=== PATIENT | female | born 1965 | race Caucasian/White ===

== ENCOUNTER → 2020-07-12 09:54 | Outpatient (BNV) | payer OTHER, SELFPAY | PROVIDERS: PCP Internal Medicine; Visit Provider Internal Medicine Medical Oncology | DX: Z85.71 Personal history of Hodgkin lymphoma (principal); R06.02 Shortness of breath; Z77.22 Contact with and (suspected) exposure to environmental tobacco smoke (acute) (chronic) | CPT/HCPCS: 99212; 99213 ==

== ENCOUNTER → 2020-07-29 12:56 | Outpatient (BNVA) | payer OTHER, MEDICARE, SELFPAY | PROVIDERS: PCP Internal Medicine; Referring Provider Internal Medicine; Visit Provider Nurse Practitioner | DX: Z76.89 Persons encountering health services in other specified circumstances (principal) | CPT/HCPCS: Q3014 ==

== ENCOUNTER → 2020-09-09 13:24 | Outpatient (BNVA) | payer OTHER, MEDICARE, SELFPAY | PROVIDERS: PCP Internal Medicine; Visit Provider Nurse Practitioner | CPT/HCPCS: Q3014 ==

== ENCOUNTER → 2020-11-12 10:08 | Outpatient (BNVA) | payer OTHER, SELFPAY | PROVIDERS: PCP Internal Medicine; Visit Provider Nurse Practitioner Family | DX: M77.8 Other enthesopathies, not elsewhere classified (principal); M47.816 Spondylosis without myelopathy or radiculopathy, lumbar region; M25.561 Pain in right knee; M25.562 Pain in left knee | CPT/HCPCS: 99202 ==

== ENCOUNTER 2020-11-19 08:57 | Outpatient (REF) | payer OTHER, SELFPAY ==
--- NOTE | ~2020-11-19 | XR_ITS ---
EXAMINATION: XR LUMBOSACRAL SPINE CLINICAL INFORMATION: M47.816 - Spondylosis without myelopathy or radiculopathy COMPARISON: Radiographs lumbar spine 08/17/2017 TECHNIQUE: Three views of the lumbosacral spine. FINDINGS: There is normal lumbar segmentation with 5 nonrib-bearing lumbar vertebrae of normal height and normal lumbar lordosis. Again, there is dextrocurvature lumbar spine. There is no vertebral compression, spondylolisthesis, disc narrowing, destructive process. The SI joints and visualized sacrum are unremarkable. XR/XR lumbar spine 2-3V IMPRESSION: 1. Dextrocurvature lumbar spine similar to prior study 2018. 2. No visible compression, disc narrowing, or spondylolisthesis.
== END 2020-11-19 08:58 | disposition home or self-care (01) ==
LOC: HO.XRAY 08:57
PROVIDERS: PCP Internal Medicine; Visit Provider Nurse Practitioner Family
DX: M47.816 Spondylosis without myelopathy or radiculopathy, lumbar region (principal)
CPT/HCPCS: 72100

== ENCOUNTER → 2020-12-10 13:53 | Outpatient (BNVA) | payer OTHER, SELFPAY | PROVIDERS: PCP Internal Medicine; Visit Provider Nurse Practitioner Family | DX: M77.8 Other enthesopathies, not elsewhere classified (principal); M47.816 Spondylosis without myelopathy or radiculopathy, lumbar region; M25.561 Pain in right knee; M25.562 Pain in left knee; G89.29 Other chronic pain | CPT/HCPCS: Q3014 ==

== ENCOUNTER 2021-01-16 07:50 | Outpatient (REF) | payer OTHER, SELFPAY ==
--- NOTE | ~2021-01-16 | XR_ITS ---
EXAMINATION: XR KNEE STANDING, BILATERAL XR KNEE, RIGHT XR KNEE, LEFT CLINICAL INFORMATION: Pain. COMPARISON: Right and left knee radiographs dated 08/17/2017 TECHNIQUE: AP standing as well as lateral and sunrise views of the right and left knee. FINDINGS: RIGHT KNEE: No significant joint space narrowing. Tiny patellofemoral marginal osteophytes and mild subchondral cystic change is similar when compared to the prior examination. No fracture or dislocation. No significant joint effusion. No abnormal soft tissue calcification. LEFT KNEE: Mild medial compartment joint space narrowing. Small medial and patellofemoral compartment marginal osteophytes. No osseous erosion. No fracture or dislocation. No significant joint effusion. No abnormal soft tissue calcification. XR/XR knee RT 2V IMPRESSION: RIGHT KNEE: Mild patellofemoral compartment ostearthritis, unchanged. LEFT KNEE: Mild medial and patellofemoral compartment osteoarthritis, unchanged.
--- NOTE | ~2021-01-16 | XR_ITS ---
EXAMINATION: XR KNEE STANDING, BILATERAL XR KNEE, RIGHT XR KNEE, LEFT CLINICAL INFORMATION: Pain. COMPARISON: Right and left knee radiographs dated 08/17/2017 TECHNIQUE: AP standing as well as lateral and sunrise views of the right and left knee. FINDINGS: RIGHT KNEE: No significant joint space narrowing. Tiny patellofemoral marginal osteophytes and mild subchondral cystic change is similar when compared to the prior examination. No fracture or dislocation. No significant joint effusion. No abnormal soft tissue calcification. LEFT KNEE: Mild medial compartment joint space narrowing. Small medial and patellofemoral compartment marginal osteophytes. No osseous erosion. No fracture or dislocation. No significant joint effusion. No abnormal soft tissue calcification. XR/XR knee LT 2V IMPRESSION: RIGHT KNEE: Mild patellofemoral compartment ostearthritis, unchanged. LEFT KNEE: Mild medial and patellofemoral compartment osteoarthritis, unchanged.
--- NOTE | ~2021-01-16 | XR_ITS ---
EXAMINATION: XR KNEE STANDING, BILATERAL XR KNEE, RIGHT XR KNEE, LEFT CLINICAL INFORMATION: Pain. COMPARISON: Right and left knee radiographs dated 08/17/2017 TECHNIQUE: AP standing as well as lateral and sunrise views of the right and left knee. FINDINGS: RIGHT KNEE: No significant joint space narrowing. Tiny patellofemoral marginal osteophytes and mild subchondral cystic change is similar when compared to the prior examination. No fracture or dislocation. No significant joint effusion. No abnormal soft tissue calcification. LEFT KNEE: Mild medial compartment joint space narrowing. Small medial and patellofemoral compartment marginal osteophytes. No osseous erosion. No fracture or dislocation. No significant joint effusion. No abnormal soft tissue calcification. XR/XR knee standing BI IMPRESSION: RIGHT KNEE: Mild patellofemoral compartment ostearthritis, unchanged. LEFT KNEE: Mild medial and patellofemoral compartment osteoarthritis, unchanged.
== END 2021-01-16 07:51 | disposition home or self-care (01) ==
LOC: HO.HOSX 07:50
PROVIDERS: Visit Provider Orthopaedic Surgery
DX: M17.0 Bilateral primary osteoarthritis of knee (principal)
CPT/HCPCS: 20610; 73560; 73565; 99202; J1100

== ENCOUNTER → 2021-10-13 12:57 | Outpatient (BNVA) | payer OTHER, SELFPAY | PROVIDERS: PCP Internal Medicine; Visit Provider Orthopaedic Surgery | DX: M17.0 Bilateral primary osteoarthritis of knee (principal) | CPT/HCPCS: 20610; 99212; J1100 ==

== ENCOUNTER 2021-10-28 01:16 | Emergency (ER) | payer OTHER, SELFPAY ==
--- NOTE | ~2021-10-28 | CT_ITS ---
EXAMINATION: CT ABDOMEN AND PELVIS WITHOUT CONTRAST CLINICAL INFORMATION: Left flank pain with nausea and vomiting. COMPARISON: CT abdomen pelvis 10/24/2017. TECHNIQUE: Multidetector volumetric imaging was performed from the superior aspect of the liver through the pubic symphysis. Sagittal and coronal reformatted images were obtained on the technologist's workstation. This CT examination was performed using dose optimization techniques as appropriate, variously including the following: *Automated exposure control *Adjustment of mA and/or kV according to patient size (this includes techniques or standardized protocols for targeted exams where dose is matched to indication/reason for exam; i.e. extremities or head) *Use of iterative reconstruction technique DLP: 625 mGy-cm FINDINGS: LUNG BASES: The visualized lung bases are unremarkable. LIVER, GALLBLADDER, AND BILIARY TREE: The liver is normal in size, shape, and attenuation. No focal hepatic lesion or biliary ductal dilatation is present. Cholecystectomy clips are noted. Several orphan clips are noted along the inferior margin of the liver similar to findings present for 20 08/24/2017. PANCREAS: Unremarkable. SPLEEN: Unremarkable. ADRENAL GLANDS: Unremarkable. KIDNEYS AND URETERS: A 2.5 mm calculus is present one CM proximal to the left ureterovesicular junction. Moderate left ureterectasis is noted along with mild left hydronephrosis. A single 2 mm calculus is present superiorly within the left renal pelvis. No gross perinephric inflammatory changes are visualized. A 7 mm rounded low density (1 Hounsfield unit) benign-appearing simple cyst is present in the interpolar segment of the left kidney and requires no additional imaging follow-up. This finding is unchanged in size compared with 10/24/2017. No perinephric fluid collections noted. BLADDER: Physiologically decompressed. GASTROINTESTINAL TRACT: No intestinal dilatation or mural thickening. Normal appearance of the appendix. No free peritoneal fluid or gas collections. Normal sigmoid and small bowel mesentery is. Normal appearance of the stomach. ABDOMINAL WALL: No significant hernia is appreciated. LYMPH NODES: Normal. VASCULAR: Mild scattered calcific atherosclerosis. PELVIC VISCERA: Uterus is absent. No suspicious adnexal lesions noted. A single pelvic phlebolith within the right hemipelvis is again noted. OSSEOUS STRUCTURES: No suspicious skeletal lesions noted. CT/CT abdomen pelvis wo con IMPRESSION: *Single obstructing 2.5 mm calculus 1 cm proximal to the left ureterovesicular junction. Moderate left ureterectasis and mild left hydronephrosis. An additional nonobstructing 2 mm calculus is present within the superior left renal pelvis. No additional urolithiasis bilaterally. No perinephric fluid collections.
[2021-10-28 01:35] VITALS: BP 167/82; PULSE 75; RESP 20; TEMP 37.1; O2SAT 99; BMI 31.2
[2021-10-28 01:56] LABS: MANUAL DIFF FLAG NO
[2021-10-28 01:57] LABS: Basophils Percent Auto 0.2 % (0-2); Eosinophils Absolute Auto 0.1 X10*3/uL (0.0-0.4); Eosinophils Percent Auto 0.6 % (0-4); Hematocrit 41.6 % (37.0-47.0); Hemoglobin 13.4 g/dl (12.0-16.0); Imm Gran Abs Auto 0.07 X10*3/uL (0.00-0.03); Imm Gran Pct Auto 0.5 % (0.0-0.4); Lymphocytes Percent Auto 29.9 % (20-40); Mean Corpuscular HGB Conc 32.2 g/dl (31.0-35.0); Mean Corpuscular Volume 86.8 fL (80.0-98.0); Monocytes Absolute Auto 0.8 X10*3/uL (0.1-1.2); Monocytes Percent Auto 6.3 % (2-11); Neutrophils Absolute Auto 8.4 x10*3/uL (2.0-8.3); Neutrophils Percent Auto 62.5 % (45-73); Platelet Count 236 X10*3/uL (160-400); Red Blood Count 4.79 X10*6/uL (4.20-5.50); White Blood Count 13.4 X10*3/uL (4.8-10.8)
--- NOTE | 2021-10-28 02:18 | ED_ITS ---
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 Patient with hematuria and abdominal pain and back pain. Patient with a stone one year ago. Patient with left flank pain going to the suprapubic area, the pain started today. She denies fever, she is having nausea and vomiting. MD elicited complaint: dysuria and difficulty urinating Onset (ago): hour(s) Location of symptoms: low back and flank Severity: moderate Quality of pain: sharp Consistency: constant Urinary symptoms: Dysuria and Hematuria Associated symptoms: nausea and vomiting Related Data Previous Rx's Medication Instructions Recorded Brace,wrist (Wrist Brace - one) #1 ea 10/28/20 Knee brace #1 ea 03/20/21 cane #1 ea 03/20/21 omeprazole 40 mg capsule,delayed 40 mg PO QAM #30 cap 03/20/21 release trazodone 50 mg tablet 50 mg PO BEDTIME PRN 90 Days #90 09/10/21 tab naproxen 500 mg tablet (Naprosyn) 500 mg PO BID #20 tab 10/28/21 ondansetron 4 mg disintegrating 4 mg PO Q8H 4 Days #12 tab 10/28/21 tablet tamsulosin 0.4 mg capsule (Flomax) 0.4 mg PO DAILY #30 cap 10/28/21 Allergies Allergy/AdvReac Type Severity Reaction Status Date / Time metronidazole [Flagyl] Allergy Intermediate hives Verified 09/23/21 10:31 Review of Systems Constitutional: Constitutional: Reports no additional constitutional complaints Eyes: Eyes: Reports no additional eye complaints ENT: Denies dizziness Cardiovascular: Cardiovascular: Reports no additional cardiovascular complaints Respiratory: Respiratory: Reports as per HPI Gastrointestinal: Gastrointestinal: Reports no additional gastrointestinal complaints Genitourinary: Genitourinary: Reports no additional female genitourinary complaints Musculoskeletal: Musculoskeletal: Reports no additional musculoskeletal complaints Integumentary/Breasts: Skin/Breast: Denies rash Neurologic: Reports system reviewed and no additional complaints, except as documented, Denies dizziness and Denies Sensory deficit (Neuro) Psychiatric: Psychiatric: Denies anxiety PMF Past Medical History Medical History Ear discomfort Headache Hodgkin lymphoma Lumbar pain Obese Primary insomnia Rash and nonspecific skin eruption Screen for STD (sexually transmitted disease) Tubular adenoma of colon Surgical History History of colonoscopy History of esophagogastroduodenoscopy Hx of cataract extraction Family History Family History (Reviewed 10/28/21 @ 02: by Phu Haider MD) Mother Diabetes High blood pressure Father Pacemaker Maternal Aunt Stomach cancer Maternal Aunt Liver cancer Social History Social History Housing: Apartment Alcohol intake: current Alcohol intake frequency: holidays/special occasions only Alcohol type: wine Patient Tobacco Use Status: Never used Tobacco e-Cigarette/Vaping Use: Never Used Second Hand Smoke Exposure: No Advance Directives: No Patient : No service: No Current occupational status: unemployed and disabled Physical Exam Vital Signs: Vital Signs: Last Vital Signs Temp 98.7 F 10/28/21 06:12 Pulse 97 10/28/21 06:12 Resp 19 10/28/21 06:12 BP 115/76 10/28/21 06:12 Pulse Ox 97 10/28/21 06:12 BMI result Body Mass Index 31.2 Const: Other: nausea vomiting with pain, diaphoretic Nutritional Appearance: obese Orientation/consciousness: oriented to person and patient oriented x3 Limitations: no limitations HEENT: Head: Yes normal to inspection Ears: external ears normal General nose exam: Normal external nose present Mouth: Normal oral and palatal mucosa present and oropharynx normal Throat: Yes posterior oropharynx normal Eyes: General: appearance normal, both eyes and all related structures Neck: Other: supple Neck: Yes normal visual inspection Chest: Chest palpation & inspection: normal inspection of the chest Resp: Auscultation: clear to auscultation bilaterally Cardio: Jugular venous distension: no JVD Rate: regular rate Rhythm: regular rhythm Heart sounds: S1 normal heart sound present and S2 normal heart sound present GI: Inspection: Yes normal to inspection Palpation (GI): Soft to palpation, nontender and No hepatosplenomegaly present Auscultation: normal bowel sounds Back/Spine/Pelvis: Other: left CVAT Skin: General skin exam: no rashes or lesions noted Neuro: General: oriented to person and patient oriented x3 Cranial nerves: Yes CN's II-XII intact bilaterally Motor exam (neuro): 5/5 motor strength present throughout Sensory Exam: No Sensory deficit (Neuro) Extrem: General: Yes normal to inspection Psych: Appearance: grossly normal Course Reevaluation(s) Reevaluation #1: patient with kidney stone at the J will dc home Time: 06:53 MDM - Female Genitourinary Lab Data Result diagrams: 10/28/21 01:52 10/28/21 01:52 Labs: Lab Results 10/28/21 10/28/21 10/28/21 Range/Units 01:52 01:52 04:34 WBC 13.4 H (4.8-10.8) X10*3/uL RBC 4.79 (4.20-5.50) X10*6/uL Hgb 13.4 (12.0-16.0) g/dl Hct 41.6 (37.0-47.0) % MCV 86.8 (80.0-98.0) fL MCH 28.0 (27.0-33.0) pg MCHC 32.2 (31.0-35.0) g/dl RDW 14.0 (11.0-16.0) % Plt Count 236 (160-400) X10*3/uL MPV 10.0 (9.4-12.3) fL Immature Gran % (Auto) 0.5 H (0.0-0.4) % Neut % (Auto) 62.5 (45-73) % Lymph % (Auto) 29.9 (20-40) % [place] % (Auto) 6.3 (2-11) % Eos % (Auto) 0.6 (0-4) % Baso % (Auto) 0.2 (0-2) % Lymph # (Auto) 4.0 (1.2-4.9) X10*3/uL [place] # (Auto) 0.8 (0.1-1.2) X10*3/uL Eos # (Auto) 0.1 (0.0-0.4) X10*3/uL Baso # (Auto) 0.0 (0.0-0.2) X10*3/uL Abs Immat Gran (auto) 0.07 H (0.00-0.03) X10*3/uL Absolute Neuts (auto) 8.4 H (2.0-8.3) x10*3/uL Absolute Nucleated RBC 0.000 (0.0-0.012) X10*3/uL Nucleated RBC % (auto) 0.0 (0.0-0.2) /100WBC Sodium 137 (135-145) mmol/L Potassium 3.8 (3.3-5.1) mmol/L Chloride 103 (96-108) mmol/L Carbon Dioxide 24 (22-29) mmol/L Anion Gap 14 (12-20) BUN 17 H (9-16) mg/dL Creatinine 0.90 (0.5-1.4) mg/dL Estim Creat Clear Calc 61.3 Estimated GFR > 60 Random Glucose 123 H (60-115) mg/dL Calcium 9.8 (8.4-10.2) mg/dL Urine Color YELLOW Urine Appearance CLEAR Urine pH 6.0 (5.0-8.0) Ur Specific [place] >= 1.030 H (1.005-1.025) Urine Protein NEG (NEG-TRACE) MG/DL Urine Glucose (UA) NEG (NEG) MG/DL Urine Ketones NEG (NEG) MG/DL Urine Blood 3+ H (NEG) Urine Nitrite NEG (NEG) Ur Leukocyte Esterase NEG (NEG) Urine RBC 15-29 H (0) /HPF Urine WBC 1-4 (0-4) /HPF Ur Squamous Epith Cells 1+ /LPF Urine Bacteria 2+ /LPF Urine Test (NEGATIVE) 10/28/21 Range/Units 04:34 WBC (4.8-10.8) X10*3/uL RBC (4.20-5.50) X10*6/uL Hgb (12.0-16.0) g/dl Hct (37.0-47.0) % MCV (80.0-98.0) fL MCH (27.0-33.0) pg MCHC (31.0-35.0) g/dl RDW (11.0-16.0) % Plt Count (160-400) X10*3/uL MPV (9.4-12.3) fL Immature Gran % (Auto) (0.0-0.4) % Neut % (Auto) (45-73) % Lymph % (Auto) (20-40) % [place] % (Auto) (2-11) % Eos % (Auto) (0-4) % Baso % (Auto) (0-2) % Lymph # (Auto) (1.2-4.9) X10*3/uL [place] # (Auto) (0.1-1.2) X10*3/uL Eos # (Auto) (0.0-0.4) X10*3/uL Baso # (Auto) (0.0-0.2) X10*3/uL Abs Immat Gran (auto) (0.00-0.03) X10*3/uL Absolute Neuts (auto) (2.0-8.3) x10*3/uL Absolute Nucleated RBC (0.0-0.012) X10*3/uL Nucleated RBC % (auto) (0.0-0.2) /100WBC Sodium (135-145) mmol/L Potassium (3.3-5.1) mmol/L Chloride (96-108) mmol/L Carbon Dioxide (22-29) mmol/L Anion Gap (12-20) BUN (9-16) mg/dL Creatinine (0.5-1.4) mg/dL Estim Creat Clear Calc Estimated GFR Random Glucose (60-115) mg/dL Calcium (8.4-10.2) mg/dL Urine Color Urine Appearance Urine pH (5.0-8.0) Ur Specific [place] (1.005-1.025) Urine Protein (NEG-TRACE) MG/DL Urine Glucose (UA) (NEG) MG/DL Urine Ketones (NEG) MG/DL Urine Blood (NEG) Urine Nitrite (NEG) Ur Leukocyte Esterase (NEG) Urine RBC (0) /HPF Urine WBC (0-4) /HPF Ur Squamous Epith Cells /LPF Urine Bacteria /LPF Urine Test NEGATIVE (NEGATIVE) Imaging Data CT scan - abdomen: Radiologist's impression: IMPRESSION: *Single obstructing 2.5 mm calculus 1 cm proximal to the left ureterovesicular junction. Moderate left ureterectasis and mild left hydronephrosis. An additional nonobstructing 2 mm calculus is present within the superior left renal pelvis. No additional urolithiasis bilaterally. No perinephric fluid collections. ? Discharge Plan Discharge Clinical Impression: Renal colic on left side Patient Disposition: Home, Self-Care Instructions: Renal Colic (ED) Additional Instructions: strain all urine for stone Prescriptions: New ondansetron 4 mg tablet,disintegrating 4 mg PO Q8H 4 Days Qty: 12 0RF naproxen [Naprosyn] 500 mg tablet 500 mg PO BID Qty: 20 0RF tamsulosin [Flomax] 0.4 mg capsule 0.4 mg PO DAILY Qty: 30 0RF No Action (DME) Wrist Brace - one Misc See Rx Instructions .ROUTE .MEDSUPPLY Qty: 1 0RF Rx Instructions: As directed- LEFT WRIST STABILIZER trazodone 50 mg tablet 50 mg PO BEDTIME PRN (Reason: sleep) 90 Days Qty: 90 1RF (DME) Knee brace Misc See Rx Instructions .Route Qty: 1 0RF Rx Instructions: As directed omeprazole 40 mg capsule,delayed release(DR/EC) 40 mg PO QAM Qty: 30 6RF (DME) cane Device See Rx Instructions .Route Qty: 1 0RF Rx Instructions: As directed Referrals: Oliver Ken MD [Physician] - 1 week
[2021-10-28 02:19] LABS: Anion Gap 14 (12-20); Blood Urea Nitrogen 17 mg/dL (9-16); Calcium 9.8 mg/dL (8.4-10.2); Carbon Dioxide 24 mmol/L (22-29); Chloride 103 mmol/L (96-108); Creatinine Clr Calc Pharmacy 61.3; Estimated Glomerular Filt Rate > 60; Glucose Random 123 mg/dL (60-115); Potassium 3.8 mmol/L (3.3-5.1); Sodium 137 mmol/L (135-145)
[2021-10-28] MEDS: ondansetron HCL 4 MG/2 ML VIAL IVPUSH (02:39)
[2021-10-28] MEDS: Ketorolac Tromethamine 30 MG/ML VIAL IVPUSH (02:39)
[2021-10-28] MEDS: 0.9 % Sodium Chloride 1,000 ML 999 ML IVCONT ×2 (02:40→05:00)
[2021-10-28 03:52] VITALS: BP 123/51; PULSE 73; RESP 16; TEMP 36.9; O2SAT 97
[2021-10-28] MEDS: Tamsulosin HCL 0.4 MG CAPSULE PO (03:59)
[2021-10-28 04:40] LABS: Appearance Urine CLEAR; Color Urine YELLOW; Glucose Urine UA NEG (NEG); Leukocyte Esterase Urine NEG (NEG); Nitrite Urine NEG (NEG); Specific Gravity - Urine >= 1.030 (1.005-1.025); UACC Culture Trigger NO; Urine Blood 3+ (NEG); Urine Ketones NEG (NEG); Urine Protein NEG (NEG-TRACE)
[2021-10-28 04:44] LABS: UPreg QC Valid YES; Urine Pregnancy NEGATIVE (NEGATIVE)
[2021-10-28 04:49] LABS: Bacteria Urine 2+ /LPF; Squamous Epithelial Cell Urine 1+ /LPF
[2021-10-28] MEDS: Morphine Sulfate 4 MG/ML CARTRIDGE IVPUSH (05:06)
[2021-10-28 06:12] VITALS: BP 115/76; PULSE 97; RESP 19; TEMP 37.1; O2SAT 97
== END 2021-10-28 07:00 | disposition home or self-care (01) ==
PROVIDERS: Emergency Provider Emergency Medicine; PCP Internal Medicine
DX: N13.2 Hydronephrosis with renal and ureteral calculous obstruction (principal); Z87.442 Personal history of urinary calculi
CPT/HCPCS: 36415; 74176; 80048; 81001; 81025; 85025; 96361; 96374; 96375; 99283; 99284; J1885; J2270; J2405

== ENCOUNTER 2021-10-30 12:03 | Inpatient (IN) | payer OTHER, SELFPAY ==
--- NOTE | ~2021-10-30 | US_ITS ---
EXAMINATION: US RETROPERITONEAL LIMITED (RENAL ONLY) CLINICAL INFORMATION: Kidney stones. Urinary tract infection.. COMPARISON: CT abdomen pelvis 10/28/2021. TECHNIQUE: Grayscale and color Doppler renal ultrasonography. FINDINGS: The right kidney measures 11.3 cm x 5.1 cm x 6.2 cm is normal in appearance without evidence of hydronephrosis or renal calculi. The left kidney measures 11.5 cm x 5.4 cm x 5.4 cm is without evidence of hydronephrosis or calculi. A single 6 mm x 8 mm x 9 mm rounded anechoic focus is present in the interpolar segment left kidney having the appearance of a simple cyst requiring no additional imaging follow-up. US/US renal BI IMPRESSION: *No hydronephrosis. Normal appearance of the left and right kidneys. The single 2 mm calculus noted within the superior left renal pelvis on the comparison CT of 10/28/2021 is not identified on the current examination and may be too small to be visualized by the current sonographic exam.
--- NOTE | ~2021-10-30 | XR_ITS ---
EXAMINATION: XR CHEST CLINICAL INFORMATION: Dyspnea. COMPARISON: Chest radiograph dated 03/26/2010. CT scan of the abdomen and pelvis dated 10/28/2021 TECHNIQUE: 2 views of the chest were obtained. FINDINGS: Subtle linear markings are seen in the right mid and lower lung syed. Possible very small pleural effusion. The heart and mediastinal structures are unremarkable. XR/XR chest 2V IMPRESSION: Subtle linear markings in the right lung and possible very small pleural effusion are nonspecific. No significant abnormality was seen on limited images from the recent abdominal CT scan. This was not seen on the remote 2009 study. A developing mild infectious/inflammatory process cannot be excluded. If the patient's symptoms persist or worsen, short-term repeat radiographic follow-up is recommended as clinically indicated to assess for more acute change.
[2021-10-30 12:15] VITALS: BP 143/89; PULSE 140; RESP 20; TEMP 38.8; O2SAT 95; BMI 29.2
[2021-10-30 15:31] LABS: MANUAL DIFF FLAG NO
[2021-10-30 15:33] LABS: Basophils Percent Auto 0.2 % (0-2); Eosinophils Percent Auto 0.1 % (0-4); Hematocrit 40.7 % (37.0-47.0); Hemoglobin 12.9 g/dl (12.0-16.0); Imm Gran Abs Auto 0.09 X10*3/uL (0.00-0.03); Imm Gran Pct Auto 0.7 % (0.0-0.4); Lymphocytes Absolute Auto 1.1 X10*3/uL (1.2-4.9); Lymphocytes Percent Auto 8.7 % (20-40); Mean Corpuscular HGB Conc 31.7 g/dl (31.0-35.0); Mean Corpuscular Hemoglobin 27.6 pg (27.0-33.0); Mean Corpuscular Volume 87.2 fL (80.0-98.0); Mean Platelet Volume 10.2 fL (9.4-12.3); Monocytes Absolute Auto 0.6 X10*3/uL (0.1-1.2); Monocytes Percent Auto 4.8 % (2-11); Neutrophils Absolute Auto 10.9 x10*3/uL (2.0-8.3); Neutrophils Percent Auto 85.5 % (45-73); Platelet Count 140 X10*3/uL (160-400); Red Blood Count 4.67 X10*6/uL (4.20-5.50); Red Cell Distribution Width 14.7 % (11.0-16.0); White Blood Count 12.8 X10*3/uL (4.8-10.8)
[2021-10-30 15:58] LABS: Alanine Aminotransferase 55 U/L (0-31); Albumin Level 3.2 g/dL (3.5-5.0); Alkaline Phosphatase 137 U/L (39-117); Anion Gap 11 (12-20); Aspartate Amino Transferase 36 U/L (5-31); Bilirubin Total 0.8 mg/dL (0.0-1.0); Blood Urea Nitrogen 13 mg/dL (9-16); Calcium 9.3 mg/dL (8.4-10.2); Carbon Dioxide 25 mmol/L (22-29); Chloride 107 mmol/L (96-108); Creatinine Clr Calc Pharmacy 56.2; Estimated Glomerular Filt Rate 55; Glucose Random 88 mg/dL (60-115); Potassium 3.7 mmol/L (3.3-5.1); Sodium 139 mmol/L (135-145); Total Protein 6.2 g/dL (6.5-8.0)
[2021-10-30 20:52] VITALS: BP 132/64; PULSE 121; RESP 16; TEMP 37.9; O2SAT 95
--- NOTE | 2021-10-30 21:00 | ED.GENADULT ---
HPI - General Adult General Chief complaint: Nausea/Vomiting/Diarrhea Stated complaint: vomiting abd pain Time Seen by Provider: 10/30/21 12:19 Source: patient Mode of arrival: ambulatory Limitations: no limitations History of Present Illness HPI narrative: Patient comes to the emergency room complaining of left-sided flank pain, nausea and vomiting. Patient was evaluated 2 days ago for the same issue. Patient was diagnosed with ureter [facility]. Patient states that starting today, she has been unable to hold any of her pain or nausea medications due to vomiting. Patient denies fever chills, no dysuria, no hematuria. Related Data Previous Rx's Medication Instructions Recorded Brace,wrist (Wrist Brace - one) #1 ea 10/28/20 Knee brace #1 ea 03/20/21 cane #1 ea 03/20/21 omeprazole 40 mg capsule,delayed 40 mg PO QAM #30 cap 03/20/21 release trazodone 50 mg tablet 50 mg PO BEDTIME PRN 90 Days #90 09/10/21 tab naproxen 500 mg tablet (Naprosyn) 500 mg PO BID #20 tab 10/28/21 ondansetron 4 mg disintegrating 4 mg PO Q8H 4 Days #12 tab 10/28/21 tablet tamsulosin 0.4 mg capsule (Flomax) 0.4 mg PO DAILY #30 cap 10/28/21 prednisone 20 mg tablet 20 mg PO DAILY 5 Days #5 tab 10/29/21 Allergies Allergy/AdvReac Type Severity Reaction Status Date / Time metronidazole [Flagyl] Allergy Intermediate hives Verified 09/23/21 10:31 Review of Systems Review of Systems: Constitutional : No Weight loss, No Fever, No Chills, No Night Sweats, No Fatigue, No Malaise ENT/Mouth : No Hearing loss, No Ear Pain, No Nasal Congestion, No Sinus Pain, No Hoarseness, No sore throat, No Rhinorrhea, No Swallowing Difficulty Eyes: No Eye Pain, No Swelling, No Redness, No Foreign Body, No Discharge, No Vision Changes Cardiovascular : No Chest Pain, No SOB, No Dyspnea on Exertion, No Orthopnea, No Edema, No Palpitations Respiratory : No Cough, No Sputum, No Wheezing, No Smoke Exposure, No Dyspnea Gastrointestinal : Planning of nausea vomiting, No Diarrhea, No Constipation, No abdominal Pain, No Hematochezia, No Melena Genitourinary : no irregular bleeding, No Dysuria, No Urinary Frequency, No Hematuria, No Urinary Incontinence, No Urgency, lining of sharp left-sided Flank Pain, No Urinary Flow Changes, No Hesitancy Musculoskeletal : No joint pain, No Myalgias, No Joint Swelling Skin : No Skin Lesions, No rash Neuro : No Weakness, No Numbness, No Paresthesias, No Loss of Consciousness, No Dizziness, No Headache Psych : No Anxiety/Panic, No Depression, No SI/HI/AH/VH, No Social Issues, Heme/Lymph: No Bruising, No Bleeding,No Lymphadenopathy Endocrine : No Polyuria, No Polydipsia, No Temperature Intolerance [facility] Past Medical History Medical History Ear discomfort Headache Hodgkin lymphoma Lumbar pain Obese Primary insomnia Rash and nonspecific skin eruption Screen for STD (sexually transmitted disease) Tubular adenoma of colon Surgical History History of colonoscopy History of esophagogastroduodenoscopy Hx of cataract extraction Family History Family History Mother Diabetes High blood pressure Father Pacemaker Maternal Aunt Stomach cancer Maternal Aunt Liver cancer Social History Social History Housing: Apartment Alcohol intake: current Alcohol intake frequency: holidays/special occasions only Alcohol type: wine Patient Tobacco Use Status: Never used Tobacco e-Cigarette/Vaping Use: Never Used Second Hand Smoke Exposure: No Advance Directives: No Advance Directives Information Provided: Yes Patient : No service: No Current occupational status: unemployed and disabled Physical Exam ED Vital Signs: Vital Signs - 24 hr 10/30/21 12:15 10/30/21 20:52 10/30/21 23:00 Temperature 102 F H 100.3 F Pulse Rate 140 H 121 H 116 H Respiratory Rate 20 16 17 Blood Pressure 143/89 H 132/64 117/54 L Pulse Oximetry 95 95 95 10/30/21 23:02 Temperature 99.7 F Pulse Rate Respiratory Rate Blood Pressure Pulse Oximetry BMI result Body Mass Index 29.2 Const Other: Appearance: Alert. Oriented X3. No acute distress. Eyes: Pupils equal, round and reactive to light. ENT: Pharynx normal. Neck: Normal inspection. Neck supple. No lymph nodes noted. No crepitus CVS: Normal heart rate and rhythm. Pulses normal. Normal S1 and S2 Respiratory: No respiratory distress. Breath sounds normal. No Wheezing. No rales Abdomen: Soft and nontender. No rigidity. No distention. Skin: Skin warm and dry. Normal skin color. Normal skin turgor. Extremities: No lower extremity edema. No Lacerations. No Rash Neuro: Oriented X 3. No motor deficit. No sensory deficit. Moving all extremities. No slurred speech. CN 2 through 12 grossly intact Psych: calm, cooperative, normal affect Course Course Course Narrative: Patient's CT scan from 2 days ago shows an obstructing 2.5 mm calculus approximately 1 cm from the left ureteral vesicular junction. Patient is receiving IV pain medication and fluids. Urinalysis pending. On arrival today, patient had a fever of 102, patient has a blood cell counts in the urine, continues having pain. White blood cell count 12.8. I discussed the patient with Dr. Ken, will admit the patient for possible stent in the morning. Patient received IV fluids, ketorolac, levofloxacin and Compazine I discussed the patient with Dr. Hendricks, patient being admitted Medical Decision Making Lab Data Result diagrams: 10/30/21 15:26 10/30/21 15:26 Labs: Lab Results 10/30/21 10/30/21 10/30/21 Range/Units 15:26 15:26 21:22 WBC 12.8 H (4.8-10.8) X10*3/uL RBC 4.67 (4.20-5.50) X10*6/uL Hgb 12.9 (12.0-16.0) g/dl Hct 40.7 (37.0-47.0) % MCV 87.2 (80.0-98.0) fL MCH 27.6 (27.0-33.0) pg MCHC 31.7 (31.0-35.0) g/dl RDW 14.7 (11.0-16.0) % Plt Count 140 L D (160-400) X10*3/uL MPV 10.2 (9.4-12.3) fL Immature Gran % (Auto) 0.7 H (0.0-0.4) % Neut % (Auto) 85.5 H (45-73) % Lymph % (Auto) 8.7 L (20-40) % [place] % (Auto) 4.8 (2-11) % Eos % (Auto) 0.1 (0-4) % Baso % (Auto) 0.2 (0-2) % Lymph # (Auto) 1.1 L (1.2-4.9) X10*3/uL [place] # (Auto) 0.6 (0.1-1.2) X10*3/uL Eos # (Auto) 0.0 (0.0-0.4) X10*3/uL Baso # (Auto) 0.0 (0.0-0.2) X10*3/uL Abs Immat Gran (auto) 0.09 H (0.00-0.03) X10*3/uL Absolute Neuts (auto) 10.9 H (2.0-8.3) x10*3/uL Absolute Nucleated RBC 0.000 (0.0-0.012) X10*3/uL Nucleated RBC % (auto) 0.0 (0.0-0.2) /100WBC Sodium 139 (135-145) mmol/L Potassium 3.7 (3.3-5.1) mmol/L Chloride 107 (96-108) mmol/L Carbon Dioxide 25 (22-29) mmol/L Anion Gap 11 L (12-20) BUN 13 (9-16) mg/dL Creatinine 1.03 (0.5-1.4) mg/dL Estim Creat Clear Calc 56.2 Estimated GFR 55 Random Glucose 88 (60-115) mg/dL Lactic Acid (0.5-2.0) mmol/L Calcium 9.3 (8.4-10.2) mg/dL Total Bilirubin 0.8 (0.0-1.0) mg/dL AST 36 H D (5-31) U/L ALT 55 H (0-31) U/L Alkaline Phosphatase 137 H D (39-117) U/L Total Protein 6.2 L (6.5-8.0) g/dL Albumin 3.2 L D (3.5-5.0) g/dL Urine Color YELLOW Urine Appearance CLEAR Urine pH 6.5 (5.0-8.0) Ur Specific [place] 1.025 (1.005-1.025) Urine Protein 3+ H (NEG-TRACE) MG/DL Urine Glucose (UA) NEG (NEG) MG/DL Urine Ketones >=80 (NEG) MG/DL Urine Blood 3+ H (NEG) Urine Nitrite NEG (NEG) Ur Leukocyte Esterase NEG (NEG) Urine RBC 15-29 H (0) /HPF Urine WBC 10-14 H (0-4) /HPF Urine WBC Clumps NOTED Ur Squamous Epith Cells 2+ /LPF Ur Renal Epithelial Cell TRACE /LPF Amorphous Sediment 1+ /LPF Urine Bacteria 3+ /LPF Hyaline Casts 1-4 /LPF Granular Casts 5-9 /LPF Urine Mucus 3+ /LPF 10/30/21 Range/Units 22:08 WBC (4.8-10.8) X10*3/uL RBC (4.20-5.50) X10*6/uL Hgb (12.0-16.0) g/dl Hct (37.0-47.0) % MCV (80.0-98.0) fL MCH (27.0-33.0) pg MCHC (31.0-35.0) g/dl RDW (11.0-16.0) % Plt Count (160-400) X10*3/uL MPV (9.4-12.3) fL Immature Gran % (Auto) (0.0-0.4) % Neut % (Auto) (45-73) % Lymph % (Auto) (20-40) % [place] % (Auto) (2-11) % Eos % (Auto) (0-4) % Baso % (Auto) (0-2) % Lymph # (Auto) (1.2-4.9) X10*3/uL [place] # (Auto) (0.1-1.2) X10*3/uL Eos # (Auto) (0.0-0.4) X10*3/uL Baso # (Auto) (0.0-0.2) X10*3/uL Abs Immat Gran (auto) (0.00-0.03) X10*3/uL Absolute Neuts (auto) (2.0-8.3) x10*3/uL Absolute Nucleated RBC (0.0-0.012) X10*3/uL Nucleated RBC % (auto) (0.0-0.2) /100WBC Sodium (135-145) mmol/L Potassium (3.3-5.1) mmol/L Chloride (96-108) mmol/L Carbon Dioxide (22-29) mmol/L Anion Gap (12-20) BUN (9-16) mg/dL Creatinine (0.5-1.4) mg/dL Estim Creat Clear Calc Estimated GFR Random Glucose (60-115) mg/dL Lactic Acid 0.9 (0.5-2.0) mmol/L Calcium (8.4-10.2) mg/dL Total Bilirubin (0.0-1.0) mg/dL AST (5-31) U/L ALT (0-31) U/L Alkaline Phosphatase (39-117) U/L Total Protein (6.5-8.0) g/dL Albumin (3.5-5.0) g/dL Urine Color Urine Appearance Urine pH (5.0-8.0) Ur Specific [place] (1.005-1.025) Urine Protein (NEG-TRACE) MG/DL Urine Glucose (UA) (NEG) MG/DL Urine Ketones (NEG) MG/DL Urine Blood (NEG) Urine Nitrite (NEG) Ur Leukocyte Esterase (NEG) Urine RBC (0) /HPF Urine WBC (0-4) /HPF Urine WBC Clumps Ur Squamous Epith Cells /LPF Ur Renal Epithelial Cell /LPF Amorphous Sediment /LPF Urine Bacteria /LPF Hyaline Casts /LPF Granular Casts /LPF Urine Mucus /LPF Discharge Plan Discharge Clinical Impression: Ureterolithiasis, UTI (urinary tract infection) Patient Disposition: Admitted As Inpatient Prescriptions: No Action (DME) Wrist Brace - one Misc See Rx Instructions .ROUTE .MEDSUPPLY Qty: 1 0RF Rx Instructions: As directed- LEFT WRIST STABILIZER trazodone 50 mg tablet 50 mg PO BEDTIME PRN (Reason: sleep) 90 Days Qty: 90 1RF prednisone 20 mg tablet 20 mg PO DAILY 5 Days Qty: 5 0RF ondansetron 4 mg tablet,disintegrating 4 mg PO Q8H 4 Days Qty: 12 0RF naproxen [Naprosyn] 500 mg tablet 500 mg PO BID Qty: 20 0RF tamsulosin [Flomax] 0.4 mg capsule 0.4 mg PO DAILY Qty: 30 0RF (DME) Knee brace Misc See Rx Instructions .Route Qty: 1 0RF Rx Instructions: As directed omeprazole 40 mg capsule,delayed release(DR/EC) 40 mg PO QAM Qty: 30 6RF (DME) cane Device See Rx Instructions .Route Qty: 1 0RF Rx Instructions: As directed
[2021-10-30 21:27] LABS: Appearance Urine CLEAR; Color Urine YELLOW; Glucose Urine UA NEG (NEG); Leukocyte Esterase Urine NEG (NEG); Nitrite Urine NEG (NEG); PH 6.5 (5.0-8.0); Specific Gravity - Urine 1.025 (1.005-1.025); UACC Culture Trigger NO; Urine Blood 3+ (NEG); Urine Ketones >=80 MG/DL (NEG); Urine Protein 3+ MG/DL (NEG-TRACE)
[2021-10-30 21:43] LABS: UACC CULT YES
[2021-10-30 21:44] LABS: Bacteria Urine 3+ /LPF; Mucus Urine 3+ /LPF; Renal Epithelial Cells Urine TRACE /LPF; Squamous Epithelial Cell Urine 2+ /LPF
[2021-10-30 21:45] LABS: Amorphous Sediment Urine 1+ /LPF; WBC Clumps Urine NOTED
[2021-10-30] MEDS: 0.9 % Sodium Chloride 1,000 ML 999 ML IVCONT (22:12)
[2021-10-30] MEDS: Ketorolac Tromethamine 30 MG/ML VIAL IVPUSH (22:12)
[2021-10-30] MEDS: Prochlorperazine Edisylate 10 MG/2 ML VIAL IVPUSH (22:12)
[2021-10-30 22:33] LABS: Lactic Acid 0.9 mmol/L (0.5-2.0)
[2021-10-30 23:00] VITALS: BP 117/54; PULSE 116; RESP 17; O2SAT 95
[2021-10-30 23:02] VITALS: TEMP 37.6
[2021-10-31] VITALS (8 sets, daily range): BP systolic 94–153; BP diastolic 46–74; PULSE 100–132; RESP 15–20; TEMP 36.4–38.5; O2SAT 95–99
--- NOTE | 2021-10-31 00:16 | PM.IMHP ---
History of Present Illness Date of Service: 10/31/21 Chief Complaint: Left flank pain 56-year-old female with a past medical history of Hodgkin lymphoma, chronic back pain, tubular adenoma of the colon, history of renal calculus, GERD presented to the hospital today with a chief complaint of left flank pain. Patient initially presented about 2 days ago to the ER with left flank pain/back pain; also complained of hematuria-noted to have 2.5 mm left UVJ calculus; patient was discharged on prednisone, Flomax; Today presents back to the hospital with worsening left flank pain, frequency urgency dysuria. Reports she had fever. Denies any blood in the urine. Denies any nausea vomiting or diarrhea. Denies any chest pain or palpitations. Review of all other systems is negative except mentioned above ER course: Per ER team patient noted to have left flank tenderness; urinalysis abnormal position of the UTI. Given antibiotics. Admitted to the hospital for further management. [facility] Medical History Ear discomfort Headache Hodgkin lymphoma Lumbar pain Obese Primary insomnia Rash and nonspecific skin eruption Screen for STD (sexually transmitted disease) Tubular adenoma of colon Family History Mother Diabetes High blood pressure Father Pacemaker Maternal Aunt Stomach cancer Maternal Aunt Liver cancer Surgical History History of colonoscopy History of esophagogastroduodenoscopy Hx of cataract extraction Social History Housing: Apartment Alcohol intake: current Alcohol intake frequency: holidays/special occasions only Alcohol type: wine Patient Tobacco Use Status: Never used Tobacco e-Cigarette/Vaping Use: Never Used Second Hand Smoke Exposure: No Advance Directives: No Advance Directives Information Provided: Yes Patient : No service: No Current occupational status: unemployed and disabled Meds Allergies Allergy/AdvReac Type Severity Reaction Status Date / Time metronidazole [Flagyl] Allergy Intermediate hives Verified 09/23/21 10:31 Active Medications: Current Medications Enoxaparin Sodium (Enoxaparin Sodium 40 Mg/0.4 Ml Syringe) 40 mg SUBCUT Q24H AJ Levofloxacin (Levaquin) 500 mg in 100 mls @ 100 mls/hr IV ONCE ONE Stop: 10/31/21 01:04 Sodium Chloride (0.9 % Sodium Chloride Flush 3 Ml Syringe) 3 ml IVFLUSH QSHIFT [facility] Physical Exam Vital Signs and Narrative: Vital Signs: Last Vital Signs Temp 99.7 F 10/30/21 23:02 Pulse 116 H 10/30/21 23:00 Resp 17 10/30/21 23:00 BP 117/54 L 10/30/21 23:00 Pulse Ox 95 10/30/21 23:00 BMI result Body Mass Index 29.2 Gen: Appears be in no acute distress HEENT: NCAT, Moist mucosa. Pulmonary: Vesicular breath sounds, fair air entry CVS: Normal S1-S2 Abdomen: BS+, Soft, Nontender; tender in the left flank; left CVA tenderness positive Extremities: Warm well perfused Neuro: Alert and awake. Results Labs CBC and Chem 7: 10/30/21 15:26 10/30/21 15:26 Labs: Laboratory Results - last 24 hr 10/30/21 10/30/21 10/30/21 15:26 15:26 21:22 MCV 87.2 MCH 27.6 MCHC 31.7 RDW 14.7 Plt Count 140 L D MPV 10.2 Immature Gran % (Auto) 0.7 H Neut % (Auto) 85.5 H Lymph % (Auto) 8.7 L [place] % (Auto) 4.8 Eos % (Auto) 0.1 Baso % (Auto) 0.2 Lymph # (Auto) 1.1 L [place] # (Auto) 0.6 Eos # (Auto) 0.0 Baso # (Auto) 0.0 Abs Immat Gran (auto) 0.09 H Absolute Neuts (auto) 10.9 H Absolute Nucleated RBC 0.000 Nucleated RBC % (auto) 0.0 Anion Gap 11 L Estim Creat Clear Calc 56.2 Estimated GFR 55 Random Glucose 88 Lactic Acid Calcium 9.3 Total Bilirubin 0.8 AST 36 H D ALT 55 H Alkaline Phosphatase 137 H D Total Protein 6.2 L Albumin 3.2 L D Urine Color YELLOW Urine Appearance CLEAR Urine pH 6.5 Ur Specific [place] 1.025 Urine Protein 3+ H Urine Glucose (UA) NEG Urine Ketones >=80 Urine Blood 3+ H Urine Nitrite NEG Ur Leukocyte Esterase NEG Urine RBC 15-29 H Urine WBC 10-14 H Urine WBC Clumps NOTED Ur Squamous Epith Cells 2+ Ur Renal Epithelial Cell TRACE Amorphous Sediment 1+ Urine Bacteria 3+ Hyaline Casts 1-4 Granular Casts 5-9 Urine Mucus 3+ 10/30/21 22:08 MCV MCH MCHC RDW Plt Count MPV Immature Gran % (Auto) Neut % (Auto) Lymph % (Auto) [place] % (Auto) Eos % (Auto) Baso % (Auto) Lymph # (Auto) [place] # (Auto) Eos # (Auto) Baso # (Auto) Abs Immat Gran (auto) Absolute Neuts (auto) Absolute Nucleated RBC Nucleated RBC % (auto) Anion Gap Estim Creat Clear Calc Estimated GFR Random Glucose Lactic Acid 0.9 Calcium Total Bilirubin AST ALT Alkaline Phosphatase Total Protein Albumin Urine Color Urine Appearance Urine pH Ur Specific [place] Urine Protein Urine Glucose (UA) Urine Ketones Urine Blood Urine Nitrite Ur Leukocyte Esterase Urine RBC Urine WBC Urine WBC Clumps Ur Squamous Epith Cells Ur Renal Epithelial Cell Amorphous Sediment Urine Bacteria Hyaline Casts Granular Casts Urine Mucus Assessment and Plan (1) UTI (urinary tract infection): Status: Acute (2) Ureterolithiasis: Status: Acute Plan 56-year-old female with a past medical history of Hodgkin lymphoma, chronic back pain, tubular adenoma of the colon, history of renal calculus, GERD presented to the hospital today with a chief complaint of left flank pain. Noted to have following conditions Left UVJ calculus colon measuring 2.[address] scan on 10/28/2021 showed mild hydronephrosis. Repeat ultrasound. Urology consult. Microscopic hematuria-likely in setting of renal calculus UTI/pyelonephritis: Continue ceftriaxone. Follow up cultures. DVT prophylaxis: Subcu heparin Code status: Full code Quality Stroke Does the patient have a stroke diagnosis?: No VTE Prior VTE?: No VTE Risk Level:: Medical - moderate - high VTE Device Contraindication: Treatment Not Indicated VTE Drug Contraindication: N/A - Med Ordered
[2021-10-31] MEDS: cefTRIAXone sodium 1 GM in 0.9 % Sodium Chloride 50 ML IV ×2 (00:55→14:26)
[2021-10-31] MEDS: levoFLOXacin/D5W 500 MG/100 ML PIGGYBACK 100 MG IV (00:55)
[2021-10-31 06:29] LABS: MANUAL DIFF FLAG NO
[2021-10-31 06:35] LABS: Basophils Percent Auto 0.3 % (0-2); Eosinophils Percent Auto 0.2 % (0-4); Hematocrit 35.6 % (37.0-47.0); Hemoglobin 11.4 g/dl (12.0-16.0); Imm Gran Abs Auto 0.06 X10*3/uL (0.00-0.03); Imm Gran Pct Auto 0.5 % (0.0-0.4); Lymphocytes Absolute Auto 0.9 X10*3/uL (1.2-4.9); Lymphocytes Percent Auto 7.8 % (20-40); Mean Corpuscular Volume 87.5 fL (80.0-98.0); Mean Platelet Volume 10.9 fL (9.4-12.3); Monocytes Absolute Auto 1.1 X10*3/uL (0.1-1.2); Neutrophils Absolute Auto 9.8 x10*3/uL (2.0-8.3); Neutrophils Percent Auto 82.2 % (45-73); Platelet Count 148 X10*3/uL (160-400); Red Blood Count 4.07 X10*6/uL (4.20-5.50); Red Cell Distribution Width 14.9 % (11.0-16.0)
[2021-10-31 07:00] LABS: Anion Gap 11 (12-20); Blood Urea Nitrogen 13 mg/dL (9-16); Carbon Dioxide 20 mmol/L (22-29); Chloride 110 mmol/L (96-108); Creatinine Clr Calc Pharmacy 71.4; Estimated Glomerular Filt Rate > 60; Glucose Random 76 mg/dL (60-115); Potassium 3.6 mmol/L (3.3-5.1); Sodium 137 mmol/L (135-145)
[2021-10-31 07:26] LABS: Calcium 8.7 mg/dL (8.4-10.2)
[2021-10-31 08:14] LABS: C Reactive Protein 23.83 mg/dL (< or = 0.50)
--- NOTE | 2021-10-31 08:58 | PHA.MEDREC ---
Pharmacy Consult ? Medication Reconciliation Pharmacy has completed the medication reconciliation. No remarkable issues, but will not that pt stated she has a twin sister with same name/ and it seems as though the claim history has been blended. Pt got frustrated when asking about specific medications and kept stating that's my sister, not me. Suzie Duran, ValeD
[2021-10-31] MEDS: HYDROmorphone HCl 1 MG/ML SYRINGE 0.5 MG IVPUSH ×2 (09:06→22:37)
[2021-10-31] MEDS: Tamsulosin HCL 0.4 MG CAPSULE PO (09:07)
[2021-10-31] MEDS: Acetaminophen 325 MG TABLET 650 MG PO ×2 (09:07→16:45)
[2021-10-31] MEDS: Enoxaparin Sodium 40 MG/0.4 ML SYRINGE SUBCUT (09:07)
[2021-10-31 09:30] LABS: COVID-19 Test Negative (Negative); IDNOW Serial# 16C4AD1C
--- NOTE | 2021-10-31 11:51 | PC.NURSE ---
RN assumed care at 11am. Pt alert and oriented x4, calm and cooperative. Pt denies pain, denies nausea. IV intact flushes without difficulties. Vitals stable, afebrile at this time. Pt educated on care plan and being admitted, pt agrees to plan.
--- NOTE | 2021-10-31 13:11 | P.CNUR_ITS ---
History of Present Illness Consult details Consult date: 10/31/21 Narrative: stone passed outpatient review Review of Systems 2 Constitutional: Constitutional: Reports as per HPI and Reports no additional constitutional complaints Cardiovascular: Cardiovascular: Reports as per HPI and Reports no additional cardiovascular complaints Respiratory: Respiratory: Reports as per HPI and Reports no additional respiratory complaints Gastrointestinal: Gastrointestinal: Reports as per HPI and Reports no additional gastrointestinal complaints Genitourinary: Genitourinary: Reports as per HPI Musculoskeletal: Musculoskeletal: Reports no additional musculoskeletal complaints and Reports as per HPI Neurologic: Reports system reviewed and no additional complaints, except as documented and Reports as per HPI [facility] Past Medical History Medical History (Updated 06/21/23 @ 10:27 by Jessica Patel MD) Restrictive lung disease Somnolence, daytime Snoring Dyspnea on exertion KASIE (obstructive sleep apnea) Hematuria Bacteremia Headache Primary insomnia Screen for STD (sexually transmitted disease) Ear discomfort Lumbar pain Obese Rash and nonspecific skin eruption Tubular adenoma of colon Hodgkin lymphoma Family History Family History Mother Diabetes High blood pressure Father Pacemaker Diabetes CAD (coronary artery disease) CKD (chronic kidney disease) Maternal Aunt Stomach cancer Maternal Aunt Liver cancer Surgical History Surgical History H/O: hysterectomy History of esophagogastroduodenoscopy History of colonoscopy Hx of cataract extraction Social History Social History Household Members: None Housing: Apartment Are you a primary healthcare architect to a significant other at home: No Do you presently have visiting nurse 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) Alcohol intake: never Patient Tobacco Use Status: Never used Tobacco e-Cigarette/Vaping Use: Never Used Second Hand Smoke Exposure: No service: No Current occupational status: unemployed and disabled Cognitive needs: Yes Hearing needs: No Vision needs: Yes Meds Allergies Allergy/AdvReac Type Severity Reaction Status Date / Time metronidazole [Flagyl] Allergy Intermediate hives Verified 06/21/23 10:20 Active Medications: Current Medications Acetaminophen (Acetaminophen 325 Mg Tablet) 650 mg PO Q6H PRN PRN Reason: Pain, Mild (Pain Scale 1-3) Last Admin: 10/31/21 09:07 Dose: 650 mg Documented by: Enoxaparin Sodium (Enoxaparin Sodium 40 Mg/0.4 Ml Syringe) 40 mg SUBCUT Q24H [facility] Last Admin: 10/31/21 09:07 Dose: 40 mg Documented by: Hydromorphone HCl (Hydromorphone Hcl 1 Mg/Ml Syringe) 0.5 mg IVPUSH Q4H PRN; Protocol PRN Reason: Pain, Severe (Pain Scale 7-10) Last Admin: 10/31/21 09:06 Dose: 0.5 mg Documented by: Ceftriaxone Sodium 1 gm/ (Sodium Chloride) 50 mls @ 100 mls/hr IV BEDTIME [facility] Last Infusion: 10/31/21 01:25 Dose: Infused Documented by: Omeprazole (Omeprazole 40 Mg Capsule.Dr) 40 mg PO DAILY [facility] Sodium Chloride (0.9 % Sodium Chloride Flush 3 Ml Syringe) 3 ml IVFLUSH QSHIFT [facility] Last Admin: 10/31/21 08:07 Dose: Not Given Documented by: Tamsulosin HCl (Tamsulosin Hcl 0.4 Mg Capsule) 0.4 mg PO DAILY [facility] Last Admin: 10/31/21 09:07 Dose: 0.4 mg Documented by: Trazodone HCl (Trazodone Hcl 50 Mg Tablet) 50 mg PO BEDTIME PRN PRN Reason: sleep Physical Exam 2 Vital Signs: Vital Signs: Last Vital Signs Temp 98.6 F 10/31/21 11:22 Pulse 100 10/31/21 11:22 Resp 18 10/31/21 11:22 BP 94/54 L 10/31/21 11:22 Pulse Ox 96 10/31/21 11:22 BMI result Body Mass Index 29.2 Const: General: cooperative, healthy appearing, comfortable and no acute distress Orientation/consciousness: patient oriented x3 HEENT: Face and sinus: Yes normal facial exam Mouth: moist mucous membranes Neck: Neck: Yes normal visual inspection, Yes full ROM and Yes trachea midline Chest: Chest palpation & inspection: normal inspection of the chest Resp: Effort & Inspection: normal respiratory effort, able to speak in complete sentences and no respiratory distress GI: Inspection: Yes normal to inspection Back/Spine/Pelvis: Cervical Spine: normal cervical lordosis Thoracic/Lumbar Spine: thoracic and lumbar spine normal to inspection Skin: General skin exam: no rashes or lesions noted Neuro: General: patient oriented x3, tone normal and moves all extremities Extrem: General: Yes normal to inspection and Yes capillary refill normal Results Labs 11/05/21 05:51 11/02/21 05:51 Labs: Abnormal lab results 10/30/21 10/30/21 10/30/21 Range/Units 15:26 15:26 21:22 WBC 12.8 H (4.8-10.8) X10*3/uL RBC (4.20-5.50) X10*6/uL Hgb (12.0-16.0) g/dl Hct (37.0-47.0) % Plt Count 140 L D (160-400) X10*3/uL Immature Gran % (Auto) 0.7 H (0.0-0.4) % Neut % (Auto) 85.5 H (45-73) % Lymph % (Auto) 8.7 L (20-40) % Lymph # (Auto) 1.1 L (1.2-4.9) X10*3/uL Abs Immat Gran (auto) 0.09 H (0.00-0.03) X10*3/uL Absolute Neuts (auto) 10.9 H (2.0-8.3) x10*3/uL Chloride (96-108) mmol/L Carbon Dioxide (22-29) mmol/L Anion Gap 11 L (12-20) AST 36 H D (5-31) U/L ALT 55 H (0-31) U/L Alkaline Phosphatase 137 H D (39-117) U/L C-Reactive Protein (< or = 0.50) mg/dL Total Protein 6.2 L (6.5-8.0) g/dL Albumin 3.2 L D (3.5-5.0) g/dL Urine Protein 3+ H (NEG-TRACE) MG/DL Urine Blood 3+ H (NEG) Urine RBC 15-29 H (0) /HPF Urine WBC 10-14 H (0-4) /HPF 10/31/21 10/31/21 Range/Units 05:52 05:52 WBC 12.0 H (4.8-10.8) X10*3/uL RBC 4.07 L (4.20-5.50) X10*6/uL Hgb 11.4 L (12.0-16.0) g/dl Hct 35.6 L (37.0-47.0) % Plt Count 148 L (160-400) X10*3/uL Immature Gran % (Auto) 0.5 H (0.0-0.4) % Neut % (Auto) 82.2 H (45-73) % Lymph % (Auto) 7.8 L (20-40) % Lymph # (Auto) 0.9 L (1.2-4.9) X10*3/uL Abs Immat Gran (auto) 0.06 H (0.00-0.03) X10*3/uL Absolute Neuts (auto) 9.8 H (2.0-8.3) x10*3/uL Chloride 110 H (96-108) mmol/L Carbon Dioxide 20 L (22-29) mmol/L Anion Gap 11 L (12-20) AST (5-31) U/L ALT (0-31) U/L Alkaline Phosphatase (39-117) U/L C-Reactive Protein 23.83 H (< or = 0.50) mg/dL Total Protein (6.5-8.0) g/dL Albumin (3.5-5.0) g/dL Urine Protein (NEG-TRACE) MG/DL Urine Blood (NEG) Urine RBC (0) /HPF Urine WBC (0-4) /HPF Short CBC 10/30/21 10/31/21 Range/Units 15:26 05:52 WBC 12.8 H 12.0 H (4.8-10.8) X10*3/uL Hgb 12.9 11.4 L (12.0-16.0) g/dl Hct 40.7 35.6 L (37.0-47.0) % Plt Count 140 L D 148 L (160-400) X10*3/uL BMP 10/30/21 10/31/21 15:26 05:52 Sodium 139 137 Potassium 3.7 3.6 Chloride 107 110 H Carbon Dioxide 25 20 L BUN 13 13 Creatinine 1.03 0.81 Calcium 9.3 8.7 D Liver Function 10/30/21 Range/Units 15:26 Total Bilirubin 0.8 (0.0-1.0) mg/dL AST 36 H D (5-31) U/L ALT 55 H (0-31) U/L Alkaline Phosphatase 137 H D (39-117) U/L Albumin 3.2 L D (3.5-5.0) g/dL Urine 10/30/21 Range/Units 21:22 Urine Color YELLOW Urine Appearance CLEAR Urine pH 6.5 (5.0-8.0) Ur Specific [place] 1.025 (1.005-1.025) Urine Protein 3+ H (NEG-TRACE) MG/DL Urine Glucose (UA) NEG (NEG) MG/DL All other labs normal. Assessment and Plan (1) Ureterolithiasis: Status: Resolved Plan Stone passed Outpatient f/u 3 weeks Procedures Date of Service Date of Service: 10/31/21
--- NOTE | 2021-10-31 13:24 | PM.EVENT ---
Event Note Date of Service: 10/31/21 Event Note: day hospitalist update S: This history was taken in Upper Sorbian from the patient. Febrile to 101.3 this am Ongoing L flank pain O: Temp Pulse Resp BP Pulse Ox 98.6 F 100 18 94/54 L 96 10/31/21 11:22 10/31/21 11:22 10/31/21 11:22 10/31/21 11:22 10/31/21 11:22 Gen: in no acute distress HEENT: sclera anicteric, moist mucus membranes Neck: supple Lungs: clear to auscultation bilaterally Heart: tachycardic + regular no murmurs Abd: soft, non-tender, non-distended : L CVA tenderness Ext: no edema Skin: warm/well-perfused Neuro: alert and oriented x3, no focal findings Psych: appropriate affect Micro: 1 of 2 BCx growing GNRs Labs: WBC 12, 82% PMNs, SCr 0.81, CRP 23.83 A/P: 56yo F with hx Hodgkin lymphoma in remission, chronic back pain, GERD admitted for urosepsis associated with nephrolithiasis, found to be bacteremic.? # sepsis # pyelonephritis # GNR bacteremia - increase ceftriaxone to 2g IV daily, follow # nephrolithiasis - tamsulosin, Urology consult, NPO # VTE ppx - LMWH
[2021-10-31] MEDS: 0.9 % Sodium Chloride 1,000 ML 100 ML IVCONT (14:26)
[2021-10-31] MEDS: 0.9 % Sodium Chloride Flush 3 ML SYRINGE IVFLUSH (16:47)
[2021-10-31] MEDS: ondansetron HCL 4 MG/2 ML VIAL IVPUSH (22:55)
[2021-11-01] VITALS (8 sets, daily range): BP systolic 122–147; BP diastolic 59–78; PULSE 70–124; RESP 16–18; TEMP 36–38.8; O2SAT 93–96
[2021-11-01] MEDS: 0.9 % Sodium Chloride 1,000 ML 100 ML IVCONT (00:30)
[2021-11-01] MEDS: Acetaminophen 325 MG TABLET 650 MG PO ×2 (04:49→22:25)
[2021-11-01] MEDS: cefTRIAXone sodium 2 GM in 0.9 % Sodium Chloride 50 ML IV (04:49)
[2021-11-01 06:06] LABS: Hematocrit 33.3 % (37.0-47.0); Hemoglobin 10.7 g/dl (12.0-16.0); Mean Corpuscular HGB Conc 32.1 g/dl (31.0-35.0); Mean Corpuscular Hemoglobin 27.5 pg (27.0-33.0); Mean Corpuscular Volume 85.6 fL (80.0-98.0); Mean Platelet Volume 10.6 fL (9.4-12.3); Platelet Count 195 X10*3/uL (160-400); Red Blood Count 3.89 X10*6/uL (4.20-5.50); White Blood Count 13.2 X10*3/uL (4.8-10.8)
[2021-11-01 06:24] LABS: Alanine Aminotransferase 29 U/L (0-31); Albumin Level 2.6 g/dL (3.5-5.0); Alkaline Phosphatase 158 U/L (39-117); Anion Gap 13 (12-20); Aspartate Amino Transferase 20 U/L (5-31); Bilirubin Total 1.5 mg/dL (0.0-1.0); Blood Urea Nitrogen 12 mg/dL (9-16); Calcium 8.5 mg/dL (8.4-10.2); Carbon Dioxide 19 mmol/L (22-29); Chloride 111 mmol/L (96-108); Creatinine Clr Calc Pharmacy 68.9; Estimated Glomerular Filt Rate > 60; Glucose Random 89 mg/dL (60-115); Potassium 3.5 mmol/L (3.3-5.1); Sodium 139 mmol/L (135-145); Total Protein 5.2 g/dL (6.5-8.0)
[2021-11-01] MEDS: Enoxaparin Sodium 40 MG/0.4 ML SYRINGE SUBCUT (07:20)
[2021-11-01] MEDS: Tamsulosin HCL 0.4 MG CAPSULE PO (08:39)
[2021-11-01] MEDS: Omeprazole 40 MG CAPSULE.DR PO (08:39)
--- NOTE | 2021-11-01 10:11 | HO.PM.IMPN ---
Subjective Subjective Date of Service: 11/01/21 Interval History: This history was taken in Bulgarian from the patient. Fever resolved. Flank pain improved. No N/V Review of Systems Review of Systems: Yes all other systems are reviewed and are negative Physical Exam Vital Signs: Vital Signs: Last Vital Signs Temp 96.8 F 11/01/21 07:16 Pulse 100 11/01/21 07:16 Resp 17 11/01/21 07:16 BP 140/78 H 11/01/21 07:16 Pulse Ox 94 11/01/21 07:16 BMI result Body Mass Index 29.2 Gen: in no acute distress HEENT: sclera anicteric, moist mucus membranes Neck: supple Lungs: clear to auscultation bilaterally Heart: tachycardic + regular no murmurs Abd: soft, non-tender, non-distended : minimal L CVA tenderness Ext: no edema Skin: warm/well-perfused Neuro: alert and oriented x3, no focal findings Psych: appropriate affect Objective Data Active Medications Acetaminophen (Acetaminophen 325 Mg Tablet) 650 mg PO Q6H PRN PRN Reason: Pain, Mild (Pain Scale 1-3) Last Admin: 11/01/21 04:49 Dose: 650 mg Documented by: KAPIL Enoxaparin Sodium (Enoxaparin Sodium 40 Mg/0.4 Ml Syringe) 40 mg SUBCUT Q24H [facility] Last Admin: 11/01/21 07:20 Dose: 40 mg Documented by: SPENCER Hydromorphone HCl (Hydromorphone Hcl 1 Mg/Ml Syringe) 0.5 mg IVPUSH Q4H PRN; Protocol PRN Reason: Pain, Severe (Pain Scale 7-10) Last Admin: 10/31/21 22:37 Dose: 0.5 mg Documented by: KAPIL Ceftriaxone Sodium 2 gm/ (Sodium Chloride) 50 mls @ 100 mls/hr IV Q24H [facility] Last Infusion: 11/01/21 05:38 Dose: 0 mls/hr Documented by: KAPIL Omeprazole (Omeprazole 40 Mg Capsule.Dr) 40 mg PO DAILY [facility] Last Admin: 11/01/21 08:39 Dose: 40 mg Documented by: SPENCER Sodium Chloride (0.9 % Sodium Chloride Flush 3 Ml Syringe) 3 ml IVFLUSH QSHIFT [facility] Last Admin: 11/01/21 07:25 Dose: Not Given Documented by: SPENCER Non-Admin Reason: IV Running Tamsulosin HCl (Tamsulosin Hcl 0.4 Mg Capsule) 0.4 mg PO DAILY [facility] Last Admin: 11/01/21 08:39 Dose: 0.4 mg Documented by: SPENCER Trazodone HCl (Trazodone Hcl 50 Mg Tablet) 50 mg PO BEDTIME PRN PRN Reason: sleep Labs CBC & Chem 7: 11/01/21 05:22 11/01/21 05:22 Labs: Laboratory Results - last 24 hr 11/01/21 11/01/21 05:22 05:22 MCV 85.6 MCH 27.5 MCHC 32.1 RDW 15.0 Plt Count 195 D MPV 10.6 Absolute Nucleated RBC 0.000 Nucleated RBC % (auto) 0.0 Anion Gap 13 Estim Creat Clear Calc 68.9 Estimated GFR > 60 Random Glucose 89 Calcium 8.5 Total Bilirubin 1.5 H AST 20 D ALT 29 Alkaline Phosphatase 158 H Total Protein 5.2 L Albumin 2.6 L Microbiology Microbiology Results: Microbiology 10/30/21 21:22 Urine Culture - Final Urine clean catch - Urine rajan top Proteus mirabilis 10/30/21 22:08 Blood Culture - Preliminary Blood - Venous Gram negative smita 10/30/21 22:08 Blood Culture - Preliminary Blood - Venous Gram negative smita Assessment and Plan (1) Bacteremia: Status: Acute [facility] hospital d#2 56yo F with hx Hodgkin lymphoma in remission, chronic back pain, GERD admitted for urosepsis associated with nephrolithiasis, found to be bacteremic.? # sepsis # pyelonephritis # GNR bacteremia - IV ceftriaxone d#2, follow BCx/UCx speci/suscept # nephrolithiasis - appears to have passed stone; hydronephrosis resolved; advance diet - outpt Uro f/u # VTE ppx - LMWH Quality Stroke Does the patient have a stroke diagnosis?: No VTE Prior VTE?: No VTE Risk Level:: Medical - moderate - high VTE Device Contraindication: Treatment Not Indicated VTE Drug Contraindication: N/A - Med Ordered
--- NOTE | 2021-11-01 10:49 | MHC.CM.PN ---
WITH ASSIST OF [employer] OPERATOR SERVICES PATIENT USES A CANE OCCASIONALLY SHE HAS 7.5 HOURS OF DICER OPERATOR SERVICES PER WEEK (T + FR) DICER OPERATOR (MICH FULLER [phone]) WILL PROVIDE TRANSPORT HOME AT TIME OF DISCHARGE. NO HCP ON FILE IF NONE IS FOUND, CASE MANAGEMENT CAN ASSIST WITH COMPLETION. PATIENT HAS NO VNA SERVICES SHE HAS BEEN COVID VACCINATED X 3. PATIENT BELIEVES THAT SHE WILL BE HERE UNTIL Wednesday11/03/21. IMM 11/01 IN CHART
[2021-11-01] MEDS: 0.9 % Sodium Chloride Flush 3 ML SYRINGE IVFLUSH ×2 (15:17→20:21)
[2021-11-01] MEDS: HYDROmorphone HCl 1 MG/ML SYRINGE 0.5 MG IVPUSH ×2 (16:15→22:17)
--- NOTE | 2021-11-01 22:30 | PC.NURSE ---
Temp-101.8 medicated with 2 tylenol and ice packs applies to neck and arm pits.c/0 7/10 left flank pain medicated with dilaudid 0.5mg iv at 2215
[2021-11-02] VITALS (8 sets, daily range): BP systolic 122–167; BP diastolic 63–81; PULSE 74–119; RESP 16–18; TEMP 36.1–37.7; O2SAT 95–98
--- NOTE | 2021-11-02 04:29 | PC.NURSE ---
0000 temperature down to 98.4
[2021-11-02] MEDS: HYDROmorphone HCl 1 MG/ML SYRINGE 0.5 MG IVPUSH ×2 (04:48→16:36)
[2021-11-02] MEDS: cefTRIAXone sodium 2 GM in 0.9 % Sodium Chloride 50 ML IV (04:48)
[2021-11-02 06:15] LABS: Hemoglobin 10.9 g/dl (12.0-16.0); Mean Corpuscular HGB Conc 32.1 g/dl (31.0-35.0); Mean Corpuscular Hemoglobin 27.4 pg (27.0-33.0); Mean Corpuscular Volume 85.4 fL (80.0-98.0); Platelet Count 221 X10*3/uL (160-400); Red Blood Count 3.98 X10*6/uL (4.20-5.50); Red Cell Distribution Width 15.1 % (11.0-16.0); White Blood Count 13.6 X10*3/uL (4.8-10.8)
[2021-11-02 06:47] LABS: Anion Gap 12 (12-20); Blood Urea Nitrogen 10 mg/dL (9-16); C Reactive Protein 15.93 mg/dL (< or = 0.50); Calcium 8.9 mg/dL (8.4-10.2); Carbon Dioxide 23 mmol/L (22-29); Chloride 108 mmol/L (96-108); Creatinine Clr Calc Pharmacy 70.6; Estimated Glomerular Filt Rate > 60; Glucose Random 92 mg/dL (60-115); Potassium 3.4 mmol/L (3.3-5.1); Sodium 140 mmol/L (135-145)
[2021-11-02] MEDS: Acetaminophen 325 MG TABLET 650 MG PO (08:26)
[2021-11-02] MEDS: Tamsulosin HCL 0.4 MG CAPSULE PO (08:26)
[2021-11-02] MEDS: Omeprazole 40 MG CAPSULE.DR PO (08:26)
[2021-11-02] MEDS: 0.9 % Sodium Chloride Flush 3 ML SYRINGE IVFLUSH ×2 (08:27→16:36)
[2021-11-02] MEDS: Enoxaparin Sodium 40 MG/0.4 ML SYRINGE SUBCUT (08:27)
--- NOTE | 2021-11-02 10:22 | HO.PM.IMPN ---
Subjective Subjective Date of Service: 11/02/21 Interval History: febrile to 101.8 overnight flank pain improved no N/V This history was taken in Sami from the patient. Review of Systems Review of Systems: Yes all other systems are reviewed and are negative Physical Exam Vital Signs: Vital Signs: Last Vital Signs Temp 99.8 F 11/02/21 07:34 Pulse 96 11/02/21 07:34 Resp 17 11/02/21 07:34 BP 129/74 11/02/21 07:34 Pulse Ox 96 11/02/21 07:34 BMI result Body Mass Index 29.2 Gen: in no acute distress HEENT: sclera anicteric, moist mucus membranes Neck: supple Lungs: clear to auscultation bilaterally Heart: tachycardic + regular no murmurs Abd: soft, non-tender, non-distended : minimal L CVA tenderness Ext: no edema Skin: warm/well-perfused Neuro: alert and oriented x3, no focal findings Psych: appropriate affect Objective Data Active Medications Acetaminophen (Acetaminophen 325 Mg Tablet) 650 mg PO Q6H PRN PRN Reason: Pain, Mild (Pain Scale 1-3) Last Admin: 11/02/21 08:26 Dose: 650 mg Documented by: ОЛЕГ Enoxaparin Sodium (Enoxaparin Sodium 40 Mg/0.4 Ml Syringe) 40 mg SUBCUT Q24H [facility] Last Admin: 11/02/21 08:27 Dose: 40 mg Documented by: ОЛЕГ Hydromorphone HCl (Hydromorphone Hcl 1 Mg/Ml Syringe) 0.5 mg IVPUSH Q4H PRN; Protocol PRN Reason: Pain, Severe (Pain Scale 7-10) Last Admin: 11/02/21 04:48 Dose: 0.5 mg Documented by: KAPIL Ceftriaxone Sodium 2 gm/ (Sodium Chloride) 50 mls @ 100 mls/hr IV Q24H [facility] Last Infusion: 11/02/21 05:28 Dose: 0 mls/hr Documented by: KAPIL Omeprazole (Omeprazole 40 Mg Capsule.Dr) 40 mg PO DAILY [facility] Last Admin: 11/02/21 08:26 Dose: 40 mg Documented by: ОЛЕГ Sodium Chloride (0.9 % Sodium Chloride Flush 3 Ml Syringe) 3 ml IVFLUSH QSHIFT [facility] Last Admin: 11/02/21 08:27 Dose: 3 ml Documented by: ОЛЕГ Tamsulosin HCl (Tamsulosin Hcl 0.4 Mg Capsule) 0.4 mg PO DAILY [facility] Last Admin: 11/02/21 08:26 Dose: 0.4 mg Documented by: ОЛЕГ Trazodone HCl (Trazodone Hcl 50 Mg Tablet) 50 mg PO BEDTIME PRN PRN Reason: sleep Labs CBC & Chem 7: 11/02/21 05:51 11/02/21 05:51 Labs: Laboratory Results - last 24 hr 11/02/21 11/02/21 05:51 05:51 MCV 85.4 MCH 27.4 MCHC 32.1 RDW 15.1 Plt Count 221 MPV 10.0 Absolute Nucleated RBC 0.000 Nucleated RBC % (auto) 0.0 Anion Gap 12 Estim Creat Clear Calc 70.6 Estimated GFR > 60 Random Glucose 92 Calcium 8.9 C-Reactive Protein 15.93 H Microbiology Microbiology Results: Microbiology 10/30/21 22:08 Blood Culture - Final Blood - Venous Proteus mirabilis 10/30/21 22:08 Blood Culture - Final Blood - Venous Proteus mirabilis 10/30/21 21:22 Urine Culture - Final Urine clean catch - Urine rajan top Proteus mirabilis Assessment and Plan (1) Bacteremia: Status: Acute [facility] hospital d#3 56yo F with hx Hodgkin lymphoma in remission, chronic back pain, GERD admitted for urosepsis associated with nephrolithiasis, found to be bacteremic.? # sepsis # pyelonephritis # Proteus mirabilis bacteremia - IV ceftriaxone d#3 # nephrolithiasis - appears to have passed stone; hydronephrosis resolved - outpt Uro f/u # VTE ppx - LMWH In my clinical judgment, the patient requires continued hospitalization for the following reasons: fever, IV ABX + analgesia Quality Stroke Does the patient have a stroke diagnosis?: No VTE Prior VTE?: No VTE Risk Level:: Medical - moderate - high VTE Device Contraindication: Treatment Not Indicated VTE Drug Contraindication: N/A - Med Ordered
[2021-11-03] MEDS: 0.9 % Sodium Chloride Flush 3 ML SYRINGE IVFLUSH ×4 (00:50→23:56)
[2021-11-03] MEDS: HYDROmorphone HCl 1 MG/ML SYRINGE 0.5 MG IVPUSH (03:09)
[2021-11-03 03:19] VITALS: BP 122/65; PULSE 104; RESP 14; TEMP 37.7; O2SAT 93
[2021-11-03] MEDS: cefTRIAXone sodium 2 GM in 0.9 % Sodium Chloride 50 ML IV (05:52)
[2021-11-03 06:08] LABS: Hemoglobin 11.1 g/dl (12.0-16.0); Mean Corpuscular HGB Conc 32.6 g/dl (31.0-35.0); Mean Corpuscular Hemoglobin 27.8 pg (27.0-33.0); Mean Corpuscular Volume 85.2 fL (80.0-98.0); Mean Platelet Volume 9.7 fL (9.4-12.3); Platelet Count 289 X10*3/uL (160-400); Red Blood Count 3.99 X10*6/uL (4.20-5.50); Red Cell Distribution Width 15.2 % (11.0-16.0)
[2021-11-03 06:53] VITALS: BP 129/69; PULSE 95; RESP 18; TEMP 36.1; O2SAT 95
[2021-11-03 10:05] VITALS: BP 129/69; PULSE 95; O2SAT 95
--- NOTE | 2021-11-03 10:18 | HO.PM.IMPN ---
Subjective Subjective Date of Service: 11/03/21 Interval History: This history was taken in Yoruba from the patient. Still feels weak with chills Cough with deep inspiration Flank pain improving No N/V. Review of Systems Review of Systems: Yes all other systems are reviewed and are negative Physical Exam Vital Signs: Vital Signs: Last Vital Signs Temp 97 F 11/03/21 06:53 Pulse 95 11/03/21 10:05 Resp 18 11/03/21 06:53 BP 129/69 11/03/21 10:05 Pulse Ox 95 11/03/21 10:05 BMI result Body Mass Index 29.2 Gen: in no acute distress HEENT: sclera anicteric, moist mucus membranes Neck: supple Lungs: clear to auscultation bilaterally Heart: tachycardic + regular no murmurs Abd: soft, non-tender, non-distended : minimal L CVA tenderness Ext: no edema Skin: warm/well-perfused Neuro: alert and oriented x3, no focal findings Psych: appropriate affect Objective Data Active Medications Acetaminophen (Acetaminophen 325 Mg Tablet) 650 mg PO Q6H PRN PRN Reason: Pain, Mild (Pain Scale 1-3) Last Admin: 11/02/21 08:26 Dose: 650 mg Documented by: ОЛЕГ Enoxaparin Sodium (Enoxaparin Sodium 40 Mg/0.4 Ml Syringe) 40 mg SUBCUT Q24H [facility] Last Admin: 11/02/21 08:27 Dose: 40 mg Documented by: ОЛЕГ Hydromorphone HCl (Hydromorphone Hcl 1 Mg/Ml Syringe) 0.5 mg IVPUSH Q4H PRN; Protocol PRN Reason: Pain, Severe (Pain Scale 7-10) Last Admin: 11/03/21 03:09 Dose: 0.5 mg Documented by: TU Ceftriaxone Sodium 2 gm/ (Sodium Chloride) 50 mls @ 100 mls/hr IV Q24H [facility] Last Admin: 11/03/21 08:01 Dose: Not Given Documented by: THEE Non-Admin Reason: given at 6 am Omeprazole (Omeprazole 40 Mg Capsule.) 40 mg PO DAILY [facility] Last Admin: 11/02/21 08:26 Dose: 40 mg Documented by: ОЛЕГ Sodium Chloride (0.9 % Sodium Chloride Flush 3 Ml Syringe) 3 ml IVFLUSH QSHIFT [facility] Last Admin: 11/03/21 00:50 Dose: 3 ml Documented by: TU Tamsulosin HCl (Tamsulosin Hcl 0.4 Mg Capsule) 0.4 mg PO DAILY [facility] Last Admin: 11/02/21 08:26 Dose: 0.4 mg Documented by: ОЛЕГ Trazodone HCl (Trazodone Hcl 50 Mg Tablet) 50 mg PO BEDTIME PRN PRN Reason: sleep Labs CBC & Chem 7: 11/03/21 05:43 11/02/21 05:51 Labs: Laboratory Results - last 24 hr 11/03/21 05:43 MCV 85.2 MCH 27.8 MCHC 32.6 RDW 15.2 Plt Count 289 D MPV 9.7 Absolute Nucleated RBC 0.000 Nucleated RBC % (auto) 0.0 Impressions Chest X-Ray 11/02/21 12:06 IMPRESSION: Subtle linear markings in the right lung and possible very small pleural effusion are nonspecific. No significant abnormality was seen on limited images from the recent abdominal CT scan. This was not seen on the remote 2010 study. A developing mild infectious/inflammatory process cannot be excluded. If the patient's symptoms persist or worsen, short-term repeat radiographic follow-up is recommended as clinically indicated to assess for more acute change. Microbiology Microbiology Results: Microbiology 11/02/21 05:52 Blood Culture - Preliminary Blood - Venous No growth after 24 hours. 11/02/21 05:51 Blood Culture - Preliminary Blood - Venous No growth after 24 hours. 10/30/21 22:08 Blood Culture - Final Blood - Venous Proteus mirabilis 10/30/21 22:08 Blood Culture - Final Blood - Venous Proteus mirabilis Assessment and Plan (1) Bacteremia: Status: Acute [facility] hospital d#4 56yo F with hx Hodgkin lymphoma in remission, chronic back pain, GERD admitted for urosepsis associated with nephrolithiasis, found to be bacteremic.? # sepsis # pyelonephritis # Proteus mirabilis bacteremia - IV ceftriaxone d#4 # nephrolithiasis - appears to have passed stone; hydronephrosis resolved - outpt Uro f/u # cough - resp virus panel, PCT - IS, dextromethorphan # VTE ppx - LMWH # dispo - anticipate home with VNA in next 1-2d In my clinical judgment, the patient requires continued hospitalization for the following reasons: fever, IV ABX + analgesia Quality Stroke Does the patient have a stroke diagnosis?: No VTE Prior VTE?: No VTE Risk Level:: Medical - moderate - high VTE Device Contraindication: Treatment Not Indicated VTE Drug Contraindication: N/A - Med Ordered
[2021-11-03 11:02] VITALS: BP 142/75; PULSE 104; RESP 19; TEMP 36; O2SAT 96
[2021-11-03] MEDS: Omeprazole 40 MG CAPSULE.DR PO (11:13)
[2021-11-03] MEDS: Enoxaparin Sodium 40 MG/0.4 ML SYRINGE SUBCUT (11:13)
[2021-11-03] MEDS: Tamsulosin HCL 0.4 MG CAPSULE PO (11:13)
[2021-11-03] MEDS: guaiFENesin DM 100/10/5 ML 5 ML SYRUP PO (11:24)
[2021-11-03] MEDS: Doxycycline Hyclate 100 MG in 0.9 % Sodium Chloride 250 ML 166.67 MG IV ×2 (12:42→23:56)
[2021-11-03 14:50] LABS: Adenovirus PCR Not Detected (Not Detect.); Bordetella parapertussis PCR Not Detected (Not Detect.); Bordetella pertussis PCR Not Detected (Not Detect.); Chlamydia pneumoniae PCR Not Detected (Not Detect.); Coronavirus 229E PCR Not Detected (Not Detect.); Coronavirus HKU1 PCR Not Detected (Not Detect.); Coronavirus NL63 PCR Not Detected (Not Detect.); Coronavirus OC43 PCR Not Detected (Not Detect.); Human metapneumovirus PCR Not Detected (Not Detect.); Influenza A PCR Not Detected (Not Detect.); Influenza B PCR Not Detected (Not Detect.); Mycoplasma pneumoniae PCR Not Detected (Not Detect.); Parainfluenza 1 PCR Not Detected (Not Detect.); Parainfluenza 2 PCR Not Detected (Not Detect.); Parainfluenza 3 PCR Not Detected (Not Detect.); Parainfluenza 4 PCR Not Detected (Not Detect.); RSV PCR Not Detected (Not Detect.); Rhino/Enterovirus PCR Not Detected (Not Detect.); SARS-CoV-2 PCR Not Detected (Not Detect.)
[2021-11-03 15:40] VITALS: BP 162/82; PULSE 104; RESP 16; TEMP 37.2; O2SAT 98
[2021-11-03 19:44] VITALS: BP 129/75; PULSE 103; RESP 20; TEMP 37.2; O2SAT 94
[2021-11-03] MEDS: Acetaminophen 325 MG TABLET 650 MG PO (20:17)
[2021-11-04] VITALS (7 sets, daily range): BP systolic 123–164; BP diastolic 59–69; PULSE 88–107; RESP 14–20; TEMP 36–37.5; O2SAT 94–98
[2021-11-04 06:05] LABS: Hematocrit 31.5 % (37.0-47.0); Hemoglobin 10.4 g/dl (12.0-16.0); Mean Corpuscular Volume 84.7 fL (80.0-98.0); Mean Platelet Volume 9.4 fL (9.4-12.3); Platelet Count 335 X10*3/uL (160-400); Red Blood Count 3.72 X10*6/uL (4.20-5.50); White Blood Count 13.3 X10*3/uL (4.8-10.8)
[2021-11-04 06:18] LABS: C Reactive Protein 9.27 mg/dL (< or = 0.50)
[2021-11-04] MEDS: Acetaminophen 325 MG TABLET 650 MG PO ×2 (06:31→17:20)
[2021-11-04] MEDS: Enoxaparin Sodium 40 MG/0.4 ML SYRINGE SUBCUT (07:56)
[2021-11-04] MEDS: cefTRIAXone sodium 2 GM in 0.9 % Sodium Chloride 50 ML IV (07:56)
[2021-11-04] MEDS: Omeprazole 40 MG CAPSULE.DR PO (07:56)
[2021-11-04] MEDS: Tamsulosin HCL 0.4 MG CAPSULE PO (07:56)
[2021-11-04] MEDS: 0.9 % Sodium Chloride Flush 3 ML SYRINGE IVFLUSH ×3 (08:02→21:21)
--- NOTE | 2021-11-04 10:11 | MHC.CM.PN ---
Addendum entered by Su Hanson 11/04/21 14:51: [facility] UNABLE TO OFFER COMFORT PLUS [facility] OFFERING AND FOLLOWING Original Note: REFERRAL TO [facility] FOR RN SKILLS AND HOME P.T. PER PROGRESS NOTE RECOMMENDATIONS. CASE MANAGEMENT FOLLOWING
[2021-11-04] MEDS: Doxycycline Hyclate 100 MG in 0.9 % Sodium Chloride 250 ML 166.67 MG IV (12:30)
--- NOTE | 2021-11-04 13:42 | HO.PM.IMPN ---
Subjective Subjective Date of Service: 11/04/21 Interval History: Being followed for Proteus bacteremia, denies urinary symptoms, no fevers, no chills complaining of constipation with no bowel movement in last 5 days, noted to have a procalcitonin level of 2.20, denies nausea, no vomiting, no other acute issues overnight. Review of Systems Review of Systems: Yes all other systems are reviewed and are negative Physical Exam Vital Signs: Vital Signs: Last Vital Signs Temp 97 F 11/04/21 07:12 Pulse 101 H 11/04/21 09:49 Resp 18 11/04/21 07:12 BP 123/59 L 11/04/21 09:49 Pulse Ox 96 11/04/21 09:49 BMI result Body Mass Index 29.2 Const: Other: Gen: Awake alert, no acute distress HEENT: sclera anic teric, moist mucus membranes Neck: s upple Lungs: clear to auscultation b ilaterally Heart: Regular rate rhyt hm no murmur regur g or gallop Abd: s oft, non-tender, n on-distended, manjinder l sounds audible G U: no CVA tenderne ss Ext: no edema S kin: warm/well-per fused Neuro: alert and oriented x3, no focal findings Psych: appropriate affect Objective Data Active Medications Acetaminophen (Acetaminophen 325 Mg Tablet) 650 mg PO Q6H PRN PRN Reason: Pain, Mild (Pain Scale 1-3) Last Admin: 11/04/21 06:31 Dose: 650 mg Documented by: TU Enoxaparin Sodium (Enoxaparin Sodium 40 Mg/0.4 Ml Syringe) 40 mg SUBCUT Q24H [facility] Last Admin: 11/04/21 07:56 Dose: 40 mg Documented by: TOREY Guaifenesin/Dextromethorphan (Guaifenesin Dm 100/10/5 Ml 5 Ml Syrup) 5 ml PO Q4H PRN PRN Reason: cough Last Admin: 11/03/21 11:24 Dose: 5 ml Documented by: THEE Ceftriaxone Sodium 2 gm/ (Sodium Chloride) 50 mls @ 100 mls/hr IV Q24H [facility] Last Infusion: 11/04/21 08:50 Dose: 0 mls/hr Documented by: TOREY Doxycycline Hyclate 100 mg/ (Sodium Chloride) 250 mls @ 166.67 mls/hr IV Q12H [facility] Last Admin: 11/04/21 12:30 Dose: 166.67 mls/hr Documented by: TOREY Omeprazole (Omeprazole 40 Mg Capsule.Dr) 40 mg PO DAILY [facility] Last Admin: 11/04/21 07:56 Dose: 40 mg Documented by: TOREY Sodium Chloride (0.9 % Sodium Chloride Flush 3 Ml Syringe) 3 ml IVFLUSH QSHIFT [facility] Last Admin: 11/04/21 08:02 Dose: 3 ml Documented by: TOREY Tamsulosin HCl (Tamsulosin Hcl 0.4 Mg Capsule) 0.4 mg PO DAILY [facility] Last Admin: 11/04/21 07:56 Dose: 0.4 mg Documented by: TOREY Trazodone HCl (Trazodone Hcl 50 Mg Tablet) 50 mg PO BEDTIME PRN PRN Reason: sleep Labs CBC & Chem 7: 11/04/21 05:43 11/02/21 05:51 Labs: Laboratory Results - last 24 hr 11/03/21 11/04/21 11/04/21 12:55 05:43 05:43 MCV 84.7 MCH 28.0 MCHC 33.0 RDW 15.0 Plt Count 335 MPV 9.4 Absolute Nucleated RBC 0.000 Nucleated RBC % (auto) 0.0 C-Reactive Protein 9.27 H Respiratory Panel Bryant SEE NOTE Adenovirus (Rapid PCR) Not Detected B.pert (TEM-PCR) Not Detected B.parapertussis DNA PCR Not Detected C. pneumoniae DNA (PCR) Not Detected Coronavirus OC43 (PCR) Not Detected Coronavirus HKU1 (PCR) Not Detected Coronavirus 229E (PCR) Not Detected Coronavirus NL63 (PCR) Not Detected Human Metapneumovir PCR Not Detected Influenza A (RT-PCR) Not Detected Influenza B (RT-PCR) Not Detected M. pneumoniae (PCR) Not Detected Parainfluenza 1 (PCR) Not Detected Parainfluenza 2 (PCR) Not Detected Parainfluenza 3 (PCR) Not Detected Parainfluenza 4 (PCR) Not Detected RSV (PCR) Not Detected Entero/Rhino (PCR) Not Detected SARS-CoV-2 RNA (RT-PCR) Not Detected Microbiology Microbiology Results: Microbiology 11/02/21 05:52 Blood Culture - Preliminary Blood - Venous No growth after 48 hours. 11/02/21 05:51 Blood Culture - Preliminary Blood - Venous No growth after 48 hours. 10/30/21 22:08 Blood Culture - Final Blood - Venous Proteus mirabilis 10/30/21 22:08 Blood Culture - Final Blood - Venous Proteus mirabilis Assessment and Plan (1) Bacteremia: Status: Acute Plan hospital d#4 56yo F with hx Hodgkin lymphoma in remission, chronic back pain, GERD admitted for urosepsis associated with nephrolithiasis, found to be bacteremic.? # sepsis due to pyelonephritis and Proteus mirabilis bacteremia - denies urinary symptoms, repeat blood cultures x2 negative IV ceftriaxone d#5 # evolving PNA - PCT 2.2, persistent leukocytosis, CRP 9.27 trending down from 24, evolving infiltrate right lung base on CXR, on doxycycline day 2 and ceftriaxone day 5 - respiratory virus panel negative, oxygenation stable, repeat blood cultures negative await ID input, continue cough medication and encourage incentive spirometery # nephrolithiasis - appears to have passed stone; hydronephrosis resolved - outpt Uro f/u in 3 weeks as per URO recommendation # constipation no bowel movement in last 5 days, will add stool softness likely due to IV Dilaudid, will DC narcotics # VTE ppx - LMWH # dispo - anticipate home with VNA in next 1-2d In my clinical judgment, the patient requires continued hospitalization for the following reasons Proteus bacteremia with evolving pneumonia on ABX + elevated procalcitonin Quality Stroke Does the patient have a stroke diagnosis?: No VTE Prior VTE?: No VTE Risk Level:: Medical - moderate - high VTE Device Contraindication: Treatment Not Indicated VTE Drug Contraindication: N/A - Med Ordered
[2021-11-04] MEDS: Milk of Magnesia 30 ML ORAL.SUSP 15 ML PO (14:40)
[2021-11-04] MEDS: Docusate Sodium 100 MG CAPSULE 200 MG PO (14:41)
--- NOTE | 2021-11-04 14:51 | W.PM.IDCN ---
History of Present Illness Data of Consult Service Date: 11/04/21 Requesting physician: Morgan Parker Primary Care Provider: Yen Prater MD HPI Reason for consult: bacteremia She presents with weakness and chills and left flank pain for three days. She initially came to ER 10/30 and found to have 2.5 cm left UPJ stone. She went home and came back with worsening flank pain 01/11 and found proteus mirabilis urine and blood. She has weakness She has h/o lymphoma She is day 5 Ceftriaxone and day 2 Doxycycline. She has hazy infiltrate base. [facility] Past Medical History Medical History Bacteremia Ear discomfort Headache Hodgkin lymphoma Lumbar pain Obese Primary insomnia Rash and nonspecific skin eruption Screen for STD (sexually transmitted disease) Tubular adenoma of colon Family History Family History Mother Diabetes High blood pressure Father Pacemaker Maternal Aunt Stomach cancer Maternal Aunt Liver cancer Family history: reviewed and not pertinent Surgical History Surgical History History of colonoscopy History of esophagogastroduodenoscopy Hx of cataract extraction Social History Social History Household Members: Family Housing: Apartment Do you presently have visiting nurse or other home services: No Alcohol intake: never Patient Tobacco Use Status: Never used Tobacco e-Cigarette/Vaping Use: Never Used Second Hand Smoke Exposure: No service: No Current occupational status: unemployed and disabled Meds Allergies Allergy/AdvReac Type Severity Reaction Status Date / Time metronidazole [Flagyl] Allergy Intermediate hives Verified 09/23/21 10:31 Active Medications: Current Medications Acetaminophen (Acetaminophen 325 Mg Tablet) 650 mg PO Q6H PRN PRN Reason: Pain, Mild (Pain Scale 1-3) Last Admin: 11/04/21 06:31 Dose: 650 mg Documented by: Docusate Sodium (Docusate Sodium 100 Mg Capsule) 200 mg PO DAILY AJ Last Admin: 11/04/21 14:41 Dose: 200 mg Documented by: Enoxaparin Sodium (Enoxaparin Sodium 40 Mg/0.4 Ml Syringe) 40 mg SUBCUT Q24H [facility] Last Admin: 11/04/21 07:56 Dose: 40 mg Documented by: Guaifenesin/Dextromethorphan (Guaifenesin Dm 100/10/5 Ml 5 Ml Syrup) 5 ml PO Q4H PRN PRN Reason: cough Last Admin: 11/03/21 11:24 Dose: 5 ml Documented by: Ceftriaxone Sodium 2 gm/ (Sodium Chloride) 50 mls @ 100 mls/hr IV Q24H [facility] Last Infusion: 11/04/21 08:50 Dose: Infused Documented by: Doxycycline Hyclate 100 mg/ (Sodium Chloride) 250 mls @ 166.67 mls/hr IV Q12H [facility] Last Infusion: 11/04/21 14:39 Dose: Infused Documented by: Omeprazole (Omeprazole 40 Mg Capsule.) 40 mg PO DAILY [facility] Last Admin: 11/04/21 07:56 Dose: 40 mg Documented by: Sodium Chloride (0.9 % Sodium Chloride Flush 3 Ml Syringe) 3 ml IVFLUSH QSHIFT [facility] Last Admin: 11/04/21 14:43 Dose: 3 ml Documented by: Tamsulosin HCl (Tamsulosin Hcl 0.4 Mg Capsule) 0.4 mg PO DAILY [facility] Last Admin: 11/04/21 07:56 Dose: 0.4 mg Documented by: Trazodone HCl (Trazodone Hcl 50 Mg Tablet) 50 mg PO BEDTIME PRN PRN Reason: sleep Home Medications Medication Instructions Recorded Confirmed Last Taken Type omeprazole 40 mg capsule,delayed 40 mg PO DAILY 10/31/21 10/31/21 Unknown History release Physical Exam Vital Signs: Vital Signs: Last Vital Signs Temp 97 F 11/04/21 07:12 Pulse 101 H 11/04/21 09:49 Resp 18 11/04/21 07:12 BP 123/59 L 11/04/21 09:49 Pulse Ox 96 11/04/21 09:49 BMI result Body Mass Index 29.2 Const: General: cooperative HEENT: Head: Yes normal to inspection Mouth: Normal oral and palatal mucosa present Resp: Effort & Inspection: normal respiratory effort Cardio: Rate: regular rate Rhythm: regular rhythm GI: Other: soft,Left flank discomfort Results Labs CBC & Chem 7: 11/04/21 05:43 11/02/21 05:51 Labs: Short CBC 11/04/21 Range/Units 05:43 WBC 13.3 H (4.8-10.8) X10*3/uL Hgb 10.4 L (12.0-16.0) g/dl Hct 31.5 L (37.0-47.0) % Plt Count 335 (160-400) X10*3/uL Microbiology Microbiology Results: Microbiology 11/02/21 05:52 Blood - Venous Blood Culture - Preliminary No growth after 48 hours. 11/02/21 05:51 Blood - Venous Blood Culture - Preliminary No growth after 48 hours. 10/30/21 22:08 Blood - Venous Blood Culture - Final Proteus mirabilis 10/30/21 22:08 Blood - Venous Blood Culture - Final Proteus mirabilis 10/30/21 21:22 Urine clean catch - Urine rajan top Urine Culture - Final Proteus mirabilis Assessment and Plan (1) Bacteremia: Status: Acute Proteus mirabilis commonly associated with stones. Also lung areas look like atelectasis commonly found with pleuritic chest discomfort found in abdomina infection and she doesnt have oxygen requirement also or sputum production so doubt secondary bacterial or atypical pneumonia (2) Ureterolithiasis: Status: Acute Plan Stop Doxycycline Continue Ceftriaxone until nausea better and then po Ceftin for 14 d total.
[2021-11-04] MEDS: traZODone HCL 50 MG TABLET PO (21:56)
[2021-11-05 03:36] VITALS: BP 133/65; PULSE 91; RESP 20; TEMP 37.7; O2SAT 95
[2021-11-05] MEDS: Acetaminophen 325 MG TABLET 650 MG PO (03:41)
[2021-11-05 06:40] LABS: Hematocrit 32.7 % (37.0-47.0); Hemoglobin 10.7 g/dl (12.0-16.0); Mean Corpuscular HGB Conc 32.7 g/dl (31.0-35.0); Mean Corpuscular Hemoglobin 28.2 pg (27.0-33.0); Mean Corpuscular Volume 86.1 fL (80.0-98.0); Mean Platelet Volume 9.5 fL (9.4-12.3); Platelet Count 399 X10*3/uL (160-400); Red Cell Distribution Width 15.3 % (11.0-16.0); White Blood Count 13.6 X10*3/uL (4.8-10.8)
[2021-11-05 07:45] VITALS: BP 125/58; PULSE 88; RESP 18; TEMP 36.7; O2SAT 93
[2021-11-05] MEDS: cefTRIAXone sodium 2 GM in 0.9 % Sodium Chloride 50 ML IV (07:53)
[2021-11-05] MEDS: Docusate Sodium 100 MG CAPSULE 200 MG PO (07:53)
[2021-11-05] MEDS: Enoxaparin Sodium 40 MG/0.4 ML SYRINGE SUBCUT (07:53)
[2021-11-05] MEDS: Omeprazole 40 MG CAPSULE.DR PO (07:54)
[2021-11-05] MEDS: Tamsulosin HCL 0.4 MG CAPSULE PO (07:54)
[2021-11-05] MEDS: 0.9 % Sodium Chloride Flush 3 ML SYRINGE IVFLUSH (07:55)
[2021-11-05 11:54] VITALS: BP 144/65; PULSE 93; RESP 17; TEMP 36.2; O2SAT 97
--- NOTE | 2021-11-05 12:17 | PM.DS ---
DS: Providers Provider Date of Service: 11/05/21 Date of admission: 10/31/21 00:12 Primary care physician: Yen Prater MD Consults: 10/31/21 00:11 Consult to Urology Routine Consulting Provider: Oliver Ken Reason for consultation: renal stone; uti 11/03/21 11:55 Consult to Infectious Diseases Routine Consulting Provider: Jennifer Martin Reason for consultation: Proteus bacteremia + PNA 11/04/21 10:34 Consult to Infectious Diseases Routine Consulting Provider: Jennifer Martin Reason for consultation: proteus bacteremia elevted PCT Has provider been notified: No DS: Diagnosis Discharge Diagnosis (1) Bacteremia: Status: Acute (2) Ureterolithiasis: Status: Acute DS: Summary Hospital Course Hospital Course: history of presenting illness: Chief Complaint: Left flank pain 56-year-old female with a past medical history of Hodgkin lymphoma, chronic back pain, tubular adenoma of the colon, history of renal calculus, GERD presented to the hospital today with a chief complaint of left flank pain.? Patient initially presented about 2 days ago to the ER with left flank pain/back pain; also complained of hematuria-noted to have 2.5 mm left UVJ calculus; patient was discharged on prednisone, Flomax; Today presents back to the hospital with worsening left flank pain, frequency urgency dysuria.? Reports she had fever.? Denies any blood in the urine.? Denies any nausea vomiting or diarrhea.? Denies? any chest pain or palpitations. Review of all other systems is negative except mentioned above ER course: Per ER team patient noted to have left flank tenderness; urinalysis abnormal position of the UTI.? Given antibiotics.? Admitted to the hospital for further management. hospital course 56yo F with hx Hodgkin lymphoma in remission, chronic back pain, GERD, admitted for sepsis due to pyelonephritis associated with nephrolithiasis, found to have Proteus mirabilis bacteremia patient treated with IV ceftriaxone repeat blood cultures x2 came back negative, chest x-ray showed evolving pneumonia however patient was asymptomatic with no shortness of breath, no cough, patient noted to have elevated procalcitonin level of 2.2 and leukocytosis likely due to recent use of steroids, CRP stranding down, and since patient is clinically doing better she is being discharged home on by mouth Ceftin for a total 10 day course of antibiotics as per ID recommendation. In regard to Nephrolithiasis, it seems she passed this stone since hydronephrosis resolved repeat imaging study patient seen by Urology and Dr. Ken recommend 3 weeks follow-up, patient started on Flomax 0.4 mg daily renal function remains stable. Time Spent with Patient Time attestation: Total time spent providing and/or coordinating discharge services: Discharge coordination time: Greater than 30 minutes Quality: Safe Use of Opioids Does Pt have an Active Cancer Diagnosis on the Problem List?: No Quality: Stroke Does the patient have a stroke diagnosis?: No Physical Exam Vital Signs: Vital Signs: Last Vital Signs Temp 97.2 F 11/05/21 11:54 Pulse 93 11/05/21 11:54 Resp 17 11/05/21 11:54 BP 144/65 H 11/05/21 11:54 Pulse Ox 97 11/05/21 11:54 BMI result Body Mass Index 29.2 Const: Other: Gen: Awake alert x3 ,no acute distress HEENT: sclera anicteric, moist mucus membranes Neck: supple Lungs: clear to auscultation bilaterally Heart: regular rate rhythm, no murmur Abd: soft, non-tender, non-distended Ext: no edema Skin: warm/well-perfused Neuro: alert and oriented x3, no focal findings Psych: appropriate affect DS: Data Data Completed and Pending Labs on day of discharge: Laboratory Results - last 24 hr 11/05/21 05:51 WBC 13.6 H RBC 3.80 L Hgb 10.7 L Hct 32.7 L MCV 86.1 MCH 28.2 MCHC 32.7 RDW 15.3 Plt Count 399 MPV 9.5 Absolute Nucleated RBC 0.000 Nucleated RBC % (auto) 0.0 Preliminary micro results at discharge 11/02/21 05:52 Blood Culture - Preliminary Blood - Venous No growth after 48 hours. 11/02/21 05:51 Blood Culture - Preliminary Blood - Venous No growth after 48 hours. Discharge Plan Discharge Patient Disposition: Home Health Service Discharge Diagnosis: Proteus mirabilis bacteremia Sepsis due to pyelonephritis Nephrolithiasis Referrals: [facility] [Outside] - 1 Week Yen Kelley MD [Primary Care Provider] - 1 Week Discharge Medications: New tamsulosin 0.4 mg Capsule 0.4 mg PO DAILY Qty: 30 0RF cefuroxime axetil 500 mg tablet 500 mg PO Q12H Qty: 18 0RF Continued (DME) Wrist Brace - one Misc See Rx Instructions .ROUTE .MEDSUPPLY Qty: 1 0RF Rx Instructions: As directed- LEFT WRIST STABILIZER trazodone 50 mg tablet 50 mg PO BEDTIME PRN (Reason: sleep) 90 Days Qty: 90 1RF omeprazole 40 mg capsule,delayed release(DR/EC) 40 mg PO DAILY 0RF (DME) Knee brace Misc See Rx Instructions .Route Qty: 1 0RF Rx Instructions: As directed (DME) cane Device See Rx Instructions .Route Qty: 1 0RF Rx Instructions: As directed Discharge Orders: Discharge Order (Routine); Ordered 11/05/21 Ordered By: Morgan Parker Diet: advance to usual diet Activity on Discharge: As tolerated Stand Alone Forms: Patient Portal Discharge page Care Plan Goals: urinary tract infection improving take by mouth Ceftin for 9 more days, take Flomax as directed Health Concerns: continue all home medications as before Plan of Treatment: follow-up with urologist Dr. Ken in 3 weeks for renal stone, follow-up with primary care physician in 1-2 weeks Assessment: as per discharge summary
--- NOTE | 2021-11-05 12:19 | MHC.CM.PN ---
PATIENT IS RETURNING HOME TODAY WITH [facility] RN AWARE OF PLAN. FAMILY TO TRANSPORT. IMM 11/05 IN CHART
--- NOTE | 2021-11-05 13:51 | W.MHC.F2F ---
Service Date Service Date: 11/05/21 Encounter Date of encounter: 11/05/21 Reasons for Services Signs and symptoms assessed: sepsis due to pyelonephritis with Proteus mirabilis bacteremia, passed renal stone needs close follow-up with recurrent fevers Reason for intermediate: medication management and GI/ assessment Homebound: Leaving the home is medically contraindicated at this time without the asist of a device and/or another person due th the listed conditions above and below. Reason homebound: weakness related to hospital stay Certification: Based on the above findings, I certify that this patient is confined to the home and needs intermittent intermediate care, physical therapy and/or speech therapy, or continues to need occupational therapy. The patient is under my care, and I have initiated the establishment of the plan of care. The patient will be followed by a physician who will periodically review the plan of care.
== END 2021-11-05 13:59 | disposition home health service (06) | DRG 871 ==
LOC: HO.ED 10-31 00:08 → HO.EDOVER 10-31 00:22 → HO.S3 10-31 14:28
PROVIDERS: Family Medicine; Physician Assistant Medical; Admitting Provider Hospitalist; Emergency Provider Emergency Medicine; PCP Internal Medicine; Visit Provider Hospitalist
DX: A41.50 Gram-negative sepsis, unspecified (principal); J18.9 Pneumonia, unspecified organism; N13.6 Pyonephrosis; K59.00 Constipation, unspecified; K21.9 Gastro-esophageal reflux disease without esophagitis; B96.4 Proteus (mirabilis) (morganii) as the cause of diseases classified elsewhere; Z20.822 Contact with and (suspected) exposure to COVID-19; Z85.72 Personal history of non-Hodgkin lymphomas; Z86.010 Personal history of colon polyps; Z87.442 Personal history of urinary calculi; Z79.899 Other long term (current) drug therapy
CPT/HCPCS: 36415; 71046; 76775; 80048; 80053; 81001; 83605; 84145; 85025; 85027; 86140; 87040; 87077; 87086; 87088; 87186; 87205; 87633; 87635; 96361; 96365; 96375; 97116; 97162; 99285; J0696; J1170; J1650; J1885; J1956; J2405

== ENCOUNTER → 2021-10-31 00:12 | Outpatient (BNV) | payer OTHER, SELFPAY | PROVIDERS: Admitting Provider Hospitalist; Emergency Provider Emergency Medicine; PCP Internal Medicine; Visit Provider Urology | DX: N20.1 Calculus of ureter (principal) | CPT/HCPCS: 99499 ==

== ENCOUNTER 2021-11-12 09:31 | Outpatient (REF) | payer OTHER, SELFPAY ==
[2021-11-12 09:43] LABS: MANUAL DIFF FLAG NO
[2021-11-12 10:30] LABS: Basophils Absolute Auto 0.1 X10*3/uL (0.0-0.2); Basophils Percent Auto 0.5 % (0-2); Eosinophils Absolute Auto 0.1 X10*3/uL (0.0-0.4); Eosinophils Percent Auto 0.8 % (0-4); Hematocrit 39.2 % (37.0-47.0); Hemoglobin 12.4 g/dl (12.0-16.0); Imm Gran Pct Auto 0.8 % (0.0-0.4); Lymphocytes Absolute Auto 3.6 X10*3/uL (1.2-4.9); Lymphocytes Percent Auto 30.5 % (20-40); Mean Corpuscular HGB Conc 31.6 g/dl (31.0-35.0); Mean Corpuscular Hemoglobin 28.1 pg (27.0-33.0); Mean Corpuscular Volume 88.9 fL (80.0-98.0); Mean Platelet Volume 9.2 fL (9.4-12.3); Monocytes Absolute Auto 0.7 X10*3/uL (0.1-1.2); Monocytes Percent Auto 5.9 % (2-11); Neutrophils Absolute Auto 7.3 x10*3/uL (2.0-8.3); Neutrophils Percent Auto 61.5 % (45-73); Platelet Count 665 X10*3/uL (160-400); Red Blood Count 4.41 X10*6/uL (4.20-5.50); Red Cell Distribution Width 14.9 % (11.0-16.0); White Blood Count 11.8 X10*3/uL (4.8-10.8)
[2021-11-12 11:10] LABS: Appearance Urine CLEAR; Color Urine YELLOW; Glucose Urine UA NEG (NEG); Leukocyte Esterase Urine NEG (NEG); Nitrite Urine NEG (NEG); Urine Blood NEG (NEG); Urine Ketones NEG (NEG); Urine Protein NEG (NEG-TRACE)
[2021-11-12 11:13] LABS: Alanine Aminotransferase 24 U/L (0-31); Albumin Level 3.5 g/dL (3.5-5.0); Alkaline Phosphatase 124 U/L (39-117); Anion Gap 15 (12-20); Aspartate Amino Transferase 16 U/L (5-31); Bilirubin Total 0.2 mg/dL (0.0-1.0); Blood Urea Nitrogen 14 mg/dL (9-16); Calcium 10.1 mg/dL (8.4-10.2); Carbon Dioxide 23 mmol/L (22-29); Chloride 104 mmol/L (96-108); Estimated Glomerular Filt Rate > 60; Glucose Random 83 mg/dL (60-115); Sodium 138 mmol/L (135-145); Total Protein 7.3 g/dL (6.5-8.0)
[2021-11-12 11:17] LABS: Syphilis Screen Nonreactive (Nonreactive)
[2021-11-12 11:18] LABS: HIV AB/AG Nonreactive (Nonreactive); HIV Num 1 0.06 S/CO (0.00-0.99)
[2021-11-12 11:19] LABS: Vitamin D 25-OH Total 24.2 ng/mL (>30)
[2021-11-12 11:33] LABS: Thyroid Stimulating Hormone 0.74 uIU/mL (0.32-4.0)
[2021-11-13 05:31] LABS: CT PCR NOT DETECTED (Not Detect.); NG PCR NOT DETECTED (Not Detect.)
== END 2021-11-12 09:32 | disposition home or self-care (01) ==
LOC: HO.LAB 09:31
PROVIDERS: PCP Internal Medicine; Visit Provider Nurse Practitioner Family
DX: R78.81 Bacteremia (principal); N20.1 Calculus of ureter; N39.0 Urinary tract infection, site not specified; I10 Essential (primary) hypertension; E55.9 Vitamin D deficiency, unspecified; M25.561 Pain in right knee; M25.562 Pain in left knee; G89.29 Other chronic pain; E66.09 Other obesity due to excess calories; R30.0 Dysuria; Z68.31 Body mass index [BMI] 31.0-31.9, adult; Z11.3 Encounter for screening for infections with a predominantly sexual mode of transmission
CPT/HCPCS: 36415; 80053; 81003; 82306; 84443; 85025; 86780; 87389; 87491; 87591

== ENCOUNTER → 2021-11-24 10:36 | Outpatient (BNVA) | payer OTHER, SELFPAY | PROVIDERS: PCP Internal Medicine | DX: R31.9 Hematuria, unspecified (principal) | CPT/HCPCS: 99202 ==

== ENCOUNTER 2022-03-16 08:42 | Outpatient (REF) | payer OTHER, SELFPAY ==
[2022-03-16 09:04] LABS: MANUAL DIFF FLAG NO
[2022-03-16 09:36] LABS: Basophils Percent Auto 0.6 % (0-2); Eosinophils Absolute Auto 0.1 X10*3/uL (0.0-0.4); Eosinophils Percent Auto 1.5 % (0-4); Hematocrit 46.2 % (37.0-47.0); Hemoglobin 14.7 g/dl (12.0-16.0); Imm Gran Abs Auto 0.05 X10*3/uL (0.00-0.03); Imm Gran Pct Auto 0.7 % (0.0-0.4); Lymphocytes Absolute Auto 2.7 X10*3/uL (1.2-4.9); Mean Corpuscular HGB Conc 31.8 g/dl (31.0-35.0); Mean Corpuscular Hemoglobin 27.8 pg (27.0-33.0); Mean Corpuscular Volume 87.5 fL (80.0-98.0); Monocytes Absolute Auto 0.6 X10*3/uL (0.1-1.2); Monocytes Percent Auto 8.4 % (2-11); Neutrophils Absolute Auto 3.3 x10*3/uL (2.0-8.3); Neutrophils Percent Auto 48.8 % (45-73); Platelet Count 252 X10*3/uL (160-400); Red Blood Count 5.28 X10*6/uL (4.20-5.50); Red Cell Distribution Width 13.3 % (11.0-16.0); White Blood Count 6.7 X10*3/uL (4.8-10.8)
[2022-03-16 09:57] LABS: Alanine Aminotransferase 27 U/L (0-31); Albumin Level 4.4 g/dL (3.5-5.0); Alkaline Phosphatase 108 U/L (39-117); Anion Gap 15 (12-20); Aspartate Amino Transferase 21 U/L (5-31); Bilirubin Total 0.4 mg/dL (0.0-1.0); Blood Urea Nitrogen 13 mg/dL (9-16); Carbon Dioxide 27 mmol/L (22-29); Chloride 104 mmol/L (96-108); Estimated Glomerular Filt Rate > 60; Glucose Fasting 92 mg/dL (60-99); Potassium 4.2 mmol/L (3.3-5.1); Sodium 142 mmol/L (135-145); Total Protein 7.9 g/dL (6.5-8.0)
== END 2022-03-16 08:43 | disposition home or self-care (01) ==
LOC: HO.LAB 08:42
PROVIDERS: PCP Internal Medicine; Visit Provider Internal Medicine
DX: M47.816 Spondylosis without myelopathy or radiculopathy, lumbar region (principal)
CPT/HCPCS: 36415; 80053; 85025

== ENCOUNTER → 2022-03-26 09:56 | Outpatient (BNVA) | payer OTHER, SELFPAY | PROVIDERS: PCP Internal Medicine; Visit Provider Orthopaedic Surgery | DX: M17.0 Bilateral primary osteoarthritis of knee (principal) | CPT/HCPCS: 20610; 99212; J1100 ==

== ENCOUNTER 2022-04-21 11:56 | Outpatient (REF) | payer OTHER, SELFPAY ==
--- NOTE | ~2022-04-21 | MM_ITS ---
EXAMINATION: MM SCREENING DIGITAL BREAST TOMOSYNTHESIS, BILATERAL CLINICAL INFORMATION: Screening. Asymptomatic. The lifetime risk of breast cancer based on the Tyrer-Cuzick Model is 8%. COMPARISON: Mammography: 02/24/2019, 02/01/2018, 01/06/2017 TECHNIQUE: Digital breast tomosynthesis is performed in both the craniocaudal and mediolateral oblique views along with computer-aided detection (CAD). Synthesized 2D images are generated from the tomosynthesis. FINDINGS: There are scattered areas of fibroglandular density (ACR BI-RADS breast composition Category b). There are no significant masses, abnormal calcifications, or other abnormalities. There are scattered bilateral punctate round calcifications, many are dermal. No developing density or architectural abnormality. No significant changes. MM/MM tomosynthesis screening BI IMPRESSION: No mammographic evidence of malignancy. ASSESSMENT: BI-RADS 2: Benign RECOMMENDATION: Routine annual mammography screening. This patient's information was entered into a reminder system with a target due date for their next mammogram.
== END 2022-04-21 11:57 | disposition home or self-care (01) ==
LOC: HO.MAMMO 11:56
PROVIDERS: PCP Internal Medicine; Visit Provider Internal Medicine
DX: Z12.31 Encounter for screening mammogram for malignant neoplasm of breast (principal)
CPT/HCPCS: 77063; 77067

== ENCOUNTER → 2022-05-08 11:41 | Outpatient (BNVA) | payer OTHER, SELFPAY | PROVIDERS: PCP Internal Medicine; Visit Provider Orthopaedic Surgery | DX: M17.0 Bilateral primary osteoarthritis of knee (principal) | CPT/HCPCS: 99212 ==

== ENCOUNTER 2022-06-15 14:14 | Outpatient (REF) | payer OTHER, SELFPAY ==
[2022-06-16 14:31] LABS: BV Int Neg Control Negative (Negative); BV Int Pos Control Positive (Positive)
== END 2022-06-15 14:15 | disposition home or self-care (01) ==
LOC: HO.LNP 14:14
PROVIDERS: Visit Provider Emergency Medicine
DX: R30.0 Dysuria (principal)
CPT/HCPCS: 87086; 87480; 87510; 87660

== ENCOUNTER 2022-07-29 08:55 | Outpatient (REF) | payer OTHER, SELFPAY ==
[2022-07-29 11:22] LABS: Syphilis Screen Nonreactive (Nonreactive)
[2022-07-29 11:26] LABS: HBsAGNum1 0.33 S/CO (0.00-0.99); HIV AB/AG Nonreactive (Nonreactive); HIV Num 1 0.06 S/CO (0.00-0.99); Hepatitis B Surface Antigen Negative (Negative); ~HepC Num1 0.09 S/CO (0.00-0.79); ~Hepatitis C Antibody Nonreactive (Nonreactive)
[2022-07-29 13:38] LABS: CT PCR NOT DETECTED (Not Detect.); NG PCR NOT DETECTED (Not Detect.)
[2022-07-30 09:00] LABS: BV Int Neg Control Negative (Negative); BV Int Pos Control Positive (Positive)
== END 2022-07-29 08:56 | disposition home or self-care (01) ==
LOC: HO.LNP 08:55
PROVIDERS: PCP Internal Medicine; Visit Provider Advanced Practice Midwife
DX: Z01.419 Encounter for gynecological examination (general) (routine) without abnormal findings (principal); Z11.4 Encounter for screening for human immunodeficiency virus [HIV]; Z11.3 Encounter for screening for infections with a predominantly sexual mode of transmission; N89.8 Other specified noninflammatory disorders of vagina
CPT/HCPCS: 0353U; 86780; 86803; 87340; 87389; 87480; 87510; 87660

== ENCOUNTER 2023-03-11 10:00 | Outpatient (AMB) | payer OTHER, SELFPAY ==
--- NOTE | 2023-03-11 10:25 | A.OFFVIS_ITS ---
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: Yes Postbed Stitcher: Postbed Stitcher offered & declined Accompanied by: Self / Same As Patient Allergies metronidazole [Flagyl] Allergy (Intermediate, Verified 03/11/23 10:55) hives Medication List - Last Reconciled 03/11/23 by Jessica Patel MD Brace,wrist (Wrist Brace - one) As directed- LEFT WRIST STABILIZER cane As directed Knee brace As directed miconazole nitrate 2% (Miconazole-7) 1 appful vaginal BEDTIME 7 days omeprazole 40 mg PO DAILY 90 days Shower Chair As directed trazodone 50 mg PO BEDTIME PRN 90 days walker with seat and wheels, Ht: 5', Wt: 165 lbs Do you need a note to return to daycare/school/sports/work: No HPI Shortness of breath HPI Details This 58 years old Setswana-speaking very pleasant lady, is being seen for the 1st time. For pulmonary evaluation Her chief complaint is shortness of breath and frequent awakening at nighttime. This has been going on for. A few years or more During the daytime when she is up and around she has only minimal shortness of breath on exertion, She has only minimal amount of cough, .denies any wheezing She snores a lot at night, to the point that her has left her. She wakes up frequently with gasping like feeling, which she has been thinking as asthma attacks. She does remain somewhat tired and sleepy during the daytime. ESS= 10 Past medical history includes Hodgkin lymphoma diagnosed quite a few years ago and it is in remission, She has had nephrolithiasis, back pain, symptoms of the GERD, fibromyalgia. Some abnormalities in the chest x-ray last year. Patient denies smoking, but with she lives lot of residence in that building smoke cigarettes and part , and she is affected by the smell. [facility] Medical History (Updated 03/11/23 @ 11:13 by Jessica Patel MD) Somnolence, daytime Snoring Dyspnea on exertion KASIE (obstructive sleep apnea) Hematuria Bacteremia Headache Primary insomnia Screen for STD (sexually transmitted disease) Ear discomfort Lumbar pain Obese Rash and nonspecific skin eruption Tubular adenoma of colon Hodgkin lymphoma Surgical History H/O: hysterectomy History of esophagogastroduodenoscopy History of colonoscopy Hx of cataract extraction Family History Mother Diabetes High blood pressure Father Pacemaker Diabetes CAD (coronary artery disease) CKD (chronic kidney disease) Maternal Aunt Stomach cancer Maternal Aunt Liver cancer Social History Household Members: None Housing: Apartment Are you a primary healthcare specialist to a significant other at home: No Do you presently have visiting nurse or 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) Alcohol intake: never Patient Tobacco Use Status: Never used Tobacco e-Cigarette/Vaping Use: Never Used Second Hand Smoke Exposure: No service: No Current occupational status: unemployed and disabled Cognitive needs: Yes Hearing needs: No Vision needs: Yes Female Reproductive History Menstrual Age of Menarche: 12 Review of Systems Const All systems reviewed & are unremarkable except as noted in HPI and below Eyes Reports no additional complaints ENT Reports no additional complaints Card Denies chest pain, Denies irregular heart rhythm and Denies leg edema Resp Reports as per HPI GI Reports no additional complaints Reports no additional complaints Musc Reports back pain and Reports myalgias Skin/Breast Reports system reviewed and no additional complaints, except as documented Neuro Reports no additional complaints Psych Reports no additional complaints Endo Reports no additional complaints [place]/Lymph Details: History of Hodgkin lymphoma in the past, treated and has been in remission Aller/Immun Reports no additional complaints Physical Exam Vital Signs: Last Vital Signs Pulse 84 03/11/23 10:26 BP 126/84 03/11/23 10:26 Pulse Ox 96 03/11/23 10:26 Oxygen Delivery Method Room Air 03/11/23 10:26 BMI result Body Mass Index 33.4 She does have a round face with obese neck. 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) Throat: Yes posterior oropharynx normal Eyes General: appearance normal, both eyes and all related structures Neck Neck: Yes normal visual inspection, Yes no lymphadenopathy, Yes trachea midline, Yes no JVD and Yes other (Neck size 15 in) Thyroid: Thyroid normal Chest Chest palpation & inspection: normal inspection of the chest, normal palpation of entire chest wall and no tenderness Resp Effort & Inspection: normal respiratory effort Auscultation: clear to auscultation bilaterally, no crackles, no rales and no wheezes Cardio Palpation: normal PMI Rate: regular rate Rhythm: regular rhythm Heart sounds: no gallops and no murmurs Peripheral pulses: Peripheral pulses 2+ throughout GI Palpation (GI): Soft to palpation, nontender, No hepatosplenomegaly present and no masses Auscultation: normal bowel sounds Back/Spine/Pelvis Thoracic/Lumbar Spine: thoracic and lumbar spine normal to inspection Skin General skin exam: no rashes or lesions noted Neuro General: patient oriented x3 and no focal motor deficits Cranial nerves: Yes CN's II-XII intact bilaterally Extrem General: Yes normal to inspection, Yes no clubbing, cyanosis or edema and Yes no calf tenderness Psych Appearance: grossly normal and well kempt Speech and movement: Normal speech and movement present Assessment & Plan Assessment & Plan (1) KASIE (obstructive sleep apnea): Comment: Patient has typical symptoms of obstructive sleep apnea, including loud snoring, frequent awakenings at night and daytime somnolence. Most likely related to moderate obesity and retroganthia of the lower jaw . PLAN : Explained to the patient she understands thoroughly. Needs to lose. Weight, 5-10 lb Needs to sleep in lateral position and not on her back. Sleep study to be done to determine the severity of KASIE, and then plan for the treatment. Code(s): G47.33 - Obstructive sleep apnea (adult) (pediatric) (2) Dyspnea on exertion: Comment: She thought her symptoms of the waking up with shortness of breath, And mild dyspnea on exertion during the daytime is secondary to asthma are some lung disease. I think her symptoms. are mainly because of obstructive sleep apnea But will do a complete pulmonary function test to rule out any chronic impairment of the lungs. Also ordered a chest x-ray to rule out any Parenchymal disease of the lungs. Code(s): R06.09 - Other forms of dyspnea Orders: Orders PFT pulmonary function test Today G47.33 - Obstructive sleep apnea (adult) (pediatric), R06.09 - Other forms of dyspnea XR chest 2V Today G47.33 - Obstructive sleep apnea (adult) (pediatric), R06.09 - Other forms of dyspnea RT home sleep study Today G47.33 - Obstructive sleep apnea (adult) (pediatric), R06.83 - Snoring, R40.0 - Somnolence Coding Level of Care Code New Pt Level 4 (23658) Diagnoses KASIE (obstructive sleep apnea) G47.33 Dyspnea on exertion R06.09
[2023-03-11 10:26] VITALS: BP 126/84; PULSE 84; O2SAT 96; BMI 33.4
== END 2023-03-11 10:54 | disposition home or self-care (01) ==
PROVIDERS: PCP Internal Medicine; Visit Provider Internal Medicine
DX: G47.33 Obstructive sleep apnea (adult) (pediatric) (principal); R06.09 Other forms of dyspnea
CPT/HCPCS: 99204

== ENCOUNTER 2023-03-11 10:00 | Outpatient (REF) | payer OTHER, SELFPAY ==
--- NOTE | ~2023-03-11 | XR_ITS ---
EXAMINATION: XR CHEST CLINICAL INFORMATION: Dyspnea. COMPARISON: 11/02/2021. TECHNIQUE: 2 views of the chest were obtained. FINDINGS: The cardiomediastinal silhouette is normal. There is no focal lung consolidation or pleural effusion. The bony structures and soft tissues are unremarkable. XR/XR chest 2V IMPRESSION: No active cardiopulmonary disease.
== END 2023-03-11 10:01 | disposition home or self-care (01) ==
LOC: HO.XRAY 10:00
PROVIDERS: PCP Internal Medicine; Visit Provider Internal Medicine
DX: R06.09 Other forms of dyspnea (principal); G47.33 Obstructive sleep apnea (adult) (pediatric)
CPT/HCPCS: 71046; 99202

== ENCOUNTER 2023-03-30 10:01 | Outpatient (AMB) | payer OTHER, SELFPAY ==
[2023-03-30 10:10] VITALS: BP 146/84; BMI 34.0
--- NOTE | 2023-03-30 10:10 | MHC.PC.OV ---
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 Supervisor Required: No Accompanied by: Self / Same As Patient Allergies metronidazole [Flagyl] Allergy (Intermediate, Verified 03/30/23 10:30) hives Medication List - Last Reconciled 03/30/23 by Yen Prater MD Brace,wrist (Wrist Brace - one) As directed- LEFT WRIST STABILIZER cane As directed Knee brace As directed miconazole nitrate 2% (Miconazole-7) 1 appful vaginal BEDTIME 7 days omeprazole 40 mg PO DAILY 90 days Shower Chair As directed trazodone 50 mg PO BEDTIME PRN 90 days walker with seat and wheels, Ht: 5', Wt: 165 lbs Tobacco use date assessed: 03/30/23 Dental Screening Dental Screen Date: 03/30/23 Did you have a dental visit in the last 12 months?: Yes Did you have a dental problem in the last 6 months where you did not have access to dental care?: No Was dental information given to patient?: Patient has dentist HPI HPI Comments History of Present Illness Details This is a 58-year-old female that comes for her physical exam. Mammogram scheduled for April 2023. No need for Pap smear due to hysterectomy. Last colonoscopy was 2019 and was normal. Has a skin tag in umbilicus that bothers her. [facility] Medical History (Updated 03/30/23 @ 10:45 by Yen Prater MD) Somnolence, daytime Snoring Dyspnea on exertion KASIE (obstructive sleep apnea) Hematuria Bacteremia Headache Primary insomnia Screen for STD (sexually transmitted disease) Ear discomfort Lumbar pain Obese Rash and nonspecific skin eruption Tubular adenoma of colon Hodgkin lymphoma Surgical History H/O: hysterectomy History of esophagogastroduodenoscopy History of colonoscopy Hx of cataract extraction Family History Mother Diabetes High blood pressure Father Pacemaker Diabetes CAD (coronary artery disease) CKD (chronic kidney disease) Maternal Aunt Stomach cancer Maternal Aunt Liver cancer Social History Household Members: None Housing: Apartment Are you a primary post acute care nurse to a significant other at home: No Do you presently have visiting nurse or other home services: 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 Antonio Ochoa, Angelica Mccormack, Aman Medrano and colleagues, with an educational dev from [employer]. Review of Systems Const All systems reviewed & are unremarkable except as noted in HPI and below Eyes Reports no additional complaints, Denies change in vision and Denies other visual disturbances Card Denies chest pain at rest, Denies chest pain with activity, Denies edema, Denies irregular heart rhythm, Denies claudication, Denies dyspnea, Denies dyspnea on exertion, Denies orthopnea, Denies paroxysmal nocturnal dyspnea and Denies slow heart rate Resp Denies cough, Denies dyspnea and Denies dyspnea on exertion GI Denies abdominal pain, Denies change in bowel habits, Denies excessive flatus, Denies nausea and Denies vomiting Denies urinary incontinence, Denies urinary hesitancy and Denies urinary urgency Musc Denies abnormal gait, Denies atrophy, Denies deformity and Denies limited range of motion Skin/Breast Denies bleeding lesions, Denies changing lesions and Denies rash Neuro Denies abnormal gait and Denies lack of coordination Physical exam (Primary Care) Vital Signs: Last Vital Signs BP 146/84 H 03/30/23 10:10 BMI result Body Mass Index 34.0 Tobacco/Smoking Status: Tobacco use Status Tobacco use date assessed 03/30/23 03/30/23 10:14 Patient Tobacco Use Status Never used Tobacco 03/30/23 10:14 e-Cigarette/Vaping Use Never Used 03/30/23 10:14 Thrive Assessment: Date of Thrive Assessment Date Thrive assessed 03/24/22 03/30/23 10:14 Const Orientation/consciousness: patient oriented x3 HENMT Head: Yes normal to inspection, Yes normocephalic and Yes atraumatic Ears: external ears normal Eyes General: appearance normal, both eyes and all related structures Eyelids: Yes eyelids normal Conjunctivae: conjunctivae normal Neck Neck: Yes normal visual inspection and Yes supple Resp Effort & Inspection: normal respiratory effort Auscultation: clear to auscultation bilaterally Cardio Jugular venous distension: no JVD Rate: regular rate Rhythm: regular rhythm Heart sounds: S1 normal heart sound present and S2 normal heart sound present GI Inspection: Yes normal to inspection Palpation (GI): Soft to palpation and nontender Auscultation: normal bowel sounds Skin Other: skin tag in umbilicus General skin exam: no rashes or lesions noted Neuro General: patient oriented x3 and no focal motor deficits Extrem General: Yes full ROM Psych Appearance: grossly normal Assessment and Plan Assessment & Plan (1) Physical exam: Code(s): Z00.00 - Encounter for general adult medical examination without abnormal findings Plan: Repeat in a year Orders: Orders Lipid Panel Today E78.5 - Hyperlipidemia, unspecified Transglutaminase IgA Today K52.9 - Noninfective gastroenteritis and colitis, unspecified Comprehensive [place]. Panel Fast Today Z00.00 - Encounter for general adult medical examination without abnormal findings Transglutaminase Ab IgG Today K52.9 - Noninfective gastroenteritis and colitis, unspecified Gliadin Ab Panel Today K52.9 - Noninfective gastroenteritis and colitis, unspecified Referrals General Surgery Referral L91.8 - Other hypertrophic disorders of the skin Medications: New pantoprazole 40 mg PO DAILY 90 days 90 tabs 0RF Discontinued omeprazole Discontinued Reason: Patient Completed Course 40 mg PO DAILY 90 days 90 caps 1RF K21.9 - Gastro-esophageal reflux disease without esophagitis Coding Level of Care Code Est Pt Prev Care 40-64y(81995) Diagnoses Physical exam Z00.00 Time Spent (min) 31
[2023-03-30 12:09] VITALS: BP 138/85
== END 2023-03-30 10:41 | disposition home or self-care (01) ==
PROVIDERS: Visit Provider Internal Medicine
DX: Z00.00 Encounter for general adult medical examination without abnormal findings (principal)
CPT/HCPCS: 99396

== ENCOUNTER 2023-03-31 09:56 | Outpatient (AMB) | payer OTHER, SELFPAY ==
[2023-03-31 10:08] VITALS: BP 169/98; PULSE 95; BMI 33.6
--- NOTE | 2023-03-31 10:08 | A.OFFVIS_ITS ---
Intake Vital Signs 03/31/23 10:08 Height 5 ft Weight 172 lb BMI 33.6 BP 169/98 H Blood Pressure Location Rt brachial Position Sitting Pulse 95 Intake Visit Reasons: Enlarging lesion next to umbilicus Intake Note: Patient referred for growth inside umbilicus. Has been enlarging over years. C/o bad smell when tries to clean with q-tip. 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 She has had this several years time. It is increasing in size, becoming more symptomatic. She was to have removed. She has no such lesions elsewhere. Chart was reviewed patient evaluated [facility] Medical History Somnolence, daytime Snoring Dyspnea on exertion KASIE (obstructive sleep apnea) Hematuria Bacteremia Headache Primary insomnia Screen for STD (sexually transmitted disease) Ear discomfort Lumbar pain Obese Rash and nonspecific skin eruption Tubular adenoma of colon Hodgkin lymphoma Surgical History H/O: hysterectomy History of esophagogastroduodenoscopy History of colonoscopy Hx of cataract extraction Family History Mother Diabetes High blood pressure Father Pacemaker Diabetes CAD (coronary artery disease) CKD (chronic kidney disease) Maternal Aunt Stomach cancer Maternal Aunt Liver cancer Social History Household Members: None Housing: Apartment Are you a primary physician locums urgent care to a significant other at home: No Do you presently have visiting 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 Proxy 2 x 1 cm exophytic skin lesion in the umbilicus on the right side. Risks, benefits, alternatives of excision of this process reviewed the patient and included but not limited to bleeding, infection, recurrence, numbness, pain, scarring she wished to proceed. All questions were answered. Office Procedures Excision Details: After appropriate positioning, patient underwent 1% lidocaine and Betadine prep and uneventful of approximately 2 x 1 cm umbilical skin lesion. Specimen sent to pathology. Wound base cauterized with silver nitrate followed by bacitracin sterile dressing. Patient tolerated procedure well. [id number]-[id number]/arms/legs 1.1-2cm Procedure code (CPT) selection complete Office Meds lidocaine 1 %-epinephrine 1:100,000 injection solution Performing Provider: Glenroy Malone MD Performing Location: [facility] [place] [facility] Surgeons Administered by: Glenroy Malone MD on 03/31/23 10:38 Dose Route Admin Location Dispensed Lot Number Expiration Date [facility] Curtain Fitter 10 mL Infiltration 10 mL Assessment & Plan Assessment & Plan (1) Skin lesion: Code(s): L98.9 - Disorder of the skin and subcutaneous tissue, unspecified Plan: Patient has been given local instructions, and will follow-up p.r.n.. Should be issues with the pathology report, patient will be contacted Orders: Orders AMB Excision Today L98.9 - Disorder of the skin and subcutaneous tissue, unspecified Coding Level of Care Code New Pt Level 4 (13232) Diagnoses Skin lesion L98.9 CPT Codes Trunk/Arms/Legs - CPT: 34874-vhofw/arms/legs 1.1-2cm ([id number])
== END 2023-03-31 10:23 | disposition home or self-care (01) ==
PROVIDERS: PCP Internal Medicine; Referring Provider Internal Medicine; Visit Provider Surgery
DX: L98.9 Disorder of the skin and subcutaneous tissue, unspecified (principal)
CPT/HCPCS: 11401; 99204

== ENCOUNTER 2023-03-31 09:56 | Outpatient (REF) | payer OTHER, SELFPAY | END 2023-03-31 09:57 | disposition home or self-care (01) | LOC: HO.LNP 09:56 | PROVIDERS: PCP Internal Medicine; Referring Provider Internal Medicine; Visit Provider Surgery | DX: D17.1 Benign lipomatous neoplasm of skin and subcutaneous tissue of trunk (principal) | CPT/HCPCS: 11401; 88304; 88305 ==

== ENCOUNTER 2023-04-09 10:57 | Outpatient (REF) | payer OTHER, SELFPAY | END 2023-04-09 10:58 | disposition home or self-care (01) | LOC: HO.RESP 10:57 | PROVIDERS: PCP Internal Medicine; Visit Provider Internal Medicine | DX: R06.09 Other forms of dyspnea (principal); G47.33 Obstructive sleep apnea (adult) (pediatric) | CPT/HCPCS: 94010; 94727; 94729 ==

== ENCOUNTER → 2023-04-09 11:58 | Outpatient (BNV) | payer OTHER, SELFPAY | PROVIDERS: PCP Internal Medicine; Visit Provider Hospitalist | DX: G47.33 Obstructive sleep apnea (adult) (pediatric) (principal) | CPT/HCPCS: 94060; 94727; 94729 ==

== ENCOUNTER → 2023-04-26 09:52 | Outpatient (REF) | payer OTHER, SELFPAY | LOC: HO.SL 09:52 | PROVIDERS: PCP Internal Medicine; Visit Provider Internal Medicine | DX: G47.33 Obstructive sleep apnea (adult) (pediatric) (principal); R06.83 Snoring; R40.0 Somnolence | CPT/HCPCS: 95806 ==

== ENCOUNTER → 2023-04-26 10:16 | Outpatient (BNV) | payer OTHER, SELFPAY | PROVIDERS: PCP Internal Medicine; Visit Provider Internal Medicine | DX: G47.33 Obstructive sleep apnea (adult) (pediatric) (principal) | CPT/HCPCS: 95806 ==

== ENCOUNTER 2023-04-27 11:24 | Outpatient (REF) | payer OTHER, SELFPAY | END 2023-04-27 11:25 | disposition home or self-care (01) | LOC: HO.MAMMO 11:24 | PROVIDERS: PCP Internal Medicine; Visit Provider Internal Medicine | DX: Z12.31 Encounter for screening mammogram for malignant neoplasm of breast (principal) | CPT/HCPCS: 77063; 77067 ==

== ENCOUNTER → 2023-04-27 12:00 | Outpatient (BNV) | payer OTHER, SELFPAY | PROVIDERS: PCP Internal Medicine; Visit Provider Radiology Diagnostic Radiology | DX: Z12.31 Encounter for screening mammogram for malignant neoplasm of breast (principal) | CPT/HCPCS: 77063; 77067 ==

== ENCOUNTER 2023-06-21 09:47 | Outpatient (AMB) | payer OTHER, SELFPAY ==
--- NOTE | 2023-06-21 10:03 | A.OFFVIS_ITS ---
Intake Vital Signs 06/21/23 10:05 Height 5 ft Weight 171 lb BMI 33.4 BP 132/80 Blood Pressure Location Lt brachial Position Sitting Pulse 106 H Pulse Source Pulse Oximeter Pulse Oximetry (%) 96 Oxygen Delivery Method Room Air Intake Visit Reasons: Shortness of breath Intake Note: pt is here for follow up of sleep study, she states she is feeling the same, some wheezing, some short of breath also, all symtoms are the same. She feels the cold affects her breathing Director Of Outreach Required: Yes Director Of Outreach Name: Sobeida Allergies metronidazole [Flagyl] Allergy (Intermediate, Verified 06/21/23 10:20) hives Medication List - Last Reconciled 06/21/23 by Jessica Patel MD [bed rail As directed] Brace,wrist (Wrist Brace - one) As directed- LEFT WRIST STABILIZER cane As directed [handheld shower As directed] Knee brace As directed miconazole nitrate 2% (Miconazole-7) 1 appful vaginal BEDTIME 7 days pantoprazole 40 mg PO DAILY 90 days Shower Chair As directed trazodone 50 mg PO BEDTIME PRN 90 days walker with seat and wheels, Ht: 5', Wt: 165 lbs Do you need a note to return to daycare/school/sports/work: No HPI Shortness of breath HPI Details 58 years old female, very pleasant, Span suzan-speaking, comes for follow- up after her sleep study, PFT and chest x-ray. She denies any cough or wheezing but does get short of breath if she walks up hill or climbs stairs. Sleeps fairly good except for waking up a few times, . Denies any daytime sleepiness. . She remains only moderately obese REPLACED BY [facility] Medical History (Updated 06/21/23 @ 10:27 by Jessica Patel MD) Restrictive lung disease Somnolence, daytime Snoring Dyspnea on exertion KASIE (obstructive sleep apnea) Hematuria Bacteremia Headache Primary insomnia Screen for STD (sexually transmitted disease) Ear discomfort Lumbar pain Obese Rash and nonspecific skin eruption Tubular adenoma of colon Hodgkin lymphoma Surgical History H/O: hysterectomy History of esophagogastroduodenoscopy History of colonoscopy Hx of cataract extraction Family History Mother Diabetes High blood pressure Father Pacemaker Diabetes CAD (coronary artery disease) CKD (chronic kidney disease) Maternal Aunt Stomach cancer Maternal Aunt Liver cancer Social History Household Members: None Housing: Apartment Are you a primary personal care aide to a significant other at home: No Do you presently have visiting nurse 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) Alcohol intake: never Patient Tobacco Use Status: Never used Tobacco e-Cigarette/Vaping Use: Never Used Second Hand Smoke Exposure: No service: No Current occupational status: unemployed and disabled Cognitive needs: Yes Hearing needs: No Vision needs: Yes Female Reproductive History Menstrual Age of Menarche: 12 Review of Systems Const All systems reviewed & are unremarkable except as noted in HPI and below Eyes Reports no additional complaints ENT Reports no additional complaints Card Denies chest pain, Denies irregular heart rhythm and Denies leg edema Resp Reports as per HPI GI Reports no additional complaints Reports no additional complaints Musc Reports back pain and Reports myalgias Skin/Breast Reports system reviewed and no additional complaints, except as documented Neuro Reports no additional complaints Psych Reports no additional complaints Endo Reports no additional complaints Gilmer/Lymph Details: History of Hodgkin lymphoma in the past, treated and has been in remission Aller/Immun Reports no additional complaints Physical Exam Vital Signs: Last Vital Signs Pulse 106 H 06/21/23 10:05 BP 132/80 06/21/23 10:05 Pulse Ox 96 06/21/23 10:05 Oxygen Delivery Method Room Air 06/21/23 10:05 BMI result Body Mass Index 33.4 She does have a round face with obese neck. 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) Throat: Yes posterior oropharynx normal Eyes General: appearance normal, both eyes and all related structures Neck Neck: Yes normal visual inspection, Yes no lymphadenopathy, Yes trachea midline, Yes no JVD and Yes other (Neck size 15 in) Thyroid: Thyroid normal Chest Chest palpation & inspection: normal inspection of the chest, normal palpation of entire chest wall and no tenderness Resp Effort & Inspection: normal respiratory effort Auscultation: clear to auscultation bilaterally, no crackles, no rales and no wheezes Cardio Palpation: normal PMI Rate: regular rate Rhythm: regular rhythm Heart sounds: no gallops and no murmurs Peripheral pulses: Peripheral pulses 2+ throughout GI Palpation (GI): Soft to palpation, nontender, No hepatosplenomegaly present and no masses Auscultation: normal bowel sounds Back/Spine/Pelvis Thoracic/Lumbar Spine: thoracic and lumbar spine normal to inspection Skin General skin exam: no rashes or lesions noted Neuro General: patient oriented x3 and no focal motor deficits Cranial nerves: Yes CN's II-XII intact bilaterally Extrem General: Yes normal to inspection, Yes no clubbing, cyanosis or edema and Yes no calf tenderness Psych Appearance: grossly normal and well kempt Speech and movement: Normal speech and movement present Results Reviewed Results Reviewed: CHEST X-RAY WAS NORMAL. PULMONARY FUNCTION TEST MODERATE DEGREE OF RESTRICTIVE PULMONARY DISORDER, NO OBSTRUCTIVE AIRWAY DISORDER, AND NO RESPONSE TO BRONCHODILATORS CHALLENGE. HOME-BASED SLEEP STUDY TOTAL SLEEP TIME AHI 6.6, MOST OF THE SLEEP IN SUPINE POSITION SNORING FOR 10.7% OF SLEEP TIME Assessment & Plan Assessment & Plan (1) Restrictive lung disease: Comment: PULMONARY FUNCTION TEST SHOWS MODERATELY SEVERE RESTRICTIVE DISORDER. THIS IS MOST LIKELY RELATED TO HER MODERATE OBESITY Code(s): J98.4 - Other disorders of lung Plan: EXPLAINED TO HER THE RESULTS OF PFT. DOES NOT NEED ANY. BRONCHODILATOR THERAPY ADVISED TO DO DEEP. BREATHING EXERCISES 3 TIMES A DAY ADVISED TO LOSE WEIGHT AT LEAST BY 10 LB. (2) Dyspnea on exertion: Comment: MILD DYSPNEA ON EXERTION IS SECONDARY TO RESTRICTIVE LUNG DISORDER. Code(s): R06.09 - Other forms of dyspnea Plan: UNDER RESTRICTIVE LUNG DISORDER (3) KASIE (obstructive sleep apnea): Comment: HOME-BASED SLEEP STUDY SHOWS MILD OBSTRUCTIVE SLEEP APNEA, WITH TOTAL SLEEP TIME AHI 6.6, MOST OF THE SLEEP IN SUPINE POSITION. SNORING FOR 10.7% OF THE SLEEP TIME NOT SIGNIFICANT. Code(s): G47.33 - Obstructive sleep apnea (adult) (pediatric) Plan: EXPLAINED TO THE PATIENT AND, REASSURED THAT SHE DOES NOT HAVE A EASE SIGNIFICANT DEGREE OF SLEEP APNEA. SHE SHOULD TRY CONSERVATIVE MEASURES, ESPECIALLY WEIGHT REDUCTION. SHE IS INSTRUCTED TO LOSE ABOUT 10-12 LB OF WEIGHT. ALWAYS TRY TO SLEEP IN LATERAL POSITION. WILL RECHECK IN 4 MONTHS AND IF SHE REMAINS SYMPTOMATIC THEN WE MAY GO AHEAD AND ORDER IS CPAP DEVICE. Coding Level of Care Code Est Pt Level 3 (97306) Diagnoses Restrictive lung disease J98.4 Dyspnea on exertion R06.09 KASIE (obstructive sleep apnea) G47.33
[2023-06-21 10:05] VITALS: BP 132/80; PULSE 106; O2SAT 96; BMI 33.4
== END 2023-06-21 10:20 | disposition home or self-care (01) ==
PROVIDERS: PCP Internal Medicine; Visit Provider Internal Medicine
DX: J98.4 Other disorders of lung (principal); R06.09 Other forms of dyspnea; G47.33 Obstructive sleep apnea (adult) (pediatric)
CPT/HCPCS: 99213

== ENCOUNTER → 2023-06-21 09:47 | Outpatient (BNVA) | payer OTHER, SELFPAY | PROVIDERS: PCP Internal Medicine; Visit Provider Internal Medicine | DX: J98.4 Other disorders of lung (principal); R06.09 Other forms of dyspnea; G47.33 Obstructive sleep apnea (adult) (pediatric) | CPT/HCPCS: 99212 ==

== ENCOUNTER 2023-09-21 10:36 | Outpatient (REF) | payer OTHER, SELFPAY ==
[2023-09-21 13:34] LABS: Alanine Aminotransferase 26 U/L (0-31); Albumin Level 4.2 g/dL (3.5-5.0); Alkaline Phosphatase 129 U/L (39-117); Anion Gap 14 (12-20); Aspartate Amino Transferase 20 U/L (5-31); Bilirubin Total 0.4 mg/dL (0.0-1.0); Blood Urea Nitrogen 10 mg/dL (9-16); Calcium 9.7 mg/dL (8.4-10.2); Carbon Dioxide 24 mmol/L (22-29); Chloride 108 mmol/L (96-108); Cholesterol 211 mg/dL (<200); Estimated Glomerular Filt Rate > 60; Glucose Fasting 84 mg/dL (60-99); HDL Cholesterol 64 mg/dL (>40); LDL Cholesterol Calculated 119 mg/dL (<100); Sodium 142 mmol/L (135-145); Total Protein 7.8 g/dL (6.5-8.0); Triglycerides 141 mg/dL (<150)
[2023-09-24 12:25] LABS: Gliadin Deamidated IgA Ab 10.6 U/mL; Transglutaminase Ab IgG <1.0 U/mL; Transglutaminase IgA <1.0 U/mL
== END 2023-09-21 10:37 | disposition home or self-care (01) ==
LOC: HO.LAB 10:36
PROVIDERS: PCP Internal Medicine; Visit Provider Internal Medicine
DX: Z00.00 Encounter for general adult medical examination without abnormal findings (principal); K52.9 Noninfective gastroenteritis and colitis, unspecified; E78.5 Hyperlipidemia, unspecified
CPT/HCPCS: 36415; 80053; 80061; 86258; 86364

== ENCOUNTER 2023-09-27 09:57 | Outpatient (AMB) | payer OTHER, SELFPAY ==
--- NOTE | 2023-09-27 10:09 | A.OFFPC_ITS ---
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 Required: No Accompanied by: Self / Same As Patient Allergies metronidazole [Flagyl] Allergy (Intermediate, Verified 09/27/23 10:29) hives Medication List - Last Reconciled 09/27/23 by Yen Prater MD [bed rail As directed] Brace,wrist (Wrist Brace - one) As directed- LEFT WRIST STABILIZER cane As directed [handheld shower As directed] Knee brace As directed miconazole nitrate 2% (Miconazole-7) 1 appful vaginal BEDTIME 7 days pantoprazole 40 mg PO DAILY 90 days Shower Chair As directed trazodone 50 mg PO BEDTIME PRN 90 days walker with seat and wheels, Ht: 5', Wt: 165 lbs Tobacco use date assessed: 09/27/23 Dental Screening Dental Screen Date: 09/27/23 Did you have a dental visit in the last 12 months?: Yes Did you have a dental problem in the last 6 months where you did not have access to dental care?: No Was dental information given to patient?: Patient has dentist HPI HPI Comments History of Present Illness Details This is a 58-year-old female with chronic GERD, history of Hodgkin lymphoma and primary insomnia that comes today for preop evaluation for extraction of some teeth with general anesthesia. She denies any chest pain or shortness of breath. Hodgkin's lymphoma is follow by Hematology-Oncology and is in remission. Insomnia well controlled with trazodone. GERD stable with PPIs. Patient has 5-7 Mets of ADLs. She is low risk patient for low risk surgery. Cholesterol elevated but does not require any statin. EKG still pending. [facility] Medical History Restrictive lung disease Somnolence, daytime Snoring Dyspnea on exertion KASIE (obstructive sleep apnea) Hematuria Bacteremia Headache Primary insomnia Screen for STD (sexually transmitted disease) Ear discomfort Lumbar pain Obese Rash and nonspecific skin eruption Tubular adenoma of colon Hodgkin lymphoma Surgical History H/O: hysterectomy History of esophagogastroduodenoscopy History of colonoscopy Hx of cataract extraction Family History Mother Diabetes High blood pressure Father Pacemaker Diabetes CAD (coronary artery disease) CKD (chronic kidney disease) Maternal Aunt Stomach cancer Maternal Aunt Liver cancer Social History Household Members: None Housing: Apartment Are you a primary progressive care unit registered nurse to a significant other at home: No Do you presently have visiting nurse or 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 1. Little interest or pleasure in doing things: not at all 2. Feeling down, depressed, or hopeless: not at all 3. Trouble falling or staying asleep, or sleeping too much: not at all 4. Feeling tired or having little energy: not at all 5. Poor appetite or overeating: not at all 6. Feeling bad about yourself - or that you are a failure or have let yourself or your family down: not at all 7. Trouble concentrating on things, such as reading the newspaper or watching television: not at all 8. Moving or speaking so slowly that other people could have noticed. Or the opposite - being so fidgety or restless that you have been moving around a lot more than usual: not at all 9. Thoughts that you would be better off or of hurting yourself in some way: not at all Total score: 0 Depression Screening Interpretation: Negative Depression Screening Done: Yes 77584 - PHQ-9 Billing: Yes Source: Developed by Drs. Antonio Ochoa, Angelica Mccormack, Aman Medrano and colleagues, with an educational dev from [employer]. Thrive Questionnaire Date Thrive assessed: 09/27/23 I am a: Patient What is your living situation today?: I have a steady place to live Within the past 12 months, did the food you bought not last and you didn't have the money to get more?: Never true Within the past 12 months, did you worry whether your food would run out before you got money to buy more?: Never true Do you have trouble paying for medicines?: No Do you have trouble getting transportation to medical appointments?: No Do you have trouble paying your heating and electricity bill?: No Do you have trouble taking care of your child, family member or friend?: No Do you have trouble with day-to-day activities such as bathing, preparing meals, shopping, managing finances, etc.?: No Are you currently unemployed and looking for a job?: No Are you interested in more education?: No Please select the resources that you would like help with: None Currently or been in a relationship where the following occur: no concerns reported THRIVE Score: 0 AUDIT C Alcohol Use Questionnaire (AUDIT-C) 1. How often do you have a drink containing alcohol?: Never Total Score: 0 ARACELI-7 AMB Questionnaire ARACELI-7 Date ARACELI - 7 assessed: 09/27/23 Feeling nervous, anxious, or on edge: 1 = Several days Not being able to stop or control worryin = Not at all Worrying too much about different things: 1 = Several days Trouble relaxin = Not at all Being so restless that it is hard to sit still: 0 = Not at all Becoming easily annoyed or irritable: 0 = Not at all Feeling afraid as if something awful might happen: 0 = Not at all Total ARACELI-7 score (0-4 normal; 5-9 mild; 10-14 moderate; 15-21 severe): 2 Source: Developed by Drs. Antonio Ochoa, Angelica Mccormack, Aman Medrano and colleagues, with an educational dev from [employer]. ARACELI-7 Assessment Billing ARACELI-7 Assessment Tool: ARACELI-7 Assessment 97061 Review of Systems Const All systems reviewed & are unremarkable except as noted in HPI and below Eyes Reports no additional complaints, Denies change in vision and Denies other visual disturbances Card Denies chest pain at rest, Denies chest pain with activity, Denies edema, Denies irregular heart rhythm, Denies claudication, Denies dyspnea, Denies dyspnea on exertion, Denies orthopnea, Denies paroxysmal nocturnal dyspnea and Denies slow heart rate Resp Denies cough, Denies dyspnea and Denies dyspnea on exertion GI Denies abdominal pain, Denies change in bowel habits, Denies excessive flatus, Denies nausea and Denies vomiting Denies urinary incontinence, Denies urinary hesitancy and Denies urinary urgency Musc Denies abnormal gait, Denies atrophy, Denies deformity and Denies limited range of motion Skin/Breast Denies bleeding lesions, Denies changing lesions and Denies rash Neuro Denies abnormal gait and Denies lack of coordination Physical exam (Primary Care) Vital Signs: Last Vital Signs BP 160/90 H 09/27/23 10:55 BMI result Body Mass Index 33.0 Tobacco/Smoking Status: Tobacco use Status Tobacco use date assessed 09/27/23 09/27/23 10:15 Patient Tobacco Use Status Never used Tobacco 09/27/23 10:15 e-Cigarette/Vaping Use Never Used 09/27/23 10:15 PHQ-9: PHQ-9 Score PHQ-9: Total score 0 09/27/23 10:59 Depression Screening Interpretation: Negative Thrive Assessment: Date of Thrive Assessment Date Thrive assessed 09/27/23 09/27/23 10:15 Currently or been in a relationship where the following occur: no concerns reported Eyes General: appearance normal, both eyes and all related structures Eyelids: Yes eyelids normal Conjunctivae: conjunctivae normal Neck Neck: Yes normal visual inspection and Yes supple Resp Effort & Inspection: normal respiratory effort Auscultation: clear to auscultation bilaterally Cardio Jugular venous distension: no JVD Rate: regular rate Rhythm: regular rhythm Heart sounds: S1 normal heart sound present and S2 normal heart sound present Extrem General: Yes full ROM Assessment and Plan Assessment & Plan (1) Pre-op evaluation: Code(s): Z01.818 - Encounter for other preprocedural examination Plan: EKG pending for medical clearance. (2) Chronic GERD: Code(s): K21.9 - Gastro-esophageal reflux disease without esophagitis Plan: Continue PPIs. (3) Primary insomnia: Code(s): F51.01 - Primary insomnia Plan: Continue trazodone. (4) Hodgkin lymphoma: Comment: 2010 Code(s): C81.90 - Hodgkin lymphoma, unspecified, unspecified site Plan: In remission. Follow-up with Hematology-Oncology. Orders: Orders 2 Complete Blood Count Auto Diff Today C81.90 - Hodgkin lymphoma, unspecified, unspecified site, D64.9 - Anemia, unspecified ECG 12 lead EKG Today Z01.818 - Encounter for other preprocedural examination Medications: Refilled pantoprazole 40 mg PO DAILY 90 tabs 0RF 90 days Coding Level of Care Code Est Pt Level 4 (98080) Diagnoses Pre-op evaluation Z01.818 Chronic GERD K21.9 Primary insomnia F51.01 Hodgkin lymphoma C81.90 Additional Codes ARACELI-7 Assessment Billing - ARACELI-7 Assessment Tool: ARACELI-7 Assessment 02063 ([id number]) Time Spent (min) 23
[2023-09-27 10:10] VITALS: BP 160/92; BMI 33.0
[2023-09-27 10:55] VITALS: BP 160/90
== END 2023-09-27 10:39 | disposition home or self-care (01) ==
PROVIDERS: PCP Internal Medicine; Visit Provider Internal Medicine
DX: K21.9 Gastro-esophageal reflux disease without esophagitis (principal); F51.01 Primary insomnia; C81.90 Hodgkin lymphoma, unspecified, unspecified site; Z01.818 Encounter for other preprocedural examination
CPT/HCPCS: 99214

== ENCOUNTER 2023-10-20 09:56 | Outpatient (AMB) | payer OTHER, SELFPAY ==
[2023-10-20 10:27] VITALS: BP 130/78; PULSE 85; O2SAT 96; BMI 33.1
--- NOTE | 2023-10-20 10:27 | MHC.OFFVIS ---
Intake Vital Signs 10/20/23 10:27 Height 5 ft Weight 169 lb 12.095 oz BMI 33.1 BP 130/78 Blood Pressure Location Lt brachial Position Sitting Pulse 85 Pulse Source Pulse Oximeter Pulse Oximetry (%) 96 Oxygen Delivery Method Room Air Intake Visit Reasons: Shortness of breath Intake Note: pt is here for follow up and states allergies, burning in eyes and runny nose at night, no short of breath Drum Sander Required: Yes Drum Sander Name: [id number] Allergies metronidazole [Flagyl] Allergy (Intermediate, Verified 10/20/23 10:57) hives Medication List - Last Reconciled 10/20/23 by Jessica Patel MD [bed rail As directed] Brace,wrist (Wrist Brace - one) As directed- LEFT WRIST STABILIZER cane As directed [handheld shower As directed] Knee brace As directed miconazole nitrate 2% (Miconazole-7) 1 appful vaginal BEDTIME PRN pantoprazole 40 mg PO DAILY 90 days Shower Chair As directed trazodone 50 mg PO BEDTIME PRN 90 days walker with seat and wheels, Ht: 5', Wt: 165 lbs Do you need a note to return to daycare/school/sports/work: No HPI Shortness of breath HPI Details VERY PLEASANT, GUATEMALAN-SPEAKING FEMALE BUT DOES SPEAK LIBERIAN ENOUGH TO UNDERSTAND. .COMES FOR FOLLOW-UP TODAY SHE IS TRYING TO SLEEP IN LATERAL POSITION AND SLEEPS OKAY. DENIES DAYTIME SLEEPINESS BREATHING IS FAIRLY STABLE EXCEPT FOR OCCASIONAL BOUTS OF COUGH. COMPLAINS OF BURNING IN THE NOSE AND BURNING OF EYES ESPECIALLY AT NIGHTTIME, SINCE THE START OF SPRING. COUGH IS MINIMAL AND NO WHEEZING. [facility] Medical History Allergic rhinitis Restrictive lung disease Somnolence, daytime Snoring Dyspnea on exertion KASIE (obstructive sleep apnea) Hematuria Bacteremia Headache Primary insomnia Screen for STD (sexually transmitted disease) Ear discomfort Lumbar pain Obese Rash and nonspecific skin eruption Tubular adenoma of colon Hodgkin lymphoma Surgical History H/O: hysterectomy History of esophagogastroduodenoscopy History of colonoscopy Hx of cataract extraction Family History Mother Diabetes High blood pressure Father Pacemaker Diabetes CAD (coronary artery disease) CKD (chronic kidney disease) Maternal Aunt Stomach cancer Maternal Aunt Liver cancer Social History Household Members: None Housing: Apartment Are you a primary career orientation teacher to a significant other at home: No Do you presently have 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) Alcohol intake: never Patient Tobacco Use Status: Never used Tobacco e-Cigarette/Vaping Use: Never Used Second Hand Smoke Exposure: No service: No Current occupational status: unemployed and disabled Cognitive needs: Yes Hearing needs: No Vision needs: Yes Female Reproductive History Menstrual Age of Menarche: 12 Review of Systems Const All systems reviewed & are unremarkable except as noted in HPI and below Eyes Reports no additional complaints ENT Reports no additional complaints Card Denies chest pain, Denies irregular heart rhythm and Denies leg edema Resp Reports as per HPI GI Reports no additional complaints Reports no additional complaints Musc Reports back pain and Reports myalgias Skin/Breast Reports system reviewed and no additional complaints, except as documented Neuro Reports no additional complaints Psych Reports no additional complaints Endo Reports no additional complaints Gilmer/Lymph Details: History of Hodgkin lymphoma in the past, treated and has been in remission Aller/Immun Reports no additional complaints Physical Exam Vital Signs: Last Vital Signs Pulse 85 10/20/23 10:27 BP 130/78 10/20/23 10:27 Pulse Ox 96 10/20/23 10:27 Oxygen Delivery Method Room Air 10/20/23 10:27 BMI result Body Mass Index 33.1 She does have a round face with obese neck. 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) Throat: Yes posterior oropharynx normal Eyes General: appearance normal, both eyes and all related structures Neck Neck: Yes normal visual inspection, Yes no lymphadenopathy, Yes trachea midline, Yes no JVD and Yes other (Neck size 15 in) Thyroid: Thyroid normal Chest Chest palpation & inspection: normal inspection of the chest, normal palpation of entire chest wall and no tenderness Resp Effort & Inspection: normal respiratory effort Auscultation: clear to auscultation bilaterally, no crackles, no rales and no wheezes Cardio Palpation: normal PMI Rate: regular rate Rhythm: regular rhythm Heart sounds: no gallops and no murmurs Peripheral pulses: Peripheral pulses 2+ throughout GI Palpation (GI): Soft to palpation, nontender, No hepatosplenomegaly present and no masses Auscultation: normal bowel sounds Back/Spine/Pelvis Thoracic/Lumbar Spine: thoracic and lumbar spine normal to inspection Skin General skin exam: no rashes or lesions noted Neuro General: patient oriented x3 and no focal motor deficits Cranial nerves: Yes CN's II-XII intact bilaterally Extrem General: Yes normal to inspection, Yes no clubbing, cyanosis or edema and Yes no calf tenderness Psych Appearance: grossly normal and well kempt Speech and movement: Normal speech and movement present Assessment & Plan Assessment & Plan (1) Allergic rhinitis: Comment: SEASONAL ALLERGIC RHINITIS. CURRENTLY HER SYMPTOMS ARE MORE DUE TO THIS. Code(s): J30.9 - Allergic rhinitis, unspecified Plan: ADVISED TO USE FLONASE NASAL SPRAY 2 SPRAY EACH NOSTRIL AT NIGHTTIME, AND MAY USE LORATADINE 10 MG ONCE A DAY P.R.N.. (2) Dyspnea on exertion: Comment: MILD DYSPNEA ON EXERTION IS SECONDARY TO RESTRICTIVE LUNG DISORDER, WHICH IS MILD. Code(s): R06.09 - Other forms of dyspnea Plan: ADVISED TO DO DEEP BREATHING EXERCISES 2 TO 3 TIMES A DAY (3) KASIE (obstructive sleep apnea): Comment: MILD, POSITIONAL,, BEING TREATED WITH CONSERVATIVE MEASURES, AND SHE IS DOING OKAY. Code(s): G47.33 - Obstructive sleep apnea (adult) (pediatric) Plan: CONTINUE TO SLEEP IN LATERAL POSITION. TRY TO LOSE WEIGHT. Medications: Changed From miconazole nitrate 2% (Miconazole-7) 1 appful vaginal BEDTIME 45 grams 2RF 7 days To miconazole nitrate 2% (Miconazole-7) 1 appful vaginal BEDTIME PRN Coding Level of Care Code Est Pt Level 3 (21539) Diagnoses Allergic rhinitis J30.9 Dyspnea on exertion R06.09 KASIE (obstructive sleep apnea) G47.33
== END 2023-10-20 10:56 | disposition home or self-care (01) ==
PROVIDERS: PCP Internal Medicine; Visit Provider Internal Medicine
DX: J30.9 Allergic rhinitis, unspecified (principal); R06.09 Other forms of dyspnea; G47.33 Obstructive sleep apnea (adult) (pediatric)
CPT/HCPCS: 99213

== ENCOUNTER → 2023-10-20 09:56 | Outpatient (BNVA) | payer OTHER, SELFPAY | PROVIDERS: PCP Internal Medicine; Visit Provider Internal Medicine | DX: J30.9 Allergic rhinitis, unspecified (principal); G47.33 Obstructive sleep apnea (adult) (pediatric); R06.09 Other forms of dyspnea | CPT/HCPCS: 99212 ==

== ENCOUNTER → 2024-01-13 08:56 | Outpatient (REF) | payer OTHER, SELFPAY ==
--- NOTE | 2024-01-13 09:01 | ECG_ITS ---
Test Reason : pre op Blood Pressure : / mmHG Vent. Rate : 085 BPM Atrial Rate : 085 BPM P-R Int : 156 ms QRS Dur : 086 ms QT Int : 354 ms P-R-T Axes : 032 -11 026 degrees QTc Int : 421 ms Normal sinus rhythm Moderate voltage criteria for LVH, may be normal variant ( R in aVL , [place] product ) Lateral narrow Q waves-could be due HCM Borderline ECG When compared with ECG of 09-JAN-2019 05:03, No significant change was found Referred By: Yen Prater Electronically Signed By:Guerrero Gerard
[2024-01-13 09:15] LABS: MANUAL DIFF FLAG NO
[2024-01-13 10:22] LABS: Basophils Percent Auto 0.3 % (0-2); Eosinophils Absolute Auto 0.1 X10*3/uL (0.0-0.4); Eosinophils Percent Auto 1.1 % (0-4); Hematocrit 46.3 % (37.0-47.0); Hemoglobin 14.6 g/dl (12.0-16.0); Imm Gran Abs Auto 0.02 X10*3/uL (0.00-0.03); Imm Gran Pct Auto 0.3 % (0.0-0.4); Lymphocytes Absolute Auto 2.5 X10*3/uL (1.2-4.9); Lymphocytes Percent Auto 39.8 % (20-40); Mean Corpuscular HGB Conc 31.5 g/dl (31.0-35.0); Mean Corpuscular Hemoglobin 27.4 pg (27.0-33.0); Mean Corpuscular Volume 86.9 fL (80.0-98.0); Mean Platelet Volume 10.1 fL (9.4-12.3); Monocytes Absolute Auto 0.5 X10*3/uL (0.1-1.2); Monocytes Percent Auto 7.6 % (2-11); Neutrophils Absolute Auto 3.2 x10*3/uL (2.0-8.3); Neutrophils Percent Auto 50.9 % (45-73); Platelet Count 242 X10*3/uL (160-400); Red Blood Count 5.33 X10*6/uL (4.20-5.50); Red Cell Distribution Width 14.6 % (11.0-16.0); White Blood Count 6.4 X10*3/uL (4.8-10.8)
[2024-01-13 10:30] LABS: Alanine Aminotransferase 20 U/L (0-31); Albumin Level 4.1 g/dL (3.5-5.0); Alkaline Phosphatase 107 U/L (39-117); Anion Gap 11 (12-20); Aspartate Amino Transferase 15 U/L (5-31); Bilirubin Total 0.4 mg/dL (0.0-1.0); Blood Urea Nitrogen 9 mg/dL (9-16); Calcium 10.1 mg/dL (8.4-10.2); Carbon Dioxide 27 mmol/L (22-29); Chloride 107 mmol/L (96-108); Estimated Glomerular Filt Rate > 60; Glucose Fasting 88 mg/dL (60-99); Potassium 4.1 mmol/L (3.3-5.1); Sodium 141 mmol/L (135-145); Total Protein 7.5 g/dL (6.5-8.0)
== END ==
LOC: HO.CARD 08:56
PROVIDERS: PCP Internal Medicine; Visit Provider Internal Medicine
DX: Z01.818 Encounter for other preprocedural examination (principal); J30.9 Allergic rhinitis, unspecified
CPT/HCPCS: 36415; 80053; 85025; 93005

== ENCOUNTER → 2024-01-13 09:01 | Outpatient (BNV) | payer OTHER, SELFPAY | PROVIDERS: PCP Internal Medicine; Visit Provider Internal Medicine Cardiovascular Disease | DX: R94.31 Abnormal electrocardiogram [ECG] [EKG] (principal) | CPT/HCPCS: 93010 ==

== ENCOUNTER 2024-01-14 11:07 | Outpatient (AMB) | payer OTHER, SELFPAY ==
--- NOTE | 2024-01-14 11:10 | MHC.OFFVIS ---
Vital Signs 01/14/24 11:11 Height 5 ft Weight 169 lb BMI 33.0 Intake Visit Reasons: O/V B/L knee O.A pain Intake Note: Randa is a 57 year old female who presents today for a follow up of her bilateral knee pain. She last received injection in the left knee on 03/26/22. This injection was not helpful and she is looking to discuss gel injections. It appears that this was discussed at her last appointment but authorization was not obtained. Allergies metronidazole [Flagyl] Allergy (Intermediate, Verified 01/18/24 12:43) hives HPI HPI O/V B/L knee O.A pain: Details: Randa is a 57 year old female who presents today for a follow up of her bilateral knee pain. She last received injection in the left knee on 03/26/22. This injection was not helpful and she is looking to discuss gel injections. It appears that this was discussed at her last appointment but authorization was not obtained. [facility] Medical History Allergic rhinitis Restrictive lung disease Somnolence, daytime Snoring Dyspnea on exertion KASIE (obstructive sleep apnea) Hematuria Bacteremia Headache Primary insomnia Screen for STD (sexually transmitted disease) Ear discomfort Lumbar pain Obese Rash and nonspecific skin eruption Tubular adenoma of colon Hodgkin lymphoma Surgical History H/O: hysterectomy History of esophagogastroduodenoscopy History of colonoscopy Hx of cataract extraction Family History Mother Diabetes High blood pressure Father Pacemaker Diabetes CAD (coronary artery disease) CKD (chronic kidney disease) Maternal Aunt Stomach cancer Maternal Aunt Liver cancer Social History Household Members: None Housing: Apartment Are you a primary daycare director to a significant other at home: No Do you presently have visiting nurse 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) Alcohol intake: never Patient Tobacco Use Status: Never used Tobacco e-Cigarette/Vaping Use: Never Used Second Hand Smoke Exposure: No service: No Current occupational status: unemployed and disabled Cognitive needs: Yes Hearing needs: No Vision needs: Yes Female Reproductive History Menstrual Age of Menarche: 12 Physical Exam Vital Signs: BMI result Body Mass Index 33.0 Const General: no acute distress and alert Orientation/consciousness: patient oriented x3 Neuro General: patient oriented x3 Extrem Other: Left Knee: TTP medial & lateral joint line No effusion Full ROM - Linda's Results Reviewed Results Reviewed: I personally reviewed relevant radiographs. RIGHT KNEE: Mild patellofemoral compartment ostearthritis, unchanged. ? LEFT KNEE: Mild medial and patellofemoral compartment osteoarthritis, unchanged.? Assessment & Plan Assessment & Plan (1) Arthritis of both knees: Code(s): M17.0 - Bilateral primary osteoarthritis of knee Category: Medical Plan: (2) Osteoarthritis of knees, bilateral: Code(s): M17.0 - Bilateral primary osteoarthritis of knee Category: Medical Qualifiers: Osteoarthritis type: primary Qualified Code(s): M17.0 - Bilateral primary osteoarthritis of knee Plan: This is a 58 year old woman with bilateral knee OA. Her OA is radiographically mild, mostly PF, and has benefitted from injections, although her last injection was not helpful. I discussed alternative treatment options. Due to her symptoms and lack of response to her previous injection I recommend viscosupplementation, and she continue activity as tolerated. We will contact her insurance provider and she will follow up for an injection when approved. I also recommend PT for general conditioning and lower extremity strengthening. Orders: Orders PT Evaluation and Treatment Today M17.0 - Bilateral primary osteoarthritis of knee Coding Level of Care Code Est Pt Level 4 (54071) Diagnoses Arthritis of both knees M17.0 Primary osteoarthritis of both knees M17.0 Osteoarthritis type: primary
[2024-01-14 11:11] VITALS: BMI 33.0
== END 2024-01-14 12:01 | disposition home or self-care (01) ==
PROVIDERS: PCP Internal Medicine; Visit Provider Orthopaedic Surgery
DX: M17.0 Bilateral primary osteoarthritis of knee (principal)
CPT/HCPCS: 99214

== ENCOUNTER → 2024-01-14 11:07 | Outpatient (BNVA) | payer OTHER, SELFPAY | PROVIDERS: PCP Internal Medicine; Visit Provider Orthopaedic Surgery | DX: M17.0 Bilateral primary osteoarthritis of knee (principal) | CPT/HCPCS: 99212 ==

== ENCOUNTER 2024-01-18 12:16 | Outpatient (AMB) | payer OTHER, SELFPAY ==
--- NOTE | 2024-01-18 12:35 | A.OFFPC_ITS ---
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 Accompanied by: Self / Same As Patient Allergies metronidazole [Flagyl] Allergy (Intermediate, Verified 01/18/24 12:43) hives Medication List - Last Reconciled 01/18/24 by Yen Prater MD [bed rail As directed] Brace,wrist (Wrist Brace - one) As directed- LEFT WRIST STABILIZER cane As directed fluticasone propionate 50 mcg/actuation (Flonase Allergy Relief) 2 sprays intranasal DAILY 30 days [handheld shower As directed] Knee brace As directed loratadine (Allergy Relief (loratadine)) 10 mg PO DAILY PRN 30 days miconazole nitrate 2% (Miconazole-7) 1 appful vaginal BEDTIME PRN pantoprazole 40 mg PO DAILY 90 days Shower Chair As directed trazodone 50 mg PO BEDTIME PRN 90 days walker with seat and wheels, Ht: 5', Wt: 165 lbs Tobacco use date assessed: 09/27/23 Dental Screening Dental Screen Date: 09/27/23 HPI HPI Comments History of Present Illness Details This is a 58-year-old female with hypertension, chronic GERD, bilateral knee osteoarthritis and history of Hodgkin's lymphoma in remission that comes today for preop evaluation for bilateral mandibular exostoses which is a low risk dental surgery. Blood pressure elevated and I will start her on losartan and she will be recheck in 3 weeks by nurse navigator. GERD stable with PPIs. Has knee osteoarthritis and complains of left knee pain and has been follow by ortho for this matter. Has try Tylenol and NSAIDs with no significant relieved. I will start her on tramadol for at least a week. She is aware is a controlled substance and can cause addiction and sedation. By RCRI she is Class I with 0.4% risk of cardiac complications. Has 5-7 Mets of ADLs. Patient is medically clear for dental surgery. [facility] Medical History (Updated 01/18/24 @ 13:04 by Yen Prater MD) Allergic rhinitis Restrictive lung disease Somnolence, daytime Snoring Dyspnea on exertion KASIE (obstructive sleep apnea) Hematuria Bacteremia Headache Primary insomnia Screen for STD (sexually transmitted disease) Ear discomfort Lumbar pain Obese Rash and nonspecific skin eruption Tubular adenoma of colon Hodgkin lymphoma Surgical History H/O: hysterectomy History of esophagogastroduodenoscopy History of colonoscopy Hx of cataract extraction Family History Mother Diabetes High blood pressure Father Pacemaker Diabetes CAD (coronary artery disease) CKD (chronic kidney disease) Maternal Aunt Stomach cancer Maternal Aunt Liver cancer Social History Household Members: None Housing: Apartment Are you a primary acute care nurse practitioner to a significant other at home: No Do you presently have visiting 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 Antonio Ochoa, Angelica Mccormack, Aman Medrano and colleagues, with an educational dev from [employer]. Review of Systems Const All systems reviewed & are unremarkable except as noted in HPI and below Card Denies chest pain at rest, Denies chest pain with activity, Denies edema, Denies irregular heart rhythm, Denies claudication, Denies dyspnea, Denies dyspnea on exertion, Denies orthopnea, Denies paroxysmal nocturnal dyspnea and Denies slow heart rate Resp Denies cough, Denies dyspnea and Denies dyspnea on exertion GI Denies abdominal pain, Denies change in bowel habits, Denies excessive flatus, Denies nausea and Denies vomiting Musc Reports arthralgias Physical exam (Primary Care) Vital Signs: Last Vital Signs BP 156/90 H 01/18/24 12:36 BMI result Body Mass Index 32.2 Tobacco/Smoking Status: Tobacco use Status Tobacco use date assessed 09/27/23 01/18/24 12:40 Patient Tobacco Use Status Never used Tobacco 01/18/24 12:40 e-Cigarette/Vaping Use Never Used 01/18/24 12:40 Thrive Assessment: Date of Thrive Assessment Date Thrive assessed 09/27/23 01/18/24 12:40 Resp Effort & Inspection: normal respiratory effort Auscultation: clear to auscultation bilaterally Cardio Jugular venous distension: no JVD Rate: regular rate Rhythm: regular rhythm Heart sounds: S1 normal heart sound present and S2 normal heart sound present Extrem General: Yes full ROM Assessment and Plan Assessment & Plan (1) Pre-op evaluation: Code(s): Z01.818 - Encounter for other preprocedural examination Plan: EKG and labs were reviewed. No medical contraindication. Patient is medically clear. (2) Essential hypertension: Code(s): I10 - Essential (primary) hypertension Plan: Start losartan. Blood pressure goal is equal or less than 130/80. Recheck blood pressure with nurse navigator in 3 weeks. (3) Chronic GERD: Code(s): K21.9 - Gastro-esophageal reflux disease without esophagitis Plan: Continue PPIs. (4) Osteoarthritis of knees, bilateral: Code(s): M17.0 - Bilateral primary osteoarthritis of knee Qualifiers: Osteoarthritis type: primary Qualified Code(s): M17.0 - Bilateral primary osteoarthritis of knee Plan: Start tramadol prn. (5) Hodgkin lymphoma: Comment: 2010 Code(s): C81.90 - Hodgkin lymphoma, unspecified, unspecified site Qualifiers: Hodgkin lymphoma type: unspecified type Lymphoma site: unspecified re gion Qualified Code(s): C81.90 - Hodgkin lymphoma, unspecified, unspecified site Plan: In remission. Medications: New losartan 25 mg PO DAILY 90 days 90 tabs 1RF I10 - Essential (primary) hypertension tramadol 50 mg PO BID 7 days PRN 14 tabs 0RF pain Coding Level of Care Code Est Pt Level 4 (11198) Complex EM visit Add On G2211 Diagnoses Pre-op evaluation Z01.818 Essential hypertension I10 Chronic GERD K21.9 Primary osteoarthritis of both knees M17.0 Osteoarthritis type: primary Hodgkin lymphoma, unspecified Hodgkin lymphoma type, unspecified body region C81.90 Hodgkin lymphoma type: unspecified type Lymphoma site: unspecified region Time Spent (min) 23
[2024-01-18 12:36] VITALS: BP 156/90; BMI 32.2
== END 2024-01-18 12:54 | disposition home or self-care (01) ==
PROVIDERS: PCP Internal Medicine; Visit Provider Internal Medicine
DX: Z01.818 Encounter for other preprocedural examination (principal); I10 Essential (primary) hypertension; K21.9 Gastro-esophageal reflux disease without esophagitis; M17.0 Bilateral primary osteoarthritis of knee; C81.90 Hodgkin lymphoma, unspecified, unspecified site
CPT/HCPCS: 99214; G2211

== ENCOUNTER 2024-02-04 10:04 | Outpatient (AMB) | payer OTHER, SELFPAY ==
[2024-02-04 10:42] VITALS: BMI 32.2
--- NOTE | 2024-02-04 10:42 | A.OFFVIS_ITS ---
Vital Signs 02/04/24 10:42 Height 5 ft Weight 165 lb BMI 32.2 Intake Visit Reasons: Inj-Left Knee Durolane injection Intake Note: Randa is a 59 year old female who presents today for a left knee durolane injection Allergies metronidazole [Flagyl] Allergy (Intermediate, Verified 01/18/24 12:43) hives COUNTS INCLUDE 234 BEDS AT THE [facility] Medical History Allergic rhinitis Restrictive lung disease Somnolence, daytime Snoring Dyspnea on exertion KASIE (obstructive sleep apnea) Hematuria Bacteremia Headache Primary insomnia Screen for STD (sexually transmitted disease) Ear discomfort Lumbar pain Obese Rash and nonspecific skin eruption Tubular adenoma of colon Hodgkin lymphoma Surgical History H/O: hysterectomy History of esophagogastroduodenoscopy History of colonoscopy Hx of cataract extraction Family History Mother Diabetes High blood pressure Father Pacemaker Diabetes CAD (coronary artery disease) CKD (chronic kidney disease) Maternal Aunt Stomach cancer Maternal Aunt Liver cancer Social History Household Members: None Housing: Apartment Are you a primary home care and home health aides teacher to a significant other at home: No Do you presently have 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 Site was prepped using aseptic technique. Patient tolerated the procedure well. Primary Site: left knee Approach Used: anterolateral Coding 37214 - Large joint Procedure code (CPT) selection complete Assessment & Plan Assessment & Plan (1) Osteoarthritis of knees, bilateral: Code(s): M17.0 - Bilateral primary osteoarthritis of knee Category: Medical Qualifiers: Osteoarthritis type: primary Qualified Code(s): M17.0 - Bilateral primary osteoarthritis of knee Plan: Left knee Durolane injected without complication. Coding Level of Care Code Est Pt Level 2 (53805) Diagnoses Primary osteoarthritis of both knees M17.0 Osteoarthritis type: primary CPT Codes Coding - 97979 Large joint: 60203 - Large joint ([id number])
== END 2024-02-04 11:14 | disposition home or self-care (01) ==
PROVIDERS: PCP Internal Medicine; Visit Provider Orthopaedic Surgery
DX: M17.0 Bilateral primary osteoarthritis of knee (principal)
CPT/HCPCS: 20610

== ENCOUNTER → 2024-02-04 10:04 | Outpatient (BNVA) | payer OTHER, SELFPAY | PROVIDERS: PCP Internal Medicine; Visit Provider Orthopaedic Surgery | DX: M17.0 Bilateral primary osteoarthritis of knee (principal) | CPT/HCPCS: 20610; J7318 ==

== ENCOUNTER 2024-02-29 09:55 | Outpatient (AMB) | payer OTHER, SELFPAY ==
[2024-02-29 10:00] VITALS: BP 148/69; PULSE 100; BMI 33.0
--- NOTE | 2024-02-29 10:00 | A.OFFVIS_ITS ---
Vital Signs 3 02/29/24 10:00 Height 5 ft Weight 168 lb 13.985 oz BMI 33.0 BP 148/69 H Blood Pressure Location Lt brachial Position Sitting Pulse 100 Intake Visit Reasons: Gastroenteritis Intake Note: Randa presents to in office visit today for gastroenteritis and colitis. CC: She c/o acid reflux, burning pain from stomach, and nausea. She reports occasional diarrhea in the mornings. Denies other GI symptoms or concerns today. 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 she says she is doing very well. I ask if the medication changes, increasing the omeprazole and restarting the carafate helped. She again complains that she wants a tablet form of omeprazole 40mg. Since this is not programmed into my computer, I will try getting the pharmacy to dispense #2, 20mg tablets. She is agreeable to this. She takes 1 carafate a day, and at time it upsets her stomach, but it goes away quickly. She is agreeable to a 6 mos follow up. (2) S/P cholecystectomy: ?Comment: Patient cannot remember exactly when but says it is been quite a long time since she had a removed ?Code(s): Z90.49 - Acquired absence of other specified parts of digestive tract ?Category:?Surgical (3) Intestinal malabsorption: ?Code(s): K90.9 - Intestinal malabsorption, unspecified ?Category:?Medical (4) Tubular adenoma of colon: ?Comment: Neg scope 2019, but has PHX of TA so repeat in 5 years. ?Code(s): D12.6 - Benign neoplasm of colon, unspecified ?Category:?Medical Laboratory Tests 09/21/23 01/14/24 10:58 09:03 WBC 7.6 Hgb 14.7 Hct 45.9 Plt Count 240 Estimated GFR > 60 Calcium 10.3 H Total Bilirubin 0.3 AST 18 ALT 21 Alkaline Phosphatase 112 Tiss Transglutamin IgG <1.0 Tiss Transglutamin IgA <1.0 TODAY'S VISIT [place] #LStephanie Live This patient has been lost to follow-up since 07/2020 apparently is here today for screening colonoscopy. However her last colonoscopy was in 2019 and was completely normal although she had a tubular adenoma removed on a prior colonoscopy with this history she would not be due for colonoscopy until 2024. She denies being referred for a scope and says she has a twin sister with whom she may be confused. She is having burning in the epigastric area and alot of diarrhea. At night it goes up into the chest and moore. She has tried many medications for GERD w/o success including prilosec, TUMS, pantoprazole and carafate. she can't remember if the carafate helped. She has a lot of gas. She is s/o heike and has never been on cholestyramine - so we will try this.She had a colonoscopy in 2019 and is due for repeat in 2024, had 2015 EGD with a great deal of bile in the stomach so this may all be post heike syndrome and gastritis/gerd. She only eats chicken and no fats, everything is steamed and she can not tolerated beef. Start cholestyramine and titrate. [facility] Medical History Intestinal malabsorption Rash and nonspecific skin eruption Lumbar pain Tendonitis of wrist, left Bilateral knee pain Dextroscoliosis Arthritis of both knees Ear discomfort Screen for STD (sexually transmitted disease) Elevated platelet count Women's annual routine gynecological examination Vaginal irritation Snoring Somnolence, daytime Acquired skin tag UTI (urinary tract infection) Physical exam Allergic rhinitis Restrictive lung disease Dyspnea on exertion KASIE (obstructive sleep apnea) Hematuria Bacteremia Headache Primary insomnia Obese Tubular adenoma of colon Hodgkin lymphoma Surgical History S/P cholecystectomy Skin lesion H/O: hysterectomy History of esophagogastroduodenoscopy History of colonoscopy Hx of cataract extraction Family History Mother Diabetes High blood pressure Father Pacemaker Diabetes CAD (coronary artery disease) CKD (chronic kidney disease) Maternal Aunt Stomach cancer Maternal Aunt Liver cancer Social History Household Members: None Housing: Apartment Are you a primary rn coronary care unit to a significant other at home: No Do you presently have 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) Alcohol intake: never Patient Tobacco Use Status: Never used Tobacco e-Cigarette/Vaping Use: Never Used Second Hand Smoke Exposure: No service: No Current occupational status: unemployed and disabled Cognitive needs: Yes Hearing needs: No Vision needs: Yes Female Reproductive History Menstrual Age of Menarche: 12 Review of Systems ENT Reports Normal hearing present Neuro Reports Normal hearing present and Denies Abnormal speech present Physical Exam Vital Signs: Last Vital Signs Pulse 100 02/29/24 10:00 BP 148/69 H 02/29/24 10:00 BMI result Body Mass Index 33.0 Const General: cooperative, no acute distress, well developed and well groomed Nutritional Appearance: well nourished and obese Orientation/consciousness: oriented to person, oriented to place and oriented to time Limitations: language barrier HEENT Head: Yes normocephalic and Yes atraumatic Eyes General: appearance normal, both eyes and all related structures Pupils: Equal, round and reactive pupils present Neck Neck: Yes normal visual inspection and Yes no lymphadenopathy Thyroid: Thyroid normal Resp Effort & Inspection: normal respiratory effort and able to speak in complete sentences Auscultation: clear to auscultation bilaterally Cardio Rate: regular rate Rhythm: regular rhythm Heart sounds: Normal, physiologic split S2 sound present Peripheral pulses: radial pulses present and posterior tibial pulses present GI Inspection: No distended, Yes Abdominal panniculus present, Yes obesity, Yes scar and Yes striae Palpation (GI): Soft to palpation, nontender, no guarding, not rigid and No hepatosplenomegaly present Percussion: Yes normal to percussion Auscultation: normal bowel sounds Rectal Exam - Female: deferred Abdomen image: 2 1. surgical scars 2. Skin General skin exam: no rashes or lesions noted, turgor normal, skin not dry, no jaundice, No spider nevi and no striae Rashes: no rashes Nails: normal Neuro General: oriented to person, oriented to place and oriented to time Cranial nerves: Yes Equal, round and reactive pupils present and Yes Normal hearing present Speech: No Abnormal speech present Extrem General: Yes normal to inspection, No clubbing, No cyanosis and No edema Psych Thought process: Normal thought process present and not confabulating Thought content: Normal thought content present Insight: Good insight present (Psych) Judgement: Good judgement present (Psych) Assessment & Plan Assessment & Plan (1) GERD (gastroesophageal reflux disease): Code(s): K21.9 - Gastro-esophageal reflux disease without esophagitis Category: Medical Qualifiers: Esophagitis presence: esophagitis presence not specified Qualified Code(s): K21.9 - Gastro-esophageal reflux disease without esophagitis (2) Gastroenteritis: Code(s): K52.9 - Noninfective gastroenteritis and colitis, unspecified (3) Tubular adenoma of colon: Comment: Neg scope 2019, but has PHX of TA so repeat in 5 years. 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 However her last colonoscopy was in 2019 and was completely normal although she had a tubular adenoma removed on a prior colonoscopy with this history she would not be due for colonoscopy until 2024. She denies being referred for a scope and says she has a twin sister with whom she may be confused. She is having burning in the epigastric area and alot of diarrhea. At night it goes up into the chest and moore. She has tried many medications for GERD w/o success including prilosec, TUMS, pantoprazole and carafate. she can't remember if the carafate helped. She has a lot of gas. She is s/o heike and has never been on cholestyramine - so we will try this.She had a colonoscopy in 2019 and is due for repeat in 2024, had 2015 EGD with a great deal of bile in the stomach so this may all be post heike syndrome and gastritis/gerd. She only eats chicken and no fats, everything is steamed and she can not tolerated beef. The patient has restrictive lung disease and denies any cardiac problems. There are no prior problems with anesthesia or sedation. There are no infectious disease problems. Start cholestyramine and titrate. Return office visit in 4 weeks Orders: Orders 2 EGD/[place] Combo - GI Use Only 02/29/24 D12.6 - Benign neoplasm of colon, unspecified, K91.5 - Postcholecystectomy syndrome C Reactive Protein 02/29/24 K52.9 - Noninfective gastroenteritis and colitis, unspecified Calprotectin, Fecal 03/02/24 K52.9 - Noninfective gastroenteritis and colitis, unspecified Rast Allergen 02/29/24 K52.9 - Noninfective gastroenteritis and colitis, unspecified Medications: New 2 sod sulf-pot chloride-mag sulf 1.479-0.188- 0.225 gram (Sutab) PO PER PKG DIR for colonoscopy prep 24 tabs 0RF cholestyramine (with sugar) 4 gram administer w/meal; avoid other meds within 1hr before or 4-6hr after dose 4 grams PO BID 60 ea 6RF K91.5 - Postcholecystectomy syndrome On Hold 2 sod sulf-pot chloride-mag sulf 1.479-0.188- 0.225 gram (Sutab) Hold Comment: insurance denied PO PER PKG DIR for colonoscopy prep 24 tabs 0RF Coding Level of Care Code Est Pt Level 4 (87281) Diagnoses Gastroesophageal reflux disease, unspecified whether esophagitis present K21.9 Esophagitis presence: esophagitis presence not specified Gastroenteritis K52.9 Tubular adenoma of colon D12.6 Post-cholecystectomy syndrome K91.5 Chronic diarrhea K52.9 Pre-op evaluation Z01.818
== END 2024-02-29 10:49 | disposition home or self-care (01) ==
PROVIDERS: PCP Internal Medicine; Visit Provider Nurse Practitioner
DX: K21.9 Gastro-esophageal reflux disease without esophagitis (principal); K52.9 Noninfective gastroenteritis and colitis, unspecified; D12.6 Benign neoplasm of colon, unspecified; K91.5 Postcholecystectomy syndrome; Z01.818 Encounter for other preprocedural examination
CPT/HCPCS: 99214

== ENCOUNTER 2024-02-29 09:55 | Outpatient (REF) | payer OTHER, SELFPAY | END 2024-02-29 09:56 | disposition home or self-care (01) | LOC: HO.LAB 09:55 | PROVIDERS: PCP Internal Medicine; Visit Provider Nurse Practitioner | DX: K52.9 Noninfective gastroenteritis and colitis, unspecified (principal); K21.9 Gastro-esophageal reflux disease without esophagitis; K91.5 Postcholecystectomy syndrome; Z86.010 Personal history of colon polyps; R19.7 Diarrhea, unspecified; R19.5 Other fecal abnormalities | CPT/HCPCS: 36415; 86003; 86140; 99212 ==

== ENCOUNTER 2024-03-02 10:18 | Outpatient (REF) | payer OTHER, SELFPAY ==
[2024-03-09 22:59] LABS: Calprotectin, Fecal 558 mcg/g
== END 2024-03-02 10:19 | disposition home or self-care (01) ==
LOC: HO.LNP 10:18
PROVIDERS: Visit Provider Nurse Practitioner
DX: K52.9 Noninfective gastroenteritis and colitis, unspecified (principal)
CPT/HCPCS: 83993

== ENCOUNTER 2024-03-30 09:59 | Outpatient (AMB) | payer OTHER, SELFPAY ==
[2024-03-30 10:15] VITALS: PULSE 82; O2SAT 96; BMI 32.9
--- NOTE | 2024-03-30 10:15 | A.OFFVIS_ITS ---
Vital Signs 03/30/24 10:15 Height 5 ft Weight 168 lb 6.931 oz BMI 32.9 Blood Pressure Location Rt brachial Position Sitting Pulse 82 Pulse Source Pulse Oximeter Pulse Oximetry (%) 96 Oxygen Delivery Method Room Air Comment Unable to get BP due to technical difficulties with auto BP. Intake Visit Reasons: 4 week follow up Intake Note: Randa presents in office today for a scheduled 4 week FUV. CC; Pt reports that they have been doing well since their last visit. Pt denies any concerns or sx at this time. Pt is still taking all rx'd medications as intended and does not require any refills at this time. Metal Numerical Control Programmer Required: Yes Metal Numerical Control Programmer Services: Metal Numerical Control Programmer Present Metal Numerical Control Programmer Name: [id number] Sai Information Interpreted: non-clinical & clinical Allergies metronidazole [Flagyl] Allergy (Intermediate, Verified 03/30/24 10:15) hives HPI HPI 4 week follow up: Details: Assessment & Plan (1) GERD (gastroesophageal reflux disease): Code(s): K21.9 - Gastro-esophageal reflux disease without esophagitis Category: Medical Qualifiers: Esophagitis presence: esophagitis presence not specified Qualified Code(s): K21.9 - Gastro-esophageal reflux disease without esophagitis (2) Gastroenteritis: Code(s): K52.9 - Noninfective gastroenteritis and colitis, unspecified (3) Tubular adenoma of colon: Comment: Neg scope 2019, but has PHX of TA so repeat in 5 years. Code(s): D12.6 - Benign neoplasm of colon, unspecified Category: Medical (4) Post-cholecystectomy syndrome: Code(s): K91.5 - Postcholecystectomy syndrome Category: Medical (5) Chronic diarrhea: Code(s): K52.9 - Noninfective gastroenteritis and colitis, unspecified Category: Medical (6) Pre-op evaluation: Code(s): Z01.818 - Encounter for other preprocedural examination Category: Medical Plan [place]ian #LStephanie Live This patient has been lost to follow-up since 07/2020 apparently is here today for screening colonoscopy. However her last colonoscopy was in 2019 and was completely normal although she had a tubular adenoma removed on a prior colonoscopy with this history she would not be due for colonoscopy until 2024. She denies being referred for a scope and says she has a twin sister with whom she may be confused. She is having burning in the epigastric area and alot of diarrhea. At night it goes up into the chest and moore. She has tried many medications for GERD w/o success including prilosec, TUMS, pantoprazole and carafate. she can't remember if the carafate helped. She has a lot of gas. She is s/o heike and has never been on cholestyramine - so we will try this.She had a colonoscopy in 2019 and is due for repeat in 2024, had 2015 EGD with a great deal of bile in the stomach so this may all be post heike syndrome and gastritis/gerd. She only eats chicken and no fats, everything is steamed and she can not tolerated beef. The patient has restrictive lung disease and denies any cardiac problems. There are no prior problems with anesthesia or sedation. There are no infectious disease problems. Start cholestyramine and titrate. Return office visit in 4 weeks Orders: Orders EGD/[place] Combo - GI Use Only 02/29/24 D12.6 - Benign neoplasm of colon, unspecified, K91.5 - Postcholecystectomy syndrome C Reactive Protein 02/29/24 K52.9 - Noninfective gastroenteritis and colitis, unspecified Calprotectin, Fecal 03/02/24 K52.9 - Noninfective gastroenteritis and colitis, unspecified Rast Allergen 02/29/24 K52.9 - Noninfective gastroenteritis and colitis, unspecified Medications: New sod sulf-pot chloride-mag sulf 1.479-0.188- 0.225 gram (Sutab) PO PER PKG DIR for colonoscopy prep 24 tabs 0RF cholestyramine (with sugar) 4 gram administer w/meal; avoid other meds within 1hr before or 4-6hr after dose 4 grams PO BID 60 ea 6RF K91.5 - Postcholecystectomy syndrome On Hold sod sulf-pot chloride-mag sulf 1.479-0.188- 0.225 gram (Sutab) Hold Comment: insurance denied PO PER PKG DIR for colonoscopy prep 24 tabs 0RF LABS: Laboratory Tests 03/02/24 05:30 Stool Calprotectin 558 H RAST panel shows she is allergic to, fish, salmon, tuna. CRP WAS NOT OBTAINED. EGD/COLONOSCOPY 09/01/2024 BIOPSY TODAY'S VISIT [place]ian #Davis Busch This patient has been lost to follow-up since 07/2020 apparently is here today for screening colonoscopy. However her last colonoscopy was in 2019 and was completely normal although she had a tubular adenoma removed on a prior colonoscopy with this history she would not be due for colonoscopy until 2024. 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 She started colace - and this is fine but she also can decrease the dose to qd and titrate. We also review the food allergies.All printed in Bahamian for her. Keep appt after procedures per pt request. [facility] Medical History Intestinal malabsorption Rash and nonspecific skin eruption Lumbar pain Tendonitis of wrist, left Bilateral knee pain Dextroscoliosis Arthritis of both knees Ear discomfort Screen for STD (sexually transmitted disease) Elevated platelet count Women's annual routine gynecological examination Vaginal irritation Snoring Somnolence, daytime Acquired skin tag UTI (urinary tract infection) Physical exam Allergic rhinitis Restrictive lung disease Dyspnea on exertion KASIE (obstructive sleep apnea) Hematuria Bacteremia Headache Primary insomnia Obese Tubular adenoma of colon Hodgkin lymphoma Surgical History S/P cholecystectomy Skin lesion H/O: hysterectomy History of esophagogastroduodenoscopy History of colonoscopy Hx of cataract extraction Family History Mother Diabetes High blood pressure Father Pacemaker Diabetes CAD (coronary artery disease) CKD (chronic kidney disease) Maternal Aunt Stomach cancer Maternal Aunt Liver cancer Social History Household Members: None Housing: Apartment Are you a primary health care facility administrator to a significant other at home: No Do you presently have visiting nurse 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) Alcohol intake: never Patient Tobacco Use Status: Never used Tobacco e-Cigarette/Vaping Use: Never Used Second Hand Smoke Exposure: No service: No Current occupational status: unemployed and disabled Cognitive needs: Yes Hearing needs: No Vision needs: Yes Female Reproductive History Menstrual Age of Menarche: 12 Review of Systems Const Denies fatigue, Denies fever(s), Denies night sweats, Denies poor appetite and Denies weight loss ENT Reports Normal hearing present, Denies dental pain, Denies dysphagia, Denies hearing loss, Denies mouth pain, Denies odynophagia, Denies throat swelling, Denies tongue swelling and Reports other (Dentition adequate) Card Reports no additional complaints Resp Reports no additional complaints GI Details: Denies abdominal pain, Denies melena, Denies bloating, Denies hematochezia, Reports constipation, Denies GI cramping, Denies dysphagia, Denies excessive flatus, Denies early satiety, Reports heartburn, Reports diarrhea, Denies nausea, Denies odynophagia, Denies vomiting and Denies hematemesis Skin/Breast Denies pruritus, Denies lesions, Denies rash and Denies jaundice Neuro Reports Normal hearing present and Denies Abnormal speech present Endo Denies fatigue Aller/Immun Denies throat swelling and Denies tongue swelling Physical Exam Vital Signs: Last Vital Signs Pulse 82 03/30/24 10:15 Pulse Ox 96 03/30/24 10:15 Oxygen Delivery Method Room Air 03/30/24 10:15 BMI result Body Mass Index 32.9 Const General: cooperative, no acute distress, well developed and well groomed Nutritional Appearance: well nourished and obese Orientation/consciousness: oriented to person, oriented to place and oriented to time Limitations: No language barrier HEENT Head: Yes normocephalic and Yes atraumatic Eyes General: appearance normal, both eyes and all related structures Pupils: Equal, round and reactive pupils present Neck Neck: Yes normal visual inspection and Yes no lymphadenopathy Thyroid: Thyroid normal Resp Effort & Inspection: normal respiratory effort and able to speak in complete sentences Auscultation: clear to auscultation bilaterally Cardio Rate: regular rate Rhythm: regular rhythm Heart sounds: Normal, physiologic split S2 sound present Peripheral pulses: radial pulses present and posterior tibial pulses present GI Inspection: No distended, No Abdominal panniculus present and Yes obesity Palpation (GI): Soft to palpation, nontender, no guarding, not rigid and No hepatosplenomegaly present Percussion: Yes normal to percussion Auscultation: normal bowel sounds Rectal Exam - Female: deferred Skin General skin exam: no rashes or lesions noted, turgor normal, skin not dry, no jaundice, No spider nevi and no striae Rashes: no rashes Nails: normal Neuro General: oriented to person, oriented to place and oriented to time Cranial nerves: Yes Equal, round and reactive pupils present and Yes Normal hearing present Speech: No Abnormal speech present Extrem General: Yes normal to inspection, No clubbing, No cyanosis and No edema Psych Appearance: grossly normal and well kempt Mental Status: mental status grossly normal Speech and movement: Normal speech and movement present Affect: normal affect Attitude: cooperative Thought process: Normal thought process present and not confabulating Thought content: Normal thought content present Insight: Fair insight present (Psych) Judgement: Fair judgement present (Psych) Assessment & Plan Assessment & Plan (1) Multiple food allergies: Comment: Wheat, fish, shrimp, salmon tuna Code(s): Z91.018 - Allergy to other foods Category: Medical (2) Post-cholecystectomy syndrome: Code(s): K91.5 - Postcholecystectomy syndrome Category: Medical (3) Chronic GERD: Code(s): K21.9 - Gastro-esophageal reflux disease without esophagitis Category: Medical Plan [place]ian #Tachira LIve This patient has been lost to follow-up since 07/2020 apparently is here today for screening colonoscopy. However her last colonoscopy was in 2019 and was completely normal although she had a tubular adenoma removed on a prior c olonoscopy with this history she would not be due for colonoscopy until 2024. 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 She started colace - and this is fine but she also can decrease the dose to qd and titrate. We also review the food allergies.All printed in Bahamian for her. Keep appt after procedures per pt request. Patient Instructions: Randa Fulton?n salm?n at?n Coding Level of Care Code Est Pt Level 4 (03540) Diagnoses Multiple food allergies Z91.018 Post-cholecystectomy syndrome K91.5 Chronic GERD K21.9 Time Spent (min) 34
== END 2024-03-30 11:01 | disposition home or self-care (01) ==
PROVIDERS: PCP Internal Medicine; Visit Provider Nurse Practitioner
DX: Z91.018 Allergy to other foods (principal); K91.5 Postcholecystectomy syndrome; K21.9 Gastro-esophageal reflux disease without esophagitis
CPT/HCPCS: 99214

== ENCOUNTER → 2024-03-30 09:59 | Outpatient (BNVA) | payer OTHER, SELFPAY | PROVIDERS: PCP Internal Medicine; Visit Provider Nurse Practitioner | DX: K52.9 Noninfective gastroenteritis and colitis, unspecified (principal); K91.5 Postcholecystectomy syndrome; D12.6 Benign neoplasm of colon, unspecified; Z91.018 Allergy to other foods | CPT/HCPCS: 99212 ==

== ENCOUNTER 2024-04-03 12:15 | Outpatient (AMB) | payer OTHER, SELFPAY ==
--- NOTE | 2024-04-03 12:28 | MHC.OFFVIS ---
Vital Signs 04/03/24 12:29 Height 5 ft Weight 168 lb 6 oz BMI 32.9 Intake Visit Reasons: OV- LT knee pain still occurring Intake Note: Randa is a 59 year old female who presents today for a follow up of her left knee OA. Patient reports the left knee Durolane injection done 02/04/24 did not help. She continues to wear a knee brace for support and using a pillow to support the knee at night. Patient states the pain is worse when she tries to bend her knee, when she puts weight on it, or when she tries to climb. No other previous right knee treatment. Allergies metronidazole [Flagyl] Allergy (Intermediate, Verified 04/03/24 12:36) hives HPI HPI OV- LT knee pain still occurring: Details: Randa is a 59 year old female who presents today for a follow up of her left knee OA. Patient reports the left knee Durolane injection done 02/04/24 did not help. She continues to wear a knee brace for support and using a pillow to support the knee at night. Patient states the pain is worse when she tries to bend her knee, when she puts weight on it, or when she tries to climb. She has had injections and therapy and uses NSAIDs and feels that nothing has helped. She is very frustrated that she can not do basic daily activities without pain. [facility], [facility] Medical History Intestinal malabsorption Rash and nonspecific skin eruption Lumbar pain Tendonitis of wrist, left Bilateral knee pain Dextroscoliosis Arthritis of both knees Ear discomfort Screen for STD (sexually transmitted disease) Elevated platelet count Women's annual routine gynecological examination Vaginal irritation Snoring Somnolence, daytime Acquired skin tag UTI (urinary tract infection) Physical exam Allergic rhinitis Restrictive lung disease Dyspnea on exertion KASIE (obstructive sleep apnea) Hematuria Bacteremia Headache Primary insomnia Obese Tubular adenoma of colon Hodgkin lymphoma Surgical History S/P cholecystectomy Skin lesion H/O: hysterectomy History of esophagogastroduodenoscopy History of colonoscopy Hx of cataract extraction Family History Mother Diabetes High blood pressure Father Pacemaker Diabetes CAD (coronary artery disease) CKD (chronic kidney disease) Maternal Aunt Stomach cancer Maternal Aunt Liver cancer Social History Household Members: None Housing: Apartment Are you a primary career specialist to a significant other at home: No Do you 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 There is 1+ varus instability and tenderness to palpation in the retro patellar region. She has a small effusion. She has 5-120 degrees motion. She walks with antalgia. Results Reviewed Results Reviewed: I personally reviewed relevant radiographs. Moderate left knee osteoarthritis affecting the medial and anterior compartment most prominently. Assessment & Plan Assessment & Plan (1) Osteoarthritis of left knee: Code(s): M17.12 - Unilateral primary osteoarthritis, left knee Category: Medical Plan: This is a 59-year-old woman with osteoarthritis of the left knee. I have been seeing her for over 3 years and we have tried everything but she continues to be unable to ambulate comfortably. She has pain at night. She describes not sleeping and is frustrated that she feels older than her stated age. I had a long discussion and I recommend left knee arthroplasty. I reviewed with her in detail the risks, benefits and alternatives including, but not limited to, infection, stiffness, fracture, need for further surgery, aseptic loosening as well as potential medical complications associated with surgery such as blood clots, pulmonary embolism, infections of lungs any urinary system. She would like to proceed forward. All her questions were asked. I introduced her to our nurse navigator and we will proceed forward accordingly. Coding Level of Care Code Est Pt Level 4 (24556) Diagnoses Osteoarthritis of left knee M17.12
[2024-04-03 12:29] VITALS: BMI 32.9
== END 2024-04-03 13:31 | disposition home or self-care (01) ==
PROVIDERS: PCP Internal Medicine; Visit Provider Orthopaedic Surgery
DX: M17.12 Unilateral primary osteoarthritis, left knee (principal)
CPT/HCPCS: 99214

== ENCOUNTER → 2024-04-03 12:15 | Outpatient (BNVA) | payer OTHER, SELFPAY | PROVIDERS: PCP Internal Medicine; Visit Provider Orthopaedic Surgery | DX: M17.12 Unilateral primary osteoarthritis, left knee (principal) | CPT/HCPCS: 99212 ==

== ENCOUNTER 2024-04-11 09:53 | Outpatient (AMB) | payer OTHER, SELFPAY ==
[2024-04-11 09:56] VITALS: BP 128/66; PULSE 99; O2SAT 98; BMI 33.4
--- NOTE | 2024-04-11 09:56 | MHC.OFFVIS ---
Vital Signs 04/11/24 09:56 Height 5 ft Weight 170 lb 13.732 oz BMI 33.4 BP 128/66 Blood Pressure Location Rt brachial Position Sitting Pulse 99 Pulse Source Pulse Oximeter Pulse Oximetry (%) 98 Oxygen Delivery Method Room Air Intake Visit Reasons: Shortness of breath, KASIE (obstructive sleep apnea) Transformer Coil Winder Required: Yes Transformer Coil Winder Language: Rehabilitation Consultant Services: Transformer Coil Winder Present Transformer Coil Winder Name: Sobeida Allergies metronidazole [Flagyl] Allergy (Intermediate, Verified 04/11/24 11:12) hives Medication List - Last Reconciled 04/11/24 by Jessica Ptael MD acetaminophen (Tylenol Extra Strength) 1,000 mg PO Q6H PRN [bed rail As directed] bisacodyl (Dulcolax (bisacodyl)) 10 mg (2 x 5 mg) PO BEDTIME 2 days Brace,wrist (Wrist Brace - one) As directed- LEFT WRIST STABILIZER cane As directed cholestyramine (with sugar) 4 gram 4 grams PO BID docusate sodium 100 mg PO BID fluticasone propionate 50 mcg/actuation (Flonase Allergy Relief) 2 sprays intranasal DAILY 30 days [handheld shower As directed] Knee brace As directed losartan 25 mg PO DAILY 90 days omeprazole magnesium (Prilosec OTC) 20 mg PO DAILY ondansetron 4 mg PO Q8H PRN peg 3350-electrolytes 236-22.74-6.74 -5.86 gram (Golytely) 240 mL PO Q10M 1 day sertraline 100 mg PO DAILY Shower Chair As directed sod sulf-pot chloride-mag sulf 1.479-0.188- 0.225 gram (Sutab) PO PER PKG DIR for colonoscopy prep walker with seat and wheels, Ht: 5', Wt: 165 lbs Do you need a note to return to daycare/school/sports/work: No HPI HPI Shortness of breath: Details: Randa his 59 years old female, with history of mild nasal congestion, No definite asthma or COPD. Has history of obstructive sleep apnea, She had home-based sleep study on 04/26/2023 . Which was positive for sleep apnea but only mild with total sleep time AHI 6.6 . She had opted to try conservative measures, including weight loss and also position therapy. She has been trying to sleep in the lateral position but has poor control at night. She is coming after 6 months for follow-up. Today she is complaining of frequent episodes of waking up at night with gasping like feeling, and then she is afraid to go back to sleep. She does have bouts of snoring also. She feels somewhat tired and sleepy during the daytime. She has history of anxiety and depression which is being treated with sertraline 100 mg daily. GERD symptoms are controlled with use of Prilosec. [facility] Medical History Intestinal malabsorption Rash and nonspecific skin eruption Lumbar pain Tendonitis of wrist, left Bilateral knee pain Dextroscoliosis Arthritis of both knees Ear discomfort Screen for STD (sexually transmitted disease) Elevated platelet count Women's annual routine gynecological examination Vaginal irritation Snoring Somnolence, daytime Acquired skin tag UTI (urinary tract infection) Physical exam Allergic rhinitis Restrictive lung disease Dyspnea on exertion KASIE (obstructive sleep apnea) Hematuria Bacteremia Headache Primary insomnia Obese Tubular adenoma of colon Hodgkin lymphoma Surgical History S/P cholecystectomy Skin lesion H/O: hysterectomy History of esophagogastroduodenoscopy History of colonoscopy Hx of cataract extraction Family History Mother Diabetes High blood pressure Father Pacemaker Diabetes CAD (coronary artery disease) CKD (chronic kidney disease) Maternal Aunt Stomach cancer Maternal Aunt Liver cancer Social History Household Members: None Housing: Apartment Are you a primary grounds caretaker to a significant other at home: No Do you presently have 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) Alcohol intake: never Patient Tobacco Use Status: Never used Tobacco e-Cigarette/Vaping Use: Never Used Second Hand Smoke Exposure: No service: No Current occupational status: unemployed and disabled Cognitive needs: Yes Hearing needs: No Vision needs: Yes Female Reproductive History Menstrual Age of Menarche: 12 Review of Systems Const All systems reviewed & are unremarkable except as noted in HPI and below Eyes Reports no additional complaints ENT Reports no additional complaints Card Denies chest pain, Denies irregular heart rhythm and Denies leg edema Resp Reports as per HPI GI Reports no additional complaints Reports no additional complaints Musc Reports back pain and Reports myalgias Skin/Breast Reports system reviewed and no additional complaints, except as documented Neuro Reports no additional complaints Psych Reports no additional complaints Endo Reports no additional complaints Gilmer/Lymph Details: History of Hodgkin lymphoma in the past, treated and has been in remission Aller/Immun Reports no additional complaints Physical Exam Vital Signs: Last Vital Signs Pulse 99 04/11/24 09:56 BP 128/66 04/11/24 09:56 Pulse Ox 98 04/11/24 09:56 Oxygen Delivery Method Room Air 04/11/24 09:56 BMI result Body Mass Index 33.4 She does have a round face with obese neck. 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) Throat: Yes posterior oropharynx normal Eyes General: appearance normal, both eyes and all related structures Neck Neck: Yes normal visual inspection, Yes no lymphadenopathy, Yes trachea midline, Yes no JVD and Yes other (Neck size 15 in) Thyroid: Thyroid normal Chest Chest palpation & inspection: normal inspection of the chest, normal palpation of entire chest wall and no tenderness Resp Effort & Inspection: normal respiratory effort Auscultation: clear to auscultation bilaterally, no crackles, no rales and no wheezes Cardio Palpation: normal PMI Rate: regular rate Rhythm: regular rhythm Heart sounds: no gallops and no murmurs Peripheral pulses: Peripheral pulses 2+ throughout GI Palpation (GI): Soft to palpation, nontender, No hepatosplenomegaly present and no masses Auscultation: normal bowel sounds Back/Spine/Pelvis Thoracic/Lumbar Spine: thoracic and lumbar spine normal to inspection Skin General skin exam: no rashes or lesions noted Neuro General: patient oriented x3 and no focal motor deficits Cranial nerves: Yes CN's II-XII intact bilaterally Extrem General: Yes normal to inspection, Yes no clubbing, cyanosis or edema and Yes no calf tenderness Psych Appearance: grossly normal and well kempt Speech and movement: Normal speech and movement present Assessment & Plan Assessment & Plan (1) KASIE (obstructive sleep apnea): Comment: DIAGNOSED TO HAVE OBSTRUCTIVE SLEEP APNEA ON HOME-BASED SLEEP STUDY DONE ON 04/26/2023 . PATIENT HAS TRIED CONSERVATIVE METHODS OF TREATMENT INCLUDING WEIGHT REDUCTION AND POSITION. THERAPY SHE HAS NOT BEEN ABLE, TO LOSE MUCH WEIGHT . ALSO HAS DIFFICULTY IN COMPLYING WITH STRICT POSITION THERAPY. SHE GOES TO SLEEP IN LATERAL POSITION BUT DURING THE NIGHT, SHE TURNS ON TO HER BACK . SHE REMAINS SYMPTOMATIC ESPECIALLY WITH FREQUENT BOUTS OF WAKING UP WITH GASPING LIKE FEELING. Code(s): G47.33 - Obstructive sleep apnea (adult) (pediatric) Category: Medical Plan: DUE TO FAILURE OF CONSERVATIVE MEASURE OF TREATMENT I THINK SHE SHOULD BE STARTED ON CPAP THERAPY. DISCUSSED WITH HER AND SHE IS AGREEABLE. CPAP THERAPY WITH AUTO PAP MODE IS ORDERED WITH PRESSURE SETTING 6-16 CM, USING NASAL OR FULLFACE MASK TOLERATED, SHE WILL BE FOLLOWED UP CLOSELY FOR HER COMPLIANCE AND BENEFITS. * IT SHOULD BE NOTED THAT DELAY IN STARTING THE CPAP THERAPY IS DUE TO PLANNED TRIAL WITH CONSERVATIVE MEASURES. SHE REMAINS SYMPTOMATIC AND THUS WE WILL PROCEED TO THE CPAP THERAPY. Coding Level of Care Code Est Pt Level 3 (78454) Diagnoses KASIE (obstructive sleep apnea) G47.33
== END 2024-04-11 10:36 | disposition home or self-care (01) ==
PROVIDERS: PCP Internal Medicine; Visit Provider Internal Medicine
DX: G47.33 Obstructive sleep apnea (adult) (pediatric) (principal)
CPT/HCPCS: 99213

== ENCOUNTER → 2024-04-11 09:53 | Outpatient (BNVA) | payer OTHER, SELFPAY | PROVIDERS: PCP Internal Medicine; Visit Provider Internal Medicine | DX: G47.33 Obstructive sleep apnea (adult) (pediatric) (principal) | CPT/HCPCS: 99212 ==

== ENCOUNTER 2024-04-18 08:57 | Outpatient (AMB) | payer OTHER, SELFPAY ==
[2024-04-18 08:57] VITALS: BP 156/82; PULSE 88; O2SAT 97; BMI 33.2
--- NOTE | 2024-04-18 08:57 | MHC.PC.OV ---
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 Accompanied by: Self / Same As Patient Allergies metronidazole [Flagyl] Allergy (Intermediate, Verified 04/18/24 09:14) hives Medication List - Last Reconciled 04/18/24 by Yen Prater MD acetaminophen (Tylenol Extra Strength) 1,000 mg PO Q6H PRN [bed rail As directed] bisacodyl (Dulcolax (bisacodyl)) 10 mg (2 x 5 mg) PO BEDTIME 2 days Brace,wrist (Wrist Brace - one) As directed- LEFT WRIST STABILIZER cane As directed cholestyramine (with sugar) 4 gram 4 grams PO BID docusate sodium 100 mg PO BID fluticasone propionate 50 mcg/actuation (Flonase Allergy Relief) 2 sprays intranasal DAILY 30 days [handheld shower As directed] Knee brace As directed losartan 25 mg PO DAILY 90 days omeprazole magnesium (Prilosec OTC) 20 mg PO DAILY ondansetron 4 mg PO Q8H PRN peg 3350-electrolytes 236-22.74-6.74 -5.86 gram (Golytely) 240 mL PO Q10M 1 day sertraline 100 mg PO DAILY Shower Chair As directed sod sulf-pot chloride-mag sulf 1.479-0.188- 0.225 gram (Sutab) PO PER PKG DIR for colonoscopy prep walker with seat and wheels, Ht: 5', Wt: 165 lbs Tobacco use date assessed: 04/18/24 Dental Screening Dental Screen Date: 04/18/24 Did you have a dental visit in the last 12 months?: Yes Did you have a dental problem in the last 6 months where you did not have access to dental care?: No Was dental information given to patient?: Patient has dentist HPI HPI Comments History of Present Illness Details This is a 59-year-old female that comes for her physical exam. Mammogram scheduled for this month. No need for Pap smear due to hysterectomy. Last colonoscopy done 2019 and next colonoscopy scheduled for 2024. No chest pain or shortness on breath. Complains of dysuria and urinalysis was ordered. History of Hodgkin lymphoma in remission and follow by Hematology-Oncology. [facility]LY [facility] Medical History (Updated 04/18/24 @ 10:35 by Yen Prater MD) Physical exam Intestinal malabsorption Rash and nonspecific skin eruption Lumbar pain Tendonitis of wrist, left Bilateral knee pain Dextroscoliosis Arthritis of both knees Ear discomfort Screen for STD (sexually transmitted disease) Elevated platelet count Women's annual routine gynecological examination Vaginal irritation Snoring Somnolence, daytime Acquired skin tag UTI (urinary tract infection) Allergic rhinitis Restrictive lung disease Dyspnea on exertion KASIE (obstructive sleep apnea) Hematuria Bacteremia Headache Primary insomnia Obese Tubular adenoma of colon Hodgkin lymphoma Surgical History S/P cholecystectomy Skin lesion H/O: hysterectomy History of esophagogastroduodenoscopy History of colonoscopy Hx of cataract extraction Family History Mother Diabetes High blood pressure Father Pacemaker Diabetes CAD (coronary artery disease) CKD (chronic kidney disease) Maternal Aunt Stomach cancer Maternal Aunt Liver cancer Social History Household Members: None Housing: Apartment Are you a primary caregiver services home to a significant other at home: No 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 1. Little interest or pleasure in doing things: not at all 2. Feeling down, depressed, or hopeless: not at all 3. Trouble falling or staying asleep, or sleeping too much: not at all 4. Feeling tired or having little energy: not at all 5. Poor appetite or overeating: not at all 6. Feeling bad about yourself - or that you are a failure or have let yourself or your family down: not at all 7. Trouble concentrating on things, such as reading the newspaper or watching television: not at all 8. Moving or speaking so slowly that other people could have noticed. Or the opposite - being so fidgety or restless that you have been moving around a lot more than usual: not at all 9. Thoughts that you would be better off or of hurting yourself in some way: not at all Total score: 0 Depression Screening Interpretation: Negative Depression Screening Done: Yes 70810 - PHQ-9 Billing: Yes Source: Developed by Drs. Antonio Ochoa, Angelica Mccormack, Aman Medrano and colleagues, with an educational dev from [employer]. Thrive Questionnaire Date Thrive assessed: 04/11/24 I am a: Patient What is your living situation today?: I have a steady place to live Within the past 12 months, did the food you bought not last and you didn't have the money to get more?: Never true Within the past 12 months, did you worry whether your food would run out before you got money to buy more?: Sometimes True Do you have trouble paying for medicines?: No Do you have trouble getting transportation to medical appointments?: No Do you have trouble paying your heating and electricity bill?: No Do you have trouble taking care of your child, family member or friend?: No Do you have trouble with day-to-day activities such as bathing, preparing meals, shopping, managing finances, etc.?: Yes Are you currently unemployed and looking for a job?: No Are you interested in more education?: No Currently or been in a relationship where the following occur: I choose not to answer THRIVE Score: 1 AUDIT C Alcohol Use Questionnaire (AUDIT-C) 1. How often do you have a drink containing alcohol?: Monthly or less 2. How many drinks containing alcohol do you have on a typical day when you are drinking?: 1 or 2 3. How often do you have six or more drinks on one occasion?: Never Total Score: 1 Score Reviewed/Action Taken: No ARACELI-7 AMB Questionnaire ARACELI-7 Date ARACELI - 7 assessed: 09/27/23 Feeling nervous, anxious, or on edge: 0 = Not at all Not being able to stop or control worryin = Nearly every day Worrying too much about different things: 1 = Several days Trouble relaxin = Nearly every day Being so restless that it is hard to sit still: 2 = More than half the days Becoming easily annoyed or irritable: 0 = Not at all Feeling afraid as if something awful might happen: 2 = More than half the days Total ARACELI-7 score (0-4 normal; 5-9 mild; 10-14 moderate; 15-21 severe): 11 Source: Developed by Drs. Antonio Ochoa, Angelica Mccormack, Aman Medrano and colleagues, with an educational dev from [employer]. ARACELI-7 Assessment Billing ARACELI-7 Assessment Tool: ARACELI-7 Assessment 71058 Review of Systems Const All systems reviewed & are unremarkable except as noted in HPI and below Card Denies chest pain at rest, Denies chest pain with activity, Denies edema, Denies irregular heart rhythm, Denies claudication, Denies dyspnea, Denies dyspnea on exertion, Denies orthopnea, Denies paroxysmal nocturnal dyspnea and Denies slow heart rate Resp Denies cough, Denies dyspnea and Denies dyspnea on exertion Reports urinary urgency Physical exam (Primary Care) Vital Signs: Last Vital Signs Pulse 88 04/18/24 08:57 BP 156/82 H 04/18/24 08:57 Pulse Ox 97 04/18/24 08:57 Oxygen Delivery Method Room Air 04/18/24 08:57 BMI result Body Mass Index 33.2 BMI Assessment/Plan discussion: High BMI High, discussed plan: lifestyle, weight reduction, dietary and physical activity Tobacco/Smoking Status: Tobacco use Status Tobacco use date assessed 04/18/24 04/18/24 09:06 Patient Tobacco Use Status Never used Tobacco 04/18/24 08:58 e-Cigarette/Vaping Use Never Used 04/18/24 08:58 PHQ-9: PHQ-9 Score PHQ-9: Total score 0 04/18/24 09:19 Depression Screening Interpretation: Negative Thrive Assessment: Date of Thrive Assessment Date Thrive assessed 04/11/24 04/18/24 08:58 Currently or been in a relationship where the following occur: I choose not to answer HENMT Head: Yes normal to inspection, Yes normocephalic and Yes atraumatic Ears: external ears normal Eyes General: appearance normal, both eyes and all related structures Eyelids: Yes eyelids normal Conjunctivae: conjunctivae normal Neck Neck: Yes normal visual inspection and Yes supple Resp Effort & Inspection: normal respiratory effort Auscultation: clear to auscultation bilaterally Cardio Jugular venous distension: no JVD Rate: regular rate Rhythm: regular rhythm Heart sounds: S1 normal heart sound present and S2 normal heart sound present GI Inspection: Yes normal to inspection Palpation (GI): Soft to palpation and nontender Auscultation: normal bowel sounds Skin General skin exam: no rashes or lesions noted Neuro General: no focal motor deficits Extrem General: Yes full ROM Psych Appearance: grossly normal Office Procedures Flu Questionnaire Does the patient have a severe egg allergy?: No Does the patient have severe life threatening allergies?: No Does the patient have a fever or illness today?: No Has the patient ever had Guillain-Timber Syndrome?: No Has the patient ever had any past reaction to a flu shot?: No Immunizations Fluarix Triv 6003-9318 (PF) 45 mcg (15 mcg x 3)/0.5 mL IM syringe Performing Provider: Yen Prater MD Per[facility] [place] [facility] Administered by: THALIA York on 04/18/24 09:10 Dose Route Admin Location Dispensed Lot Number Expiration Date [facility] 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 0.5 mL IM Left Deltoid 0.5 mL [id number] 01/02/24 [id number] [employer] VIS Given Date VIS Provided VIS Publication Date 04/18/24 Single Vaccine 21 Eligibility Eligibility Date Funding Source Not [facility] Eligible 04/18/24 Private Coding Level of Care Code Est Pt Level 3 (63400) Est Pt Prev Care 40-64y(94958) Diagnoses Physical exam Z00.00 Hodgkin lymphoma, unspecified Hodgkin lymphoma type, unspecified body region C81.90 Hodgkin lymphoma type: unspecified type Lymphoma site: unspecified region Dysuria R30.0 Additional Codes ARACELI-7 Assessment Billing - ARACELI-7 Assessment Tool: ARACELI-7 Assessment 95661 ([id number]) Time Spent (min) 33 Assessment & Plan Assessment & Plan (1) Physical exam: Code(s): Z00.00 - Encounter for general adult medical examination without abnormal findings Category: Medical Plan: Repeat in a year. (2) Hodgkin lymphoma: Comment: 2010 Code(s): C81.90 - Hodgkin lymphoma, unspecified, unspecified site Category: Medical Qualifiers: Hodgkin lymphoma type: unspecified type Lymphoma site: unspecified region Qualified Code(s): C81.90 - Hodgkin lymphoma, unspecified, unspecified site Plan: Follow-up with Hematology-Oncology. (3) Dysuria: Code(s): R30.0 - Dysuria Category: Medical Plan: Urinalysis ordered. Orders: Orders Vitamin D 25-OH Total Today E55.9 - Vitamin D deficiency, unspecified Celiac Disease Panel Today Z91.018 - Allergy to other foods Influenza [id number] Immunization Today Z23 - Encounter for immunization UA CC w/rflx Micro + Cult Today R30.0 - Dysuria Lipid Panel Today E78.5 - Hyperlipidemia, unspecified Comprehensive [place]. Panel Fast Today M17.12 - Unilateral primary osteoarthritis, left knee Medications: Changed From omeprazole magnesium (Prilosec OTC) 20 mg PO DAILY To omeprazole magnesium (Prilosec OTC) 20 mg PO DAILY 90 days 90 tabs 1RF Refilled losartan 25 mg PO DAILY 90 days 90 tabs 1RF I10 - Essential (primary) hypertension
== END 2024-04-18 09:28 | disposition home or self-care (01) ==
PROVIDERS: PCP Internal Medicine; Visit Provider Internal Medicine
DX: Z00.00 Encounter for general adult medical examination without abnormal findings (principal); C81.90 Hodgkin lymphoma, unspecified, unspecified site; R30.0 Dysuria

== ENCOUNTER 2024-04-18 08:57 | Outpatient (REF) | payer OTHER, SELFPAY ==
[2024-04-18 10:50] LABS: Appearance Urine Clear; Color Urine Yellow; Glucose Urine UA Negative (Negative); Leukocyte Esterase Urine Negative (Negative); Nitrite Urine Negative (Negative); Specific Gravity - Urine 1.015 (1.005-1.025); Urine Blood Negative (Negative); Urine Ketones Negative (Negative); Urine Protein Negative (Neg-Trace)
[2024-04-18 11:32] LABS: Alanine Aminotransferase 23 U/L (0-31); Albumin Level 4.2 g/dL (3.5-5.0); Alkaline Phosphatase 108 U/L (39-117); Anion Gap 12 (12-20); Aspartate Amino Transferase 20 U/L (5-31); Bilirubin Total 0.5 mg/dL (0.0-1.0); Blood Urea Nitrogen 12 mg/dL (9-16); Calcium 10.6 mg/dL (8.4-10.2); Carbon Dioxide 27 mmol/L (22-29); Chloride 104 mmol/L (96-108); Cholesterol 218 mg/dL (<200); Estimated Glomerular Filt Rate > 60; Glucose Fasting 92 mg/dL (60-99); HDL Cholesterol 68 mg/dL (>40); LDL Cholesterol Calculated 131 mg/dL (<100); Sodium 139 mmol/L (135-145); Total Protein 7.6 g/dL (6.5-8.0); Triglycerides 98 mg/dL (<150)
[2024-04-18 11:51] LABS: Vitamin D 25-OH Total 36.7 ng/mL (>30)
[2024-04-19 21:03] LABS: Immunoglobulin A 326 mg/dL (47-310); Transglutaminase IgA <1.0 U/mL
== END 2024-04-18 08:58 | disposition home or self-care (01) ==
LOC: HO.LAB 08:57
PROVIDERS: PCP Internal Medicine; Visit Provider Internal Medicine
DX: Z00.00 Encounter for general adult medical examination without abnormal findings (principal); Z23 Encounter for immunization; C81.90 Hodgkin lymphoma, unspecified, unspecified site; R30.0 Dysuria; Z91.018 Allergy to other foods; E55.9 Vitamin D deficiency, unspecified; E78.5 Hyperlipidemia, unspecified; M17.12 Unilateral primary osteoarthritis, left knee
CPT/HCPCS: 36415; 80053; 80061; 81003; 82306; 82784; 86364; 90471; 90656; 96127; 99396

== ENCOUNTER 2024-04-20 12:31 | Outpatient (AMB) | payer OTHER, SELFPAY ==
[2024-04-20 12:41] VITALS: BP 126/88; BMI 33.2
--- NOTE | 2024-04-20 12:41 | A.OFFVIS_ITS ---
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 She is doing well with concerns: Vaginal itching, she denies any pelvic pain, discharge, odors or urinary symptoms. Occasional urgency with urination, no dysuria or pelvic pain. Does not have any excessive caffeine, sugary or artificial sugar drinks or carbonated beverages. Attempting to eat a healthy diet, limited exercise due to knee pain which is requiring her to have a surgical procedure completed. Currently sexually active. Denies any vaginal dryness or irritation. Hysterectomy-benign condition. Last mammogram; 2022. Is scheduled this month. Colonoscopy is planned. Denies any family history of breast, ovarian or colon cancer. [facility] Medical History Physical exam Intestinal malabsorption Rash and nonspecific skin eruption Lumbar pain Tendonitis of wrist, left Bilateral knee pain Dextroscoliosis Arthritis of both knees Ear discomfort Screen for STD (sexually transmitted disease) Elevated platelet count Women's annual routine gynecological examination Vaginal irritation Snoring Somnolence, daytime Acquired skin tag UTI (urinary tract infection) Allergic rhinitis Restrictive lung disease Dyspnea on exertion KASIE (obstructive sleep apnea) Hematuria Bacteremia Headache Primary insomnia Obese Tubular adenoma of colon Hodgkin lymphoma Surgical History S/P cholecystectomy Skin lesion H/O: hysterectomy History of esophagogastroduodenoscopy History of colonoscopy Hx of cataract extraction Family History Mother Diabetes High blood pressure Father Pacemaker Diabetes CAD (coronary artery disease) CKD (chronic kidney disease) Maternal Aunt Stomach cancer Maternal Aunt Liver cancer Social History Household Members: None Housing: Apartment Are you a primary child care center administrator to a significant other at home: No Do you presently 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) Alcohol intake: never Patient Tobacco Use Status: Never used Tobacco e-Cigarette/Vaping Use: Never Used Second Hand Smoke Exposure: No service: No Current occupational status: unemployed and disabled Cognitive needs: Yes Hearing needs: No Vision needs: Yes Female Reproductive History Menstrual Age of Menarche: 12 Menopause type: surgical Total pregnancies: 3 Full term: 1 Number of Living Children: 1 Ab spontaneous: 2 Date of Mammogram: 04/27/23 (Birad 1) Review of Systems Const All systems reviewed & are unremarkable except as noted in HPI and below Reports as per HPI Eyes Reports no additional complaints ENT Reports no additional complaints Card Reports no additional complaints Resp Reports no additional complaints GI Reports as per HPI and Reports no additional complaints Reports as per HPI Musc Reports no additional complaints Skin/Breast Reports as per HPI Neuro Reports no additional complaints Psych Reports no additional complaints Endo Reports no additional complaints Gilmer/Lymph Reports no additional complaints Aller/Immun Reports no additional complaints Physical Exam Vital Signs: Last Vital Signs BP 126/88 04/20/24 12:41 BMI result Body Mass Index 33.2 Const General: cooperative, healthy appearing, no acute distress, well developed and alert Orientation/consciousness: patient oriented x3 HEENT Head: Yes normal to inspection Eyes General: appearance normal, both eyes and all related structures Neck Neck: Yes normal visual inspection Thyroid: Thyroid normal Chest Chest palpation & inspection: normal inspection of the chest and other (no puckering, dimpling, peau de orange, retraction, discharge, masses) Breast/axilla inspection: normal inspection of the breasts Breast/axilla palpation: normal palpation of the breasts Resp Effort & Inspection: normal respiratory effort GI Inspection: Yes normal to inspection Palpation (GI): Soft to palpation Rectal Exam - Female: deferred General: Yes bladder normal to palpation External Female Exam: normal external appearance and normal appearance of the urethra Speculum Exam - Vagina: normal appearance of the vagina, normal palpation, vagina atrophic and other (Oval patch of adherent white discharge outer 3rd, left wall vagina) Speculum Exam - Cervix: Cervix absent (Vaginal cuff no lesions or nodules) Bimanual exam- vagina & uterus: normal bimanual exam, normal palpation, bladder normal to palpation and uterus absent Bimanual Exam- Adnexa, other: no masses Skin General skin exam: no rashes or lesions noted Rashes: no rashes Neuro General: patient oriented x3 Cognition (Neuro): normal cognition Extrem General: Yes normal to inspection Psych Attitude: cooperative Thought process: Normal thought process present Results AMB Urinalysis, Automated UA Leukoctes 0 Louie/uL Last Edit by THALIA Henry on 04/20/24 13:24 UA Nitrite Negative Last Edit by Martha Levine Meño on 04/20/24 13:24 UA Urobilinogen 0 mg/dL Last Edit by Martha Levine [facility] on 04/20/24 13:2 4 UA Protein 0 mg/dL Last Edit by Martha Levine Meño on 04/20/24 13:24 UA pH 6.0 Last Edit by Martha Levine [facility] on 04/20/24 13:24 UA Blood 0 Bernardo/uL Last Edit by Martha Levine Meño on 04/20/24 13:24 UA Specific [place] 1.015 Last Edit by Martha Levine Meño on 04/20/24 13:24 UA Ketone Negative Last Edit by Martha Levine [facility] on 04/20/24 13:24 UA Bilirubin 0 mg/dL Last Edit by Martha Levine Meño on 04/20/24 13:24 UA Glucose 0 mg/dL Last Edit by Martha Levine [facility] on 04/20/24 13:24 Assessment & Plan Assessment & Plan (1) Encounter for well woman exam with routine gynecological exam: Code(s): Z01.419 - Encounter for gynecological examination (general) (routine) without abnormal findings Category: Medical (2) Vaginal itching: Code(s): N89.8 - Other specified noninflammatory disorders of vagina Plan Discussed: Current recommendations for pap smears per ASCCP guidelines. Breast awareness, periodic self breast exams and yearly mammogram. Maintain a healthy lifestyle, well balanced diet including Calcium 1,200 mg and Vitamin D 600 IU daily, and routine exercise when tolerated. Urine dip is negative. Rx for Terazol x7 days, return to the office in 2-3 weeks to recheck the outer 3rd left vaginal wall, if persistent patch we will consider skin biopsy. No intimacy until well healed. Patient verbalizes understanding and agrees to the plan of care. She was given opportunity to ask questions and all questions were answered to the best of my ability. 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 This note is constructed using voice recognition software. While every effort has been made to ensure accuracy, ems helicopter pilot errors may have been included. Orders: Orders Bacterial Vaginosis Panel Today N89.8 - Other specified noninflammatory disorders of vagina AMB Urinalysis Automated Today R35.0 - Frequency of micturition Medications: New terconazole 0.4% 1 appful vaginal BEDTIME 7 days 45 grams 0RF Coding Level of Care Code Est Pt Prev Care 40-64y(39941) Diagnoses Encounter for well woman exam with routine gynecological exam Z01.419 Vaginal itching N89.8
== END 2024-04-20 13:31 | disposition home or self-care (01) ==
PROVIDERS: PCP Internal Medicine; Visit Provider Advanced Practice Midwife
DX: Z01.419 Encounter for gynecological examination (general) (routine) without abnormal findings (principal); N89.8 Other specified noninflammatory disorders of vagina; R35.0 Frequency of micturition
CPT/HCPCS: 99396

== ENCOUNTER 2024-05-04 08:54 | Outpatient (REF) | payer OTHER, SELFPAY ==
--- NOTE | ~2024-05-04 | MM_ITS ---
EXAMINATION: MM SCREENING DIGITAL BREAST TOMOSYNTHESIS, BILATERAL CLINICAL INFORMATION: Screening. Asymptomatic. COMPARISON: Mammography: Comparison is made with available priors TECHNIQUE: Digital breast mammography with tomosynthesis is performed in both the craniocaudal and mediolateral oblique views along with computer-aided detection (CAD). FINDINGS: The breasts are heterogeneously dense, which may obscure small masses (ACR BI-RADS breast composition Category c). There are no significant masses, abnormal calcifications, or other abnormalities. MM/MM tomosynthesis screening BI IMPRESSION: No mammographic evidence of malignancy. ASSESSMENT: BI-RADS BI-RADS 1 - Negative RECOMMENDATION: Routine annual mammography screening. 1 year F/U This examination should not preclude the clinical evaluation of a suspicious palpable abnormality. This patient's information was entered into a reminder system with a target due date for their next mammogram. Electronically signed by: Zeina Mercedes DO 05/12/2024 10:16 AM LISA
== END 2024-05-04 08:55 | disposition home or self-care (01) ==
LOC: HO.MAMMO 08:54
PROVIDERS: PCP Internal Medicine; Visit Provider Internal Medicine
DX: Z12.31 Encounter for screening mammogram for malignant neoplasm of breast (principal)
CPT/HCPCS: 77063; 77067

== ENCOUNTER → 2024-05-04 09:30 | Outpatient (BNV) | payer OTHER, SELFPAY | PROVIDERS: PCP Internal Medicine; Visit Provider Internal Medicine | DX: Z12.31 Encounter for screening mammogram for malignant neoplasm of breast (principal) | CPT/HCPCS: 77063; 77067 ==

== ENCOUNTER 2024-06-05 09:54 | Outpatient (AMB) | payer OTHER, SELFPAY ==
--- NOTE | 2024-06-05 10:12 | MHC.OFFVIS ---
Vital Signs 06/05/24 10:13 Height 5 ft Weight 170 lb 13.732 oz BMI 33.4 BP 132/80 Blood Pressure Location Lt brachial Position Sitting Pulse 75 Pulse Source Pulse Oximeter Pulse Oximetry (%) 97 Oxygen Delivery Method Room Air Intake Visit Reasons: Shortness of breath Intake Note: pt is here for follow up for KASIE, pt did not receive cpap yet. some short of breath at times. Public Affairs Director Required: Yes Public Affairs Director Services: Public Affairs Director Present Public Affairs Director Name: [id number] Allergies metronidazole [Flagyl] Allergy (Intermediate, Verified 06/05/24 10:33) hives Medication List - Last Reconciled 06/05/24 by Jessica Patel MD acetaminophen (Tylenol Extra Strength) 1,000 mg PO Q6H PRN [bed rail As directed] bisacodyl (Dulcolax (bisacodyl)) 10 mg (2 x 5 mg) PO BEDTIME 2 days Brace,wrist (Wrist Brace - one) As directed- LEFT WRIST STABILIZER cane As directed cholestyramine (with sugar) 4 gram 4 grams PO BID clindamycin phosphate 1 supp vaginal BEDTIME 3 days docusate sodium 100 mg PO BID fluticasone propionate 50 mcg/actuation (Flonase Allergy Relief) 2 sprays intranasal DAILY 30 days [handheld shower As directed] Knee brace As directed losartan 25 mg PO DAILY 90 days omeprazole magnesium (Prilosec OTC) 20 mg PO DAILY 90 days peg 3350-electrolytes 236-22.74-6.74 -5.86 gram (Golytely) 240 mL PO Q10M 1 day Shower Chair As directed sod sulf-pot chloride-mag sulf 1.479-0.188- 0.225 gram (Sutab) PO PER PKG DIR for colonoscopy prep terconazole 0.4% 1 appful vaginal BEDTIME 7 days walker with seat and wheels, Ht: 5', Wt: 165 lbs Do you need a note to return to daycare/school/sports/work: No HPI HPI Shortness of breath: Details: THIS 59 YEARS OLD MACANESE-SPEAKING FEMALE IS MODERATELY OBESE. SHE IS A CONFIRMED CASE OF OBSTRUCTIVE SLEEP APNEA PREDOMINANTLY IN SUPINE POSITION., PER HOME-BASED SLEEP STUDY ON 04/26/23. THE AMOUNT OF SLEEP APNEA WAS MILD AND MOSTLY IN SUPINE POSITION. SO PATIENT OPTED TO TRY CONSERVATIVE MEASURES, INCLUDING WEIGHT REDUCTION AND SLEEPING IN LATERAL POSITION. SHE TRIED HER BEST BUT COULD NOT COMPLY WITH THE CONSERVATIVE MEASURES AND CONTINUE TO BE SYMPTOMATIC. ON HER LAST VISIT WE ORDERED THE CPAP FOR HER, HOWEVER DUE TO SOME COMMUNICATION PROBLEMS SHE HAS NOT OBTAINED THE CPAP DEVICE YET. SHE COMES IN TODAY AND HAS NOT LOST ANYMORE WEIGHT. SHE COMPLAINS OF SNORING AND ALSO FREQUENT AWAKENINGS DURING THE NIGHT. SHE IS. ANXIOUS TO GET THE CPAP [facility] Medical History Physical exam Intestinal malabsorption Rash and nonspecific skin eruption Lumbar pain Tendonitis of wrist, left Bilateral knee pain Dextroscoliosis Arthritis of both knees Ear discomfort Screen for STD (sexually transmitted disease) Elevated platelet count Women's annual routine gynecological examination Vaginal irritation Snoring Somnolence, daytime Acquired skin tag UTI (urinary tract infection) Allergic rhinitis Restrictive lung disease Dyspnea on exertion KASIE (obstructive sleep apnea) Hematuria Bacteremia Headache Primary insomnia Obese Tubular adenoma of colon Hodgkin lymphoma Surgical History S/P cholecystectomy Skin lesion H/O: hysterectomy History of esophagogastroduodenoscopy History of colonoscopy Hx of cataract extraction Family History Mother Diabetes High blood pressure Father Pacemaker Diabetes CAD (coronary artery disease) CKD (chronic kidney disease) Maternal Aunt Stomach cancer Maternal Aunt Liver cancer Social History Household Members: None Housing: Apartment Are you a primary child care director to a significant other at home: No Do you 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) Alcohol intake: never Patient Tobacco Use Status: Never used Tobacco e-Cigarette/Vaping Use: Never Used Second Hand Smoke Exposure: No service: No Current occupational status: unemployed and disabled Cognitive needs: Yes Hearing needs: No Vision needs: Yes Female Reproductive History Menstrual Age of Menarche: 12 Review of Systems Const All systems reviewed & are unremarkable except as noted in HPI and below Eyes Reports no additional complaints ENT Reports no additional complaints Card Denies chest pain, Denies irregular heart rhythm and Denies leg edema Resp Reports as per HPI GI Reports no additional complaints Reports no additional complaints Musc Reports back pain and Reports myalgias Skin/Breast Reports system reviewed and no additional complaints, except as documented Neuro Reports no additional complaints Psych Reports no additional complaints Endo Reports no additional complaints Gilmer/Lymph Details: History of Hodgkin lymphoma in the past, treated and has been in remission Aller/Immun Reports no additional complaints Physical Exam Vital Signs: Last Vital Signs Pulse 75 06/05/24 10:13 BP 132/80 06/05/24 10:13 Pulse Ox 97 06/05/24 10:13 Oxygen Delivery Method Room Air 06/05/24 10:13 BMI result Body Mass Index 33.4 She does have a round face with obese neck. 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) Throat: Yes posterior oropharynx normal Eyes General: appearance normal, both eyes and all related structures Neck Neck: Yes normal visual inspection, Yes no lymphadenopathy, Yes trachea midline, Yes no JVD and Yes other (Neck size 15 in) Thyroid: Thyroid normal Chest Chest palpation & inspection: normal inspection of the chest, normal palpation of entire chest wall and no tenderness Resp Effort & Inspection: normal respiratory effort Auscultation: clear to auscultation bilaterally, no crackles, no rales and no wheezes Cardio Palpation: normal PMI Rate: regular rate Rhythm: regular rhythm Heart sounds: no gallops and no murmurs Peripheral pulses: Peripheral pulses 2+ throughout GI Palpation (GI): Soft to palpation, nontender, No hepatosplenomegaly present and no masses Auscultation: normal bowel sounds Back/Spine/Pelvis Thoracic/Lumbar Spine: thoracic and lumbar spine normal to inspection Skin General skin exam: no rashes or lesions noted Neuro General: patient oriented x3 and no focal motor deficits Cranial nerves: Yes CN's II-XII intact bilaterally Extrem General: Yes normal to inspection, Yes no clubbing, cyanosis or edema and Yes no calf tenderness Psych Appearance: grossly normal and well kempt Speech and movement: Normal speech and movement present Assessment & Plan Assessment & Plan (1) KASIE (obstructive sleep apnea): Comment: DIAGNOSED TO HAVE OBSTRUCTIVE SLEEP APNEA ON HOME-BASED SLEEP STUDY DONE ON 04/26/2023 . PATIENT HAS TRIED CONSERVATIVE METHODS OF TREATMENT INCLUDING WEIGHT REDUCTION AND POSITION. THERAPY SHE HAS NOT BEEN ABLE, TO LOSE MUCH WEIGHT . ALSO HAS DIFFICULTY IN COMPLYING WITH STRICT POSITION THERAPY. SHE GOES TO SLEEP IN LATERAL POSITION BUT DURING THE NIGHT, SHE TURNS ON TO HER BACK . SHE REMAINS SYMPTOMATIC ESPECIALLY WITH FREQUENT BOUTS OF WAKING UP WITH GASPING LIKE FEELING. Code(s): G47.33 - Obstructive sleep apnea (adult) (pediatric) Category: Medical Plan: CPAP THERAPY WAS ALREADY ORDERED BUT DUE TO COMMUNICATION PROBLEMS SHE COULD NOT GET IT. WE ARE SENDING THE ORDER FOR CPAP DEVICE AGAIN, (2) Restrictive lung disease: Comment: PULMONARY FUNCTION TEST( 0N 04/09/23 ) SHOWEDMODERATELY SEVERE RESTRICTIVE DISORDER. THIS IS MOST LIKELY RELATED TO HER MODERATE OBESITY Code(s): J98.4 - Other disorders of lung Category: Medical Plan: AGAIN DISCUSSED WITH HER NEED TO LOSE WEIGHT, SHE IS TRYING TO COMPLY WITH DIET AND ALSO TRYING TO WALK ON A DAILY BASIS. (3) Allergic rhinitis: Comment: SEASONAL ALLERGIC RHINITIS. CURRENTLY HER SYMPTOMS ARE MINIMAL Code(s): J30.9 - Allergic rhinitis, unspecified Category: Medical Plan: MAY USE OTC ANTIHISTAMINICS SUCH LORATADINE 10 MG ONCE A DAY P.R.N. Coding Level of Care Code Est Pt Level 3 (98187) Diagnoses KASIE (obstructive sleep apnea) G47.33 Restrictive lung disease J98.4 Allergic rhinitis J30.9
[2024-06-05 10:13] VITALS: BP 132/80; PULSE 75; O2SAT 97; BMI 33.4
== END 2024-06-05 10:32 | disposition home or self-care (01) ==
PROVIDERS: PCP Internal Medicine; Visit Provider Internal Medicine
DX: G47.33 Obstructive sleep apnea (adult) (pediatric) (principal); J98.4 Other disorders of lung; J30.9 Allergic rhinitis, unspecified
CPT/HCPCS: 99213

== ENCOUNTER → 2024-06-05 09:54 | Outpatient (BNVA) | payer OTHER, SELFPAY | PROVIDERS: PCP Internal Medicine; Visit Provider Internal Medicine | DX: G47.33 Obstructive sleep apnea (adult) (pediatric) (principal); E66.9 Obesity, unspecified; J98.4 Other disorders of lung; J30.9 Allergic rhinitis, unspecified; Z68.33 Body mass index [BMI] 33.0-33.9, adult | CPT/HCPCS: 99212 ==

== ENCOUNTER 2024-07-13 08:19 | Outpatient (AMB) | payer OTHER, SELFPAY ==
--- NOTE | 2024-07-13 08:31 | A.OFFPC_ITS ---
Vital Signs 07/13/24 08:32 Height 5 ft Weight 169 lb BMI 33.0 BP 136/82 Blood Pressure Location Lt brachial Position Sitting Intake Visit Reasons: Candy LAGOS w/Dr. 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 Required: No Accompanied by: Self / Same As Patient Allergies metronidazole [Flagyl] Allergy (Intermediate, Verified 07/13/24 08:37) hives Medication List - Last Reconciled 07/13/24 by Yen Prater MD acetaminophen (Tylenol Extra Strength) 1,000 mg PO Q6H PRN [bed rail As directed] bisacodyl (Dulcolax (bisacodyl)) 10 mg (2 x 5 mg) PO BEDTIME 2 days Brace,wrist (Wrist Brace - one) As directed- LEFT WRIST STABILIZER cane As directed cholestyramine (with sugar) 4 gram 4 grams PO BID clindamycin phosphate 1 supp vaginal BEDTIME 3 days docusate sodium 100 mg PO BID fluticasone propionate 50 mcg/actuation (Flonase Allergy Relief) 2 sprays intranasal DAILY 30 days [handheld shower As directed] Knee brace As directed losartan 25 mg PO DAILY 90 days omeprazole magnesium (Prilosec OTC) 20 mg PO DAILY 90 days peg 3350-electrolytes 236-22.74-6.74 -5.86 gram (Golytely) 240 mL PO Q10M 1 day Shower Chair As directed sod sulf-pot chloride-mag sulf 1.479-0.188- 0.225 gram (Sutab) PO PER PKG DIR for colonoscopy prep terconazole 0.4% 1 appful vaginal BEDTIME 7 days walker with seat and wheels, Ht: 5', Wt: 165 lbs walker Folding Front wheeled walker duration 99 days Tobacco use date assessed: 07/13/24 Dental Screening Dental Screen Date: 07/13/24 Did you have a dental visit in the last 12 months?: Yes Did you have a dental problem in the last 6 months where you did not have access to dental care?: No Was dental information given to patient?: Patient has dentist HPI HPI Comments History of Present Illness Details The patient is a 59-year-old female presenting with the need for a preoperative evaluation for left knee replacement surgery scheduled for September 05. The primary diagnosis leading to surgery is left knee osteoarthritis, which has been progressively impacting her mobility and quality of life. Management to date has included pharmacological interventions and lifestyle modifications, as well as regular monitoring of her hypertension with losartan, which has been effective in controlling her blood pressure. The patient also has a history of allergic rhinitis, managed with fluticasone, a controlled case of essential hypertension treated with 25 mg losartan, past cholecystectomy, hysterectomy for benign reasons, and skin lesion removal. Cataract surgeries were previously performed, and her most recent colonoscopy was in 2019. Plans for another colonoscopy are scheduled for December due to a previously canceled appointment. The patient denies any history of smoking or alcohol use and is able to ascend stairs without chest pain or dyspnea. She also has constipation and GERD well controlled with medications. She also has a history of Hodgkin's lymphoma in 2010 that has been in remission and follow by Hematology-Oncology. Has 5-7 Mets of ADLs. EKG and labs are pending for medical clearance. Going to a medium risk surgery and she is a low risk patient. German-speaking patient that I did translate. [facility] Medical History (Updated 07/13/24 @ 10:21 by Yen Prater MD) Somnolence, daytime Physical exam Intestinal malabsorption Rash and nonspecific skin eruption Lumbar pain Tendonitis of wrist, left Bilateral knee pain Dextroscoliosis Arthritis of both knees Ear discomfort Screen for STD (sexually transmitted disease) Elevated platelet count Women's annual routine gynecological examination Vaginal irritation Snoring Acquired skin tag UTI (urinary tract infection) Allergic rhinitis Restrictive lung disease Dyspnea on exertion KASIE (obstructive sleep apnea) Hematuria Bacteremia Headache Primary insomnia Obese Tubular adenoma of colon Hodgkin lymphoma Surgical History S/P cholecystectomy Skin lesion H/O: hysterectomy History of esophagogastroduodenoscopy History of colonoscopy Hx of cataract extraction Family History Mother Diabetes High blood pressure Father Pacemaker Diabetes CAD (coronary artery disease) CKD (chronic kidney disease) Maternal Aunt Stomach cancer Maternal Aunt Liver cancer Social History Household Members: None Housing: Apartment Are you a primary acute care certified nursing assistant to a significant other at home: No 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 1. Little interest or pleasure in doing things: not at all 2. Feeling down, depressed, or hopeless: not at all 3. Trouble falling or staying asleep, or sleeping too much: not at all 4. Feeling tired or having little energy: not at all 5. Poor appetite or overeating: not at all 6. Feeling bad about yourself - or that you are a failure or have let yourself or your family down: not at all 7. Trouble concentrating on things, such as reading the newspaper or watching television: not at all 8. Moving or speaking so slowly that other people could have noticed. Or the opposite - being so fidgety or restless that you have been moving around a lot more than usual: not at all 9. Thoughts that you would be better off or of hurting yourself in some way: not at all Total score: 0 Depression Screening Interpretation: Negative Depression Screening Done: Yes [id number] - PHQ-9 Billing: Yes Source: Developed by Drs. Antonio Ochoa, Angelica Mccormack, Aman Medrano and colleagues, with an educational dev from [employer]. Thrive Questionnaire Date Thrive assessed: 07/13/24 I am a: Patient What is your living situation today?: I have a steady place to live Within the past 12 months, did the food you bought not last and you didn't have the money to get more?: Never true Within the past 12 months, did you worry whether your food would run out before you got money to buy more?: Sometimes True Do you have trouble paying for medicines?: No Do you have trouble getting transportation to medical appointments?: No Do you have trouble paying your heating and electricity bill?: No Do you have trouble taking care of your child, family member or friend?: No Do you have trouble with day-to-day activities such as bathing, preparing meals, shopping, managing finances, etc.?: Yes Are you currently unemployed and looking for a job?: No Are you interested in more education?: No Please select the resources that you would like help with: None Currently or been in a relationship where the following occur: I choose not to answer THRIVE Score: 1 AUDIT C Alcohol Use Questionnaire (AUDIT-C) 1. How often do you have a drink containing alcohol?: Never Total Score: 0 Score Reviewed/Action Taken: No ARACELI-7 AMB Questionnaire ARACELI-7 Date ARACELI - 7 assessed: 07/13/24 Feeling nervous, anxious, or on edge: 0 = Not at all Not being able to stop or control worryin = Not at all Worrying too much about different things: 0 = Not at all Trouble relaxin = Not at all Being so restless that it is hard to sit still: 0 = Not at all Becoming easily annoyed or irritable: 0 = Not at all Feeling afraid as if something awful might happen: 0 = Not at all Total ARACELI-7 score (0-4 normal; 5-9 mild; 10-14 moderate; 15-21 severe): 0 Source: Developed by Drs. Antonio Ochoa, Angelica Mccormack, Aman Medrano and colleagues, with an educational dev from [employer]. ARACELI-7 Assessment Billing ARACELI-7 Assessment Tool: ARACELI-7 Assessment 36954 Review of Systems Const Details: - General: Reports no issues with activities of daily living. - Cardiovascular: Denies chest pain, denies shortness of breath. - Respiratory: Denies smoking history. - Neurological: Denies any neurological symptoms affecting ADLs. Physical exam (Primary Care) Vital Signs: Last Vital Signs BP 136/82 07/13/24 08:32 BMI result Body Mass Index 33.0 BMI Assessment/Plan discussion: High BMI High, discussed plan: lifestyle, weight reduction, dietary and physical activity Tobacco/Smoking Status: Tobacco use Status Tobacco use date assessed 07/13/24 07/13/24 08:35 Patient Tobacco Use Status Never used Tobacco 07/13/24 08:35 e-Cigarette/Vaping Use Never Used 07/13/24 08:35 PHQ-9: PHQ-9 Score PHQ-9: Total score 0 07/13/24 08:44 Depression Screening Interpretation: Negative Thrive Assessment: Date of Thrive Assessment Date Thrive assessed 07/13/24 07/13/24 08:35 Currently or been in a relationship where the following occur: I choose not to answer Const Other: General: No confusion Respiratory: Normal respiratory effort, clear to auscultation bilaterally, no shortness of breath Cardiovascular: No jugular venous distension, regular rate, regular rhythm, S1 normal heart sound present and S2 normal heart sound present, no chest pain GI: Normal to inspection, Soft to palpation and nontender, normal bowel sounds Neurology: Patient oriented x3, no focal motor deficits and No confusion Extremities: Full ROM, able to climb stairs without difficulty Psychology: Grossly normal Coding Level of Care Code Est Pt Level 4 (15635) Complex EM visit Add On G2211 Diagnoses Pre-op evaluation Z01.818 Osteoarthritis of left knee M17.12 Essential hypertension I10 Allergic rhinitis J30.9 Gastroesophageal reflux disease, unspecified whether esophagitis present K21.9 Esophagitis presence: esophagitis presence not specified Chronic idiopathic constipation K59.04 Hodgkin lymphoma, unspecified Hodgkin lymphoma type, unspecified body region C81.90 Hodgkin lymphoma type: unspecified type Lymphoma site: unspecified region Additional Codes ARACELI-7 Assessment Billing - ARAECLI-7 Assessment Tool: ARACELI-7 Assessment 96749 ([id number]) PHQ-9 - 93397 - PHQ-9 Billing: Yes ([id number]) Time Spent (min) 24 Assessment & Plan Assessment & Plan (1) Pre-op evaluation: Code(s): Z01.818 - Encounter for other preprocedural examination Category: Medical (2) Osteoarthritis of left knee: Code(s): M17.12 - Unilateral primary osteoarthritis, left knee Category: Medical (3) Essential hypertension: Code(s): I10 - Essential (primary) hypertension Category: Medical (4) Allergic rhinitis: Comment: SEASONAL ALLERGIC RHINITIS. CURRENTLY HER SYMPTOMS ARE MINIMAL Code(s): J30.9 - Allergic rhinitis, unspecified Category: Medical (5) GERD (gastroesophageal reflux disease): Code(s): K21.9 - Gastro-esophageal reflux disease without esophagitis Category: Medical Qualifiers: Esophagitis presence: esophagitis presence not specified Qualified Code(s): K21.9 - Gastro-esophageal reflux disease without esophagitis (6) Chronic idiopathic constipation: Code(s): K59.04 - Chronic idiopathic constipation Category: Medical (7) Hodgkin lymphoma: Comment: 2010 Code(s): C81.90 - Hodgkin lymphoma, unspecified, unspecified site Category: Medical Qualifiers: Hodgkin lymphoma type: unspecified type Lymphoma site: unspecified region Qualified Code(s): C81.90 - Hodgkin lymphoma, unspecified, unspecified site Plan - Await results from electrocardiogram and fasting laboratory tests to complete preoperative assessment. - Continue current medications: Losartan for hypertension and fluticasone for allergic rhinitis. - Schedule completion of a home sleep study for evaluation of sleep apnea. -Continue meds for constipation and GERD. - Follor up with Hematology-Oncology for her history of Hodgkin lymphoma. Patient was informed and verbally consented to the use of an ambient scribe for clinic note documentation during this visit. During our conversation, I discussed the necessity of completing preoperative evaluations, including an electrocardiogram and fasting laboratory work. This is critical for ensuring the patient's safety in the upcoming knee replacement surgery. I advised her to maintain her current medication regimen, as her blood pressure is well-controlled with losartan. We agreed on the importance of the upcoming home sleep study for her known sleep apnea condition. I also advised the patient to cancel the planned August blood pressure appointment, given her stable hypertensive condition, and instead focus on necessary preoperative assessments. The patient agreed to return on Wednesday to complete the required tests in a fasting state. Orders: Orders Comprehensive Spencer. Panel Fast Today M17.12 - Unilateral primary osteoarthritis, left knee Complete Blood Count Auto Diff Today M17.12 - Unilateral primary osteoarthritis, left knee ECG 12 lead EKG Today Z01.818 - Encounter for other preprocedural examination Patient Instructions: - Maintain current medication regimen as prescribed. - Fast and return for laboratory tests and electrocardiogram on Wednesday. - Attend the home sleep study as scheduled. - Maintain a regular schedule for medications and monitor health symptoms closely. - Prepare for the knee surgery on September 05 as planned.
[2024-07-13 08:32] VITALS: BP 136/82; BMI 33.0
== END 2024-07-13 08:53 | disposition home or self-care (01) ==
PROVIDERS: PCP Internal Medicine; Visit Provider Internal Medicine
DX: M17.12 Unilateral primary osteoarthritis, left knee (principal); Z01.818 Encounter for other preprocedural examination; C81.90 Hodgkin lymphoma, unspecified, unspecified site; I10 Essential (primary) hypertension; J30.9 Allergic rhinitis, unspecified; K21.9 Gastro-esophageal reflux disease without esophagitis; K59.04 Chronic idiopathic constipation

== ENCOUNTER → 2024-07-13 08:19 | Outpatient (BNVA) | payer OTHER, SELFPAY | PROVIDERS: PCP Internal Medicine; Visit Provider Internal Medicine | DX: Z79.899 Other long term (current) drug therapy (principal); M17.12 Unilateral primary osteoarthritis, left knee; I10 Essential (primary) hypertension; J30.9 Allergic rhinitis, unspecified; K21.9 Gastro-esophageal reflux disease without esophagitis; K59.04 Chronic idiopathic constipation; C81.90 Hodgkin lymphoma, unspecified, unspecified site; Z01.818 Encounter for other preprocedural examination | CPT/HCPCS: 96127; 99212 ==

== ENCOUNTER → 2024-07-17 13:39 | Outpatient (REF) | payer OTHER, SELFPAY | LOC: HO.SL 13:39 | PROVIDERS: PCP Internal Medicine; Visit Provider Internal Medicine | DX: G47.30 Sleep apnea, unspecified (principal); J98.4 Other disorders of lung; R06.09 Other forms of dyspnea; R40.0 Somnolence; R06.83 Snoring | CPT/HCPCS: 95806 ==

== ENCOUNTER → 2024-07-17 13:59 | Outpatient (BNV) | payer OTHER, SELFPAY | PROVIDERS: PCP Internal Medicine; Visit Provider Internal Medicine | DX: R06.83 Snoring (principal) | CPT/HCPCS: 95806 ==

== ENCOUNTER → 2024-07-18 07:47 | Outpatient (REF) | payer OTHER, SELFPAY ==
--- NOTE | 2024-07-18 07:57 | ECG_ITS ---
Test Reason : Z01.818 Blood Pressure : */* mmHG Vent. Rate : 92 BPM Atrial Rate : 92 BPM P-R Int : 148 ms QRS Dur : 86 ms QT Int : 348 ms P-R-T Axes : 40 -13 18 degrees QTcB Int : 430 ms Normal sinus rhythm Moderate voltage criteria for LVH, may be normal variant ( R in aVL , [place] product ) Borderline ECG When compared with ECG of 13-Jan-2024 09:04, No significant change was found Referred By: Yen Prater Electronically Signed By: Guerrero Gerard
[2024-07-18 08:18] LABS: MANUAL DIFF FLAG NO
[2024-07-18 08:59] LABS: Basophils Percent Auto 0.5 % (0-2); Eosinophils Absolute Auto 0.1 X10*3/uL (0.0-0.4); Eosinophils Percent Auto 1.7 % (0-4); Hemoglobin 15.2 g/dl (12.0-16.0); Imm Gran Abs Auto 0.05 X10*3/uL (0.00-0.03); Imm Gran Pct Auto 0.6 % (0.0-0.4); Lymphocytes Absolute Auto 2.8 X10*3/uL (1.2-4.9); Lymphocytes Percent Auto 33.2 % (20-40); Mean Corpuscular HGB Conc 32.3 g/dl (31.0-35.0); Mean Corpuscular Hemoglobin 27.6 pg (27.0-33.0); Mean Corpuscular Volume 85.5 fL (80.0-98.0); Mean Platelet Volume 10.2 fL (9.4-12.3); Monocytes Absolute Auto 0.7 X10*3/uL (0.1-1.2); Monocytes Percent Auto 8.1 % (2-11); Neutrophils Absolute Auto 4.6 x10*3/uL (2.0-8.3); Neutrophils Percent Auto 55.9 % (45-73); Platelet Count 268 X10*3/uL (160-400); Red Cell Distribution Width 14.6 % (11.0-16.0); White Blood Count 8.3 X10*3/uL (4.8-10.8)
[2024-07-18 09:33] LABS: Alanine Aminotransferase 24 U/L (0-31); Albumin Level 4.2 g/dL (3.5-5.0); Alkaline Phosphatase 116 U/L (39-117); Anion Gap 10 (12-20); Aspartate Amino Transferase 19 U/L (5-31); Bilirubin Total 0.4 mg/dL (0.0-1.0); Blood Urea Nitrogen 12 mg/dL (9-16); Calcium 9.8 mg/dL (8.4-10.2); Carbon Dioxide 27 mmol/L (22-29); Chloride 109 mmol/L (96-108); Estimated Glomerular Filt Rate > 60; Glucose Fasting 93 mg/dL (60-99); Potassium 4.3 mmol/L (3.3-5.1); Sodium 142 mmol/L (135-145); Total Protein 7.7 g/dL (6.5-8.0)
== END ==
LOC: HO.CARD 07:47
PROVIDERS: PCP Internal Medicine; Visit Provider Internal Medicine
DX: Z01.818 Encounter for other preprocedural examination (principal); M17.12 Unilateral primary osteoarthritis, left knee
CPT/HCPCS: 36415; 80053; 85025; 93005

== ENCOUNTER → 2024-07-18 07:57 | Outpatient (BNV) | payer OTHER, SELFPAY | PROVIDERS: PCP Internal Medicine; Visit Provider Internal Medicine Cardiovascular Disease | DX: R94.31 Abnormal electrocardiogram [ECG] [EKG] (principal) | CPT/HCPCS: 93010 ==

== ENCOUNTER 2024-07-25 08:01 | Outpatient (REF) | payer OTHER, SELFPAY ==
--- NOTE | ~2024-07-25 | XR_ITS ---
CLINICAL HISTORY: M25.562 - Pain in left knee AP bilateral knees, 2 additional views left knee Comparison: None Findings: Moderate tricompartment osteoarthritis of the left knee. Mild articular surface irregularities of the medial patellar facet and imaged femoral condyles. Lateral cartilage calcification noted. Mild lateral translation of the left knee with borderline varus angulation. Small to moderate effusion present. No acute fracture or dislocation. Degenerative changes also include contralateral knee in the [id number]. No radiopaque foreign body. IMPRESSION: 1. Moderate osteoarthritis of the left knee. 2. Small to moderate effusion present. This document has been electronically signed by: Prashant Moore MD on 07/26/2024 01:56:16
== END 2024-07-25 08:02 | disposition home or self-care (01) ==
LOC: HO.XRAY 08:01
PROVIDERS: PCP Internal Medicine; Visit Provider Physician Assistant
DX: M25.562 Pain in left knee (principal)
CPT/HCPCS: 73562

== ENCOUNTER → 2024-07-25 08:07 | Outpatient (BNV) | payer OTHER, SELFPAY | PROVIDERS: PCP Internal Medicine; Visit Provider Radiology Neuroradiology | DX: M17.12 Unilateral primary osteoarthritis, left knee (principal); M25.462 Effusion, left knee | CPT/HCPCS: 73562 ==

== ENCOUNTER 2024-08-03 09:55 | Outpatient (AMB) | payer OTHER, SELFPAY ==
[2024-08-03 10:26] VITALS: BP 120/82; PULSE 86; O2SAT 96; BMI 33.1
--- NOTE | 2024-08-03 10:26 | A.OFFVIS_ITS ---
Vital Signs 08/03/24 10:26 Height 5 ft Weight 169 lb 12.095 oz BMI 33.1 BP 120/82 Blood Pressure Location Lt brachial Position Sitting Pulse 86 Pulse Source Pulse Oximeter Pulse Oximetry (%) 96 Oxygen Delivery Method Room Air Intake Visit Reasons: Shortness of breath Intake Note: pt is here for left knee replacement Dr Aguilar, September 05. she states she is feeling good today. please refill flonase. Controller Mechanic Required: Yes Controller Mechanic Services: Controller Mechanic Present Controller Mechanic Name: [id number] fang Allergies metronidazole [Flagyl] Allergy (Intermediate, Verified 08/03/24 10:48) hives Medication List - Last Reconciled 08/03/24 by Jessica Patel MD acetaminophen (Tylenol Extra Strength) 1,000 mg PO Q6H PRN [bed rail As directed] bisacodyl (Dulcolax (bisacodyl)) 10 mg (2 x 5 mg) PO BEDTIME 2 days Brace,wrist (Wrist Brace - one) As directed- LEFT WRIST STABILIZER cane As directed cholestyramine (with sugar) 4 gram 4 grams PO BID clindamycin phosphate 1 supp vaginal BEDTIME 3 days docusate sodium 100 mg PO BID fluticasone propionate 50 mcg/actuation (Flonase Allergy Relief) 2 sprays intranasal DAILY 30 days [handheld shower As directed] Knee brace As directed losartan 25 mg PO DAILY 90 days omeprazole magnesium (Prilosec OTC) 20 mg PO DAILY 90 days peg 3350-electrolytes 236-22.74-6.74 -5.86 gram (Golytely) 240 mL PO Q10M 1 day Shower Chair As directed sod sulf-pot chloride-mag sulf 1.479-0.188- 0.225 gram (Sutab) PO PER PKG DIR for colonoscopy prep terconazole 0.4% 1 appful vaginal BEDTIME 7 days walker with seat and wheels, Ht: 5', Wt: 165 lbs walker Folding Front wheeled walker duration 99 days Do you need a note to return to daycare/school/sports/work: No HPI HPI Shortness of breath: Details: 59 YEARS OLD FEMALE, ALBANIAN SPEAKING BUT SHE ALSO SPEAKS FAIRLY GOOD BENINESE. COMES FOR FOLLOW-UP AFTER HER RECENT SLEEP STUDY. SHE HAS HISTORY OF MILD INTERMITTENT NASAL CONGESTION WHICH IS NOW WELL CONTROLLED WITH THE USE OF FLONASE. SHE DENIES ANY WHEEZING ATTACKS BUT ONLY MILD INTERMITTENT COUGH ESPECIALLY AFTER ANY VIRUS ILLNESS. SHE HAS BEEN MODERATELY OVERWEIGHT WITH HISTORY OF SNORING, SHE WAS CHECKED FOR SLEEP APNEA AND HAD LOST HOME-BASED SLEEP STUDY ON 07/20/2024, WHICH ACTUALLY DID NOT SHOW ANY EVIDENCE OF SLEEP APNEA. SHE HAD HER PULMONARY FUNCTION TEST BACK IN 2022 , AND IT SHOULD JUST RESTRICTIVE COMPONENT BUT NO OBSTRUCTIVE AIRWAY DISORDER. [facility] Medical History Somnolence, daytime Physical exam Intestinal malabsorption Rash and nonspecific skin eruption Lumbar pain Tendonitis of wrist, left Bilateral knee pain Dextroscoliosis Arthritis of both knees Ear discomfort Screen for STD (sexually transmitted disease) Elevated platelet count Women's annual routine gynecological examination Vaginal irritation Snoring Acquired skin tag UTI (urinary tract infection) Allergic rhinitis Restrictive lung disease Dyspnea on exertion KASIE (obstructive sleep apnea) Hematuria Bacteremia Headache Primary insomnia Obese Tubular adenoma of colon Hodgkin lymphoma Surgical History S/P cholecystectomy Skin lesion H/O: hysterectomy History of esophagogastroduodenoscopy History of colonoscopy Hx of cataract extraction Family History Mother Diabetes High blood pressure Father Pacemaker Diabetes CAD (coronary artery disease) CKD (chronic kidney disease) Maternal Aunt Stomach cancer Maternal Aunt Liver cancer Social History Household Members: None Housing: Apartment Are you a primary adult care provider to a significant other at home: No Do you presently have visiting nurse or other home services: 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) Alcohol intake: never Patient Tobacco Use Status: Never used Tobacco e-Cigarette/Vaping Use: Never Used Second Hand Smoke Exposure: No service: No Current occupational status: unemployed and disabled Cognitive needs: Yes Hearing needs: No Vision needs: Yes Female Reproductive History Menstrual Age of Menarche: 12 Review of Systems Const All systems reviewed & are unremarkable except as noted in HPI and below Eyes Reports no additional complaints ENT Reports no additional complaints Card Denies chest pain, Denies irregular heart rhythm and Denies leg edema Resp Reports as per HPI GI Reports no additional complaints Reports no additional complaints Musc Reports back pain and Reports myalgias Skin/Breast Reports system reviewed and no additional complaints, except as documented Neuro Reports no additional complaints Psych Reports no additional complaints Endo Reports no additional complaints Gilmer/Lymph Details: History of Hodgkin lymphoma in the past, treated and has been in remission Aller/Immun Reports no additional complaints Physical Exam Vital Signs: Last Vital Signs Pulse 86 08/03/24 10:26 BP 120/82 08/03/24 10:26 Pulse Ox 96 08/03/24 10:26 Oxygen Delivery Method Room Air 08/03/24 10:26 BMI result Body Mass Index 33.1 She does have a round face with obese neck. 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) Throat: Yes posterior oropharynx normal Eyes General: appearance normal, both eyes and all related structures Neck Neck: Yes normal visual inspection, Yes no lymphadenopathy, Yes trachea midline, Yes no JVD and Yes other (Neck size 15 in) Thyroid: Thyroid normal Chest Chest palpation & inspection: normal inspection of the chest, normal palpation of entire chest wall and no tenderness Resp Effort & Inspection: normal respiratory effort Auscultation: clear to auscultation bilaterally, no crackles, no rales and no wheezes Cardio Palpation: normal PMI Rate: regular rate Rhythm: regular rhythm Heart sounds: no gallops and no murmurs Peripheral pulses: Peripheral pulses 2+ throughout GI Palpation (GI): Soft to palpation, nontender, No hepatosplenomegaly present and no masses Auscultation: normal bowel sounds Back/Spine/Pelvis Thoracic/Lumbar Spine: thoracic and lumbar spine normal to inspection and Thoracic/lumbar scoliosis (MILD DEXTROSCOLIOSIS) Skin General skin exam: no rashes or lesions noted Neuro General: patient oriented x3 and no focal motor deficits Cranial nerves: Yes CN's II-XII intact bilaterally Extrem General: Yes normal to inspection, Yes no clubbing, cyanosis or edema and Yes no calf tenderness Psych Appearance: grossly normal and well kempt Speech and movement: Normal speech and movement present Results Reviewed Results Reviewed: HOME-BASED SLEEP STUDY ON 07/20 2024 NEGATIVE FOR SLEEP APNEA, MODERATE AMOUNT OF SNORING AND NO NOCTURNAL HYPOXEMIA PULMONARY FUNCTION TEST ON 04/09/2023, C/W MILD MODERATE RESTRICTIVE LUNG DISEASE BUT NO OBSTRUCTIVE AIRWAY DISORDER. Assessment & Plan Assessment & Plan (1) Allergic rhinitis: Comment: SEASONAL ALLERGIC RHINITIS. CURRENTLY HER SYMPTOMS ARE MINIMAL AND WELL CONTROLLED WITH THE USE OF FLONASE, Code(s): J30.9 - Allergic rhinitis, unspecified Category: Medical Plan: CONTINUE TO USE FLONASE FOR ALLERGY SYMPTOMS CONTROLLED. PRESCRIPTION RENEWED (2) Restrictive lung disease: Comment: PULMONARY FUNCTION TEST( 0N 04/09/23 ) SHOWED MODERATELY SEVERE RESTRICTIVE DISORDER. THIS IS MOST LIKELY RELATED TO HER MODERATE OBESITY AND MILD DEXTROSCOLIOSIS SHE DOES NOT HAVE ANY OBSTRUCTIVE COMPONENT. Code(s): J98.4 - Other disorders of lung Category: Medical Plan: ADVISED TO KEEP WEIGHT UNDER CONTROLLED. ADVISED TO DO DEEP BREATHING EXERCISES 2 OR 3 TIMES A DAY. (3) Dyspnea on exertion: Comment: MILD DYSPNEA ON EXERTION IS SECONDARY TO RESTRICTIVE LUNG DISORDER, WHICH IS MILD. Code(s): R06.09 - Other forms of dyspnea Category: Medical Plan: EXPLAINED TO HER THAT SHE NEEDS TO LOSE A FEW LB OF WEIGHT. AND SHE SHOULD CONTINUE TO DO BREATHING EXERCISES (4) KASIE (obstructive sleep apnea): Comment: DIAGNOSED TO HAVE OBSTRUCTIVE SLEEP APNEA ON HOME-BASED SLEEP STUDY DONE ON 04/26/2023 . PATIENT TRIED CONSERVATIVE METHODS OF TREATMENT INCLUDING WEIGHT REDUCTION AND POSITION THERAPY SHE HAS NOT BEEN ABLE, TO LOSE MUCH WEIGHT ALSO HAS DIFFICULTY IN COMPLYING WITH STRICT POSITION THERAPY. HOWEVER THE REPEAT HOME-BASED SLEEP STUDY ON 07/20/2024, IS NEGATIVE FOR SLEEP APNEA . Code(s): G47.33 - Obstructive sleep apnea (adult) (pediatric) Category: Medical Plan: PATIENT EXPLAINED ABOUT THE RESULTS. DOES NOT NEED TO USE CPAP. SHE SHOULD CONTINUE TO TRY LOSING SOME WEIGHT. Plan PATIENT IS TO BE CLEARED FOR LEFT KNEE REPLACEMENT SURGERY. WILL GET A SPIROMETRY IN THE OFFICE AND IF THAT DOES NOT SHOW ANY SIGNIFICANT OBSTRUCTIVE AIRWAY DISORDER THEN SHE HAS NO CONTRAINDICATION. POSTOPERATIVELY SHE SHOULD CONTINUE TO DO DEEP BREATHING EXERCISES. Orders: Orders AMB Spirometry Testing Today J98.4 - Other disorders of lung, R06.09 - Other forms of dyspnea Medications: New fluticasone propionate 50 mcg/actuation administer into each nostril 2 sprays intranasal DAILY 30 days 16 grams 4RF ALLERGIC RHINITIS Coding Level of Care Code Est Pt Level 3 (93789) Diagnoses Allergic rhinitis J30.9 Restrictive lung disease J98.4 Dyspnea on exertion R06.09 KASIE (obstructive sleep apnea) G47.33
--- OUTSIDE RECORDS SUMMARY | 2024-08-03 12:59 | XMS_ITS | Clinical Summary ---
Author Organization [facility] Address [address] [place] [address] [address] [place] [address] Care Team Providers Care Dry Mop Maker Name Role Phone Unavailable Primary Care Provider Unavailabl e Immunizations Name Administration Dates Next Due Pfizer Covid-19 Vaccine 12+ Bivalent 07/13/2022 Social History Tobacco Use Types Packs/Day Years Used Date Smoking Tobacco: Never Assessed Comments Unknown Sex and Gender Information Value Date Recorded Sex Assigned at Female 05/04/2022 10:14 AM EDT Legal Sex Female 10:14 AM EDT Gender Identity Female 05/04/2022 10:14 AM EDT Sexual Orientation Straight 05/04/2022 10 :14 AM EDT Plan of Treatment Health Maintenance Due Date Last Done Comments CT Colonography 1964 Colonoscopy 1964 Colorectal Cancer Screening 1964 Depression Screening 1964 FIT DNA/Cologuard 1964 FIT 1964 FOBT 1964 HIV Screening 1964 Lipid Panel 1964 SDOH Screening 1964 Sigmoidoscopy 1964 Alcohol/Substance Use Screening 1976 Tobacco Screening 1976 Hepatitis C Screening 01/24/1982 Pap Smear 01/24/1985 Cervical Cancer Screening 01/24/1994 HPV/Cotest 01/24/1994 Mammogram 2004 Zoster Vaccines (2 of 2) 06/16/2022 04/21/2022 COVID-19 Vaccine ( season) 2024 07/13/2022, 12/25/2021, 11/11/2021, Additional history exists Influenza Vaccine (#1) 2024 , 03/26/2021, 03/23/2020, Additional history exists DTaP/Tdap/Td Vaccines (2 - Td or Tdap) 04/10/2026 04/10/2016, 11/25/2012, 01/10/2010, Additional history exists RSV Patients and Patients Aged 60 years or older (1 - 1-dose 75+ series) 01/24/2039 Hepatitis B Vaccines Completed 04/14/2011, 05/28/2008, 04/26/2000 Pneumococcal Vaccine: Pediatrics (0 to 5 Years) and At-Risk Patients (6 to 49) Years) Aged Out 06/01/2017, 10/02/2016 No longer eligibl e based on patient's age to complete this topic HIB Vaccines Aged Out No longer eligi ble based on patient's age to complete this topic HPV Vaccines Aged Out No longer eligi ble based on patient's age to complete this topic Hepatitis A Vaccines Aged Out No long er eligible based on patient's age to complete this topic IPV Vaccines Aged Out No longer eligi ble based on patient's age to complete this topic Meningococcal Vaccine Aged Out No rubin janusz eligible based on patient's age to complete this topic RSV under 20 months Aged Out No longe r eligible based on patient's age to complete this topic Rotavirus Vaccines Aged Out No longer eligible based on patient's age to complete this topic Insurance [facility]
--- OUTSIDE RECORDS SUMMARY | 2024-08-03 12:59 | XMS_ITS | Encounter Summary ---
Author Organization [facility] Address [address] [facility] [address] [address] [place] [address] Care Team Providers Care Biblical Studies Professor Name Role Phone Unavailable Primary Care Provider Unavailabl e Encounter Details Date Type Department Care Team (Latest Contact Info) Description 10/13/2021 Abstract [facility] CONVERSIONS Dental, Provider, DDS Social History Tobacco Use Types Packs/Day Years Used Date Smoking Tobacco: Never Assessed Comments Unknown Sex and Gender Information Value Date Recorded Sex Assigned at Female 05/04/2022 10:14 AM EDT Legal Sex Female 10:14 AM EDT Gender Identity Female 05/04/2022 10:14 AM EDT Sexual Orientation Straight 05/04/2022 10 :14 AM EDT documented as of this encounter Plan of Treatment Not on file documented as of this encounter Visit Diagnoses Not on filedocumented in this encounter
== END 2024-08-03 10:49 | disposition home or self-care (01) ==
PROVIDERS: PCP Internal Medicine; Visit Provider Internal Medicine
DX: J30.9 Allergic rhinitis, unspecified (principal); J98.4 Other disorders of lung; R06.09 Other forms of dyspnea; G47.33 Obstructive sleep apnea (adult) (pediatric)
CPT/HCPCS: 99213

== ENCOUNTER → 2024-08-03 09:55 | Outpatient (BNVA) | payer OTHER, SELFPAY | PROVIDERS: PCP Internal Medicine; Visit Provider Internal Medicine | DX: J30.9 Allergic rhinitis, unspecified (principal); J98.4 Other disorders of lung; R06.09 Other forms of dyspnea; G47.33 Obstructive sleep apnea (adult) (pediatric) | CPT/HCPCS: 99212 ==

== ENCOUNTER → 2024-08-08 08:04 | Outpatient (BNVA) | payer OTHER, SELFPAY | PROVIDERS: PCP Internal Medicine | DX: Z01.818 Encounter for other preprocedural examination (principal) ==

== ENCOUNTER 2024-08-14 09:54 | Outpatient (AMB) | payer OTHER, SELFPAY ==
--- OUTSIDE RECORDS SUMMARY | 2024-08-14 10:44 | XMS_ITS | Clinical Summary ---
Author Organization [facility] Address [address] [facility] [address] [address] [place] [address] Care Team Providers Care Lead Systems Architect Name Role Phone Unavailable Primary Care Provider [...] Cancer Screening 01/24/1994 HPV/Cotest 01/24/1994 Mammogram 2004 Pneumococcal Vaccine: 50+ Years (2 of 2 - PCV) 06/01/2018 06/01/2017, 10/02/2016 Zoster Vaccines (2 of 2) 06/16/2022 04/21/2022 [...] patient's age to complete this topic Insurance [facility]
--- OUTSIDE RECORDS SUMMARY | 2024-08-14 10:44 | XMS_ITS | Encounter Summary ---
Author Organization [facility] Address [address] [facility] [address] [place] [address] Care Team Providers Care Anvil Seating Press Operator Name Role Phone Unavailable Primary Care Provider [...]
--- NOTE | 2024-08-14 14:55 | AM.OFFVISNUR ---
Intake Visit Reasons: gaston Allergies adhesive tape Allergy (Intermediate, Verified 08/08/24 12:26) Redness of Skin metronidazole [Flagyl] Allergy (Intermediate, Verified 08/08/24 08:46) hives Office Procedures Spirometry Testing Spirometry Comments: patient gave her best effort throughout the test. 32802- Spirometry Coding CPT Codes Spirometry - CPT: 82888- Spirometry ([id number])
== END 2024-08-14 10:58 | disposition home or self-care (01) ==
PROVIDERS: PCP Internal Medicine; Visit Provider Internal Medicine
DX: G47.33 Obstructive sleep apnea (adult) (pediatric) (principal)
CPT/HCPCS: 94010

== ENCOUNTER → 2024-08-14 09:54 | Outpatient (BNVA) | payer OTHER, SELFPAY | PROVIDERS: PCP Internal Medicine; Visit Provider Internal Medicine | DX: J98.4 Other disorders of lung (principal); R06.09 Other forms of dyspnea | CPT/HCPCS: 94010 ==

== ENCOUNTER 2024-08-30 16:55 | Outpatient (REF) | payer OTHER, SELFPAY ==
--- OUTSIDE RECORDS SUMMARY | 2024-08-30 19:56 | XMS_ITS | Clinical Summary ---
Author Organization [facility] Address [address] [facility] [address] [place] [address] Care Team Providers Care Primary Mill Roller Name Role Phone Unavailable Primary Care Provider [...] patient's age to complete this topic Insurance [facility]
--- OUTSIDE RECORDS SUMMARY | 2024-08-30 19:56 | XMS_ITS | Encounter Summary ---
Author Organization [facility] Address [address] [facility] [address] [place] [address] Care Team Providers Care Staffing Operations Manager Name Role Phone Unavailable Primary Care Provider [...]
== END 2024-08-30 16:56 | disposition home or self-care (01) ==
LOC: HO.HOSX 16:55
PROVIDERS: Visit Provider Physician Assistant
DX: Z13.89 Encounter for screening for other disorder (principal)

== ENCOUNTER 2024-08-31 08:40 | Outpatient (AMB) | payer OTHER, SELFPAY ==
[2024-08-31 09:01] VITALS: BMI 33.0
--- NOTE | 2024-08-31 09:01 | A.OFFVIS_ITS ---
Vital Signs 08/31/24 09:01 Height 5 ft Weight 169 lb BMI 33.0 Intake Visit Reasons: Pre-Op: L TKA w/NE 09/05/24 Intake Note: Randa is a 59 year old female who presents today for a preoperative LT TKA, DOS 09/05/[address] Aguilar. Pain management agreement reviewed and signed. Containers Sales Representative Required: Yes Containers Sales Representative Services: Containers Sales Representative Present Containers Sales Representative Name: Bonita LOWEA, LM Allergies adhesive tape Allergy (Intermediate, Verified 08/31/24 09:04) Redness of Skin metronidazole [Flagyl] Allergy (Intermediate, Verified 08/31/24 09:04) hives Medication List - Last Reconciled 08/31/24 by Jazmine Hernandez PA-C acetaminophen (Tylenol Extra Strength) 1,000 mg PO Q6H PRN [bed rail As directed] Brace,wrist (Wrist Brace - one) As directed- LEFT WRIST STABILIZER cane As directed cholestyramine (with sugar) 4 gram 4 grams PO BID fluticasone propionate 50 mcg/actuation (Flonase Allergy Relief) 2 sprays intranasal DAILY 30 days [handheld shower As directed] Knee brace As directed losartan 25 mg PO DAILY 90 days omeprazole magnesium (Prilosec OTC) 20 mg PO DAILY 90 days Shower Chair As directed walker with seat and wheels, Ht: 5', Wt: 165 lbs walker Folding Front wheeled walker duration 99 days HPI Comments Details: Ms Fulton presents to the office today for preop visit. She is scheduled for left total knee arthroplasty with Dr. Aguilar. She continues to have ongoing pain and difficulty with ambulation in the left knee, which is affecting her quality of life; therefore, she has elected to move forward with surgery. [facility] Medical History (Updated 08/08/24 @ 12:37 by Mabel Alejandro RN) Hx of lymphoma Back pain Hx of renal calculi Seasonal allergies Allergic rhinitis Restrictive lung disease Acquired skin tag Somnolence, daytime Snoring Dyspnea on exertion KASIE (obstructive sleep apnea) Vaginal irritation Women's annual routine gynecological examination Physical exam Hematuria Elevated platelet count Bacteremia UTI (urinary tract infection) Headache Primary insomnia Screen for STD (sexually transmitted disease) Ear discomfort Arthritis of both knees Dextroscoliosis Bilateral knee pain Tendonitis of wrist, left Lumbar pain Obese Rash and nonspecific skin eruption Tubular adenoma of colon Intestinal malabsorption Hodgkin lymphoma Surgical History Skin lesion H/O: hysterectomy S/P cholecystectomy History of esophagogastroduodenoscopy History of colonoscopy Hx of cataract extraction Family History Mother Diabetes High blood pressure Father Pacemaker Diabetes CAD (coronary artery disease) CKD (chronic kidney disease) Maternal Aunt Stomach cancer Maternal Aunt Liver cancer Social History (Updated 08/08/24 @ 12:33 by Mabel Alejandro, ALINE) Household Members: None Housing: Apartment Are you a primary auto care center manager to a significant other at home: No Do you presently have visiting nurse or other home services: Yes (2 x week ALUMINUM POLISHER, 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) 75 years or older and lives alone: No Alcohol intake: never Patient Tobacco Use Status: Never used Tobacco e-Cigarette/Vaping Use: Never Used Second Hand Smoke Exposure: No service: No Current occupational status: unemployed and disabled Cognitive needs: Yes Hearing needs: No Vision needs: Yes Female Reproductive History Menstrual Age of Menarche: 12 Review of Systems Const All systems reviewed & are unremarkable except as noted in HPI and below Physical Exam Vital Signs: BMI result Body Mass Index 33.0 Const General: cooperative, healthy appearing, comfortable, no acute distress, well developed and alert Orientation/consciousness: patient oriented x3 HEENT Head: Yes normal to inspection, Yes normocephalic and Yes atraumatic Eyes General: appearance normal, both eyes and all related structures Neck Neck: Yes normal visual inspection and Yes no lymphadenopathy Resp Effort & Inspection: normal respiratory effort and able to speak in complete sentences Cardio Rate: regular rate Peripheral pulses: Peripheral pulses 2+ throughout GI Inspection: Yes normal to inspection Palpation (GI): Soft to palpation Skin General skin exam: no rashes or lesions noted Neuro General: patient oriented x3 Extrem Other: Left knee with tenderness to palpation over the medial joint line. No open wounds or lacerations. There is 1+ varus instability and tenderness to palpation in the retro patellar region. She has a small effusion. She has 5-120 degrees motion. She walks with antalgia. Psych Appearance: grossly normal Mental Status: mental status grossly normal Results Reviewed Results Reviewed: Xrays were obtained in the office today and personally reviewed by me of the left knee obtained for surgical planning Assessment & Plan Assessment & Plan (1) Osteoarthritis of left knee: Code(s): M17.12 - Unilateral primary osteoarthritis, left knee Category: Medical Plan: I discussed in detail the procedure and what to expect pre and post operatively. We discussed the risks, benefits and alternatives to the surgery as well as the rehabilitation course. The risks; which include, but are not limited to infection, bleeding, nerve injury, ongoing pain, swelling, and stiffness, perioperative risk of injury to bones and soft tissues, and blood clots. I?ve answered all questions and with their understanding they have consented to move forward with Left total knee arthroplasty with Dr. Aguilar Orders: Orders PT Evaluation and Treatment Today Z96.652 - Presence of left artificial knee joint XR knee LT 3V Today M25.562 - Pain in left knee XR knee RT 1V Today M25.561 - Pain in right knee Medications: New [Raised toilet seat] duration - 99 days 1 ea 0RF M17.12 - Unilateral primary osteoarthritis, left knee Coding Level of Care Code Est Pt Level 3 (76494) Complex EM visit Add On G2211 Diagnoses Osteoarthritis of left knee M17.12
--- OUTSIDE RECORDS SUMMARY | 2024-08-31 09:09 | XMS_ITS | Encounter Summary ---
Author Organization [facility] Address [address] [place] [address] Care Team Providers Care Plant Breeder Name Role Phone Unavailable Primary Care Provider [...]
--- OUTSIDE RECORDS SUMMARY | 2024-08-31 09:10 | XMS_ITS | Clinical Summary ---
Author Organization [facility] Address [address] [place] [address] Care Team Providers Care Plywood And Veneer Repairer Name Role Phone Unavailable Primary Care Provider [...]
== END 2024-08-31 11:02 | disposition home or self-care (01) ==
PROVIDERS: PCP Internal Medicine; Visit Provider Physician Assistant
DX: M17.12 Unilateral primary osteoarthritis, left knee (principal)
CPT/HCPCS: 99024

== ENCOUNTER → 2024-08-31 08:50 | Outpatient (BNV) | payer OTHER, SELFPAY | PROVIDERS: Visit Provider Radiology Diagnostic Radiology | DX: M25.562 Pain in left knee (principal) | CPT/HCPCS: 73560; 73565 ==

== ENCOUNTER 2024-08-31 11:00 | Outpatient (REF) | payer OTHER, SELFPAY ==
--- NOTE | ~2024-08-31 | XR_ITS ---
CLINICAL HISTORY: M25.562 - Pain in left knee standing AP view of both knees and 2 additional views of the left knee Comparison: CR - XR KNEE LT 3V - 07/25/24 08:14 EST Findings: Bones intact. No dislocations. No significant loss of joint space, osteophytes, or erosions. There are mild osteoarthritic changes. There is no significant joint effusion noted. No radiopaque foreign body. IMPRESSION: There are mild osteoarthritic changes. There is no significant joint effusion noted. This document has been electronically signed by: Vaibhav Duran MD on 08/31/2024 12:55:24
--- OUTSIDE RECORDS SUMMARY | 2024-09-01 12:45 | XMS_ITS | Encounter Summary ---
Author Organization [facility] Address [address] [place] [address] [address] [place] [address] Care Team Providers Care Irrigator Name Role Phone Unavailable Primary Care Provider Unavailabl e Reason for Visit * Reason Comments Dental Pain Upper left side Encounter Details Date Type Department Care Team (Late st Contact Info) Description 09/01/2024 11:30 AM EST Office Visit [facility] ADULT DENTAL [address] [place] [address] Kirby Rodriguez DDS [address] [place] [address] Social History Tobacco Use Types Packs/Day Years Used Date Smoking Tobacco: Never Smokeless Tobacco: Never Tobacco Cessation:Counseling Given: Not Answered Alcohol Use Standard Drinks/Week Comments Never 0 (1 standard drink = 0.6 oz pur e alcohol) Comments Unknown Sex and Gender Information Value Date Recorded Sex Assigned at Female 05/04/2022 10:14 AM EDT Legal Sex Female 10:14 AM EDT Gender Identity Female 05/04/2022 10:14 AM EDT Sexual Orientation Straight 05/04/2022 10 :14 AM EDT documented as of this encounter Plan of Treatment Upcoming Encounters Date Type Department Care Team (Late st Contact Info) Description 09/08/2024 8:00 AM EST Office Visit [facility] ADULT DENTAL [address] [place] [address] Adam Hilaria [address] [place] [address] 10/13/2024 9:00 AM EDT Office Visit [facility] ADULT DENTAL [address] [place] [address] Kirby Rodriguez DDS [address] [place] [address] Scheduled Orders Name Type Priority Associated Diagnoses Orde r Schedule 16 16 EXTRACTION, ERUPTED TOOTH OR EXPOSED ROOT (ELEVATION/FORCEPS REMOVAL) Dental Routine 1 Occurrences 09/01/2024 14 14 ENDODONTIC THERAPY, MOLAR TOOTH Dental Routine 1 Occurrences 09/01/2024 14 14 CROWN - PORCELAIN/CERAMIC Dental Routine 1 Occurrences starting 09/01/2024 14 14 PREFABRICATED POST AND CORE IN ADDITION TO CROWN Dental Routine 1 Occurrences 09/01/2024 PROPHYLAXIS - ADULT Dental Routine 1 Occ urrences starting 09/01/2024 documented as of this encounter Visit Diagnoses Not on filedocumented in this encounter
--- OUTSIDE RECORDS SUMMARY | 2024-09-01 12:45 | XMS_ITS | Encounter Summary ---
Author Organization [facility] Address [address] [place] [address] [address] [place] [address] Care Team Providers Care Production Control Specialist Name Role Phone Unavailable Primary Care Provider Unavailabl e Reason for Visit * Reason Onset Date Comments unable to post portal PAR 09/01/2024 Encounter Details Date Type Department Care Team (Late st Contact Info) Description 09/01/2024 Telephone [facility] ADULT DENTAL [address] [place] [address] Marcia Parker DDS [address] [place], [place] [id number] unable to post portal PAR Social History Tobacco Use Types Packs/Day Years Used Date Smoking Tobacco: Never Smokeless Tobacco: Never Alcohol Use Standard Drinks/Week Comments Never 0 (1 standard drink = 0.6 oz pur e alcohol) Comments Unknown Sex and Gender Information Value Date Recorded Sex Assigned at Female 05/04/2022 10:14 AM EDT Legal Sex Female 10:14 AM EDT Gender Identity Female 05/04/2022 10:14 AM EDT Sexual Orientation Straight 05/04/2022 10 :14 AM EDT documented as of this encounter Miscellaneous Notes * Telephone Encounter - Amanda Beard - 09/01/2024 8:32 AM EST Patient coming in for ER visit in dental for 11:30. Insurance active in MMIS. Unable to run or postinsurance through portal DR documented in this encounter Plan of Treatment Upcoming Encounters Date Type Department Care Team (Late st Contact Info) Description 09/08/2024 8:00 AM EST Office Visit [facility] ADULT DENTAL [address] [place] [address] Hilaria Medina [address] [place] [address] 10/13/2024 9:00 AM EDT Office Visit [facility] ADULT DENTAL [address] [place] [address] Kirby Rodriguez DDS [address] [place] [address] documented as of this encounter Visit Diagnoses Not on filedocumented in this encounter
--- OUTSIDE RECORDS SUMMARY | 2024-09-01 12:45 | XMS_ITS | Encounter Summary ---
Author Organization [facility] Address [address] [place] [id number] Care Team Providers Care Prototype Model Maker Name Role Phone Unavailable Primary Care Provider Unavailabl e Encounter Details Date Type Department Care Team (Latest Contact Info) Description 10/13/2021 Abstract [facility] CONVERSIONS Dental, Provider, DDS Social History Tobacco [...] 8:00 AM EST Office Visit [facility] ADULT DENTAL [address] [place] [address] Hilaria Medina [address] [place] [address] 10/13/2024 9:00 AM EDT Office Visit [facility] ADULT DENTAL [address] [place] [address] Kirby Rodriguez, DDS [address] [place] [address] documented as of this encounter Visit Diagnoses Not on filedocumented in this encounter
--- OUTSIDE RECORDS SUMMARY | 2024-09-01 12:45 | XMS_ITS | Clinical Summary ---
Author Organization [employer] Address [address] [place] [address] Care Team Providers Care Health Services Coordinator Name Role Phone Unavailable Primary Care Provider Unavailabl e Allergies No known active allergies Medications hydroCHLOROthia zide (HYDRODiuril) 25 MG tablet TOME 1 TABLETA POR V A ORAL TODOS LOS D 5 Active hydrOXYzine HCl (Atarax) 25 MG tablet TAKE 1 TABLET BY MOUTH EVERY NIGHT AT BEDTIME NEEDED PARA ANSIEDAD/PARA DORMIR Active losartan (Cozaar) 25 MG tablet TOME 1 TABLETA POR V A ORAL TODOS LOS D 5 Active omeprazole (PriLOSEC) [address] capsule Take 1 capsule by mouth Once per day. 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 Backache 12/14/2011 Depressive disorder 12/14/2011 Obesity 12/14/2011 Vaginitis and vulvovaginitis 12/14/2011 Urinary tract infectious disease 12/14/2011 Encounters Date Type Department Care Team Description 09/01/2024 11:30 AM EST Office Visit [facility] ADULT DENTAL [address] [place] [address] iKrby Rodriguez DDS 09/01/2024 Telephone [facility] ADULT DENTAL [address] [place] [address] Marcia Parker DDS unable to post portal PAR from Last 3 Months Immunizations Name Administration Dates Next Due Pfizer [...] 10 :14 AM EDT Plan of Treatment Upcoming Encounters Date Type Department Care Team (Late st Contact Info) Description 09/08/2024 8:00 AM EST Office Visit [facility] ADULT DENTAL [address] [place] [address] Vin Medinaaris [address] [place] [address] 10/13/2024 9:00 AM EDT Office Visit [facility] ADULT DENTAL [address] [place] [address] Kirby Rodriguez DDS [address] [place] [address] Health Maintenance Due Date Last Done Comments CT Colonography 1964 Colonoscopy 1964 Colorectal Cancer Screening 1964 Depression Screening 1964 FIT DNA/Cologuard 1964 FIT 1964 FOBT 1964 HIV Screening 1964 Lipid Panel 1964 SDOH Screening 1964 Sigmoidoscopy 1964 Alcohol/Substance Use Screening 1976 Hepatitis C Screening 01/24/1982 Pap Smear 01/24/1985 Cervical Cancer Screening 01/24/1994 HPV/Cotest 01/24/1994 Mammogram 2004 Pneumococcal Vaccine: 50+ Years (2 of 2 - PCV) 06/01/2018 06/01/2017, 10/02/2016 Dental Oral Exam 04/15/2022 10/13/2021, , 06/24/2016, Additional history exists Dental Prophylaxis 04/15/2022 10/13/2021, 0 04/01/2017, 02/19/2016, Additional history exists Zoster Vaccines (2 of 2) 06/16/2022 04/21/2022 Dental X-Ray: Bitewings 10/14/2022 10/14/19 22, 06/24/2016, 12/26/2015, Additional history exists COVID-19 Vaccine ( season) 2024 04/12/2023, 07/13/2022, 12/25/2021, Additional history exists Dental X-Ray: Full Mouth 10/14/2024 10/13/2021, 09/02 Tobacco Screening 09/01/2025 09/01/2024 DTaP/Tdap/Td Vaccines (2 - Td or Tdap) 04/10/2026 04/10/2016, 11/25/2012, 01/10/2010, Additional history exists RSV Patients and Patients Aged 60 years or older (1 - 1-dose 75+ series) 01/24/2039 Hepatitis B Vaccines Completed 04/14/2011, 05/28/2008, 04/26/2000 Influenza Vaccine Completed 04/18/2024, , 04/08/2023, Additional history exists HIB Vaccines Aged Out No longer eligi [...] on patient's age to complete this topic Procedures Procedure Name Priority Date/Time Associated Diagnosis Comments PROPHYLAXIS - ADULT Routine 10/13/2021 1 2:00 AM EDT INTRAORAL - COMPLETE SERIES OF RADIOGRAPHIC IMAGES Routine 10/13/2021 12:00 AM EDT PERIODIC ORAL EVALUATION - ESTABLISHED PATIENT Routine 10/13/2021 12:00 AM EDT from Last 3 Months or Most Recently Relevant to Health Maintenance Insurance [facility] [address] MEDICAID STAND ADULT
== END 2024-08-31 11:01 | disposition home or self-care (01) ==
LOC: HO.HOSX 11:00
PROVIDERS: Visit Provider Physician Assistant
DX: Z01.818 Encounter for other preprocedural examination (principal); M17.12 Unilateral primary osteoarthritis, left knee; M25.562 Pain in left knee
CPT/HCPCS: 73562; 99212

== ENCOUNTER 2024-09-05 09:28 | Day surgery (SDC) | payer OTHER, SELFPAY ==
[2024-08-08 12:00] VITALS: BP 140/72; PULSE 116; RESP 16; O2SAT 95; BMI 33.2
--- NOTE | 2024-08-08 12:43 | HO.ANESPROP2 ---
HPI - Anesthesia Eval Consult details Narrative: 59yo F for Left Knee Replacement Total, 09/05/24 Medically cleared Pulmo cleared No recent illness No CP/SOB within limits of knee pain KASIE: No CPAP rec'd, only position therapy and weight loss GERD: ppi controls PMFSH Active Problems Active Problems: All Active Problems Chronic idiopathic constipation (Acute) Pre-op evaluation (Acute) Encounter for well woman exam with routine gynecological exam (Acute) Dysuria (Acute) Osteoarthritis of left knee (Acute) Multiple food allergies (Acute) Post-cholecystectomy syndrome (Acute) Essential hypertension (Acute) Pre-op evaluation (Acute) Chronic diarrhea (Acute) Chronic GERD (Acute) Osteoarthritis of knees, bilateral (Acute) Spondylosis of lumbar region without myelopathy or radiculopathy (Acute) GERD (gastroesophageal reflux disease) (Acute) Tubular adenoma of colon (Acute) Hodgkin lymphoma (Acute) Somnolence, daytime (Acute) Physical exam (Acute) Allergic rhinitis (Acute) Restrictive lung disease (Acute) Dyspnea on exertion (Acute) KASIE (obstructive sleep apnea) (Acute) Hematuria (Acute) Headache (Acute) Primary insomnia (Acute) Obese (Acute) Past Medical History Medical History Hx of lymphoma Back pain Hx of renal calculi Seasonal allergies Allergic rhinitis Restrictive lung disease Acquired skin tag Somnolence, daytime Snoring Dyspnea on exertion KASIE (obstructive sleep apnea) Vaginal irritation Women's annual routine gynecological examination Physical exam Hematuria Elevated platelet count Bacteremia UTI (urinary tract infection) Headache Primary insomnia Screen for STD (sexually transmitted disease) Ear discomfort Arthritis of both knees Dextroscoliosis Bilateral knee pain Tendonitis of wrist, left Lumbar pain Obese Rash and nonspecific skin eruption Tubular adenoma of colon Intestinal malabsorption Hodgkin lymphoma Family History Family History Mother Diabetes High blood pressure Father Pacemaker Diabetes CAD (coronary artery disease) CKD (chronic kidney disease) Maternal Aunt Stomach cancer Maternal Aunt Liver cancer Family history of problems with anesthesia: No Surgical History Surgical History Skin lesion H/O: hysterectomy S/P cholecystectomy History of esophagogastroduodenoscopy History of colonoscopy Hx of cataract extraction History of Problems with Anesthesia: No Social History Social History Household Members: None Housing: Apartment Are you a primary career developer to a significant other at home: No Do you presently have visiting nurse or other home services: Yes (2 x week NEPHROLOGY NURSE, 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) 75 years or older and lives alone: No Alcohol intake: never Patient Tobacco Use Status: Never used Tobacco e-Cigarette/Vaping Use: Never Used Second Hand Smoke Exposure: No service: No Current occupational status: unemployed and disabled Cognitive needs: Yes Hearing needs: No Vision needs: Yes Meds Allergies Allergy/AdvReac Type Severity Reaction Status Date / Time adhesive tape Allergy Intermediate Redness of Verified 09/05/24 10:30 Skin metronidazole [Flagyl] Allergy Intermediate hives Verified 09/05/24 10:30 Home Medications ?Medication ?Instructions ?Recorded ?Confirmed ?Last Taken ?Type fluticasone propionate 50 2 spray intranasal DAILY PRN 09/05/24 09/05/24 Unknown History mcg/actuation nasal Allergy Symptoms spray,suspension hydrochlorothiazide 25 mg tablet 25 mg PO DAILY 09/05/24 09/05/24 09/04/24 History omeprazole 20 mg tablet,delayed 20 mg PO DAILY@0630 09/05/24 09/05/24 09/05/24 History release Exam Height,Weight and Vital Signs: Height 5 ft Weight 77.111 kg Last Vital Signs Pulse 116 H 08/08/24 12:00 Resp 16 08/08/24 12:00 BP 140/72 H 08/08/24 12:00 Pulse Ox 95 08/08/24 12:00 O2 Del Method Room Air 08/08/24 12:00 Pertinent Lab Results Pertinent Lab Results: Laboratory Tests 07/18/24 08:16 WBC 8.3 Hgb 15.2 Hct 47.0 Plt Count 268 Sodium 142 Potassium 4.3 Chloride 109 H Carbon Dioxide 27 BUN 12 Creatinine 0.69 Narrative Narrative: EKG 07/2024 Vent. Rate : 92 BPM Atrial Rate : 92 BPM P-R Int : 148 ms QRS Dur : 86 ms QT Int : 348 ms P-R-T Axes : 40 -13 18 degrees QTcB Int : 430 ms Normal sinus rhythm Moderate voltage criteria for LVH, may be normal variant ( R in aVL , Arminto product ) Borderline ECG When compared with ECG of 13-Jan-2024 09:04, No significant change was found Airway Mallampati Class: III TM Dist: >3cm Loose/Missing/Broken Teeth: No Heart: RRR Lungs: CTAB Assessment and Plan Assessment Anesthesia Assessment: Anesthesia Plan Discussed and PAT Visit Final Anesthetic Review Family History of Problems with Anesthesia: No History of Problems with Anesthesia: No
[2024-08-08 15:10] LABS: MRSA Nasal PCR NEGATIVE (Negative); SA Nasal PCR NEGATIVE (Negative)
[2024-09-05] VITALS (10 sets, daily range): BP systolic 94–160; BP diastolic 49–87; PULSE 65–99; RESP 12–20; TEMP 36.1–36.5; O2SAT 94–98; BMI 33.2; BMI 38.4
--- NOTE | ~2024-09-05 | XR_ITS ---
EXAMINATION: XR KNEE, LEFT CLINICAL INFORMATION: lt tka COMPARISON: August 31, 2024. TECHNIQUE: Two views of the left knee. FINDINGS: There is a metallic prosthesis with a femoral and tibial components well seated in the osseous structures with satisfactory alignment. Skin sharifa in the left knee. Subcutaneous emphysema related to the surgical procedure. XR/XR knee LT 2V IMPRESSION: Satisfactory total left knee arthroplasty. Electronically signed by: Maurice Beckman MD 09/08/2024 12:46 PM LISA LOUIE
[2024-09-05 10:57] LABS: Hematocrit 43.3 % (37.0-47.0); Hemoglobin 14.1 g/dl (12.0-16.0)
--- NOTE | 2024-09-05 11:06 | P.DS_ITS ---
DS: Providers Provider Date of Service: 09/07/24 <ROMAN Tan - Last Filed: 09/07/24 09:46> Date of discharge: 09/07/24 <ROMAN Tan - Last Filed: 09/07/24 09:46> Primary care physician: Yen Prater MD <Bianca Valdez PA-C - Last Filed: 09/05/24 11:07> DS: Summary Hospital Course Hospital Course: The patient underwent a successful left total knee arthroplasty, they were transferred to PACU and then to the floor to recover. During their stay, their vitals were stable, afebrile at (97.4. Labs were unremarkable, H/H 13.2/40.4. POD 1 they were started on Lovnox for DVT ppx, they also received Physical Therapy services twice a day. Prior to discharge, their dressing was clean dry and intact, and the plan was to be discharged to short-term rehab <Bianca Valdez PA-C - Last Filed: 09/05/24 11:07> Time Attestation Discharge Coordination Time (in mins): 30 <Bianca Valdez PA-C - Last Filed: 09/05/24 11:07> Quality: Safe Use of Opioids Does Pt have an Active Cancer Diagnosis on the Problem List?: No <Bianca Valedz PA-C - Last Filed: 09/05/24 11:07> Quality: Stroke Does the patient have a stroke diagnosis?: No <Bianca Valdez PA-C - Last Filed: 09/05/24 11:07> Physical Exam Vital Signs: Vital Signs: Last Vital Signs Temp 97.1 F 09/05/24 10:49 Pulse 91 09/05/24 10:49 Resp 16 09/05/24 10:49 BP 133/66 09/05/24 10:49 Pulse Ox 94 09/05/24 10:49 O2 Del Method Room Air 09/05/24 10:49 BMI result Body Mass Index 33.2 <Bianca Valdez PA-C - Last Filed: 09/05/24 11:07> Const: General: cooperative, healthy appearing and no acute distress <Bianca Valdez PA-C - Last Filed: 09/05/24 11:07> Resp: Effort & Inspection: normal respiratory effort and able to speak in complete sentences <Bianca Valdez PA-C - Last Filed: 09/05/24 11:07> Cardio: Rate: regular rate <Bianca Valdez PA-C - Last Filed: 09/05/24 11:07> Peripheral pulses: Peripheral pulses 2+ throughout <Bianca Valdez PA-C - Last Filed: 09/05/24 11:07> GI: Palpation (GI): Soft to palpation <Bianca Valdez PA-C - Last Filed: 09/05/24 11:07> Skin: Lesions: no lesions <Bianca Valdez PA-C - Last Filed: 09/05/24 11:07> Rashes: no rashes <Bianca Valdez PA-C - Last Filed: 09/05/24 11:07> Extrem: Other: left knee dressing is c/d/i. Able to dorsi/plantar flex. Calf is supple and nontender. Sensation intact. Pedal pulse intact. <Bianca Valdez PA-C - Last Filed: 09/05/24 11:07> DS: Data Data Completed and Pending Labs on day of discharge: Laboratory Results - last 24 hr 09/05/24 10:36 Hgb 14.1 Hct 43.3 <Bianca Valdez PA-C - Last Filed: 09/05/24 11:07> Discharge Plan Discharge Patient Disposition: [facility] <Bianca Valdez PA-C - Last Filed: 09/05/24 11:07> Referrals: [facility] [Outside] - 1 Week (TRANSFER FOR SHORT TERM REHAB) Jazmine Hernandez PA-C [Physician Reordering Clerk] - 09/21/24 12:30 pm <Bianca Valdez PA-C - Last Filed: 09/05/24 11:07> Discharge Medications: New celecoxib 200 mg Capsule 200 mg PO BID 30 Days Qty: 60 0RF acetaminophen 325 mg Tablet 650 mg PO Q6H PRN (Reason: Pain, Mild 1-3,Fever,Headache) 30 Days Qty: 240 0RF docusate sodium 100 mg Capsule 100 mg PO BID 30 Days Qty: 60 0RF oxycodone 5 mg Tablet 5 mg PO Q4H PRN (Reason: Pain, Moderate(Pain Scale 4-6)) 7 Days Qty: 42 0RF Rx Instructions: Partial Fill upon patient request. enoxaparin 40 mg/0.4 mL Syringe 40 mg subcut Q24H 42 Days Qty: 16.8 0RF Continued (DME) Wrist Brace - one Misc See Rx Instructions .ROUTE .MEDSUPPLY Qty: 1 0RF Rx Instructions: As directed- LEFT WRIST STABILIZER [place] [place] walker Misc See Rx Instructions .Route Qty: 1 0RF Rx Instructions: with seat and wheels, Ht: 5', Wt: 165 lbs (DME) Shower Chair Misc See Rx Instructions .Route Qty: 1 0RF Rx Instructions: As directed [place] [place] bed rail See Rx Instructions .Route .MEDSUPPLY Qty: 1 0RF Rx Instructions: As directed [place] [place] handheld shower See Rx Instructions .Route .MEDSUPPLY Qty: 1 0RF Rx Instructions: As directed ([facility] [place] walker Misc See Rx Instructions .MEDSUPPLY Qty: 1 0RF Rx Instructions: Folding Front wheeled walker duration 99 days cholestyramine (with sugar) 4 gram powder in packet 1 ea PO BID Qty: 180 2RF hydrochlorothiazide 25 mg tablet 25 mg PO DAILY fluticasone propionate 50 mcg/actuation spray,suspension 2 spray intranasal DAILY PRN (Reason: Allergy Symptoms) omeprazole 20 mg Tablet,Delayed Release (Dr/Ec) 20 mg PO DAILY@0630 ([facility] [place] Knee brace Misc See Rx Instructions .Route Qty: 1 0RF Rx Instructions: As directed ([facility] [place] cane Device See Rx Instructions .Route Qty: 1 0RF Rx Instructions: As directed losartan 25 mg tablet 25 mg PO DAILY 90 Days Qty: 90 1RF (DME) Raised toilet seat See Rx Instructions .ROUTE .MEDSUPPLY Qty: 1 0RF Rx Instructions: duration - 99 days Discontinued acetaminophen [Tylenol Extra Strength] 500 mg tablet 1,000 mg PO Q6H PRN (Reason: Pain) <Bianca Valdez PA-C - Last Filed: 09/05/24 11:07> Discharge Orders: Discharge Order (Routine); Ordered 09/07/24 Ordered By: Axel Lewis <Bianca Valdez PA-C - Last Filed: 09/05/24 11:07> Diet: Advance to usual diet <Bianca Valdez PA-C - Last Filed: 09/05/24 11:07> Advance to usual diet <ROMAN Tan - Last Filed: 09/07/24 09:46> Activity on Discharge: Use cane or walker <Bianca Valdez PA-C - Last Filed: 09/05/24 11:07> Use cane or walker <ROMAN Tan - Last Filed: 09/07/24 09:46> Activity Restrictions/Additional Instructions: Physical Therapy for ROM 0-120, quad strength, gait training. Use walker for ambulation Limit stair climbing, No shower, No tub bath, No driving Continue Lovenox x 6 weeks Keep Aquacel dressing clean, dry and intact. Follow up with orthopedics in 2 weeks <Bianca Valdez PA-C - Last Filed: 09/05/24 11:07> Print Language: Croatian <Bianca Valdez PA-C - Last Filed: 09/05/24 11:07>
--- NOTE | 2024-09-05 11:07 | P.F2F_ITS ---
Service Date Service Date: 09/05/24 Encounter Date of encounter: 09/06/24 Reasons for Services Signs and symptoms assessed: s/p LTKA Pt. is considered homebound due to recent surgery. Unable to drive, poor balance, poor gait mechanics. Reason for physical therapy: home safety and mobility, therapeutic exercises, restore joint function, gait/transfer training and ADL training Homebound: Leaving the home is medically contraindicated at this time without the asist of a device and/or another person due th the listed conditions above and below. Reason homebound: unsteady gait / fall risk, leg weakness, pain with ambulation, pain with transfers, poor balance / fall risk and unable to drive Certification: Based on the above findings, I certify that this patient is confined to the home and needs intermittent senior care care, physical therapy and/or speech th erapy, or continues to need occupational therapy. The patient is under my care, and I have initiated the establishment of the plan of care. The patient will be followed by a physician who will periodically review the plan of care. Time Spent With Patient Time: Total time managing care of this patient today ____ minutes.
[2024-09-05] MEDS: Lactated Ringers 1,000 ML 100 ML IVCONT ×2 (11:09→17:37)
[2024-09-05] MEDS: Albuterol Sulfate (0.083%) 2.5 MG/3 ML VIAL.NEB INHALE (11:17)
--- NOTE | 2024-09-05 12:00 | MHC.SHP ---
Pre-Procedural Eval Section A - 24 Hr Update-Section A only Date of Service: 09/05/24 The patient is an INPATIENT: No Changes since office visit: No Cold of Flu in the past 2 weeks, No New Medical Problems, No Changes in Medication and No Patient answered all questions The patient has been examined within 24 hours of the surgical procedure. The History & Physical has been completed within 30 days and I have reviewed it.: Yes Section B - Complete if H&P > 30 days Chief Complaint: lt tka Allergies: Allergies Allergy/AdvReac Type Severity Reaction Status Date / Time adhesive tape Allergy Intermediate Redness of Verified 09/05/24 10:30 Skin metronidazole [Flagyl] Allergy Intermediate hives Verified 09/05/24 10:30 Plan I have reviewed the history and physical and performed a pertinent physical examination on my patient. No changes have occurred unless specified. Time Spent With Patient Time: Total time managing care of this patient today ____ minutes.
[2024-09-05] MEDS: ceFAZolin Sodium/Dextrose,Iso 2 GM/50 ML PIGGYBACK IV ×2 (13:50→20:51)
--- NOTE | 2024-09-05 14:58 | PM.OP ---
Brief Operative Note Date of Service: 09/05/24 Pre-op diagnosis: left knee OA Post-op diagnosis: same Procedure: Left TKA Implants: [place] Triathlon cruciate retaining press fit Surgeon: Andrea Aguilar MD Anesthesia: MAC, regional and spinal Was an Director Of Marketing Communications used for this Procedure?: Yes Director Of Marketing Communications: Jazmine Hernandez Estimated blood loss (mL): 25 Tourniquet time (min): 45 IV fluids (mL): 750 Pathology: other Condition: stable Disposition: PACU
[2024-09-05] MEDS: 0.9 % Sodium Chloride Flush 3 ML SYRINGE IVFLUSH ×2 (17:36→20:52)
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
--- NOTE | 2024-09-05 19:02 | W.PM.OPN ---
Operative Note Operative Note Date of Service: 09/05/24 Narrative: Date of Service: 09/05/24 Pre-op diagnosis: left knee OA Post-op diagnosis: same Procedure: Left TKA Implants: [place] Triathlon cruciate retaining press fit Surgeon: Andrea Aguilar MD Anesthesia: MAC, regional and spinal Was an Hospitality Manager used for this Procedure?: Yes Hospitality Manager: Jazmine Hernandez Estimated blood loss (mL): 25 Tourniquet time (min): 45 IV fluids (mL): 750 Pathology: other Condition: stable Disposition: PACU Procedure in detail: The patient was brought to the operating room and prepped and draped in standard sterile fashion. A time-out was called to identify proper site proper procedure proper surgeon and IV antibiotics were administered. 1 g of IV tranexamic acid was administered. I began by making a midline incision to the retinaculum and performed a medial parapatellar arthrotomy. The patella was translated laterally and the knee was flexed up. There was medial and anterior compartment end stage wear. I performed a small medial peel and resected the infrapatellar fat pad. [place]'s line was then used to drill my intramedullary femoral guide and my distal femur cut of 10 mm was made in 5 degrees of valgus while protecting the soft tissues. I then measured a # 2 femur and placed my cutting guide in 3 deg ER and made my anterior posterior and chamfer cuts protecting the soft tissues at all times. Once I was satisfied with my cuts I turned my attention to the tibia. I removed the meniscus medially and laterally and , using an external cutting guide, in line with the tibial crest and the third ray, I made my distal tibial cut in 3 deg slope of while protecting the PCL the posterior soft tissues at all times. An extension block was used to confirm appropriate amount of bony resection. I then sized a #2 tibia and once I was satisfied that there was complete tibial coverage I placed my trial and with the trial femur in place took the knee through range of motion. I was satisfied with the extension and flexion as well as the stability and balance at 0, 30 and 90 degrees. I then turned my attention to the patella where I removed 1 cm from the undersurface of the patella and then trialed a 29a patellar button. Again the knee was taken through range of motion I was satisfied with the tracking. I then returned to the femur and drilled my femoral lug holes and prepared the tibia. A femoral bone plug was placed and the knee was irrigated copiously. I then press fit the patella, tibia and femur in standard fashion. I trialed different inserts until I selected a #9 insert. The final insert was placed and a 3 minutes iodine soak with local TXA was performed. A Werewolf cautery wand was used to maintain hemostasis over the capsule and meniscal beds, the gutters and peripatellar soft tissues. The knee was then closed with a running Quill suture, a 3 0 Vicryl and sharifa on the skin. Patient was then placed in sterile dressing and brought to recovery room in stable condition there were no known complications.
[2024-09-05] MEDS: HYDROmorphone HCl 0.5 MG/0.5 ML SYRINGE 0.25 MG IVPUSH (19:24)
--- NOTE | 2024-09-05 20:16 | PHA.MEDREC ---
Addendum entered by Pedro Lilly [facility] 09/05/24 20:44: med rec reviewed Original Note: Pharmacy Consult ? Medication Reconciliation Pharmacy has completed the medication reconciliation. Spoke with patient utilizing manager registration and she confirmed her medications when I read my list down to her. Patient states she is not taking Amoxicillin, Hydroxyzine or Sertraline and states these are her twin sisters medications who she has the same name just different middle name, which confuses the pharmacies and they just fill the scripts without noticing. She confirmed she took her Omeprazole this morning and everything else yesterday.
[2024-09-05] MEDS: oxyCODONE HCl ER 10 MG TAB.ER.12H PO (20:51)
[2024-09-05] MEDS: Celecoxib 200 MG CAPSULE PO (20:51)
[2024-09-05] MEDS: Docusate Sodium 100 MG CAPSULE PO (20:51)
[2024-09-06] VITALS (7 sets, daily range): BP systolic 122–149; BP diastolic 60–82; PULSE 90–124; RESP 16–18; TEMP 36.2–36.6; O2SAT 95–96
[2024-09-06] MEDS: HYDROmorphone HCl 0.5 MG/0.5 ML SYRINGE 0.25 MG IVPUSH ×2 (01:27→14:21)
[2024-09-06] MEDS: Lactated Ringers 1,000 ML 100 ML IVCONT (02:51)
--- NOTE | 2024-09-06 04:57 | P.CONHOSP_ITS ---
History of Present Illness Data of Consult Service Date: 09/06/24 Requesting physician: Jazmine Hernandez Primary Care Provider: Yen Prater MD [facility] Reason for consult: medical management Patient is a 59 year female with a past medical history significant for HTN, Hodgkin's lymphoma, kidney stones, restrictive lung disease, obstructive sleep apnea, chronic diarrhea and seasonal allergies no s/p left TKA yesterday. She is in no acute medical concerns including chest pain, shortness of breath, nausea, vomiting, abdominal pain or urinary symptoms including frequency, urgency or dysuria. Review of Systems 2 Constitutional: Constitutional: Denies chills, Denies fatigue, Denies fever(s) and Denies headache(s) Eyes: Eyes: Denies change in vision and Denies photophobia ENT: Denies headache(s), Denies nasal congestion, Denies nasal discharge and Denies sore throat Cardiovascular: Cardiovascular: Denies chest pain, Denies rapid heart rate, Denies leg edema, Denies lightheadedness and Denies dyspnea Respiratory: Respiratory: Denies chest congestion, Denies cough, Denies dyspnea and Denies wheezing Gastrointestinal: Gastrointestinal: Denies diarrhea, Denies nausea and Denies vomiting Genitourinary: Genitourinary: Denies hematuria, Denies dysuria and Denies urinary urgency Musculoskeletal: Musculoskeletal: Denies myalgias Integumentary/Breasts: Skin/Breast: Denies rash Neurologic: Denies confusion and Denies headache(s) Psychiatric: Psychiatric: Denies confusion Endocrine: Endocrine: Denies fatigue Hematologic/Lymphatic: Hematologic/Lymphatic: Denies easy bleeding and Denies easy bruising Allergic/Immunologic: Allergic/Immunologic: Denies wheezing [facility] Medical History Hx of lymphoma Back pain Hx of renal calculi Seasonal allergies Allergic rhinitis Restrictive lung disease Acquired skin tag Somnolence, daytime Snoring Dyspnea on exertion KASIE (obstructive sleep apnea) Vaginal irritation Women's annual routine gynecological examination Physical exam Hematuria Elevated platelet count Bacteremia UTI (urinary tract infection) Headache Primary insomnia Screen for STD (sexually transmitted disease) Ear discomfort Arthritis of both knees Dextroscoliosis Bilateral knee pain Tendonitis of wrist, left Lumbar pain Obese Rash and nonspecific skin eruption Tubular adenoma of colon Intestinal malabsorption Hodgkin lymphoma Family History Mother Diabetes High blood pressure Father Pacemaker Diabetes CAD (coronary artery disease) CKD (chronic kidney disease) Maternal Aunt Stomach cancer Maternal Aunt Liver cancer Surgical History Skin lesion H/O: hysterectomy S/P cholecystectomy History of esophagogastroduodenoscopy History of colonoscopy Hx of cataract extraction Social History Household Members: None Housing: Apartment Are you a primary acute care occupational therapist to a significant other at home: No Do you presently have visiting nurse or other home services: Yes (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, 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) 75 years or older and lives alone: No Alcohol intake: never Patient Tobacco Use Status: Never used Tobacco e-Cigarette/Vaping Use: Never Used Second Hand Smoke Exposure: No service: No Current occupational status: unemployed and disabled Cognitive needs: Yes Hearing needs: No Vision needs: Yes Meds Allergies Allergy/AdvReac Type Severity Reaction Status Date / Time adhesive tape Allergy Intermediate Redness of Verified 09/05/24 10:30 Skin metronidazole [Flagyl] Allergy Intermediate hives Verified 09/05/24 10:30 Active Medications: Current Medications Acetaminophen (Acetaminophen 325 Mg Tablet) 650 mg PO Q6H PRN PRN Reason: Pain, Mild 1-3,fever,headache Celecoxib (Celecoxib 200 Mg Capsule) 200 mg PO BID [facility] Last Admin: 09/05/24 20:51 Dose: 200 mg Docusate Sodium (Docusate Sodium 100 Mg Capsule) 100 mg PO BID [facility] Last Admin: 09/05/24 20:51 Dose: 100 mg Enoxaparin Sodium (Enoxaparin Sodium 40 Mg/0.4 Ml Syringe) 40 mg SUBCUT Q24H [facility] Fluticasone Propionate (Fluticasone Propionate Nasal 16 Gm [place]) 2 spray NOSTRIL-B DAILY [facility] Hydromorphone HCl (Hydromorphone Hcl 0.5 Mg/0.5 Ml Syringe) 0.25 mg IVPUSH Q4H PRN; Protocol PRN Reason: Pain, Severe (Pain Scale 7-10) Last Admin: 09/06/24 01:27 Dose: 0.25 mg Lactated Ringer's (Lr) 1,000 mls @ 100 mls/hr IVCONT .Q10H [facility] Stop: 09/06/24 08:00 Last Admin: 09/06/24 02:51 Dose: 100 mls/hr Naloxone HCl (Naloxone Hcl 0.4 Mg/Ml Vial) 0.04 mg IVPUSH Q5M PRN PRN Reason: Excessive sedation or RR < 8 Omeprazole (Omeprazole 20 Mg Capsule.Dr) 20 mg PO DAILY@629 [facility] Ondansetron HCl (Ondansetron Hcl 4 Mg/2 Ml Vial) 4 mg IVPUSH Q8H PRN PRN Reason: Nausea and Vomiting Oxycodone HCl (Oxycodone Hcl Immed Release 5 Mg Tablet) 5 mg PO Q4H PRN PRN Reason: Pain, Moderate(Pain Scale 4-6) Oxycodone HCl (Oxycodone Hcl Er 10 Mg Tab.Er.12h) 10 mg PO BID [facility] Last Admin: 09/05/24 20:51 Dose: 10 mg Sodium Chloride (0.9 % Sodium Chloride Flush 3 Ml Syringe) 3 ml IVFLUSH QSHIFT [facility] Last Admin: 09/05/24 20:52 Dose: 3 ml Home Medications ?Medication ?Instructions ?Recorded ?Confirmed ?Last Taken ?Type acetaminophen 500 mg tablet 1,000 mg PO Q6H PRN Pain 02/29/24 09/05/24 Unknown History (Tylenol Extra Strength) fluticasone propionate 50 2 spray intranasal DAILY PRN 09/05/24 09/05/24 Unknown History mcg/actuation nasal Allergy Symptoms spray,suspension hydrochlorothiazide 25 mg tablet 25 mg PO DAILY 09/05/24 09/05/24 09/04/24 History omeprazole 20 mg tablet,delayed 20 mg PO DAILY@0630 09/05/24 09/05/24 09/05/24 History release Physical Exam 2 Vital Signs and Narrative: Vital Signs: Last Vital Signs Temp 97.2 F 09/06/24 04:04 Pulse 90 09/06/24 04:04 Resp 17 09/06/24 04:04 BP 142/66 H 09/06/24 04:04 Pulse Ox 96 09/06/24 04:04 O2 Del Method Room Air 09/06/24 04:04 BMI result Body Mass Index 38.4 General: AOx3, no acute distress Resp: CTA bilaterally CVS: S1, S2, RRR GI: +BS, NT, no distention Skin: Warm, dry Neuro: Cranial nerves II-XII grossly intact bilaterally. Motor grossly intact bilaterally Extremities: No LE edema. good capillary refill L foot, sensation intact, motor intact. Psych: Appropriate affect Const: General: No confusion Orientation/consciousness: No confusion Eyes: Direct Ophthalmoscopy: No photophobia Neuro: General: No confusion Results Labs 09/05/24 10:36 Assessment and Plan (1) Status post total left knee replacement: Status: Acute Plan Patient is a 59 year female with a past medical history significant for HTN, Hodgkin's lymphoma, kidney stones, restrictive lung disease, obstructive sleep apnea, chronic diarrhea and seasonal allergies no s/p left TKA yesterday. s/p L TKA - plan per surgery - pain controlled HTN - continue losartan and HCTZ hx Hodgkin's lymphoma - s/p chemo and radiation, in remission restrictive lung disease - no respiratory distress, no home meds KASIE - no CPAP at home chronic diarrhea - hold cholestyramine due to pain meds, can resume if still having diarrhea seasonal allergies - continue fluticasone obesity - BMI 38.4 - weight loss encouraged Thank you for allowing me to participate in the pt's care. Signing off for now. Please contact the medical team if any questions or concerns.
[2024-09-06] MEDS: Acetaminophen 325 MG TABLET 650 MG PO (06:12)
[2024-09-06] MEDS: oxyCODONE HCl Immed Release 5 MG TABLET PO (06:12)
[2024-09-06] MEDS: Omeprazole 20 MG CAPSULE.DR PO (06:13)
[2024-09-06 06:43] LABS: MANUAL DIFF FLAG NO
[2024-09-06 06:53] LABS: Basophils Percent Auto 0.2 % (0-2); Hematocrit 41.2 % (37.0-47.0); Hemoglobin 13.3 g/dl (12.0-16.0); Imm Gran Abs Auto 0.06 X10*3/uL (0.00-0.03); Imm Gran Pct Auto 0.4 % (0.0-0.4); Lymphocytes Absolute Auto 1.8 X10*3/uL (1.2-4.9); Lymphocytes Percent Auto 12.9 % (20-40); Mean Corpuscular HGB Conc 32.3 g/dl (31.0-35.0); Mean Corpuscular Hemoglobin 27.3 pg (27.0-33.0); Mean Corpuscular Volume 84.6 fL (80.0-98.0); Mean Platelet Volume 10.4 fL (9.4-12.3); Monocytes Absolute Auto 1.2 X10*3/uL (0.1-1.2); Monocytes Percent Auto 8.8 % (2-11); Neutrophils Absolute Auto 10.6 x10*3/uL (2.0-8.3); Neutrophils Percent Auto 77.7 % (45-73); Platelet Count 260 X10*3/uL (160-400); Red Blood Count 4.87 X10*6/uL (4.20-5.50); Red Cell Distribution Width 14.9 % (11.0-16.0); White Blood Count 13.7 X10*3/uL (4.8-10.8)
[2024-09-06] MEDS: Celecoxib 200 MG CAPSULE PO ×2 (07:03→21:24)
[2024-09-06] MEDS: Docusate Sodium 100 MG CAPSULE PO ×2 (07:04→21:25)
[2024-09-06] MEDS: oxyCODONE HCl ER 10 MG TAB.ER.12H PO ×2 (07:04→21:24)
[2024-09-06 07:16] LABS: Anion Gap 11 (12-20); Blood Urea Nitrogen 10 mg/dL (9-16); Calcium 9.4 mg/dL (8.4-10.2); Carbon Dioxide 23 mmol/L (22-29); Chloride 108 mmol/L (96-108); Creatinine Clr Calc Pharmacy 106.1; Estimated Glomerular Filt Rate > 60; Glucose Fasting 105 mg/dL (60-99); Sodium 138 mmol/L (135-145)
--- NOTE | 2024-09-06 07:28 | PM.PNORT ---
Subjective Subjective Date of Service: 09/06/24 Interval history: POD1 s/p LTKA Patient is resting in bed comfortably No overnight events Pain is managed No additional complaints Physical Exam Vital Signs: Vital Signs: Last Vital Signs Temp 97.2 F 09/06/24 04:04 Pulse 90 09/06/24 04:04 Resp 17 09/06/24 04:04 BP 142/66 H 09/06/24 04:04 Pulse Ox 96 09/06/24 04:04 O2 Del Method Room Air 09/06/24 04:04 BMI result Body Mass Index 38.4 Const: General: cooperative, healthy appearing and no acute distress Resp: Effort & Inspection: normal respiratory effort and able to speak in complete sentences Cardio: Rate: regular rate Peripheral pulses: Peripheral pulses 2+ throughout GI: Palpation (GI): Soft to palpation Skin: Lesions: no lesions Rashes: no rashes Extrem: Other: left knee dressing is c/d/i. Able to dorsi/plantar flex. Calf is supple and nontender. Sensation intact. Pedal pulse intact. Procedures Date of Service Date of Service: 09/06/24 Progress Note: A&P Assessment and plan (1) Status post total left knee replacement: Status: Acute Plan Continue pain mgmnt Begin Lovenox for dvt ppx - Hx gastric bypass begin PT for LTKA - Lives alone planning to go to rehab post op Dispo planning-Pending PT eval, pain mgmnt Time Spent With Patient Time: Total time managing care of this patient today ____ minutes. Quality Stroke Does the patient have a stroke diagnosis?: No VTE Prior VTE?: No VTE Risk Level:: Medical - moderate - high VTE Device Contraindication: N/A - Device Ordered VTE Drug Contraindication: N/A - Med Ordered
--- NOTE | 2024-09-06 10:35 | HO.POSTANES ---
Post Anesthesia Evaluation Post Anesthesia Evaluation Date of Service: 09/06/24 Vital Signs: Vital Signs Temp Pulse Resp BP Pulse Ox O2 Del Method 09/06/24 07:25 97.9 F 92 16 122/60 96 Room Air 09/06/24 04:04 97.2 F 90 17 142/66 H 96 Room Air 09/06/24 01:00 17 Anesthesia: Spinal Mental Status: Awake Pain Control: Satisfactory Nausea/Vomiting: None Hydration: Adequate Anesthesia-Related Issues: No Anes. Related Issues
--- NOTE | 2024-09-06 12:19 | MHC.CM.PN ---
S/P L TKR Lives by herself with assist from [facility] 7 hours ANALYTICAL SCIENTIST services Ricci Aggarwal PT evaluation recommends Home with services. Patient would like to go for STR. She feels that she should get some PT prior to dc home. Patient did not have a preference of facilities. Referrals sent Bed offers received from [facility]. KEL ia in review. CM will follow.
[2024-09-06] MEDS: Enoxaparin Sodium 40 MG/0.4 ML SYRINGE SUBCUT (14:22)
[2024-09-06] MEDS: 0.9 % Sodium Chloride Flush 3 ML SYRINGE IVFLUSH (14:24)
[2024-09-07] MEDS: HYDROmorphone HCl 0.5 MG/0.5 ML SYRINGE 0.25 MG IVPUSH ×2 (00:13→05:29)
[2024-09-07] MEDS: 0.9 % Sodium Chloride Flush 3 ML SYRINGE IVFLUSH (00:16)
[2024-09-07 01:00] VITALS: BP 161/77; PULSE 108; RESP 17; TEMP 36.4; O2SAT 95
[2024-09-07 04:00] VITALS: BP 151/73; PULSE 108; RESP 17; TEMP 36.4; O2SAT 93
[2024-09-07] MEDS: Omeprazole 20 MG CAPSULE.DR PO (05:30)
[2024-09-07 06:48] LABS: Basophils Percent Auto 0.3 % (0-2); Eosinophils Absolute Auto 0.1 X10*3/uL (0.0-0.4); Eosinophils Percent Auto 0.5 % (0-4); Hematocrit 40.4 % (37.0-47.0); Hemoglobin 13.2 g/dl (12.0-16.0); Imm Gran Abs Auto 0.12 X10*3/uL (0.00-0.03); Lymphocytes Absolute Auto 2.9 X10*3/uL (1.2-4.9); Lymphocytes Percent Auto 23.7 % (20-40); MANUAL DIFF FLAG SCAN; Mean Corpuscular HGB Conc 32.7 g/dl (31.0-35.0); Mean Corpuscular Hemoglobin 27.7 pg (27.0-33.0); Mean Corpuscular Volume 84.7 fL (80.0-98.0); Mean Platelet Volume 10.5 fL (9.4-12.3); Monocytes Absolute Auto 1.6 X10*3/uL (0.1-1.2); Monocytes Percent Auto 12.8 % (2-11); Neutrophils Absolute Auto 7.6 x10*3/uL (2.0-8.3); Neutrophils Percent Auto 61.7 % (45-73); Platelet Count 232 X10*3/uL (160-400); Red Blood Count 4.77 X10*6/uL (4.20-5.50); Red Cell Distribution Width 14.9 % (11.0-16.0); SCAN SMEAR FLAG 1; White Blood Count 12.3 X10*3/uL (4.8-10.8)
[2024-09-07 07:05] LABS: Anion Gap 11 (12-20); Blood Urea Nitrogen 10 mg/dL (9-16); Calcium 9.3 mg/dL (8.4-10.2); Carbon Dioxide 24 mmol/L (22-29); Chloride 106 mmol/L (96-108); Creatinine Clr Calc Pharmacy 104.2; Estimated Glomerular Filt Rate > 60; Glucose Fasting 114 mg/dL (60-99); Potassium 3.6 mmol/L (3.3-5.1); Sodium 137 mmol/L (135-145)
[2024-09-07 07:25] VITALS: BP 129/67; PULSE 109; RESP 16; TEMP 36.3; O2SAT 93
[2024-09-07 07:30] LABS: SLIDE REVIEW VERIFIED
--- NOTE | 2024-09-07 08:48 | PM.PNORT ---
Subjective Subjective Date of Service: 09/07/24 Interval history: POD2 s/p LTKA Patient is resting in bed comfortably No overnight events Pain is managed No additional complaints Physical Exam Vital Signs: Vital Signs: Last Vital Signs Temp 97.4 F 09/07/24 07:25 Pulse 109 H 09/07/24 07:25 Resp 16 09/07/24 07:25 BP 129/67 09/07/24 07:25 Pulse Ox 93 09/07/24 07:25 O2 Del Method Room Air 09/07/24 07:25 BMI result Body Mass Index 38.4 Const: General: cooperative, healthy appearing and no acute distress Resp: Effort & Inspection: normal respiratory effort and able to speak in complete sentences Cardio: Rate: regular rate Peripheral pulses: Peripheral pulses 2+ throughout GI: Palpation (GI): Soft to palpation Skin: Lesions: no lesions Rashes: no rashes Extrem: Other: left knee dressing is c/d/i. Able to dorsi/plantar flex. Calf is supple and nontender. Sensation intact. Pedal pulse intact. Procedures Date of Service Date of Service: 09/07/24 Progress Note: A&P Assessment and plan (1) Status post total left knee replacement: Status: Acute Plan Continue pain mgmnt Begin Lovenox for dvt ppx - Hx gastric bypass begin PT for LTKA - Lives alone planning to go to rehab post op Dispo planning- PT eval, pain mgmnt, rehab placement Cleared for d/c Time Spent With Patient Time: Total time managing care of this patient today ____ minutes. Quality Stroke Does the patient have a stroke diagnosis?: No VTE Prior VTE?: No VTE Risk Level:: Medical - moderate - high VTE Device Contraindication: N/A - Device Ordered VTE Drug Contraindication: N/A - Med Ordered
[2024-09-07] MEDS: oxyCODONE HCl ER 10 MG TAB.ER.12H PO (08:59)
[2024-09-07] MEDS: Docusate Sodium 100 MG CAPSULE PO (08:59)
[2024-09-07] MEDS: Celecoxib 200 MG CAPSULE PO (08:59)
--- NOTE | 2024-09-07 09:01 | MHC.CM.PN ---
DP: PT HAS BEEN MEDICALLY CLEARED FOR DC TO STR AT [facility]. [facility] HAS OBTAINED INSURANCE AUTH AND IS AWARE OF DC. BLS TRANSPORT BOOKED VIA [facility] FOR 11 AM. RN/PA AWARE. [facility] AUTH OBTAINED FOR TRANSPORT: BOOKING ID: [id number]
[2024-09-07 11:03] VITALS: BP 136/66; PULSE 122; RESP 16; TEMP 36; O2SAT 93
== END 2024-09-07 11:07 | disposition skilled nursing facility (03) ==
LOC: HO.SSS 11:06 → HO.S3 16:33
PROVIDERS: Physician Assistant; PCP Internal Medicine; Visit Provider Orthopaedic Surgery
PROC: (CPT 27447; principal; 2024-09-05 13:40)
DX: M17.12 Unilateral primary osteoarthritis, left knee (principal); L23.1 Allergic contact dermatitis due to adhesives; Z85.71 Personal history of Hodgkin lymphoma; J98.4 Other disorders of lung; J30.2 Other seasonal allergic rhinitis; G47.33 Obstructive sleep apnea (adult) (pediatric); D75.839 Thrombocytosis, unspecified; K90.9 Intestinal malabsorption, unspecified; E66.9 Obesity, unspecified; Z68.33 Body mass index [BMI] 33.0-33.9, adult; Z79.51 Long term (current) use of inhaled steroids; Z79.899 Other long term (current) drug therapy; Z88.8 Allergy status to other drugs, medicaments and biological substances; Z90.49 Acquired absence of other specified parts of digestive tract; Z98.890 Other specified postprocedural states; Z56.0 Unemployment, unspecified
CPT/HCPCS: 27447; 36415; 73560; 80048; 85014; 85018; 85025; 86850; 86900; 86901; 86920; 87640; 87641; 88304; 88305; 88311; 97110; 97116; 97161; 97530; C1776; J0131; J0665; J0690; J1100; J1171; J1650; J2003; J2250; J2704; J3010; J7120

== ENCOUNTER → 2024-09-05 09:28 | Outpatient (BNV) | payer OTHER, SELFPAY | PROVIDERS: PCP Internal Medicine; Visit Provider Physician Assistant | DX: I10 Essential (primary) hypertension (principal); J44.9 Chronic obstructive pulmonary disease, unspecified; Z96.652 Presence of left artificial knee joint | CPT/HCPCS: 99222 ==

== ENCOUNTER → 2024-09-05 09:28 | Outpatient (BNV) | payer OTHER, SELFPAY | PROVIDERS: PCP Internal Medicine; Visit Provider Orthopaedic Surgery | DX: Z96.652 Presence of left artificial knee joint (principal) | CPT/HCPCS: 27447; 99024 ==

== ENCOUNTER → 2024-09-05 15:20 | Outpatient (BNV) | payer OTHER, SELFPAY | PROVIDERS: PCP Internal Medicine; Visit Provider Radiology Diagnostic Radiology | DX: T81.82XA Emphysema (subcutaneous) resulting from a procedure, initial encounter (principal); Z96.652 Presence of left artificial knee joint | CPT/HCPCS: 73560 ==

== ENCOUNTER 2024-09-21 12:34 | Outpatient (AMB) | payer OTHER, SELFPAY ==
--- NOTE | 2024-09-21 12:38 | A.OFFVIS_ITS ---
Vital Signs 09/21/24 12:43 Height 5 ft Weight 167 lb BMI 32.6 Intake Visit Reasons: 2WK PO: L TKA w/NE 09/05/24 Intake Note: Randa is a 59 year old female who presents today post operatively s/p left TKA DOS: 09/05/24 w/ Dr Andrea Aguilar. Patient reports she experiences the most pain at her night interfering with her rest. She has concern of some swelling and pain in the left leg and ankle. She has not started any physical therapy but thinks she will be starting next week. She says she has been ambulating around at home slowly with some discomfort. She lives alone. When she is at rest she states she has been elevating her legs. Application Penetration Tester Required: Yes Application Penetration Tester Language: Kiln Stoker Name: [id number] Allergies adhesive tape Allergy (Intermediate, Verified 09/05/24 10:30) Redness of Skin metronidazole [Flagyl] Allergy (Intermediate, Verified 09/05/24 10:30) hives Medication List - Last Reconciled 09/21/24 by Jazmine Hernandez PA-C acetaminophen 650 mg (2 x 325 mg) PO Q6H PRN 30 days [bed rail As directed] Brace,wrist (Wrist Brace - one) As directed- LEFT WRIST STABILIZER cane As directed cholestyramine (with sugar) 4 gram 1 ea PO BID docusate sodium 100 mg PO BID 30 days enoxaparin 40 mg (0.4 mL) subcut Q24H 42 days fluticasone propionate 50 mcg/actuation 2 sprays intranasal DAILY PRN [handheld shower As directed] hydrochlorothiazide 25 mg PO DAILY Knee brace As directed losartan 25 mg PO DAILY 90 days omeprazole 20 mg PO DAILY@0630 oxycodone 5 mg PO Q4H PRN 7 days [Raised toilet seat duration - 99 days] Shower Chair As directed walker with seat and wheels, Ht: 5', Wt: 165 lbs walker Folding Front wheeled walker duration 99 days HPI HPI 2WK PO: L TKA w/NE 09/05/24: Details: 59-year-old female presents to the office today for 2 weeks status post left total knee arthroplasty with Dr. Aguilar on 09/05/2024. She continues to work with physical therapy. She was struggling with her range of motion and edema control. She was taking oxycodone twice a day. No other concerns. [facility] Medical History Hx of lymphoma Back pain Hx of renal calculi Seasonal allergies Allergic rhinitis Restrictive lung disease Acquired skin tag Somnolence, daytime Snoring Dyspnea on exertion KASIE (obstructive sleep apnea) Vaginal irritation Women's annual routine gynecological examination Physical exam Hematuria Elevated platelet count Bacteremia UTI (urinary tract infection) Headache Primary insomnia Screen for STD (sexually transmitted disease) Ear discomfort Arthritis of both knees Dextroscoliosis Bilateral knee pain Tendonitis of wrist, left Lumbar pain Obese Rash and nonspecific skin eruption Tubular adenoma of colon Intestinal malabsorption Hodgkin lymphoma Surgical History Skin lesion H/O: hysterectomy S/P cholecystectomy History of esophagogastroduodenoscopy History of colonoscopy Hx of cataract extraction Family History Mother Diabetes High blood pressure Father Pacemaker Diabetes CAD (coronary artery disease) CKD (chronic kidney disease) Maternal Aunt Stomach cancer Maternal Aunt Liver cancer Social History Household Members: None Housing: Apartment Are you a primary family day carer to a significant other at home: No Do you presently have visiting nurse or other home services: Yes (2 x week [employer], 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) 75 years or older and lives alone: No Alcohol intake: never Patient Tobacco Use Status: Never used Tobacco e-Cigarette/Vaping Use: Never Used Second Hand Smoke Exposure: No service: No Current occupational status: unemployed and disabled Cognitive needs: Yes Hearing needs: No Vision needs: Yes Female Reproductive History Menstrual Age of Menarche: 12 Review of Systems Const All systems reviewed & are unremarkable except as noted in HPI and below Physical Exam Vital Signs: BMI result Body Mass Index 32.6 Extrem Other: Left knee incision is clean dry and intact. There is no erythema. She has mild swelling around the joint but no deep joint swelling. Range of motion is-5-90 degrees. She has poor activation of her quad muscle. Calf supple and nontender neurovascularly intact. Assessment & Plan Assessment & Plan (1) Status post total left knee replacement: Code(s): Z96.652 - Presence of left artificial knee joint Category: Surgical Plan: Rima removed today Steri-Strips applied. I stressed the importance of working on her range of motion and quad strength. I did demonstrate some exercises for her in the office today that she can work on at home. She will continue to work on her edema control with elevation and icing. She was given a prescription refill for oxycodone and Celebrex. She will continue with the DVT prophylaxis for another 4 weeks and she will follow up with us at that time with Dr. Aguilar soonjatinder if needed. Medications: New celecoxib (Celebrex) 200 mg PO BID 60 caps 3RF 30 days Refilled oxycodone Partial Fill upon patient request. 5 mg PO Q4H PRN 42 tabs 0RF Pain, Moderate(Pain Scale 4-6) 7 days acetaminophen 650 mg (2 x 325 mg) PO Q6H PRN 240 tabs 0RF Pain, Mild 1-3,Fe teresa,Headache 30 days Coding Level of Care Code Global (06094) Diagnoses Status post total left knee replacement Z96.652
[2024-09-21 12:43] VITALS: BMI 32.6
--- OUTSIDE RECORDS SUMMARY | 2024-09-21 14:56 | XMS_ITS | Encounter Summary ---
Author Organization [employer] Address [address] [facility] 7t [place] [address] Care Team Providers Care Hand Wrapper Operator Name Role Phone Unavailable Primary Care Provider Unavailabl e Encounter Details Date Type Department Care Team (Latest Contact Info) Description 10/13/2021 Abstract [facility] CONVERSIONS Dental, Provider, DDS Social History Tobacco [...] Care Team (Late st Contact Info) Description 10/13/2024 9:00 AM EDT Office Visit [facility] AD[facility] [address] [place] [address] Kirby Rodriguez DDS [address] [place] [address] documented as of this encounter Visit Diagnoses Not on filedocumented in this encounter
--- OUTSIDE RECORDS SUMMARY | 2024-09-21 14:56 | XMS_ITS ---
Author Organization [facility] Care Team Providers Care Cleaner Touch Up Worker Name Role Phone Angelita Coleman Unavailable Unavailable Juan F FURNACE COMBUSTION ANALYST, Austyn Palma Unavailable Unavailable Elicia Arce Unavailable Allergies and adverse reactions Code CodeSystem Substance Reaction Severity StartDate Concern Status 6922 RXNORM Flagyl Unknown 09/07/2024 active Adhesive Tape Unknown 09/07/2024 active Care Team Name Role Address Phone Organization Dates Angelita Coleman PCP [address] [place] [address], [facility] (Office): : [facility] 09/07/2024 - 09/13/2024 Austyn Rogel NP Attending Physician [address] [place] [address] (Office): [facility] 09/07/2024 - 09/13/2024 Elicia Arce Attending Physician [address] [place] [address], [facility] (Office): [facility] [place] [facility] 09/07/2024 - 09/13/2024 Goals Section Description Status Target Date Randa will be free of falls through the revi ew date. Active 12/06/2024 Randa will demonstrate t he appropriate use of (SPECIFY adaptive device(s) to increase ability in through the review date. Active 12/06/2024 Randa will maintain or d evelop clean and intact skin by the review date. Active 12/06/2024 Randa will participate i n Programs 3x daily and be open to room visits through next review date. Active 12/06/2024 Randa will verbalize elbert quate relief of pain or ability to cope with incompletely relieved pain through the review date. Active 12/06/2024 the resident/HCP/Guardian's Advanced Directives will be honored through next review Active 12/06/2024 Functional Status Code Name Recorded Time Value Entered By Chair/gsb-zv-wrmkn transfer 09/13/2024 Setup or erick n-up assistance [email or web address] Eating 09/12/2024 Independent acoke Lower body dressing 09/13/2024 Setup or clean-up ass istance [email or web address] Lying to sitting on side of bed 09/13/2024 Setup or clean-up assistance [email or web address] Oral hygiene 09/13/2024 Setup or clean-up assistance [email or web address] Personal hygiene 09/13/2024 Setup or clean-up assist ance [email or web address] Roll left and right 09/13/2024 Setup or clean-up ass istance [email or web address] Shower/bathe self 09/13/2024 Not assessed [email or web address] Sit to lying 09/13/2024 Setup or clean-up assistance [email or web address] Sit to stand 09/13/2024 Setup or clean-up assistance [email or web address] Toilet transfer 09/13/2024 Setup or clean-up assista nce [email or web address] Toileting hygiene 09/13/2024 Setup or clean-up vale tance [email or web address] Upper body dressing 09/13/2024 Setup or clean-up ass istance [email or web address] Wheel 150 feet 09/13/2024 Not assessed [email or web address] Wheel 50 feet with two turns 09/13/2024 Not assessed [email or web address] Immunizations Immunization Status Vaccine Details Vaccine Code CodeSystem Date Notes PPSV23 completed pneumococcal polysaccharide vaccine, 23 valent 33 CVX created date: 09/13/2024 administer ed date: 06/01/2017 Influenza-High Dose(Fluzone) completed created date: 09/13/2024 administer ed date: 04/18/2024 PVC20 cancelled Pneumococcal conjugate vaccine 20-valent (PCV20), polysaccharide [id number] conjugate, adjuvant, preservative free 216 CVX created date: 09/13/2024 consent date: 09/13/2024 Educated by on 09/13/2024 Comirnaty Booster cancelled SARS-COV-2 (COVID-19) vaccine, mRNA, spike protein, LNP, preservative free, chris-sucrose, 30 mcg/0.3 mL dose 309 CVX created date: 09/13/2024 consent date: 09/13/2024 Educated by on 09/13/2024 Medications Section Medication Name Status Code CodeSystem Dose Route Frequency Admin Type Sig Text Start Date End Date Losartan Potassium Oral Tablet 25 MG active 514756 RXNORM 1 tablet Oral one time a day Routine Give 1 tablet by mouth one time a day for high blood pressu re 2024 - Omeprazole Oral Tablet Delayed Release 20 MG active 364885 RXNORM 1 tablet Oral one time a day Routine Give 1 tablet by mouth one time a day for gerd 2024 - Docusate Sodium Oral Tablet 100 MG active 118758 9 RXNORM 1 tablet Oral two times a day Routine Give 1 tablet by mouth two times a day for consti pation 2024 - Flonase Allergy Relief Nasal Suspension active 2 spray Nasal one time a day Routine 2 spray in both nostri ls one time a day for allerg ies 2024 - Acetaminophen Oral Tablet active 1000 mg Oral as needed PRN Give 1000 mg by mouth every 6 hours as needed for pain 2024 - oxyCODONE HCl Oral Tablet 5 MG active 300681 1 RXNORM 5 mg Oral as needed PRN Give 5 mg by mouth every 4 hours as needed for pain 2024 - Cholestyramin e Oral Packet 4 GM active 983640 RXNORM 4 gram Oral two times a day Routine Give 4 gram by mouth two times a day for high choles terol 2024 - Fleet Enema Enema 7-19 GM/118ML active 920960 RXNORM 1 dose Rectal as needed PRN Insert 1 dose rectal ly every 24 hours as needed for Consti pation (Step 3) as needed if no bowel moveme nt for 8 hours after bisaco dyl suppos itory. 2024 - Milk of Magnesia Suspension 400 MG/5ML active 000712 RXNORM 30 ml Oral as needed PRN Give 30 ml by mouth every 24 hours as needed for Consti pation (Step 1) As needed if no bowel moveme nt for three days. (Do not use for Hemodi alysis patien ts). 2024 - Acetaminophen Tablet 325 MG aborted 036016 RXNORM 2 tablet Oral as needed PRN Give 2 tablet by mouth every 6 hours as needed for Pain Pain Total dosage for acetam inophe n and medica tions that contai n acetam inophe n should not exceed 3 grams / 24 hours. AND Give 2 tablet by mouth every 6 hours as needed for Fever greate r than 100.0F Total dosage for acetam inophe n and medica tions that contai n acetam inophe n should not exceed 3 grams / 24 hours. 09/07 840642 RXNORM 2 tablet Oral as needed PRN Give 2 tablet by mouth every 6 hours as needed for Pain Pain Total dosage for acetam inophe n and medica tions that contai n acetam inophe n should not exceed 3 grams / 24 hours. AND Give 2 tablet by mouth every 6 hours as needed for Fever greate r than 100.0F Total dosage for acetam inophe n and medica tions that contai n acetam inophe n should not exceed 3 grams / 24 hours. 09/07 Bisacodyl Suppository 10 MG active 491805 RXNORM 1 suppos itory Rectal as needed PRN Insert 1 suppos itory rectal ly every 24 hours as needed for If no bowel moveme nt for 8 hours after Milk of Magnes ia 2024 - Celecoxib Oral Capsule 200 MG active 885311 RXNORM 1 capsul e Oral two times a day Routine Give 1 capsul e by mouth two times a day for pain 2024 - Enoxaparin Sodium Injection Prefilled Syringe Kit 40 MG/0.4ML aborted 40 mg Subcuta neous one time a day Routine Inject 40 mg subcut aneous ly one time a day for dvt preven tion 09/10 Enoxaparin Sodium Injection Prefilled Syringe Kit 40 MG/0.4ML active 40 mg Subcuta neous one time a day Routine Inject 40 mg subcut aneous ly one time a day for dvt preven tion for 6 Weeks 10/23 Problems Problem # Description Date of onset Resolved Date Code CodeSystem Concern Status 1 HODGKIN LYMPHOMA, UNSPECIFIED, IN REMISSION 09/08/[address] active 2 ENCOUNTER FOR OTHER ORTHOPEDIC AFTERCARE 09/07/[address] active 3 ESSENTIAL (PRIMARY) HYPERTENSION 09/07/[address] active 4 NONINFECTIVE GASTROENTERITIS AND COLITIS, UNSPECIFIED 09/07/[address] active 5 OBSTRUCTIVE SLEEP APNEA (ADULT) (PEDIATRIC) 09/07/[address] active 6 OTHER DISORDERS OF LUNG 09/07/[address] active 7 OTHER SEASONAL ALLERGIC RHINITIS 09/07/[address] active 8 PRESENCE OF LEFT ARTIFICIAL KNEE JOINT 09/07/[address] active 9 UNSPECIFIED OPEN WOUND, LEFT KNEE, SUBSEQUENT ENCOUNTER 09/07/[address] active Reason for Referral No Reasons for Referral Entered Social History Social History Observation Description Start Date End Date Code Code System Current Smoking Status Tobacco smoking consumption unknown 495613453 SNOMED CT Sex Assigned At Female 1965 [address]-9 [facility] Vital Signs Code Code System Vitals Name Values and Units Timing Information 85251-2 LOINC Pain Level Value=0.0 09/13/2024 00653-9 LOINC Weight Enikt=899.7 Units=Lbs 04/2025 9279-1 LOINC Respiratory Rate Value=16.0 Units=/m in 09/10/2024 8462-4 LOINC Blood Pressure-Diastolic Value=89 Un its=mmHg 09/10/2024 8480-6 LOINC Blood Pressure-Systolic Zzjhr=677 Un its=mmHg 09/10/2024 8310-5 LOINC Body Temperature Value=97.4 Units=?? F 09/10/2024 8867-4 LOINC Heart rate Value=84.0 Units=/min 03/2025 21726-7 LOINC O2 % BldC Oximetry Value=97.0 Units= % 09/10/2024 8302-2 LOINC Height Value=60.0 Units=Inches 09/07/2024
--- OUTSIDE RECORDS SUMMARY | 2024-09-21 14:56 | XMS_ITS | Clinical Summary ---
Author Organization [employer] Address [address] [facility] 7t [place] [address] Care Team Providers Care Sql Report Developer Name Role Phone Unavailable Primary Care Provider [...] AL ACOSTARSE FOR 2 DAYS 4 Active amoxicillin (Amoxil) 500 MG capsule Take 1 capsule (500 mg) by mouth every 8 (eight) hours for 7 days. 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 Backache 12/14/2011 Depressive disorder 12/14/2011 Obesity 12/14/2011 Vaginitis and vulvovaginitis 12/14/2011 Urinary tract infectious disease 12/14/2011 Encounters Date Type Department Care Team Description 09/01/2024 11:30 AM EST Office Visit [facility] [address] [place] [address] Kirby Rodriguez DDS 09/01/2024 Telephone [facility] [address] [place] [address] Marcia Parker DDS unable to post portal [...] Description 10/13/2024 9:00 AM EDT Office Visit [facility] [address] [place] [address] Kirby Rodriguez DDS [address] [place] [address] Health Maintenance Due Date Last Done Comments [...] 06/16/2022 04/21/2022 COVID-19 Vaccine ( season) 2024 04/12/2023, 07/13/2022, 12/25/2021, Additional history exists Dental X-Ray: Full Mouth 10/14/2024 10/13/2021, 09/02 Tobacco Screening 09/01/2025 09/01/2024 Dental X-Ray: Bitewings 09/02/2025 09/01/19 25, 10/13/2021, 06/24/2016, Additional history exists DTaP/Tdap/Td Vaccines (2 - [...] Procedure Name Priority Date/Time Associated Diagnosis Comments CASE PRESENTATION, DETAILED AND EXTENSIVE TREATMENT PLANNING Routine 09/01/2024 11:30 AM EST BITEWING - SINGLE RADIOGRAPHIC IMAGE Routine 09/01/2024 11:30 AM EST INTRAORAL - PERIAPICAL FIRST RADIOGRAPHIC IMAGE Routine 09/01/2024 11:30 AM EST PALLIATIVE (EMERGENCY) TREATMENT OF DENTAL PAIN - MINOR PROCEDURE Routine 09/01/2024 11:30 AM EST PROPHYLAXIS - ADULT Routine 10/13/2021 1 2:00 AM EDT INTRAORAL - COMPLETE SERIES OF RADIOGRAPHIC IMAGES Routine 10/13/2021 12:00 AM EDT PERIODIC ORAL EVALUATION - ESTABLISHED PATIENT Routine 10/13/2021 12:00 AM EDT from Last 3 Months or Most Recently Relevant to Health Maintenance Insurance [facility] STAND ADULT
--- OUTSIDE RECORDS SUMMARY | 2024-09-21 14:56 | XMS_ITS | Encounter Summary ---
Author Organization [employer] Address [address] [place] [address] [address] [place] [address] Care Team Providers Care Supervisor Paint Department Name Role Phone Unavailable Primary Care Provider Unavailabl e Reason for Visit * Reason Onset Date Comments unable to post portal PAR 09/01/2024 Encounter Details Date Type Department Care Team (Late st Contact Info) Description 09/01/2024 Telephone [facility]ULT [facility] [address] [place] [address] Marcia Parker DDS [address] [place] [address] unable to post portal PAR Social History [...] Description 10/13/2024 9:00 AM EDT Office Visit [facility]ULT [facility] [address] [place] [address] Kirby Rodriguez DDS [address] [place], [place] [phone] documented as of this encounter Visit Diagnoses Not on filedocumented in this encounter
--- OUTSIDE RECORDS SUMMARY | 2024-09-21 14:56 | XMS_ITS | Encounter Summary ---
Author Organization [employer] Address [address] [facility] 7t [place] [address] Care Team Providers Care Mild Disabilities Teacher Name Role Phone Unavailable Primary Care Provider Unavailabl e Reason for Visit * Reason Comments Dental Pain Upper left side Encounter Details Date Type Department Care Team (Late st Contact Info) Description 09/01/2024 11:30 AM EST Office Visit [facility] ADULT DENTAL [address] [place] [address] Kirby Rodriguez DDS [address] [place] [address] Social History Tobacco Use Types Packs/Day Years [...] AM EDT documented as of this encounter Progress Notes * Kirby Rodriguez DDS - 09/01/2024 11:30 AM EST Dental procedures in this visit [id number] - PALLIATIVE (EMERGENCY) TREATMENT OF DENTAL PAIN - MINOR PROCEDURE (Completed) Service provider: Kirby Rodriguez DDS Billing provider: Kirby Rodriguez DDS [id number] - INTRAORAL - PERIAPICAL FIRST RADIOGRAPHIC IMAGE (Completed) Service provider: Kirby Rodriguez DDS Billing provider: Kirby Rodriguez DDS [id number] - BITEWING - SINGLE RADIOGRAPHIC IMAGE (Completed) Service provider: Kirby Rodriguez DDS Billing provider: Kirby Rodriguez DDS [id number] - CASE PRESENTATION, DETAILED AND EXTENSIVE TREATMENT PLANNING (Completed) Service provider: Kirby Rodriguez DDS Billing provider: Kirby Rodriguez DDS Patient ID: Randa Fulton is a 59 y.o. female. Time Out: Timeout Date: 09/01/24 (upper left side pain), Timeout Time: 1058 Location: [facility] Tooth: #13, #14, and #16 Procedure: Exam Verified the above with patient, assistant infant toddler teacher, and provider. Confirmed via patient's chart, intraorally and by radiographs. Pharmacy Informaticist: not applicable Chief Complaint Patient presents with Dental Pain Upper left side Medical Hx: Vitals: There were no vitals taken for this visit. Past Medical History: Diagnosis Date Anxiety Depression Hypertension Medications: Outpatient Encounter Medications as of 09/01/2024 Medication Sig Dispense Refill Bisacodyl EC 5 MG EC tablet TOME DOS TABLETAS POR V A ORAL TODOS LOS D AL ACOSTARSE FOR 2 DAYS fluticasone (Flonase) 50 MCG/ACT nasal spray ROCIAR 2 VECES EN CADA [place] DE [place] A DIARIOFOR ALLERGIC RHINITIS FOR 30 DAYS hydroCHLOROthiazide (HYDRODiuril) 25 MG tablet TOME 1 TABLETA POR V A ORAL TODOS LOS D losartan (Cozaar) 25 MG tablet TOME 1 TABLETA POR V A ORAL TODOS LOS D omeprazole (PriLOSEC) [address] capsule Take 1 capsule by mouth Once per day. hydrOXYzine HCl (Atarax) 25 MG tablet TAKE 1 TABLET BY MOUTH EVERY NIGHT AT BEDTIME NEEDED PARA ANSIEDAD/PARA DORMIR No facility-administered encounter medications on file as of 09/01/2024. Subjective: Pain: mild Duration: 3 days Objective: Tooth: #13, #14, and #16 Radiographs Taken: BW(s) and PA(s) Radiographic Findings: Decay, Fractured/Broken Tooth, and Fractured/Missing Filling Clinical Findings: Exam revealed a burn lesion on the buccal marginal gingiva #13. Tooth #14 revealed deep occlusal, distal and lingual caries. Tooth #16 is located apical to the remainder of the occlusal plane; appears to be submerged. Deep pockets noted around #16. Sever bleeding on probing observed. Advised her to use warm salt water rinses. Swelling: No swelling Endo Testing: Cold: Hypersensitive, lingering Percussion: Pain Palpation: Normal, no pain Perio: 6mm pockets around #16 Other Findings: Missing #15 Diagnosis: Symptomatic apical periodontitis Assessment/Plan: Extraction #16; RCT #14 Prescriptions: Amoxicillin 500mg Pt tolerated procedure well, all questions answered. Dismissed in good condition. NV: Extraction #16 Buckle Inspector: Gita Swan Dentist: Kirby Rodriguez DDS documented in this encounter Plan of Treatment Upcoming Encounters Date Type Department Care Team (Late st Contact Info) Description 10/13/2024 9:00 AM EDT Office Visit [facility]ULT D[facility] [address] [place] [address] Kirby Rodriguez DDS [address] [place] [address] Scheduled Orders Name Type Priority Associated Diagnoses Orde r Schedule 16 16 EXTRACTION, ERUPTED TOOTH OR EXPOSED ROOT (ELEVATION/FORCEPS REMOVAL) Dental Rout[facility] [address] [facility] 14 14 ENDODONTIC THERAPY, MOLAR TOOTH Dental Routine [address] [facility] 09/01/2024 14 14 CROWN - PORCELAIN/CERAMIC Dental Routine 1 Occurrences starting 09/01/2024 14 14 PREFABRICATED POST AND CORE IN ADDITION TO CROWN Dental Routine [address] [facility] 09/01/2024 PROPHYLAXIS - ADULT Dental Routine 1 Occ urrences starting 09/01/2024 PROPHYLAXIS - ADULT Dental Routine 1 Occ urrences starting 09/01/2024 INTRAORAL - COMPLETE SERIES OF RADIOGRAPHIC IMAGES Dental Routine [address] 09/01/2024 documented as of this encounter Procedures Procedure Name Priority Date/Time Associated Diagnosis Comments PALLIATIVE (EMERGENCY) TREATMENT OF DENTAL PAIN - MINOR PROCEDURE Routine 09/01/2024 11:30 AM EST INTRAORAL - PERIAPICAL FIRST RADIOGRAPHIC IMAGE Routine 09/01/2024 11:30 AM EST CASE PRESENTATION, DETAILED AND EXTENSIVE TREATMENT PLANNING Routine 09/01/2024 11:30 AM EST BITEWING - SINGLE RADIOGRAPHIC IMAGE Routine 09/01/2024 11:30 AM EST documented in this encounter Visit Diagnoses Not on filedocumented in this encounter
== END 2024-09-21 13:04 | disposition home or self-care (01) ==
LOC: HO.HOS 12:35
PROVIDERS: PCP Internal Medicine; Visit Provider Physician Assistant
DX: Z96.652 Presence of left artificial knee joint (principal)
CPT/HCPCS: 99024

== ENCOUNTER → 2024-09-21 12:34 | Outpatient (BNVA) | payer OTHER, SELFPAY | PROVIDERS: PCP Internal Medicine; Visit Provider Physician Assistant | DX: Z47.1 Aftercare following joint replacement surgery (principal); Z96.652 Presence of left artificial knee joint | CPT/HCPCS: 99212 ==

== ENCOUNTER → 2024-09-25 23:59 | Outpatient (BNV) | payer OTHER, SELFPAY | PROVIDERS: PCP Internal Medicine; Visit Provider Internal Medicine | DX: G47.33 Obstructive sleep apnea (adult) (pediatric) (principal); J98.4 Other disorders of lung; J30.2 Other seasonal allergic rhinitis | CPT/HCPCS: G0180 ==

== ENCOUNTER 2024-10-12 11:51 | Outpatient (REF) | payer OTHER, SELFPAY ==
--- NOTE | ~2024-10-12 | XR_ITS ---
EXAMINATION: XR KNEE, LEFT CLINICAL INFORMATION: M25.562 - Pain in left knee COMPARISON: 09/05/2024. TECHNIQUE: AP view bilateral knees standing, lateral and patellofemoral views left knee. FINDINGS: Right Knee: Normal imaging appearance. Normal alignment. Mild joint space narrowing medial compartment. Normal soft tissues. Left Knee: There is been a total left knee arthroplasty with patellar resurfacing. Femoral and tibial components are intact, anatomically aligned, without evidence of periprosthetic fracture or loosening. There is no suspicious bone lesion. No evidence of joint effusion. Normal soft tissues. XR/XR knee LT 3V IMPRESSION: 1. Left knee total arthroplasty without evidence of complication. Electronically signed by: Arjun Lo MD 10/13/2024 08:13 AM EDT
--- OUTSIDE RECORDS SUMMARY | 2024-10-12 14:30 | XMS_ITS | Encounter Summary ---
Author Organization [employer] Address [address] [facility] 7t [place] [address] Care Team Providers Care Management Lecturer Name Role Phone Unavailable Primary Care Provider Unavailabl e Encounter Details Date Type Department Care Team (Latest Contact Info) Description 10/13/[address] [facility] CONVERSIONS Dental, Provider, DDS Social History Tobacco [...] Description 10/13/2024 9:00 AM EDT Office Visit [facility] ADULT DENTAL [address] [place] [address] Kirby Rodriguez DDS [address] [place] [address] documented as of this encounter Visit Diagnoses Not on filedocumented in this encounter
--- OUTSIDE RECORDS SUMMARY | 2024-10-12 14:30 | XMS_ITS | Clinical Summary ---
Author Organization [employer] Address [address] [place] [address] [address] [place] [address] Care Team Providers Care Energy Project Engineer Name Role Phone Unavailable Primary Care Provider [...] Description 09/01/2024 11:30 AM EST Office Visit [facility] [address] [place] [address] Kirby Rodriguez DDS 09/01/2024 Telephone [facility] [address] [place] [address] Marcia Parker DDS unable to post portal [...] Description 10/13/2024 9:00 AM EDT Office Visit [facility] [address] [place] [address] Kirby Rodriguez DDS [address] [place] [address] Health Maintenance Due Date Last Done Comments [...] Screening 09/01/2025 09/01/2024 Dental X-Ray: Bitewings 09/02/2025 09/01/19, 10/13/2021, 06/24/2016, Additional history exists DTaP/Tdap/Td Vaccines [...] Most Recently Relevant to Health Maintenance Insurance [facility] MED[facility] STAND ADULT
--- OUTSIDE RECORDS SUMMARY | 2024-10-12 14:30 | XMS_ITS | Encounter Summary ---
Author Organization [employer] Address [address] [facility] 7t [place] [address] Care Team Providers Care Ticket Chopper Assembler Name Role Phone Unavailable Primary Care Provider Unavailabl e Reason for Visit * Reason Onset Date Comments unable to post portal PAR 09/01/2024 Encounter Details Date Type Department Care Team (Late st Contact Info) Description 09/01/2024 Telephone [facility] ADULT DENTAL [address] [place] [address] Marcia Parker DDS [address] [place] [address] unable to post portal PAR Social History [...] 9:00 AM EDT Office Visit [facility] [address] [place] [address] Kirby Rodriguez DDS [address], [place] [phone] documented as of this encounter Visit Diagnoses Not on filedocumented in this encounter
== END 2024-10-12 11:52 | disposition home or self-care (01) ==
LOC: HO.HOSX 11:51
PROVIDERS: Visit Provider Orthopaedic Surgery
DX: M25.562 Pain in left knee (principal); Z96.652 Presence of left artificial knee joint
CPT/HCPCS: 73562; 99212

== ENCOUNTER 2024-10-12 13:27 | Outpatient (AMB) | payer OTHER, SELFPAY ==
--- NOTE | 2024-10-12 13:44 | A.OFFVIS_ITS ---
Intake Visit Reasons: 6WK PO: L TKA w/NE 09/05/24 Intake Note: Rnada is a 59 year old female who presents today for a post operative appointment about 6 weeks s/p left TKA DOS: 09/05/24 . Patient reports that she is doing well, her pain is mostly felt at night. She is looking for a refil of Celebrex and Acetaminophen. Allergies adhesive tape Allergy (Intermediate, Verified 10/12/24 13:47) Redness of Skin metronidazole [Flagyl] Allergy (Intermediate, Verified 10/12/24 13:47) hives HPI HPI 6WK PO: L TKA w/NE 09/05/24: Details: Randa is 5 weeks status post left knee replacement. She reports doing well. She has NOT started outpatient PT. her range of motion is 0-90 degrees. She is continuing to utilize Lovenox and is off narcotic pain medication. She is walking comfortably with a cane. She has no complaints. [facility] Medical History Hx of lymphoma Back pain Hx of renal calculi Seasonal allergies Allergic rhinitis Restrictive lung disease Acquired skin tag Somnolence, daytime Snoring Dyspnea on exertion KASIE (obstructive sleep apnea) Vaginal irritation Women's annual routine gynecological examination Physical exam Hematuria Elevated platelet count Bacteremia UTI (urinary tract infection) Headache Primary insomnia Screen for STD (sexually transmitted disease) Ear discomfort Arthritis of both knees Dextroscoliosis Bilateral knee pain Tendonitis of wrist, left Lumbar pain Obese Rash and nonspecific skin eruption Tubular adenoma of colon Intestinal malabsorption Hodgkin lymphoma Surgical History Skin lesion H/O: hysterectomy S/P cholecystectomy History of esophagogastroduodenoscopy History of colonoscopy Hx of cataract extraction Family History Mother Diabetes High blood pressure Father Pacemaker Diabetes CAD (coronary artery disease) CKD (chronic kidney disease) Maternal Aunt Stomach cancer Maternal Aunt Liver cancer Social History Household Members: None Housing: Apartment Are you a primary assisted living care manager to a significant other at home: No Do you presently have visiting nurse or other home services: Yes (2 x week CEMENTER MACHINE APPLICATOR, 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) 75 years or older and lives alone: No Alcohol intake: never Patient Tobacco Use Status: Never used Tobacco e-Cigarette/Vaping Use: Never Used Second Hand Smoke Exposure: No service: No Current occupational status: unemployed and disabled Cognitive needs: Yes Hearing needs: No Vision needs: Yes Female Reproductive History Menstrual Age of Menarche: 12 Physical Exam Extrem Other: Left knee with well-healed incision. 0-90 degrees of motion. Stable to varus valgus stress. Results Reviewed Results Reviewed: I personally reviewed relevant radiographs. Left total knee arthroplasty in expected post operative position with no hardware complications or evidence of loosening Assessment & Plan Assessment & Plan (1) Status post total left knee replacement: Code(s): Z96.652 - Presence of left artificial knee joint Category: Surgical Plan: Randa is overall doing well but slightly stiff. I wrote a prescription for outpatient PT. Continue Lovenox for 1 more week and I wrote a prescription for acetaminophen and Celebrex to be refilled. Follow up to see me in 6 weeks. Orders: Orders XR knee LT 3V Today M25.562 - Pain in left knee PT Evaluation and Treatment Today Z96.652 - Presence of left artificial knee joint Medications: Refilled acetaminophen 650 mg (2 x 325 mg) PO Q6H PRN 240 tabs 0RF Pain, Mild 1- 3,Fever,Headache 30 days celecoxib (Celebrex) 200 mg PO BID 60 caps 3RF 30 days Coding Level of Care Code Global (66200) Diagnoses Status post total left knee replacement Z96.652
--- OUTSIDE RECORDS SUMMARY | 2024-10-12 16:13 | XMS_ITS | Encounter Summary ---
Author Organization [employer] Address [address] [facility] 7t [place] [address] Care Team Providers Care Aviation All Source Intelligence Name Role Phone Unavailable Primary Care Provider Unavailabl e Encounter Details Date Type Department Care Team (Latest Contact Info) Description 10/13/2021 Abstract [facility] CONVERSIONS Dental, Provider, DDS Social History [...] Description 10/13/2024 9:00 AM EDT Office Visit [facility] ADULT DENTAL [address] [place] [address] Kirby Rodriguez DDS [address] [place] [address] documented as of this encounter Visit Diagnoses Not on filedocumented in this encounter
--- OUTSIDE RECORDS SUMMARY | 2024-10-12 16:13 | XMS_ITS | Encounter Summary ---
Author Organization [employer] Address [address] [facility] 7t [place] [address] Care Team Providers Care Sap Ariba Consultant Name Role Phone Unavailable Primary Care Provider Unavailabl e Reason for Visit * Reason Onset Date Comments unable to post portal PAR 09/01/2024 Encounter Details Date Type Department Care Team (Late st Contact Info) Description 09/01/[address] [facility] ADULT DENTAL [address] [place] [address] Marcia Parker DDS [address] [place] [address] unable to post portal PAR Social History [...] Description 10/13/2024 9:00 AM EDT Office Visit [facility] ADULT DENTAL [address] [place] [address] Kirby Rodriguez DDS [address] [place], [place] [phone] documented as of this encounter Visit Diagnoses Not on filedocumented in this encounter
--- OUTSIDE RECORDS SUMMARY | 2024-10-12 16:13 | XMS_ITS | Clinical Summary ---
Author Organization [employer] Address [address] [place] [address] 7t [place] [address] Care Team Providers Care Oracle Applications Analyst Name Role Phone Unavailable Primary Care Provider [...] Description 09/01/2024 11:30 AM EST Office Visit [facility] ADULT DENTAL [address] [place] [address] Kirby Rodriguez DDS 09/01/2024 Telephone [facility] ADULT DENTAL [address] [place] [address] Marcia Parker DDS unable to post portal [...] Description 10/13/2024 9:00 AM EDT Office Visit [facility] ADULT DENTAL [address] [place] [address] Kirby Rodriguez DDS [address] [place] [address] Health Maintenance Due Date Last Done Comments [...] Maintenance Insurance [facility] MEDICAID STAND ADULT
== END 2024-10-12 14:02 | disposition home or self-care (01) ==
LOC: HO.HOS 13:27
PROVIDERS: PCP Internal Medicine; Visit Provider Orthopaedic Surgery
DX: Z96.652 Presence of left artificial knee joint (principal)
CPT/HCPCS: 99024

== ENCOUNTER → 2024-10-12 13:31 | Outpatient (BNV) | payer OTHER, SELFPAY | PROVIDERS: Visit Provider Radiology Diagnostic Radiology | DX: M25.562 Pain in left knee (principal) | CPT/HCPCS: 73562 ==

== ENCOUNTER 2024-10-16 09:52 | Emergency (ER) | payer OTHER, SELFPAY ==
--- NOTE | ~2024-10-16 | US_ITS ---
EXAMINATION: US TRIPLEX LOWER EXTREMITY, LEFT CLINICAL INFORMATION: Leg pain, swelling. Status post knee replacement. COMPARISON: None available. TECHNIQUE: Color-flow triplex imaging with spectral analysis and compression Doppler were performed on the left lower extremity. FINDINGS: Respiratory variation, normal compression and augmented flow are noted throughout the left lower extremity. The visualized common femoral vein, superficial femoral vein, profunda femoral vein, popliteal vein and midcalf peroneal and posterior tibial venous segments show no evidence of deep venous thrombosis. There is no Chirinos's cyst. US/US venous duplex LE LT IMPRESSION: No evidence of deep venous thrombosis involving the left lower extremity. Electronically signed by: Dewayne Brambila MD 10/16/2024 12:26 PM EDT
[2024-10-16 10:02] VITALS: BP 156/72; BP 179/81; PULSE 101; PULSE 98; RESP 20; TEMP 36.4; O2SAT 95; O2SAT 97; BMI 27.2
[2024-10-16 10:14] LABS: MANUAL DIFF FLAG NO
[2024-10-16 10:17] LABS: Basophils Percent Auto 0.3 % (0-2); Eosinophils Absolute Auto 0.1 X10*3/uL (0.0-0.4); Eosinophils Percent Auto 0.8 % (0-4); Hematocrit 43.5 % (37.0-47.0); Hemoglobin 14.1 g/dl (12.0-16.0); Imm Gran Abs Auto 0.03 X10*3/uL (0.00-0.03); Imm Gran Pct Auto 0.5 % (0.0-0.4); Lymphocytes Absolute Auto 2.7 X10*3/uL (1.2-4.9); Lymphocytes Percent Auto 40.7 % (20-40); Mean Corpuscular HGB Conc 32.4 g/dl (31.0-35.0); Mean Corpuscular Hemoglobin 27.9 pg (27.0-33.0); Mean Corpuscular Volume 86.1 fL (80.0-98.0); Mean Platelet Volume 9.4 fL (9.4-12.3); Monocytes Absolute Auto 0.5 X10*3/uL (0.1-1.2); Monocytes Percent Auto 7.7 % (2-11); Neutrophils Absolute Auto 3.3 x10*3/uL (2.0-8.3); Platelet Count 267 X10*3/uL (160-400); Red Blood Count 5.05 X10*6/uL (4.20-5.50); Red Cell Distribution Width 15.5 % (11.0-16.0); White Blood Count 6.6 X10*3/uL (4.8-10.8)
[2024-10-16 10:34] LABS: Alanine Aminotransferase 20 U/L (0-31); Albumin Level 4.3 g/dL (3.5-5.0); Alkaline Phosphatase 113 U/L (39-117); Anion Gap 12 (12-20); Aspartate Amino Transferase 20 U/L (5-31); Bilirubin Direct 0.1 mg/dL (0.0-0.5); Bilirubin Total 0.3 mg/dL (0.0-1.0); Blood Urea Nitrogen 11 mg/dL (9-16); Carbon Dioxide 23 mmol/L (22-29); Chloride 109 mmol/L (96-108); Creatinine Clr Calc Pharmacy 94.2; Estimated Glomerular Filt Rate > 60; Glucose Random 93 mg/dL (60-115); Lipase 29 U/L (8-78); Potassium 3.9 mmol/L (3.3-5.1); Sodium 140 mmol/L (135-145); Total Protein 7.6 g/dL (6.5-8.0)
[2024-10-16 10:59] LABS: Influenza A PCR NEGATIVE (Negative); Influenza B PCR NEGATIVE (Negative); Resp Syncy Virus RNA Qual PCR NEGATIVE (Negative); SARS COV2 PCR INHOUSE NEGATIVE (Negative)
--- NOTE | 2024-10-16 11:11 | PC.NURSE ---
Report received, taken over care at this time.
--- NOTE | 2024-10-16 11:13 | ED.GENADULT ---
HPI - General Adult General Chief complaint: Abdominal Pain Stated complaint: dizziness, headache, N/V, bp 179/101 Time Seen by Provider: 10/16/24 11:02 Source: patient Mode of arrival: ambulatory Limitations: no limitations History of Present Illness ED Provider: Dr. Norma Winn HPI narrative: Patient comes in the emergency room complaining of left-sided knee pain. Patient has a left knee replacement in September. Four days ago, patient was seen by her orthopedic surgeon, an x-ray was done which was normal. Patient states that today she was supposed to start physical therapy at home. Patient states that she was in too much pain and her physical therapist asked her to come to the emergency room to be evaluated. Patient states that she has been compliant with her medications for pain and also with Lovenox. Patient denies any chest pain or shortness of breath. Patient states that yesterday the pain was so bad it makes her nauseous. Denies fever chills. Related Data Home Medications ?Medication ?Instructions ?Recorded ?Confirmed fluticasone propionate 50 2 spray intranasal DAILY PRN 09/05/24 09/21/24 mcg/actuation nasal Allergy Symptoms spray,suspension hydrochlorothiazide 25 mg tablet 25 mg PO DAILY 09/05/24 09/21/24 omeprazole 20 mg tablet,delayed 20 mg PO DAILY@0630 09/05/24 09/21/24 release Previous Rx's ?Medication ?Instructions ?Recorded Brace,wrist (Wrist Brace - one) #1 ea 10/28/20 Knee brace #1 ea 03/20/21 cane #1 ea 03/20/21 walker #1 ea 04/23/22 Shower Chair #1 ea 07/16/22 bed rail #1 ea 04/01/23 handheld shower #1 ea 04/01/23 losartan 25 mg tablet 25 mg PO DAILY 90 days #90 tabs 04/18/24 Raised toilet seat #1 ea 08/31/24 cholestyramine (with sugar) 4 gram 1 ea PO BID #180 packets 09/04/24 powder for susp in a packet docusate sodium 100 mg capsule 100 mg PO BID 30 days #60 caps 09/07/24 enoxaparin 40 mg/0.4 mL 40 mg (0.4 mL) subcut Q24H 42 days 09/07/24 subcutaneous syringe #16.8 mL commode #1 ea 09/24/24 walker #1 ea 09/24/24 acetaminophen 325 mg tablet 650 mg (2 x 325 mg) PO Q6H PRN 10/12/24 Pain, Mild 1-3,Fever,Headache 30 days #240 tabs celecoxib 200 mg capsule (Celebrex) 200 mg PO BID 30 days #60 caps 10/12/24 oxycodone 5 mg tablet 5 mg PO BID PRN pain #8 tabs 10/16/24 Allergies Allergy/AdvReac Type Severity Reaction Status Date / Time adhesive tape Allergy Intermediate Redness of Verified 10/16/24 10:06 Skin metronidazole [Flagyl] Allergy Intermediate hives Verified 10/16/24 10:06 Review of Systems Review of Systems: Constitutional : No Weight loss, No Fever, No Chills, No Night Sweats, No Fatigue, No Malaise ENT/Mouth : No Hearing loss, No Ear Pain, No Nasal Congestion, No Sinus Pain, No Hoarseness, No sore throat, No Rhinorrhea, No Swallowing Difficulty Eyes: No Eye Pain, No Swelling, No Redness, No Foreign Body, No Discharge, No Vision Changes Cardiovascular : No Chest Pain, No SOB, No Dyspnea on Exertion, No Orthopnea, No Edema, No Palpitations Respiratory : No Cough, No Sputum, No Wheezing, No Smoke Exposure, No Dyspnea Gastrointestinal : No Nausea, No Vomiting, No Diarrhea, No Constipation, No abdominal Pain, No Hematochezia, No Melena Genitourinary : no irregular bleeding, No Dysuria, No Urinary Frequency, No Hematuria, No Urinary Incontinence, No Urgency, No Flank Pain, No Urinary Flow Changes, No Hesitancy Musculoskeletal : Complaining of chronic left knee pain, No Myalgias, No Joint Swelling Skin : No Skin Lesions, No rash Neuro : No Weakness, No Numbness, No Paresthesias, No Loss of Consciousness, No Dizziness, No Headache Psych : No Anxiety/Panic, No Depression, No SI/HI/AH/VH, No Social Issues, Heme/Lymph: No Bruising, No Bleeding,No Lymphadenopathy Endocrine : No Polyuria, No Polydipsia, No Temperature Intolerance PMFSH Past Medical History Medical History Hx of lymphoma Back pain Hx of renal calculi Seasonal allergies Allergic rhinitis Restrictive lung disease Acquired skin tag Somnolence, daytime Snoring Dyspnea on exertion KASIE (obstructive sleep apnea) Vaginal irritation Women's annual routine gynecological examination Physical exam Hematuria Elevated platelet count Bacteremia UTI (urinary tract infection) Headache Primary insomnia Screen for STD (sexually transmitted disease) Ear discomfort Arthritis of both knees Dextroscoliosis Bilateral knee pain Tendonitis of wrist, left Lumbar pain Obese Rash and nonspecific skin eruption Tubular adenoma of colon Intestinal malabsorption Hodgkin lymphoma Surgical History Skin lesion H/O: hysterectomy S/P cholecystectomy History of esophagogastroduodenoscopy History of colonoscopy Hx of cataract extraction Family History Family History Mother Diabetes High blood pressure Father Pacemaker Diabetes CAD (coronary artery disease) CKD (chronic kidney disease) Maternal Aunt Stomach cancer Maternal Aunt Liver cancer Social History Social History Household Members: None Housing: Apartment Are you a primary ocular care aide to a significant other at home: No Do you presently have visiting nurse or other home services: Yes (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, 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) Alcohol intake: never Patient Tobacco Use Status: Never used Tobacco Smoked in Last 30 Days: No e-Cigarette/Vaping Use: Never Used Second Hand Smoke Exposure: No Use of substances other than those prescribed or required for medical reasons: No Advance Directives: No Advance Directives Information Provided: Yes Do you have a plan to hurt others: No Plan Patient : No service: No Current occupational status: unemployed and disabled Cognitive needs: Yes Hearing needs: No Vision needs: Yes Physical Exam ED Vital Signs: Vital Signs - 24 hr 10/16/24 10:02 10/16/24 12:41 Temperature 97.6 F Pulse Rate 101 H 91 Respiratory Rate 20 18 Blood Pressure 156/72 H 163/80 H Pulse Oximetry 97 95 Oxygen Delivery Method Room Air Room Air BMI result Body Mass Index 27.2 Const Other: Appearance: Alert. Oriented X3. No acute distress. Eyes: Pupils equal, round and reactive to light. ENT: Pharynx normal. Neck: Normal inspection. Neck supple. No lymph nodes noted. No crepitus CVS: Normal heart rate and rhythm. Pulses normal. Normal S1 and S2 Respiratory: No respiratory distress. Breath sounds normal. No Wheezing. No rales Abdomen: Soft and nontender. No rigidity. No distention. Skin: Skin warm and dry. Normal skin color. Normal skin turgor. Extremities: No lower extremity edema. Mild pain to palpation behind the left knee. No significant swelling. No obvious effusion. Is able to flex and extend the knee but hurts doing so, no to palpation. Neuro: Oriented X 3. No motor deficit. No sensory deficit. Moving all extremities. No slurred speech. CN 2 through 12 grossly intact Psych: calm, cooperative, normal affect Course Course Course Narrative: Has been having pain for several weeks , which started after her knee replacement surgery. At this time, patient denies dizziness nausea vomiting or diarrhea. Patient complaining of ongoing left-sided knee pain. X-rays from 4 days ago were negative for any acute pathology, hardware looks normal Patient was given a dose of oxycodone p.o. and also we will do an ultrasound to rule out DVT, unlikely since patient is on Lovenox Medications Administered Discontinued Medications Generic Name Dose Route Start Last Admin Trade Name Freq PRN Reason Stop Dose Admin Oxycodone HCl 5 mg 10/16/24 11:11 10/16/24 12:42 Oxycodone Hcl Immed Release 5 Mg Tablet PO 10/16/24 11:12 5 mg ONCE ONE Administration Medical Decision Making Medical Decision Making [facility] Narrative: My interpretation of labs: No significant abnormality in patient's Hematology or chemistry Ultrasound negative for DVT Provided with a prescription for oxycodone for a few days. If patient continues having pain, she will likely need to be X-ray from October 12: No acute abnormality Patient's knee joint looks clean, no erythema, no swelling, no warmth to palpation. Patient able to flex and extend the knee. Septic joint is not suspected Differential Diagnosis Differential Diagnoses: The differential diagnosis associated with the presentation includes (DVT, chronic pain, septic joint) Admission/Observation Consideration of admission/observation: Escalation of care including admission/observation considered Consult Healthcare Provider Management of the patient was discussed with: Hospitalist Lab Data [facility] Lab Attestation statement: I reviewed the patient's lab results. 10/16/24 10:09 10/16/24 10:09 Labs: Lab Results 10/16/24 Range/Units 10:09 WBC 6.6 (4.8-10.8) X10*3/uL RBC 5.05 (4.20-5.50) X10*6/uL Hgb 14.1 (12.0-16.0) g/dl Hct 43.5 (37.0-47.0) % MCV 86.1 (80.0-98.0) fL MCH 27.9 (27.0-33.0) pg MCHC 32.4 (31.0-35.0) g/dl RDW 15.5 (11.0-16.0) % Plt Count 267 (160-400) X10*3/uL MPV 9.4 (9.4-12.3) fL Immature Gran % (Auto) 0.5 H (0.0-0.4) % Neut % (Auto) 50.0 (45-73) % Lymph % (Auto) 40.7 H (20-40) % Winkler % (Auto) 7.7 (2-11) % Eos % (Auto) 0.8 (0-4) % Baso % (Auto) 0.3 (0-2) % Lymph # (Auto) 2.7 (1.2-4.9) X10*3/uL Winkler # (Auto) 0.5 (0.1-1.2) X10*3/uL Eos # (Auto) 0.1 (0.0-0.4) X10*3/uL Baso # (Auto) 0.0 (0.0-0.2) X10*3/uL Abs Immat Gran (auto) 0.03 (0.00-0.03) X10*3/uL Absolute Neuts (auto) 3.3 (2.0-8.3) x10*3/uL Absolute Nucleated RBC 0.000 (0.0-0.012) X10*3/uL Nucleated RBC % (auto) 0.0 (0.0-0.2) /100WBC Sodium 140 (135-145) mmol/L Potassium 3.9 (3.3-5.1) mmol/L Chloride 109 H (96-108) mmol/L Carbon Dioxide 23 (22-29) mmol/L Anion Gap 12 (12-20) BUN 11 (9-16) mg/dL Creatinine 0.64 (0.5-1.4) mg/dL Estim Creat Clear Calc 94.2 Estimated GFR > 60 Random Glucose 93 (60-115) mg/dL Calcium 10.0 D (8.4-10.2) mg/dL Total Bilirubin 0.3 (0.0-1.0) mg/dL Direct Bilirubin 0.1 (0.0-0.5) mg/dL AST 20 (5-31) U/L ALT 20 (0-31) U/L Alkaline Phosphatase 113 (39-117) U/L Total Protein 7.6 (6.5-8.0) g/dL Albumin 4.3 (3.5-5.0) g/dL Lipase 29 (8-78) U/L Influenza Type A (PCR) NEGATIVE (Negative) Influenza Type B (PCR) NEGATIVE (Negative) RSV RNA Qual (PCR) NEGATIVE (Negative) SARS-CoV-2 RNA (RT-PCR) NEGATIVE (Negative) Independent Interpretation I performed an independent interpretation of an: Ultrasound Radiology Impression Discussion of test interpretation with radiology: I have reviewed the radiologist's reading. Radiologist Impression: Respiratory variation, normal compression and augmented flow are noted throughout the left lower extremity. The visualized common femoral vein, superficial femoral vein, profunda femoral vein, popliteal vein and midcalf peroneal and posterior tibial venous segments show no evidence of deep venous thrombosis. There is no Chirinos's cyst. US/US venous duplex LE LT IMPRESSION: No evidence of deep venous thrombosis involving the left lower extremity Discharge Plan Discharge Clinical Impression: Chronic knee pain Patient Disposition: Home, Self-Care Instructions: Arthralgia (ED) Additional Instructions: Please follow-up with your primary care physician tomorrow. If you have any worsening or new symptoms, please return to the emergency room or call 911 Prescriptions: New oxycodone 5 mg tablet 5 mg PO BID PRN (Reason: pain) Qty: 8 0RF Rx Instructions: Partial Fill upon patient request. No Action (DME) Wrist Brace - one Misc See Rx Instructions .ROUTE .MEDSUPPLY Qty: 1 0RF Rx Instructions: As directed- LEFT WRIST STABILIZER (DME) walker Misc See Rx Instructions .Route Qty: 1 0RF Rx Instructions: with seat and wheels, Ht: 5', Wt: 165 lbs (DME) Shower Chair Misc See Rx Instructions .Route Qty: 1 0RF Rx Instructions: As directed (DME) bed rail See Rx Instructions .Route .MEDSUPPLY Qty: 1 0RF Rx Instructions: As directed (DME) handheld shower See Rx Instructions .Route .MEDSUPPLY Qty: 1 0RF Rx Instructions: As directed cholestyramine (with sugar) 4 gram powder in packet 1 ea PO BID Qty: 180 2RF (DME) walker Misc See Rx Instructions .MEDSUPPLY Qty: 1 0RF Rx Instructions: Folding Front wheeled walker duration 99 days (DME) commode Kit See Rx Instructions .Route Qty: 1 0RF Rx Instructions: As directed hydrochlorothiazide 25 mg tablet 25 mg PO DAILY fluticasone propionate 50 mcg/actuation spray,suspension 2 spray intranasal DAILY PRN (Reason: Allergy Symptoms) omeprazole 20 mg Tablet,Delayed Release (Dr/Ec) 20 mg PO DAILY@0630 docusate sodium 100 mg Capsule 100 mg PO BID 30 Days Qty: 60 0RF enoxaparin 40 mg/0.4 mL Syringe 40 mg subcut Q24H 42 Days Qty: 16.8 0RF (DME) Knee brace [facility] See Rx Instructions .Route Qty: 1 0RF Rx Instructions: As directed (DME) cane Device See Rx Instructions .Route Qty: 1 0RF Rx Instructions: As directed acetaminophen 325 mg tablet 650 mg PO Q6H PRN (Reason: Pain, Mild 1-3,Fever,Headache) 30 Days Qty: 240 0RF celecoxib [Celebrex] 200 mg capsule 200 mg PO BID 30 Days Qty: 60 3RF losartan 25 mg tablet 25 mg PO DAILY 90 Days Qty: 90 1RF (DME) Raised toilet seat See Rx Instructions .ROUTE .MEDSUPPLY Qty: 1 0RF Rx Instructions: duration - 99 days Referrals: Andrea Aguilar MD [Physician] - 10/18/24 Print Language: Mongolian
--- NOTE | 2024-10-16 12:31 | PC.NURSE ---
Called fern picker to communicate with pt.
[2024-10-16 12:41] VITALS: BP 163/80; PULSE 91; RESP 18; O2SAT 95
[2024-10-16] MEDS: oxyCODONE HCl Immed Release 5 MG TABLET PO (12:42)
--- OUTSIDE RECORDS SUMMARY | 2024-10-16 12:57 | XMS_ITS | Clinical Summary ---
Author Organization [employer] Address [address] [facility] 7t [place] [address] Care Team Providers Care Locomotive Engineer Electric Name Role Phone Unavailable Primary Care Provider [...] Encounters Date Type Department Care Team Description 10/13/2024 Telephone [facility] ADULT DENTAL [address] [facility] [address] Vin Medinaaris 10/13/2024 Telephone [facility] ADULT DENTAL [address] [place] [address] Kirby Rodriguez DDS 09/01/2024 11:30 AM EST Office Visit [facility] ADULT DENTAL [address] [place] [address] Kirby Rodriguez DDS 09/01/2024 Telephone [facility] ADULT DENTAL [address] [place] [address] Marcia Parker, JORDY unable to post portal PAR from Last [...] 01/24/1994 Mammogram 2004 Pneumococcal Vaccine: 50+ Years (3 of 3 - PCV) 06/01/2018 06/01/2017, 10/02/2016 Dental Oral Exam 04/15/2022 10/13/2021, , 06/24/2016, Additional history exists Dental Prophylaxis 04/15/2022 10/13/2021, 0 04/01/2017, 02/19/2016, Additional history exists Zoster Vaccines (2 of 2) 06/16/2022 04/21/2022 RSV Patients and Patients Aged 60 years or older (1 - Risk 60-74 years 1-dose series) 2024 COVID-19 Vaccine ( season) 2024 04/12/2023, 07/13/2022, 12/25/2021, Additional history exists Dental X-Ray: Full Mouth 10/14/2024 10/13/2021, 09/02 Tobacco Screening 09/01/2025 09/01/2024 Dental X-Ray: Bitewings 09/02/2025 09/01/19 25, 10/13/2021, 06/24/2016, Additional history exists DTaP/Tdap/Td Vaccines (2 - Td or Tdap) 04/10/2026 04/10/2016, 11/25/2012, 01/10/2010, Additional history exists Hepatitis B Vaccines Completed 04/14/2011, 05/28/2008, 04/26/2000 [...] Most Recently Relevant to Health Maintenance Insurance [facility] MEDICAID STAND ADULT
--- OUTSIDE RECORDS SUMMARY | 2024-10-16 12:57 | XMS_ITS | Encounter Summary ---
Author Organization [employer] Address [address] [facility] 7t [place] [address] Care Team Providers Care Paving Machine Operator Name Role Phone Unavailable Primary Care Provider Unavailabl e Encounter Details Date Type Department Care Team (Late st Contact Info) Description 10/13/2024 Telephone [facility] ADULT DENTAL [address] [place] [address] Kirby Rodriguez DDS [address] [place] [address] Social History Tobacco Use Types Packs/Day Years [...] encounter Miscellaneous Notes * Telephone Encounter - Radha Velásquez - 10/13/2024 8:09 AM EDT Provider not in office, lvm to r/s appt. documented in this encounter Plan of Treatment Not on file documented as of this encounter Visit Diagnoses Not on filedocumented in this encounter
--- OUTSIDE RECORDS SUMMARY | 2024-10-16 12:57 | XMS_ITS | Encounter Summary ---
Author Organization [employer] Address [address] [facility] 7t [place] [address] Care Team Providers Care Childrens Club Attendant Name Role Phone Unavailable Primary Care Provider Unavailabl e Encounter Details Date Type Department Care Team (Late st Contact Info) Description 10/13/2024 Telephone [facility] ADULT DENTAL [address] [place] [address] Adam, Hilaria [address] [place] [address] Social History Tobacco Use Types Packs/Day Years [...] encounter Miscellaneous Notes * Telephone Encounter - Magdalena Scott - 10/13/2024 11:08 AM EDT Called patient to schedule a couple of appointments but there was no answer so I left a voicemail. documented in this encounter Plan of Treatment Not on file documented as of this encounter Visit Diagnoses Not on filedocumented in this encounter
--- OUTSIDE RECORDS SUMMARY | 2024-10-16 12:57 | XMS_ITS | Encounter Summary ---
Author Organization [employer] Address [address] [facility] 7t [place] [address] Care Team Providers Care Clay Washer Name Role Phone Unavailable Primary Care Provider Unavailabl e Encounter Details Date Type Department Care Team (Latest Contact Info) Description 10/13/2021 Abstract [facility] CONVERSIONS Dental, Provider, DDS Social History [...]
--- OUTSIDE RECORDS SUMMARY | 2024-10-16 12:57 | XMS_ITS | Encounter Summary ---
Author Organization [employer] Address [address] [place] [address] [address] [address] Care Team Providers Care Administrator Name Role Phone Unavailable Primary Care Provider Unavailabl e Reason for Visit * Reason Onset Date Comments unable to post portal PAR 09/01/2024 Encounter Details Date Type Department Care Team (Late st Contact Info) Description 09/01/2024 Telephone [facility] ADULT DENTAL [address] [place] [address] Marcia Parker DDS [address] [place] [address] unable to post portal PAR Social History [...]
[2024-10-16 13:12] VITALS: BP 150/74; PULSE 82; RESP 18; TEMP 36.9; O2SAT 98
[2024-10-16 13:16] VITALS: BP 150/74; PULSE 82; RESP 18; TEMP 36.9; O2SAT 98
== END 2024-10-16 13:17 | disposition home or self-care (01) ==
PROVIDERS: Emergency Provider Emergency Medicine; PCP Internal Medicine
DX: M25.562 Pain in left knee (principal); R42 Dizziness and giddiness; R51.9 Headache, unspecified; R11.2 Nausea with vomiting, unspecified; R60.0 Localized edema; Z79.899 Other long term (current) drug therapy; Z03.818 Encounter for observation for suspected exposure to other biological agents ruled out
CPT/HCPCS: 0241U; 80048; 80076; 83690; 85025; 93971; 99284

== ENCOUNTER → 2024-10-16 11:11 | Outpatient (BNV) | payer OTHER, SELFPAY | PROVIDERS: Emergency Provider Emergency Medicine; PCP Internal Medicine; Visit Provider Radiology Diagnostic Radiology | DX: M79.605 Pain in left leg (principal); R22.42 Localized swelling, mass and lump, left lower limb; Z96.652 Presence of left artificial knee joint | CPT/HCPCS: 93971 ==

== ENCOUNTER 2024-10-27 09:51 | Outpatient (AMB) | payer OTHER, SELFPAY ==
--- NOTE | 2024-10-27 09:53 | A.OFFPC_ITS ---
Vital Signs 10/27/24 10:04 Height 5 ft 5 in Weight 163 lb 4 oz BMI 27.2 BP 162/98 H Blood Pressure Location Lt brachial Position Sitting Pulse 108 H Pulse Source Pulse Oximeter Temp 97.5 F Temp Source Temporal Artery Scan Pulse Oximetry (%) 97 Oxygen Delivery Method Room Air Intake Visit Reasons: [facility] [place] 10/16 high BP Environmental Services Manager Required: Yes Environmental Services Manager Language: Italian Accompanied by: Self / Same As Patient Allergies adhesive tape Allergy (Intermediate, Verified 10/27/24 10:08) Redness of Skin metronidazole [Flagyl] Allergy (Intermediate, Verified 10/27/24 10:08) hives Tobacco use date assessed: 07/13/24 Dental Screening Dental Screen Date: 07/13/24 HPI HPI Comments History of Present Illness Details 59 y/o Female patient who [facility] to [facility] today for EDF. Pt was admitted to [facility] [place] on 10/16/24 for Left Chronic Knee pain. She is S/P LKR 09/2024 and she follows with her Orthopedic doctor (last Seen 10/18/2024). While in the ED she was found to have elevated BP pressure readings, Pt concerned about this. She currently takes Losartan 25 mg Daily. Review of her Home BP Log shows Elevated BP readings. Pt also been taking Celebrex BID for pain relief. [facility] Medical History (Updated 10/27/24 @ 10:42 by Rica Hoyos NP) Chronic pain of left knee Hx of lymphoma Back pain Hx of renal calculi Seasonal allergies Allergic rhinitis Restrictive lung disease Acquired skin tag Somnolence, daytime Snoring Dyspnea on exertion KASIE (obstructive sleep apnea) Vaginal irritation Women's annual routine gynecological examination Physical exam Hematuria Elevated platelet count Bacteremia UTI (urinary tract infection) Headache Primary insomnia Screen for STD (sexually transmitted disease) Ear discomfort Arthritis of both knees Dextroscoliosis Bilateral knee pain Tendonitis of wrist, left Lumbar pain Obese Rash and nonspecific skin eruption Tubular adenoma of colon Intestinal malabsorption Hodgkin lymphoma Surgical History Skin lesion H/O: hysterectomy S/P cholecystectomy History of esophagogastroduodenoscopy History of colonoscopy Hx of cataract extraction Family History Mother Diabetes High blood pressure Father Pacemaker Diabetes CAD (coronary artery disease) CKD (chronic kidney disease) Maternal Aunt Stomach cancer Maternal Aunt Liver cancer Social History Household Members: None Housing: Apartment Are you a primary medicare coordinator to a significant other at home: No Do you presently have visiting nurse or other home services: Yes (2 x week 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 1. Little interest or pleasure in doing things: not at all 2. Feeling down, depressed, or hopeless: not at all 3. Trouble falling or staying asleep, or sleeping too much: not at all 4. Feeling tired or having little energy: not at all 5. Poor appetite or overeating: not at all 6. Feeling bad about yourself - or that you are a failure or have let yourself or your family down: not at all 7. Trouble concentrating on things, such as reading the newspaper or watching television: not at all 8. Moving or speaking so slowly that other people could have noticed. Or the opposite - being so fidgety or restless that you have been moving around a lot more than usual: not at all 9. Thoughts that you would be better off or of hurting yourself in some way: not at all Total score: 0 Source: Developed by Drs. Anotnio Ochoa, Angelica Mccormack, Aman Medrano and colleagues, with an educational dev from [employer]. Thrive Questionnaire Date Thrive assessed: 07/13/24 I am a: Patient What is your living situation today?: I have a steady place to live Within the past 12 months, did the food you bought not last and you didn't have the money to get more?: Never true Within the past 12 months, did you worry whether your food would run out before you got money to buy more?: Never true Do you have trouble paying for medicines?: No Do you have trouble getting transportation to medical appointments?: No Do you have trouble paying your heating and electricity bill?: No Do you have trouble taking care of your child, family member or friend?: No Do you have trouble with day-to-day activities such as bathing, preparing meals, shopping, managing finances, etc.?: No Are you currently unemployed and looking for a job?: No Are you interested in more education?: No Please select the resources that you would like help with: None Currently or been in a relationship where the following occur: No concerns reported THRIVE Score: 0 AUDIT C Alcohol Use Questionnaire (AUDIT-C) 1. How often do you have a drink containing alcohol?: Never Total Score: 0 ARACELI-7 AMB Questionnaire ARACELI-7 Date ARACELI - 7 assessed: 07/13/24 Feeling nervous, anxious, or on edge: 0 = Not at all Not being able to stop or control worryin = Not at all Worrying too much about different things: 0 = Not at all Trouble relaxin = Not at all Being so restless that it is hard to sit still: 0 = Not at all Becoming easily annoyed or irritable: 0 = Not at all Feeling afraid as if something awful might happen: 0 = Not at all Total ARACELI-7 score (0-4 normal; 5-9 mild; 10-14 moderate; 15-21 severe): 0 Source: Developed by Drs. Antonio Ochoa, Angelica Mccormack, Aman Medrano and colleagues, with an educational dev from [employer]. Review of Systems Const All systems reviewed & are unremarkable except as noted in HPI and below Physical exam (Primary Care) Vital Signs: Last Vital Signs Temp 97.5 F 10/27/24 10:04 Pulse 108 H 10/27/24 10:04 BP 162/98 H 10/27/24 10:04 Pulse Ox 97 10/27/24 10:04 Oxygen Delivery Method Room Air 10/27/24 10:04 BMI result Body Mass Index 27.2 Tobacco/Smoking Status: Tobacco use Status Tobacco use date assessed 07/13/24 10/27/24 09:53 Patient Tobacco Use Status Never used Tobacco 10/27/24 09:53 e-Cigarette/Vaping Use Never Used 10/27/24 09:53 PHQ-9: PHQ-9 Score PHQ-9: Total score 0 10/27/24 10:14 Thrive Assessment: Date of Thrive Assessment Date Thrive assessed 07/13/24 10/27/24 09:53 Currently or been in a relationship where the following occur: No concerns reported Const General: no acute distress Nutritional Appearance: overweight Orientation/consciousness: patient oriented x3 Limitations: ambulation with cane Resp Effort & Inspection: normal respiratory effort Auscultation: clear to auscultation bilaterally Cardio Heart sounds: S1 normal heart sound present and S2 normal heart sound present Neuro General: patient oriented x3 Extrem Other: No lower extremity edema. Mild pain to palpation behind the left knee. No significant swelling. No obvious effusion. Is able to flex and extend the knee but hurts doing so, no to palpation. Coding Level of Care Code Est Pt Level 4 (01643) Diagnoses Chronic pain of left knee M25.562; G89.29 Essential hypertension I10 Time Spent (min) 20 Assessment & Plan Assessment & Plan (1) Chronic pain of left knee: Code(s): M25.562 - Pain in left knee; G89.29 - Other chronic pain Category: Medical Plan: Managed by Orthopedics Has PT sessions (2) Essential hypertension: Code(s): I10 - Essential (primary) hypertension Category: Medical Plan: Increased Losartan 25 mg BID (= 50 mg Daily). Advised that Celebrex may increase BP. May take it PRN instead. Take Acetaminophen for pain relief.
[2024-10-27 10:04] VITALS: BP 162/98; PULSE 108; TEMP 36.4; O2SAT 97; BMI 27.2
--- OUTSIDE RECORDS SUMMARY | 2024-10-27 10:12 | XMS_ITS | Clinical Summary ---
Author Organization [employer] Address [address] [place] [address] Care Team Providers Care Handwriting Expert Name Role Phone Unavailable Primary Care Provider [...] Type Department Care Team Description 10/13/2024 Telephone [facility] [address] [place] [address] Adam, Hilaria 10/13/2024 Telephone [facility] [address] [facility] [place] [address] Kirby Rodriguez DDS 09/01/2024 11:30 AM EST Office Visit [facility] [address] [facility] [place] [address] Kirby Rodriguez DDS 09/01/2024 Telephone [facility] [address] [facility] [place] [address] Marcia Parker DDS unable to post portal [...] Care Team (Late st Contact Info) Description 10/31/2024 1:30 PM EDT Office Visit [facility] [address] [place] [address] Kirby Rodriguez DDS [address] [place] [address] Health Maintenance Due Date Last Done Comments [...] Most Recently Relevant to Health Maintenance [facility] STAND ADULT
--- OUTSIDE RECORDS SUMMARY | 2024-10-27 10:12 | XMS_ITS | Encounter Summary ---
Author Organization [employer] Address [address] [place] [address] [address] [place] [address] Care Team Providers Care Retaining Room Cutter Name Role Phone Unavailable Primary Care Provider Unavailabl e Reason for Visit * Reason Onset Date Comments unable to post portal PAR 09/01/2024 Encounter Details Date Type Department Care Team (Late st Contact Info) Description 09/01/2024 Telephone [facility] [address] [place] [address] Marcia Parker DDS [address] [place] [address] unable to post portal PAR Social History [...] Description 10/31/2024 1:30 PM EDT Office Visit [facility] [address] [place] [address] Kirby Rodriguez DDS [address] [place], [place] [id number] documented as of this encounter Visit Diagnoses Not on filedocumented in this encounter
== END 2024-10-27 11:31 | disposition home or self-care (01) ==
LOC: HO.HMCH 09:52
PROVIDERS: PCP Internal Medicine; Visit Provider Nurse Practitioner Family
DX: M25.562 Pain in left knee (principal); G89.29 Other chronic pain; I10 Essential (primary) hypertension

== ENCOUNTER → 2024-10-27 09:51 | Outpatient (BNVA) | payer OTHER, SELFPAY | PROVIDERS: PCP Internal Medicine; Visit Provider Nurse Practitioner Family | DX: I10 Essential (primary) hypertension (principal); M25.562 Pain in left knee; G89.29 Other chronic pain; Z79.899 Other long term (current) drug therapy | CPT/HCPCS: 96127; 99212 ==

== ENCOUNTER 2024-11-23 13:03 | Outpatient (AMB) | payer OTHER, SELFPAY ==
--- NOTE | 2024-11-23 13:09 | A.OFFVIS_ITS ---
Intake Visit Reasons: PO: L TKA w/NE 09/05/24-6 WK follow up Intake Note: Randa is a 59 year old female who presents today for a post operative appointment about 2 months s/p left TKA DOS: 09/05/24. At her last visit she was experincing some stiffness - she was given an rx for outpatient PT. She was seen at [facility] on 10/16/24 with complaints of significant left knee pain. She has been unable to do physical therapy due to her pain. Allergies adhesive tape Allergy (Intermediate, Verified 10/27/24 10:08) Redness of Skin metronidazole [Flagyl] Allergy (Intermediate, Verified 10/27/24 10:08) hives HPI HPI PO: L TKA w/NE 09/05/24-6 WK follow up: Details: Randa is a 59-year-old woman who was ia 11 1/2 weeks status post left knee replacement. She is finally feeling better but she is still stiff. She has almost full extension but her flexion is limited to less than 100 degrees. She denies fevers and chills. She states she has been doing better during the day but still has moderate night pain. She denies fevers and chills. [facility] Medical History (Updated 11/25/24 @ 09:25 by Andrea Aguilar MD) Chronic pain of left knee Hx of lymphoma Back pain Hx of renal calculi Seasonal allergies Allergic rhinitis Restrictive lung disease Acquired skin tag Somnolence, daytime Snoring Dyspnea on exertion KASIE (obstructive sleep apnea) Vaginal irritation Women's annual routine gynecological examination Physical exam Hematuria Elevated platelet count Bacteremia UTI (urinary tract infection) Headache Primary insomnia Screen for STD (sexually transmitted disease) Ear discomfort Arthritis of both knees Dextroscoliosis Bilateral knee pain Tendonitis of wrist, left Lumbar pain Obese Rash and nonspecific skin eruption Tubular adenoma of colon Intestinal malabsorption Hodgkin lymphoma Surgical History Skin lesion H/O: hysterectomy S/P cholecystectomy History of esophagogastroduodenoscopy History of colonoscopy Hx of cataract extraction Family History Mother Diabetes High blood pressure Father Pacemaker Diabetes CAD (coronary artery disease) CKD (chronic kidney disease) Maternal Aunt Stomach cancer Maternal Aunt Liver cancer Social History Household Members: None Housing: Apartment Are you a primary special needs child caregiver to a significant other at home: No Do you presently have visiting nurse or other home services: Yes (2 x week 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 INSTALLER, 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) Alcohol intake: never Patient Tobacco Use Status: Never used Tobacco e-Cigarette/Vaping Use: Never Used Second Hand Smoke Exposure: No service: No Current occupational status: unemployed and disabled Cognitive needs: Yes Hearing needs: No Vision needs: Yes Female Reproductive History Menstrual Age of Menarche: 12 Physical Exam Const General: cooperative, healthy appearing, no acute distress, well developed and alert HEENT Head: Yes normal to inspection, Yes normocephalic and Yes atraumatic Mouth: moist mucous membranes Eyes General: appearance normal, both eyes and all related structures EOM: EOMs intact bilaterally Chest Other: no audible wheezing. Resp Other: No audible wheezing Effort & Inspection: normal respiratory effort Cardio Other: Radial pulse palpable with no rythmic abnormalities Back/Spine/Pelvis Cervical Spine: normal cervical lordosis Skin General skin exam: no rashes or lesions noted Neuro General: no focal motor deficits Extrem Other: Left knee with 0-90-95 degrees of motion. She is stable to varus and valgus stress. Her incision is well healed. Her quad function is good. Psych Appearance: grossly normal and well kempt Mental Status: mental status grossly normal Speech and movement: Normal speech and movement present Affect: normal affect Attitude: cooperative Assessment & Plan Assessment & Plan (1) Postoperative stiffness of total knee replacement: Code(s): T84.89XA - Other specified complication of internal orthopedic prosthetic devices, implants and grafts, initial encounter; M25.669 - Stiffness of unspecified knee, not elsewhere classified; Z96.659 - Presence of unspecified artificial knee joint Category: Medical Plan: This is a 59-year-old woman with left knee stiffness status post knee replacement. She has not improved and her pain is better but she is still stiff and it is within 3 months of surgery. I discussed manipulation under anesthesia. I think this would benefit her. I would like to do this next week. I explained the rationale for this. She is unable to push past the discomfort she feels at 90 degrees and this is likely treatable with manipulation. I discussed the benefits of the manipulation as well as the risks and the alternatives. She is pretty anxious about proceeding forward with this but I reassured her that it is in her best interest and that while, while there will be pain afterward, it is not comparable to the pain after a total knee replacement. We would also like to get her back into physical therapy as soon as possible after the manipulation. Coding Level of Care Code Global (25887) Diagnoses Postoperative stiffness of total knee replacement T84.89XA; M25.669; Z96.659
== END 2024-11-23 13:59 | disposition home or self-care (01) ==
LOC: HO.HOS 13:03
PROVIDERS: PCP Internal Medicine; Visit Provider Orthopaedic Surgery
DX: T84.89XA Other specified complication of internal orthopedic prosthetic devices, implants and grafts, initial encounter (principal); M25.669 Stiffness of unspecified knee, not elsewhere classified; Z96.659 Presence of unspecified artificial knee joint
CPT/HCPCS: 99024

== ENCOUNTER → 2024-11-23 13:03 | Outpatient (BNVA) | payer OTHER, SELFPAY | PROVIDERS: PCP Internal Medicine; Visit Provider Orthopaedic Surgery | DX: Z47.1 Aftercare following joint replacement surgery (principal); T84.89XA Other specified complication of internal orthopedic prosthetic devices, implants and grafts, initial encounter; M25.662 Stiffness of left knee, not elsewhere classified; Z96.652 Presence of left artificial knee joint | CPT/HCPCS: 99212 ==

== ENCOUNTER 2024-11-29 05:46 | Day surgery (SDC) | payer OTHER, SELFPAY ==
--- OUTSIDE RECORDS SUMMARY | 2024-11-23 15:20 | XMS_ITS | Encounter Summary ---
Author Organization [employer] Address [address] [facility] [address] [place] [address] Care Team Providers Care Print Finisher Name Role Phone Unavailable Primary Care Provider Unavailabl e Encounter Details Date Type Department Care Team (Latest Contact Info) Description 10/13/2021 Abstract [facility] CONVERSIONS Dental, Provider, DDS Social [...] Care Team (Late st Contact Info) Description 05/18/2025 8:00 AM EST Office Visit [facility] [address] [place] [address] Vin Medinaaris [address] [place] [address] documented as of this encounter Visit Diagnoses Not on filedocumented in this encounter
--- NOTE | 2024-11-28 09:04 | HO.ANESPROP2 ---
Documented by User: Hoda Manjarrez NP 11/28/24 09:07 HPI - Anesthesia Eval Consult details Narrative: 59yo F for Left Knee Manipulation s/p Left TKA 09/2024 with Spinal/TIVA/Block Per PAT documentation: Medically cleared Pulmo cleared No recent illness No CP/SOB within limits of knee pain KASIE: No CPAP rec'd, only position therapy and weight loss GERD: ppi controls PMFSH Active Problems Active Problems: All Active Problems Postoperative stiffness of total knee replacement (Acute) Chronic pain of left knee (Acute) Limited mobility (Acute) Urge urinary incontinence (Acute) Status post total left knee replacement (Acute) Chronic idiopathic constipation (Acute) Pre-op evaluation (Acute) Encounter for well woman exam with routine gynecological exam (Acute) Dysuria (Acute) Osteoarthritis of left knee (Acute) Multiple food allergies (Acute) Post-cholecystectomy syndrome (Acute) Essential hypertension (Acute) Pre-op evaluation (Acute) Chronic diarrhea (Acute) Chronic GERD (Acute) Osteoarthritis of knees, bilateral (Acute) Spondylosis of lumbar region without myelopathy or radiculopathy (Acute) GERD (gastroesophageal reflux disease) (Acute) Tubular adenoma of colon (Acute) Hodgkin lymphoma (Acute) Somnolence, daytime (Acute) Physical exam (Acute) Allergic rhinitis (Acute) Restrictive lung disease (Acute) Dyspnea on exertion (Acute) KASIE (obstructive sleep apnea) (Acute) Hematuria (Acute) Headache (Acute) Primary insomnia (Acute) Obese (Acute) Past Medical History Medical History Chronic pain of left knee Hx of lymphoma Back pain Hx of renal calculi Seasonal allergies Allergic rhinitis Restrictive lung disease Acquired skin tag Somnolence, daytime Snoring Dyspnea on exertion KASIE (obstructive sleep apnea) Vaginal irritation Women's annual routine gynecological examination Physical exam Hematuria Elevated platelet count Bacteremia UTI (urinary tract infection) Headache Primary insomnia Screen for STD (sexually transmitted disease) Ear discomfort Arthritis of both knees Dextroscoliosis Bilateral knee pain Tendonitis of wrist, left Lumbar pain Obese Rash and nonspecific skin eruption Tubular adenoma of colon Intestinal malabsorption Hodgkin lymphoma Family History Family History Mother Diabetes High blood pressure Father Pacemaker Diabetes CAD (coronary artery disease) CKD (chronic kidney disease) Maternal Aunt Stomach cancer Maternal Aunt Liver cancer Family history of problems with anesthesia: No Surgical History Surgical History H/O knee surgery Skin lesion H/O: hysterectomy S/P cholecystectomy History of esophagogastroduodenoscopy History of colonoscopy Hx of cataract extraction History of Problems with Anesthesia: No Social History Social History Household Members: None Housing: Apartment Are you a primary career orientation teacher to a significant other at home: No Do you presently have visiting nurse or other home services: Yes (2 x week HOME SECURITY PROFESSIONAL, 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) Alcohol intake: never Patient Tobacco Use Status: Never used Tobacco e-Cigarette/Vaping Use: Never Used Second Hand Smoke Exposure: No Use of substances other than those prescribed or required for medical reasons: No Have you been hit, kicked, punched, or otherwise hurt by someone within the past year? If so, by whom?: No Advance Directives: No Advance Directives Information Provided: Yes service: No Current occupational status: unemployed and disabled Cognitive needs: Yes Hearing needs: No Vision needs: Yes Meds Allergies Allergy/AdvReac Type Severity Reaction Status Date / Time adhesive tape Allergy Intermediate Redness of Verified 11/29/24 06:47 Skin metronidazole [Flagyl] Allergy Intermediate hives Verified 11/29/24 06:47 Home Medications ?Medication ?Instructions ?Recorded ?Confirmed ?Last Taken ?Type hydrochlorothiazide 25 mg tablet 25 mg PO DAILY 09/05/24 11/29/24 11/28/24 07:00 History omeprazole 20 mg tablet,delayed 20 mg PO DAILY@0630 09/05/24 11/29/24 11/29/24 04:00 History release Exam Pertinent Lab Results Pertinent Lab Results: Allergies metronidazole [Flagyl] Allergy (Intermediate, Verified 08/08/24 08:46) hives Laboratory Tests 10/16/24 10:09 WBC 6.6 Hgb 14.1 Hct 43.5 Plt Count 267 Sodium 140 Potassium 3.9 Chloride 109 H Carbon Dioxide 23 BUN 11 Creatinine 0.64 Narrative Narrative: EKG 07/2024 Vent. Rate : 92 BPM Atrial Rate : 92 BPM P-R Int : 148 ms QRS Dur : 86 ms QT Int : 348 ms P-R-T Axes : 40 -13 18 degrees QTcB Int : 430 ms Normal sinus rhythm Moderate voltage criteria for LVH, may be normal variant ( R in aVL , [facility] product ) Borderline ECG When compared with ECG of 13-Jan-2024 09:04, No significant change was found Assessment and Plan Assessment Anesthesia Assessment: Chart Reviewed Final Anesthetic Review Family History of Problems with Anesthesia: No History of Problems with Anesthesia: No Documented by User: Federico Banuelos MD 11/29/24 08:11 [facility] Past Medical History Medical History Chronic pain of left knee Hx of lymphoma Back pain Hx of renal calculi Seasonal allergies Allergic rhinitis Restrictive lung disease Acquired skin tag Somnolence, daytime Snoring Dyspnea on exertion KASIE (obstructive sleep apnea) Vaginal irritation Women's annual routine gynecological examination Physical exam Hematuria Elevated platelet count Bacteremia UTI (urinary tract infection) Headache Primary insomnia Screen for STD (sexually transmitted disease) Ear discomfort Arthritis of both knees Dextroscoliosis Bilateral knee pain Tendonitis of wrist, left Lumbar pain Obese Rash and nonspecific skin eruption Tubular adenoma of colon Intestinal malabsorption Hodgkin lymphoma Cognitive capacity: good Functional capacity: independent ambulation Patient : No Family History Family History Mother Diabetes High blood pressure Father Pacemaker Diabetes CAD (coronary artery disease) CKD (chronic kidney disease) Maternal Aunt Stomach cancer Maternal Aunt Liver cancer Surgical History Surgical History H/O knee surgery Skin lesion H/O: hysterectomy S/P cholecystectomy History of esophagogastroduodenoscopy History of colonoscopy Hx of cataract extraction Social History Social History Household Members: None Housing: Apartment Are you a primary career orientation teacher to a significant other at home: No Do you presently have visiting nurse or other home services: Yes (2 x week HOME SECURITY PROFESSIONAL, 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) Alcohol intake: never Patient Tobacco Use Status: Never used Tobacco e-Cigarette/Vaping Use: Never Used Second Hand Smoke Exposure: No Use of substances other than those prescribed or required for medical reasons: No Have you been hit, kicked, punched, or otherwise hurt by someone within the past year? If so, by whom?: No Advance Directives: No Advance Directives Information Provided: Yes service: No Current occupational status: unemployed and disabled Cognitive needs: Yes Hearing needs: No Vision needs: Yes Meds Allergies Allergy/AdvReac Type Severity Reaction Status Date / Time adhesive tape Allergy Intermediate Redness of Verified 11/29/24 06:47 Skin metronidazole [Flagyl] Allergy Intermediate hives Verified 11/29/24 06:47 Home Medications ?Medication ?Instructions ?Recorded ?Confirmed ?Last Taken ?Type hydrochlorothiazide 25 mg tablet 25 mg PO DAILY 09/05/24 11/29/24 11/28/24 07:00 History omeprazole 20 mg tablet,delayed 20 mg PO DAILY@0630 09/05/24 11/29/24 11/29/24 04:00 History release Exam Exam Date and Time: 2024 Height,Weight and Vital Signs: 5foot, 75 kilos Airway Mallampati Class: II TM Dist: >3cm Neck ROM: Full Loose/Missing/Broken Teeth: No Heart: rrr Lungs: cta Assessment and Plan Final Anesthetic Review ASA Class: II Final Preanesthetic Review: No Changes in Pt Med Stat, Meds/Allgs Chart Reviewed, Consent Obtained/Reviewed and Anes Risks/Benef Reviewed Patient Risk: Low Procedure Risk: Low Anesthetic Plan Anesthetic Plan: GA Disposition: Standard PACU
[2024-11-29] VITALS (9 sets, daily range): BP systolic 138–154; BP diastolic 74–91; PULSE 67–104; RESP 12–17; TEMP 36.1–36.7; O2SAT 96–98; BMI 32.3; BMI 32.5
--- NOTE | 2024-11-29 06:35 | PC.NURSE ---
disease case manager rn at the bedside. Patient verified her identity by name, date of , and social security number. Patient has a twin sister with the same name.
--- NOTE | 2024-11-29 07:09 | MHC.SHP ---
Pre-Procedural Eval Section A - 24 Hr Update-Section A only Date of Service: 11/29/24 The patient is an INPATIENT: No Changes since office visit: No Cold of Flu in the past 2 weeks, No New Medical Problems, No Changes in Medication and No Patient answered all questions The patient has been examined within 24 hours of the surgical procedure. The History & Physical has been completed within 30 days and I have reviewed it.: Yes Section B - Complete if H&P > 30 days Chief Complaint: Pain in left knee Allergies: Allergies Allergy/AdvReac Type Severity Reaction Status Date / Time adhesive tape Allergy Intermediate Redness of Verified 11/29/24 06:47 Skin metronidazole [Flagyl] Allergy Intermediate hives Verified 11/29/24 06:47 Plan I have reviewed the history and physical and performed a pertinent physical examination on my patient. No changes have occurred unless specified. Time Spent With Patient Time: Total time managing care of this patient today ____ minutes.
[2024-11-29] MEDS: Lactated Ringers 1,000 ML 100 ML IVCONT (07:16)
[2024-11-29] MEDS: Acetaminophen 1,000 MG/100 ML PIGGYBACK 400 MG IV (09:20)
[2024-11-29] MEDS: fentaNYL citrate/PF 100 MCG/2 ML VIAL 50 MCG IVPUSH ×3 (09:49→10:09)
--- NOTE | 2024-11-29 09:56 | P.BOP_ITS ---
Brief Operative Note Date of Service: 11/29/24 Pre-op diagnosis: Left knee stiffness s/p TKA Post-op diagnosis: same Procedure: Left knee GUILLERMO Implants: none Surgeon: Andrea Aguilar MD Anesthesia: MAC Was an Mine Car Mechanic used for this Procedure?: No Estimated blood loss (mL): 0 IV fluids (mL): 200 Condition: stable Disposition: PACU
[2024-11-29] MEDS: oxyCODONE HCl Immed Release 5 MG TABLET PO (10:25)
--- NOTE | 2024-11-29 10:30 | W.PM.OPN ---
Operative Note Operative Note Date of Service: 11/29/24 Narrative: Date of Service: 11/29/24 Pre-op diagnosis: Left knee stiffness s/p TKA Post-op diagnosis: same Procedure: Left knee GUILLERMO Implants: none Surgeon: Andrea Aguilar MD Anesthesia: MAC Was an Architectural Intern used for this Procedure?: No Estimated blood loss (mL): 0 IV fluids (mL): 200 Condition: stable Disposition: PACU Patient was brought to the operating room and placed supine on the surgical table. A time out was called to identify proper site, proper procedure and IV antibiotics per weight were administered. She had 90 deg of flexion while sedated. I then slowly and gently bend her knee. There was audible lysis of adhesions and she passively flexed to 110-115. I was able to actively flex her to 125 but she returned to 115 passively. No further flexion was obtainable. She was awakened from anesthetic and then brought to the recovery room is stable condition.
== END 2024-11-29 11:15 | disposition home or self-care (01) ==
LOC: HO.SSS 05:46
PROVIDERS: PCP Internal Medicine; Visit Provider Orthopaedic Surgery
PROC: (CPT 27570; principal; 2024-11-29 09:30)
DX: T84.89XA Other specified complication of internal orthopedic prosthetic devices, implants and grafts, initial encounter (principal); M25.662 Stiffness of left knee, not elsewhere classified; G89.29 Other chronic pain; M25.562 Pain in left knee; Z98.890 Other specified postprocedural states; Z96.652 Presence of left artificial knee joint; Y79.2 Prosthetic and other implants, materials and accessory orthopedic devices associated with adverse incidents; J98.4 Other disorders of lung; G47.33 Obstructive sleep apnea (adult) (pediatric); C81.9A Hodgkin lymphoma, unspecified, in remission; Z79.899 Other long term (current) drug therapy; L23.1 Allergic contact dermatitis due to adhesives; Z88.8 Allergy status to other drugs, medicaments and biological substances; Z56.0 Unemployment, unspecified
CPT/HCPCS: 27570; J0131; J2003; J2704; J3010

== ENCOUNTER → 2024-11-29 05:46 | Outpatient (BNV) | payer OTHER, SELFPAY | PROVIDERS: PCP Internal Medicine; Visit Provider Orthopaedic Surgery | DX: M25.662 Stiffness of left knee, not elsewhere classified (principal) | CPT/HCPCS: 27570 ==

== ENCOUNTER 2024-12-05 13:56 | Outpatient (AMB) | payer OTHER, SELFPAY ==
--- NOTE | 2024-12-05 14:01 | MHC.OFFVIS ---
Intake Visit Reasons: PO-Lt Knee GUILLERMO 11/29/24 NE Intake Note: Randa is a 59 year old female who presents today for a post op appointment s/p left Knee GUILLERMO 11/29/24 NE. Patient reports she is still having pain in her knee. Allergies adhesive tape Allergy (Intermediate, Verified 12/05/24 14:09) Redness of Skin metronidazole [Flagyl] Allergy (Intermediate, Verified 12/05/24 14:09) hives HPI HPI PO-Lt Knee GUILLERMO 11/29/24 NE: Details: Ms. Fulton is a 59yo female who presents to the office today for follow-up s/p left knee GUILLERMO performed on 11/29/[address] Aguilar. During the procedure the patient's left knee was passively flexed to 110-115 and actively flexed to 125. The patient returned to 115 passively. Overall the patient is dong very well with some soreness. PFSH Medical History Chronic pain of left knee Hx of lymphoma Back pain Hx of renal calculi Seasonal allergies Allergic rhinitis Restrictive lung disease Acquired skin tag Somnolence, daytime Snoring Dyspnea on exertion KASIE (obstructive sleep apnea) Vaginal irritation Women's annual routine gynecological examination Physical exam Hematuria Elevated platelet count Bacteremia UTI (urinary tract infection) Headache Primary insomnia Screen for STD (sexually transmitted disease) Ear discomfort Arthritis of both knees Dextroscoliosis Bilateral knee pain Tendonitis of wrist, left Lumbar pain Obese Rash and nonspecific skin eruption Tubular adenoma of colon Intestinal malabsorption Hodgkin lymphoma Surgical History H/O knee surgery Skin lesion H/O: hysterectomy S/P cholecystectomy History of esophagogastroduodenoscopy History of colonoscopy Hx of cataract extraction Family History Mother Diabetes High blood pressure Father Pacemaker Diabetes CAD (coronary artery disease) CKD (chronic kidney disease) Maternal Aunt Stomach cancer Maternal Aunt Liver cancer Social History Household Members: None Housing: Apartment Are you a primary caretaker resort to a significant other at home: No Do you presently have visiting nurse or other home services: Yes (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, 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) 75 years or older and lives alone: No Alcohol intake: never Comment: medicated Patient Tobacco Use Status: Never used Tobacco e-Cigarette/Vaping Use: Never Used Second Hand Smoke Exposure: No service: No Current occupational status: unemployed and disabled Cognitive needs: Yes Hearing needs: No Vision needs: Yes Female Reproductive History Menstrual Age of Menarche: 12 Review of Systems Const All systems reviewed & are unremarkable except as noted in HPI and below Physical Exam Const General: cooperative, healthy appearing and no acute distress Resp Effort & Inspection: normal respiratory effort and able to speak in complete sentences Extrem Other: left knee. Mild effusion. Prior total arthroplasty scar is intact. No surrounding erythema or signs of infection. ROM 0-90 degrees. NVI. Assessment & Plan Assessment & Plan (1) Postoperative stiffness of total knee replacement: Code(s): T84.89XA - Other specified complication of internal orthopedic prosthetic devices, implants and grafts, initial encounter; M25.669 - Stiffness of unspecified knee, not elsewhere classified; Z96.659 - Presence of unspecified artificial knee joint Category: Medical Plan Ms. Fulton is a 59yo female who presents to the office today for follow-up s/p left knee GUILLERMO performed on 11/29/[address] Aguilar. During the procedure the patient's left knee was passively flexed to 110-115 and actively flexed to 125. The patient returned to 115 passively. Overall the patient is dong very well with some soreness. While in the office today we discussed the range of motion achieved while in the operating room and encouraged the patient to continue pushing motion. I have recommended physical therapy to maximize her range of motion. She will followup in 4 weeks, sooner if needed. Coding Level of Care Code Global (89666) Diagnoses Postoperative stiffness of total knee replacement T84.89XA; M25.669; Z96.659
== END 2024-12-05 14:26 | disposition home or self-care (01) ==
LOC: HO.HOS 13:58
PROVIDERS: PCP Internal Medicine; Visit Provider Physician Assistant
DX: T84.89XA Other specified complication of internal orthopedic prosthetic devices, implants and grafts, initial encounter (principal); M25.669 Stiffness of unspecified knee, not elsewhere classified; Z96.659 Presence of unspecified artificial knee joint
CPT/HCPCS: 99024

== ENCOUNTER → 2024-12-05 13:56 | Outpatient (BNVA) | payer OTHER, SELFPAY | PROVIDERS: PCP Internal Medicine; Visit Provider Physician Assistant | DX: T84.89XA Other specified complication of internal orthopedic prosthetic devices, implants and grafts, initial encounter (principal); M25.669 Stiffness of unspecified knee, not elsewhere classified; Z96.659 Presence of unspecified artificial knee joint | CPT/HCPCS: 99212 ==

== ENCOUNTER 2024-12-11 06:28 | Day surgery (SDC) | payer OTHER, SELFPAY ==
--- OUTSIDE RECORDS SUMMARY | 2024-12-05 13:33 | XMS_ITS | Encounter Summary ---
Author Organization [employer] Address [address] [place] [address] Care Team Providers Care Teacher'S Assistant Name Role Phone Unavailable Primary Care Provider Unavailabl e Encounter Details Date Type Department Care Team (Latest Contact Info) Description 10/13/2021 Abstract [facility] CONVERSIONS Dental, Provider, DDS Social History [...] Description 05/18/2025 8:00 AM EST Office Visit [facility] [address] [place] [address] Vin Medinaaris [address] [place] [address] documented as of this encounter Visit Diagnoses Not on filedocumented in this encounter
[2024-12-07 13:37] VITALS: BMI 27.1
--- NOTE | 2024-12-08 12:18 | HO.ANESPROP2 ---
Documented by User: Hoda Manjarrez NP 12/08/24 12:22 HPI - Anesthesia Eval Consult details Narrative: 59yo F for Upper Endoscopy and Colonoscopy s/p L knee manipulation following TKA 11/2024 with GA KASIE: No CPAP rec'd, only position therapy and weight loss GERD: ppi controls PMFSH Active Problems Active Problems: All Active Problems Postoperative stiffness of total knee replacement (Acute) Limited mobility (Acute) Urge urinary incontinence (Acute) Status post total left knee replacement (Acute) Chronic idiopathic constipation (Acute) Pre-op evaluation (Acute) Encounter for well woman exam with routine gynecological exam (Acute) Dysuria (Acute) Osteoarthritis of left knee (Acute) Multiple food allergies (Acute) Post-cholecystectomy syndrome (Acute) Essential hypertension (Acute) Pre-op evaluation (Acute) Chronic diarrhea (Acute) Chronic GERD (Acute) Osteoarthritis of knees, bilateral (Acute) Spondylosis of lumbar region without myelopathy or radiculopathy (Acute) GERD (gastroesophageal reflux disease) (Acute) Tubular adenoma of colon (Acute) Hodgkin lymphoma (Acute) Chronic pain of left knee (Acute) Somnolence, daytime (Acute) Physical exam (Acute) Allergic rhinitis (Acute) Restrictive lung disease (Acute) Dyspnea on exertion (Acute) KASIE (obstructive sleep apnea) (Acute) Hematuria (Acute) Headache (Acute) Primary insomnia (Acute) Obese (Acute) Past Medical History Medical History Chronic pain of left knee Hx of lymphoma Back pain Hx of renal calculi Seasonal allergies Allergic rhinitis Restrictive lung disease Acquired skin tag Snoring Dyspnea on exertion KASIE (obstructive sleep apnea) Vaginal irritation Hematuria Elevated platelet count UTI (urinary tract infection) Headache Primary insomnia Arthritis of both knees Dextroscoliosis Bilateral knee pain Tendonitis of wrist, left Lumbar pain Obese Rash and nonspecific skin eruption Tubular adenoma of colon Intestinal malabsorption Hodgkin lymphoma Family History Family History Mother Diabetes High blood pressure Father Pacemaker Diabetes CAD (coronary artery disease) CKD (chronic kidney disease) Maternal Aunt Stomach cancer Maternal Aunt Liver cancer Family history of problems with anesthesia: No Surgical History Surgical History History of knee surgery H/O knee surgery H/O: hysterectomy S/P cholecystectomy History of esophagogastroduodenoscopy History of colonoscopy Hx of cataract extraction History of Problems with Anesthesia: No Social History Social History Household Members: None Housing: Apartment Are you a primary home care and home health aides teacher to a significant other at home: No Do you presently have visiting nurse or other home services: Yes (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, 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) Alcohol intake: never Comment: medicated Patient Tobacco Use Status: Never used Tobacco e-Cigarette/Vaping Use: Never Used Second Hand Smoke Exposure: No Use of substances other than those prescribed or required for medical reasons: No Are you DNR?: No Advance Directives: No Advance Directives Information Provided: Yes Patient : No : No Poor oral hygiene: No service: No Current occupational status: unemployed and disabled Cognitive needs: Yes Hearing needs: No Vision needs: Yes Meds Allergies Allergy/AdvReac Type Severity Reaction Status Date / Time adhesive tape Allergy Intermediate Redness of Verified 12/05/24 14:09 Skin metronidazole [Flagyl] Allergy Intermediate hives Verified 12/05/24 14:09 fish derived [fish] AdvReac Intermediate Diarrhea Verified 12/11/24 07:24 shrimp AdvReac Intermediate Diarrhea Verified 12/11/24 07:24 wheat AdvReac Intermediate Diarrhea Verified 12/11/24 07:24 Home Medications ?Medication ?Instructions ?Recorded ?Confirmed ?Last Taken ?Type hydrochlorothiazide 25 mg tablet 25 mg PO DAILY 09/05/24 12/07/24 11/28/24 07:00 History omeprazole 20 mg tablet,delayed 20 mg PO DAILY@0630 09/05/24 12/07/24 11/29/24 04:00 History release Exam Height,Weight and Vital Signs: Height 5 ft 5 in Weight 73.936 kg Pertinent Lab Results Pertinent Lab Results: Allergies metronidazole [Flagyl] Allergy (Intermediate, Verified 08/08/24 08:46) hives Laboratory Tests 10/16/24 10:09 WBC 6.6 Hgb 14.1 Hct 43.5 Plt Count 267 Sodium 140 Potassium 3.9 Chloride 109 H Carbon Dioxide 23 BUN 11 Creatinine 0.64 Narrative Narrative: EKG 07/2024 Vent. Rate : 92 BPM Atrial Rate : 92 BPM P-R Int : 148 ms QRS Dur : 86 ms QT Int : 348 ms P-R-T Axes : 40 -13 18 degrees QTcB Int : 430 ms Normal sinus rhythm Moderate voltage criteria for LVH, may be normal variant ( R in aVL , Grabiel product ) Borderline ECG When compared with ECG of 13-Jan-2024 09:04, No significant change was found Assessment and Plan Assessment Anesthesia Assessment: Chart Reviewed Final Anesthetic Review Family History of Problems with Anesthesia: No History of Problems with Anesthesia: No Documented by User: Karyn Brower MD 12/11/24 08:13 PMFSH Past Medical History Medical History Chronic pain of left knee Hx of lymphoma Back pain Hx of renal calculi Seasonal allergies Allergic rhinitis Restrictive lung disease Acquired skin tag Snoring Dyspnea on exertion KASIE (obstructive sleep apnea) Vaginal irritation Hematuria Elevated platelet count UTI (urinary tract infection) Headache Primary insomnia Arthritis of both knees Dextroscoliosis Bilateral knee pain Tendonitis of wrist, left Lumbar pain Obese Rash and nonspecific skin eruption Tubular adenoma of colon Intestinal malabsorption Hodgkin lymphoma Family History Family History Mother Diabetes High blood pressure Father Pacemaker Diabetes CAD (coronary artery disease) CKD (chronic kidney disease) Maternal Aunt Stomach cancer Maternal Aunt Liver cancer Surgical History Surgical History History of knee surgery H/O knee surgery H/O: hysterectomy S/P cholecystectomy History of esophagogastroduodenoscopy History of colonoscopy Hx of cataract extraction Social History Social History Household Members: None Housing: Apartment Are you a primary home care and home health aides teacher to a significant other at home: No Do you presently have visiting nurse or other home services: Yes (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, 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) Alcohol intake: never Comment: medicated Patient Tobacco Use Status: Never used Tobacco e-Cigarette/Vaping Use: Never Used Second Hand Smoke Exposure: No Use of substances other than those prescribed or required for medical reasons: No Are you DNR?: No Advance Directives: No Advance Directives Information Provided: Yes Patient : No : No Poor oral hygiene: No service: No Current occupational status: unemployed and disabled Cognitive needs: Yes Hearing needs: No Vision needs: Yes Meds Allergies Allergy/AdvReac Type Severity Reaction Status Date / Time adhesive tape Allergy Intermediate Redness of Verified 12/05/24 14:09 Skin metronidazole [Flagyl] Allergy Intermediate hives Verified 12/05/24 14:09 fish derived [fish] AdvReac Intermediate Diarrhea Verified 12/11/24 07:24 shrimp AdvReac Intermediate Diarrhea Verified 12/11/24 07:24 wheat AdvReac Intermediate Diarrhea Verified 12/11/24 07:24 Home Medications ?Medication ?Instructions ?Recorded ?Confirmed ?Last Taken ?Type hydrochlorothiazide 25 mg tablet 25 mg PO DAILY 09/05/24 12/07/24 11/28/24 07:00 History omeprazole 20 mg tablet,delayed 20 mg PO DAILY@0630 09/05/24 12/07/24 11/29/24 04:00 History release Exam Airway Mallampati Class: II TM Dist: >3cm Neck ROM: Limited Heart: rrr Lungs: cta Assessment and Plan Assessment Anesthesia Assessment: Anesthesia Plan Discussed Final Anesthetic Review NPO: Yes ASA Class: III Final Preanesthetic Review: No Changes in Pt Med Stat, Meds/Allgs Chart Reviewed, Consent Obtained/Reviewed and Anes Risks/Benef Reviewed Patient Risk: Intermediate Procedure Risk: Low Anesthetic Plan Anesthetic Plan: MAC: Disposition: Standard PACU
--- NOTE | 2024-12-11 07:23 | P.HPSUR_ITS ---
Pre-Procedural Eval Section A - 24 Hr Update-Section A only Date of Service: 12/11/24 The patient is an INPATIENT: No The patient has been examined within 24 hours of the surgical procedure. The History & Physical has been completed within 30 days and I have reviewed it.: No Section B - Complete if H&P > 30 days Chief Complaint: Surveillance for Colon polyps Relevant Family History (Specify if Yes): No Relevant Social History: None Present Medications: see Short Stay Collaborative assessment Medical History: Significant History (Intestinal malabsorption Rash and nonspecific skin eruption Lumbar pain Tendonitis of wrist, left Bilateral knee pain Dextroscoliosis Arthritis of both knees Ear discomfort Screen for STD (sexually transmitted disease) Elevated platelet count) History of Previous Operations: Relevant previous surgery/procedure and date(s) (S/P cholecystectomy Skin lesion H/O: hysterectomy History of esophagogast roduodenoscopy History of colonoscopy Hx of cataract extraction) Allergies: Allergies Allergy/AdvReac Type Severity Reaction Status Date / Time adhesive tape Allergy Intermediate Redness of Verified 12/05/24 14:09 Skin metronidazole [Flagyl] Allergy Intermediate hives Verified 12/05/24 14:09 Review of Systems Sugical H&P ROS: Negative: Constitution, Cardiovascular and Respiratory and Yes, Specify: Gastrointestinal (diarrhea alternating with constipation) Exam Surgical H&P Exam: Normal: Heart, Normal: Lungs, Normal: Extremities and Normal: Abdomen Plan Diagnosis/Plan: Unchanged I have reviewed the history and physical and performed a pertinent physical examination on my patient. No changes have occurred unless specified. Time Spent With Patient Time: Total time managing care of this patient today ____ minutes.
[2024-12-11 07:24] VITALS: BMI 31.7
[2024-12-11 07:26] VITALS: BP 113/62; PULSE 92; RESP 16; TEMP 36.8; O2SAT 96
[2024-12-11] MEDS: Lactated Ringers 1,000 ML 100 ML IVCONT (07:37)
--- NOTE | 2024-12-11 08:22 | P.CONAN_ITS ---
[facility] Active Problems Active Problems: All Active Problems Postoperative stiffness of total knee replacement (Acute) Limited mobility (Acute) Urge urinary incontinence (Acute) Status post total left knee replacement (Acute) Chronic idiopathic constipation (Acute) Pre-op evaluation (Acute) Encounter for well woman exam with routine gynecological exam (Acute) Dysuria (Acute) Osteoarthritis of left knee (Acute) Multiple food allergies (Acute) Post-cholecystectomy syndrome (Acute) Essential hypertension (Acute) Pre-op evaluation (Acute) Chronic diarrhea (Acute) Chronic GERD (Acute) Osteoarthritis of knees, bilateral (Acute) Spondylosis of lumbar region without myelopathy or radiculopathy (Acute) GERD (gastroesophageal reflux disease) (Acute) Tubular adenoma of colon (Acute) Hodgkin lymphoma (Acute) Chronic pain of left knee (Acute) Somnolence, daytime (Acute) Physical exam (Acute) Allergic rhinitis (Acute) Restrictive lung disease (Acute) Dyspnea on exertion (Acute) KASIE (obstructive sleep apnea) (Acute) Hematuria (Acute) Headache (Acute) Primary insomnia (Acute) Obese (Acute) Past Medical History Medical History Chronic pain of left knee Hx of lymphoma Back pain Hx of renal calculi Seasonal allergies Allergic rhinitis Restrictive lung disease Acquired skin tag Snoring Dyspnea on exertion KASIE (obstructive sleep apnea) Vaginal irritation Hematuria Elevated platelet count UTI (urinary tract infection) Headache Primary insomnia Arthritis of both knees Dextroscoliosis Bilateral knee pain Tendonitis of wrist, left Lumbar pain Obese Rash and nonspecific skin eruption Tubular adenoma of colon Intestinal malabsorption Hodgkin lymphoma Family History Family History Mother Diabetes High blood pressure Father Pacemaker Diabetes CAD (coronary artery disease) CKD (chronic kidney disease) Maternal Aunt Stomach cancer Maternal Aunt Liver cancer Family history of problems with anesthesia: No Surgical History Surgical History History of knee surgery H/O knee surgery H/O: hysterectomy S/P cholecystectomy History of esophagogastroduodenoscopy History of colonoscopy Hx of cataract extraction History of Problems with Anesthesia: No Social History Social History Household Members: None Housing: Apartment Are you a primary sub acute care nurse to a significant other at home: No Do you presently have visiting nurse or other home services: Yes (2 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, 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) Alcohol intake: never Comment: medicated Patient Tobacco Use Status: Never used Tobacco e-Cigarette/Vaping Use: Never Used Second Hand Smoke Exposure: No Use of substances other than those prescribed or required for medical reasons: No Are you DNR?: No Advance Directives: No Advance Directives Information Provided: Yes Patient : No : No Poor oral hygiene: No service: No Current occupational status: unemployed and disabled Cognitive needs: Yes Hearing needs: No Vision needs: Yes Meds Allergies Allergy/AdvReac Type Severity Reaction Status Date / Time adhesive tape Allergy Intermediate Redness of Verified 12/05/24 14:09 Skin metronidazole [Flagyl] Allergy Intermediate hives Verified 12/05/24 14:09 fish derived [fish] AdvReac Intermediate Diarrhea Verified 12/11/24 07:24 shrimp AdvReac Intermediate Diarrhea Verified 12/11/24 07:24 wheat AdvReac Intermediate Diarrhea Verified 12/11/24 07:24 Active Medications: Current Medications Lactated Ringer's (Lr) 1,000 mls @ 100 mls/hr IVCONT .Q10H AJ Last Admin: 12/11/24 07:37 Dose: 100 mls/hr Naloxone HCl (Naloxone Hcl 0.4 Mg/Ml Vial) 0.04 mg IVPUSH Q5M PRN PRN Reason: Excessive sedation or RR < 8 Home Medications ?Medication ?Instructions ?Recorded ?Confirmed ?Last Taken ?Type hydrochlorothiazide 25 mg tablet 25 mg PO DAILY 09/05/24 12/07/24 11/28/24 07:00 History omeprazole 20 mg tablet,delayed 20 mg PO DAILY@0630 09/05/24 12/07/24 11/29/24 04:00 History release Exam Height,Weight and Vital Signs: Height 5 ft Weight 73.6 kg Last Vital Signs Temp 98.2 F 12/11/24 07:26 Pulse 92 12/11/24 07:26 Resp 16 12/11/24 07:26 BP 113/62 12/11/24 07:26 Pulse Ox 96 12/11/24 07:26 O2 Del Method Room Air 12/11/24 07:26 Airway Mallampati Class: III TM Dist: >3cm Neck ROM: Full Assessment and Plan Assessment Anesthesia Assessment: Anesthesia Plan Discussed and Chart Reviewed Final Anesthetic Review Family History of Problems with Anesthesia: No History of Problems with Anesthesia: No NPO: Yes ASA Class: III Final Preanesthetic Review: No Changes in Pt Med Stat, Meds/Allgs Chart Reviewed, Consent Obtained/Reviewed and Anes Risks/Benef Reviewed Patient Risk: Intermediate Procedure Risk: Low Anesthetic Plan Anesthetic Plan: TIVA Disposition: Standard PACU
--- NOTE | 2024-12-11 08:51 | HO.OPN-COLON ---
Colonoscopy Operative Note Operative Note Date of Service: 12/11/24 Narrative: FLEXIBLE TRANSORAL UPPER GASTROINTESTINAL ENDOSCOPY WITH BIOPSIES AND COLONOSCOPY TILL CECUM WITH BIOPSIES Pre-op diagnosis: Surveillance for colon polyps, diarrhea, GERD Post-op diagnosis: GERD, Gastritis, gastric polyps, Colon Polyps, Diverticulosis, hemorrhoids Endoscopist:? Sowmya Ivey MD Anesthesia:?MAC UPPER ENDOSCOPY Consent: Indications for the procedure and potential complications of bleeding, perforation, reaction to medications and missed diagnosis were discussed with the patient and informed consent was obtained. Instrument: Olympus GIF H 190 mid size upper endoscope Monitoring: Vital signs and clinical assessment, continuous EKG monitoring, Pulse oximetry, Carbon Dioxide monitoring and blood pressure monitoring were done throughout the procedure. Procedure: The patient was placed in the left lateral decubitis position and pre-procedure medications were administered and a bite block was placed. The endoscope was inserted into the mouth and advanced under direct vision to the third part of duodenum. A careful inspection was made as the upper endoscope was withdrawn including a retroflexed examination of the proximal stomach; Findings and interventions are described below. Findings: Larynx: Normal Esophagus: GE junction at 35 cms. No esophagitis. Three one cms tongues of possible Keita's - biopsied. Stomach: A few 3-4 mm benign appearing polyps in the gastric body - biopsied. Moderate diffuse gastric erythema - biopsies were obtained from the gastric body and antrum. Grade 2 flap valve on retroflexed examination of the cardia. Duodenum: Normal bulb and descending duodenum Biopsies were obtained from descending duodenum to check for celiac sprue Intervention: Biopsies as noted above COLONOSCOPY PROCEDURE NOTE Instrument: Olympus PCF H 190 L variable stiffness pediatric colonoscope Monitoring: Vital signs and clinical assessment, intermittent blood pressure monitoring, continuous EKG monitoring, Pulse oximetry and Carbon Dioxide monitoring were done throughout the procedure. Please see anesthesia flowsheet. Colon withdrawl time was 18 minutes. Procedure: The patient was placed in the left lateral decubitis position and pre-procedure medications were administered. After a digital rectal examination of the ano-rectum, the video colonoscope was inserted into the rectum and advanced through the colon to the cecum. The colonoscope was slowly withdrawn in a retrograde panoramic fashion and the colon mucosa was carefully examined including a retroflexed view of the rectum. Findings and interventions are described below. Procedure Difficulty: without difficulty Findings: Terminal Ileum: Not evaluated Cecum: Normal Ascending Colon: A 3-4 mm diminutive appearing polyp in the proximal AC - removed with a cold biopsy. Transverse Colon: A 5-6 mm sessile polyp seen in the mid TC at 70 cms and not seen again despite multiple passes. Descending Colon: Moderate diverticulosis Sigmoid Colon: Moderate diverticulosis Rectum: Normal Ano-rectum: Small internal hemorrhoids Colon preparation: Good after some irrigation. [place] Bowel Preparation Scale Right colon; 2 Transverse colon: 2 Left colon; 2 (0 = Unprepared colon segment with mucosa not seen due to solid stool that cannot be cleared. 1 = Portion of mucosa of the colon segment seen, but other areas of the colon segment not well seen due to staining, residual stool and/or opaque liquid. 2 = Minor amount of residual staining, small fragments of stool and/or opaque liquid, but mucosa of colon segment seen well. 3 = Entire mucosa of colon segment seen well with no residual staining, small fragments of stool or opaque liquid) Impression and Post Procedure Diagnosis: Endoscopy Findings: ESOPHAGUS: Three 1 cms tongues of possible Keita's - biopsied. STOMACH: Diffuse gastritis and benign-appearing gastric polyps DUODENUM: Normal - biopsied to check for celiac sprue Colonoscopy Findings: One small polyp was removed A 5-6 mm sessile polyp seen in the mid TC at 70 cms and not seen again despite multiple passes. Moderate diverticulosis seen in the left colon Small hemorrhoids on retroflexed exam. Plan: Pt has a FU appointment on 12/28/24 with Sandra Fontenot NP Repeat Colonoscopy in 3 years if polyps are adenomatous and for removal of TC polyp. A summary of above findings and relevant handouts were given to the patient. BIOPSIES SHOWED: A. Small bowel, biopsy: Small intestinal mucosa with mildly increased intraepithelial lymphocytes and preserved villous architecture. See comment. B. Stomach, antrum, biopsy: - Antral-type mucosa with moderate chronic active/erosive inflammation. - Positive for H pylori. C. Stomach, body, biopsy: - Oxyntic mucosa with severe chronic active inflammation. - Positive for H pylori. D. Stomach, polypectomy: - Clinically polypoid cardiac type mucosa with severe chronic active inflammation. - Positive for H pylori. E. Esophagus, distal, biopsy: - Cardiac-type mucosa with moderate chronic inactive inflammation; no intestinal metaplasia seen. - Active esophagitis (maximum eosinophil count 3 per high powered field). F. Colon, ascending, biopsy: Mildly active colitis. Comment: The findings in the small bowel are likely secondary to the H. pylori infection. Biopsy results were reviewed with the patient during her GI Clinic visit. She was treated with levofloxacin and amoxicillin for Helicobacter pylori Patient placed on the colonoscopy recall list for repeat colonoscopy in 3 years.
[2024-12-11 09:27] VITALS: BP 104/67; PULSE 94; RESP 17; TEMP 36.9; O2SAT 98
[2024-12-11 09:42] VITALS: BP 136/79; PULSE 76; RESP 16; TEMP 36.9; O2SAT 99
== END 2024-12-11 10:58 | disposition home or self-care (01) ==
PROVIDERS: PCP Internal Medicine; Visit Provider Internal Medicine Gastroenterology
PROC: (CPT 45380; principal; 2024-12-11 08:30)
DX: Z12.11 Encounter for screening for malignant neoplasm of colon (principal); Z86.0101 Personal history of adenomatous and serrated colon polyps; K63.5 Polyp of colon; K57.30 Diverticulosis of large intestine without perforation or abscess without bleeding; K64.8 Other hemorrhoids; K52.9 Noninfective gastroenteritis and colitis, unspecified; K21.9 Gastro-esophageal reflux disease without esophagitis; K29.50 Unspecified chronic gastritis without bleeding; B96.81 Helicobacter pylori [H. pylori] as the cause of diseases classified elsewhere; K20.90 Esophagitis, unspecified without bleeding; K31.7 Polyp of stomach and duodenum
CPT/HCPCS: 45380; 43239; 88305; 88313; 88342; J2003; J2704

== ENCOUNTER → 2024-12-11 06:28 | Outpatient (BNV) | payer OTHER, SELFPAY | PROVIDERS: PCP Internal Medicine; Visit Provider Internal Medicine Gastroenterology | DX: Z12.11 Encounter for screening for malignant neoplasm of colon (principal); R19.7 Diarrhea, unspecified; D12.2 Benign neoplasm of ascending colon; D12.3 Benign neoplasm of transverse colon; K57.90 Diverticulosis of intestine, part unspecified, without perforation or abscess without bleeding; K64.8 Other hemorrhoids; K21.9 Gastro-esophageal reflux disease without esophagitis; K31.7 Polyp of stomach and duodenum | CPT/HCPCS: 43239; 45380 ==

== ENCOUNTER 2024-12-28 09:26 | Outpatient (AMB) | payer OTHER, SELFPAY ==
--- NOTE | 2024-12-28 09:31 | MHC.OFFVIS ---
Vital Signs 12/28/24 09:43 Height 5 ft Weight 170 lb BMI 33.2 BP 170/86 H Blood Pressure Location Rt brachial Position Sitting Pulse 108 H Pulse Source Pulse Oximeter Pulse Oximetry (%) 100 Oxygen Delivery Method Room Air Intake Visit Reasons: s/p EGD and colonoscopy Intake Note: Est pt for mgmt of GERD. S/P [place] w/ Dr. Ivey CC; Pt denies any new GI sx or concerns at this time. [employer] Required: Yes [employer] Services: [employer] Present [employer] Name: [facility] + [place] [id number] Information Interpreted: clinical only Accompanied by: Self / Same As Patient Allergies adhesive tape Allergy (Intermediate, Verified 12/28/24 09:31) Redness of Skin metronidazole (Flagyl) Allergy (Intermediate, Verified 12/28/24 09:31) hives fish derived (fish) Adverse Reaction (Intermediate, Verified 12/28/24 09:31) Diarrhea shrimp Adverse Reaction (Intermediate, Verified 12/28/24 09:31) Diarrhea wheat Adverse Reaction (Intermediate, Verified 12/28/24 09:31) Diarrhea HPI HPI s/p EGD and colonoscopy: Details: Assessment & Plan (1) Multiple food allergies: Comment: Wheat, fish, shrimp, salmon tuna Code(s): Z91.018 - Allergy to other foods Category: Medical (2) Post-cholecystectomy syndrome: Code(s): K91.5 - Postcholecystectomy syndrome Category: Medical (3) Chronic GERD: Code(s): K21.9 - Gastro-esophageal reflux disease without esophagitis Category: Medical Plan [place]ian #Tachira LIve This patient has been lost to follow-up since 07/2020 apparently is here today for screening colonoscopy. However her last colonoscopy was in 2019 and was completely normal although she had a tubular adenoma removed on a prior colonoscopy with this history she would not be due for colonoscopy until 2024. 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 She started colace - and this is fine but she also can decrease the dose to qd and titrate. We also review the food allergies.All printed in [place]ian for her. Keep appt after procedures per pt request. EGD/COLONOSCOPY 12/11/24 Findings: Larynx: Normal Esophagus: GE junction at 35 cms. No esophagitis. Three one cms tongues of possible Keita's - biopsied. Stomach: A few 3-4 mm benign appearing polyps in the gastric body - biopsied. Moderate diffuse gastric erythema - biopsies were obtained from the gastric body and antrum. Grade 2 flap valve on retroflexed examination of the cardia. Duodenum: Normal bulb and descending duodenum Biopsies were obtained from descending duodenum to check for celiac sprue Findings: Terminal Ileum: Not evaluated Cecum: Normal Ascending Colon: A 3-4 mm diminutive appearing polyp in the proximal AC - removed with a cold biopsy. Transverse Colon: A 5-6 mm sessile polyp seen in the mid TC at 70 cms and not seen again despite multiple passes. Descending Colon: Moderate diverticulosis Sigmoid Colon: Moderate diverticulosis Rectum: Normal Ano-rectum: Small internal hemorrhoids Impression and Post Procedure Diagnosis: Endoscopy Findings: Colonoscopy Findings: One small polyp was removed A 5-6 mm sessile polyp seen in the mid TC at 70 cms and not seen again despite multiple passes. Moderate diverticulosis seen in the left colon Small hemorrhoids on retroflexed exam. Plan: Pt has a FU appointment on 12/28/24 with Sandra Fontenot NP Repeat Colonoscopy in 3 years if polyps are adenomatous and for removal of TC polyp BIOPSY Received: 12/11/24 Diagnosis A. Small bowel, biopsy: Small intestinal mucosa with mildly increased intraepithelial lymphocytes and preserved villous architecture. See comment. B. Stomach, antrum, biopsy: - Antral-type mucosa with moderate chronic active/erosive inflammation. - Positive for H pylori. C. Stomach, body, biopsy: - Oxyntic mucosa with severe chronic active inflammation. - Positive for H pylori. D. Stomach, polypectomy: - Clinically polypoid cardiac type mucosa with severe chronic active inflammation. - Positive for H pylori. E. Esophagus, distal, biopsy: - Cardiac-type mucosa with moderate chronic inactive inflammation; no intestinal metaplasia seen. - Active esophagitis (maximum eosinophil count 3 per high powered field). F. Colon, ascending, biopsy: Mildly active colitis. Comment: The findings in the small bowel are likely secondary to the H. pylori infection TODAY'S VISIT [place]ian #Shayne DRAKE The procedure needs to be repeated in 3 years r/t the sesslie polyp seen on first pass than unable to be located. The procedure was well tolerated. The results were explained and the patient is agreeable to the follow-up interval as stated. The bowel pattern has returned to normal. Education was provided to tell any 1st degree relatives about their findings to be sure that they are screened by age 45. Educated that they will be put on a recall list when it is time for their repeat scope but should they move out of state or away from the hospital they will need to remember along with their primary to repeat the procedure in a timely fashion to avoid any adverse complications. We ordered the EGD r/t her c/o stomach pains. I adviser her of the H pylori and she is educated. Allergic to flagyl so will order levaquin/amox therapy. She tells me that her sister also had H pylori. She is educated about the importance of completing antibiotic so that it does not become resistant, to take a probiotic supplement to barajas off diarrhea and yeast infections, and to call the office if there is any untoward effects. Emotional, had family who let her down during her cancer tx. ROV 8 WEEKS. [facility] Medical History (Updated 12/28/24 @ 17:33 by ROGERS Hamilton) Chronic diarrhea Chronic GERD Encounter for well woman exam with routine gynecological exam Physical exam Pre-op evaluation Pre-op evaluation Chronic pain of left knee Hx of lymphoma Back pain Hx of renal calculi Seasonal allergies Allergic rhinitis Restrictive lung disease Acquired skin tag Snoring Dyspnea on exertion KASIE (obstructive sleep apnea) Vaginal irritation Hematuria Elevated platelet count UTI (urinary tract infection) Headache Primary insomnia Arthritis of both knees Dextroscoliosis Bilateral knee pain Tendonitis of wrist, left Lumbar pain Obese Rash and nonspecific skin eruption Tubular adenoma of colon Intestinal malabsorption Hodgkin lymphoma Surgical History History of knee surgery H/O knee surgery H/O: hysterectomy S/P cholecystectomy History of esophagogastroduodenoscopy History of colonoscopy Hx of cataract extraction Family History Mother Diabetes High blood pressure Father Pacemaker Diabetes CAD (coronary artery disease) CKD (chronic kidney disease) Maternal Aunt Stomach cancer Maternal Aunt Liver cancer Social History Household Members: None Housing: Apartment Are you a primary point of care technician to a significant other at home: No Do you presently have visiting nurse or other home services: Yes (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, 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) 75 years or older and lives alone: No Alcohol intake: never Comment: medicated Patient Tobacco Use Status: Never used Tobacco e-Cigarette/Vaping Use: Never Used Second Hand Smoke Exposure: No service: No Current occupational status: unemployed and disabled Cognitive needs: Yes Hearing needs: No Vision needs: Yes Female Reproductive History Menstrual Age of Menarche: 12 Review of Systems Const Denies fatigue, Denies fever(s), Denies night sweats, Denies poor appetite and Denies weight loss ENT Reports Normal hearing present, Denies dental pain, Denies dysphagia, Denies hearing loss, Denies mouth pain, Denies odynophagia, Denies throat swelling, Denies tongue swelling and Reports other (Dentition adequate) Card Reports no additional complaints Resp Reports no additional complaints GI Details: Denies abdominal pain, Denies melena, Reports bloating, Denies hematochezia, Denies constipation, Denies GI cramping, Denies dysphagia, Denies excessive flatus, Denies early satiety, Reports heartburn, Denies diarrhea, Reports loose stools, Denies nausea, Denies odynophagia, Denies vomiting and Denies hematemesis Skin/Breast Denies pruritus, Denies lesions, Denies rash and Denies jaundice Neuro Reports Normal hearing present and Denies Abnormal speech present Endo Denies fatigue Aller/Immun Denies throat swelling and Denies tongue swelling Physical Exam Vital Signs: Last Vital Signs Pulse 108 H 12/28/24 09:43 BP 170/86 H 12/28/24 09:43 Pulse Ox 100 12/28/24 09:43 Oxygen Delivery Method Room Air 12/28/24 09:43 BMI result Body Mass Index 33.2 Const General: cooperative, no acute distress, well developed and well groomed Nutritional Appearance: well nourished and obese Orientation/consciousness: oriented to person, oriented to place and oriented to time Limitations: language barrier HEENT Head: Yes normocephalic and Yes atraumatic Eyes General: appearance normal, both eyes and all related structures Pupils: Equal, round and reactive pupils present Neck Neck: Yes normal visual inspection and Yes no lymphadenopathy Thyroid: Thyroid normal Resp Effort & Inspection: normal respiratory effort and able to speak in complete sentences Auscultation: clear to auscultation bilaterally Cardio Rate: regular rate Rhythm: regular rhythm Heart sounds: Normal, physiologic split S2 sound present Peripheral pulses: radial pulses present and posterior tibial pulses present GI Inspection: No distended, Yes Abdominal panniculus present and Yes obesity Palpation (GI): Soft to palpation, nontender, no guarding, not rigid and No hepatosplenomegaly present Percussion: Yes normal to percussion Auscultation: normal bowel sounds Rectal Exam - Female: deferred Skin General skin exam: no rashes or lesions noted, turgor normal, skin not dry, no jaundice, No spider nevi and no striae Rashes: no rashes Nails: normal Neuro General: oriented to person, oriented to place and oriented to time Cranial nerves: Yes Equal, round and reactive pupils present and Yes Normal hearing present Speech: No Abnormal speech present Extrem General: Yes normal to inspection, No clubbing, No cyanosis and No edema Psych Appearance: grossly normal and well kempt Mental Status: mental status grossly normal Speech and movement: Normal speech and movement present Affect: Labile affect present Thought process: Normal thought process present and not confabulating Thought content: Normal thought content present Insight: Fair insight present (Psych) and Limited insight present (Psych) Judgement: Fair judgement present (Psych) and Limited judgement present (Psych) Assessment & Plan Assessment & Plan (1) H. pylori infection: Code(s): A04.8 - Other specified bacterial intestinal infections Category: Medical (2) Tubular adenoma of colon: Comment: Neg scope 2019, but has PHX of TA so repeat in 5 years. Code(s): D12.6 - Benign neoplasm of colon, unspecified Category: Medical (3) Post-cholecystectomy syndrome: Code(s): K91.5 - Postcholecystectomy syndrome Category: Medical (4) GERD (gastroesophageal reflux disease): Code(s): K21.9 - Gastro-esophageal reflux disease without esophagitis Category: Medical Qualifiers: Esophagitis presence: esophagitis presence not specified Qualified Code(s): K21.9 - Gastro-esophageal reflux disease without esophagitis Plan [place]ian #Shayne DRAKE The procedure needs to be repeated in 3 years r/t the sesslie polyp seen on first pass than unable to be located. The procedure was well tolerated. The results were explained and the patient is agreeable to the follow-up interval as stated. The bowel pattern has returned to normal. Education was provided to tell any 1st degree relatives about their findings to be sure that they are screened by age 45. Educated that they will be put on a recall list when it is time for their repeat scope but should they move out of state or away from the hospital they will need to remember along with their primary to repeat the procedure in a timely fashion to avoid any adverse complications. We ordered the EGD r/t her c/o stomach pains. I adviser her of the H pylori and she is educated. Allergic to flagyl so will order levaquin/amox therapy. She tells me that her sister also had H pylori. She is educated about the importance of completing antibiotic so that it does not become resistant, to take a probiotic supplement to barajas off diarrhea and yeast infections, and to call the office if there is any untoward effects. Emotional, had family who let her down during her cancer tx. ROV 8 WEEKS. Medications: New levofloxacin 500 mg PO DAILY 14 tabs 0RF 14 days A04.8 - Other specified bacterial intestinal infections amoxicillin 1,000 mg (2 x 500 mg) PO Q12H 56 caps 0RF 14 days Changed From omeprazole 20 mg PO BID A04.8 - Other specified bacterial intestinal infections To omeprazole 20 mg PO BID 56 tabs 0RF 28 days A04.8 - Other specified bacterial intestinal infections Coding Level of Care Code Est Pt Level 4 (24112) Diagnoses H. pylori infection A04.8 Tubular adenoma of colon D12.6 Post-cholecystectomy syndrome K91.5 Gastroesophageal reflux disease, unspecified whether esophagitis present K21.9 Esophagitis presence: esophagitis presence not specified Time Spent (min) 34
[2024-12-28 09:43] VITALS: BP 170/86; PULSE 108; O2SAT 100; BMI 33.2
--- OUTSIDE RECORDS SUMMARY | 2024-12-28 10:27 | XMS_ITS | Encounter Summary ---
Author Organization [employer] Address [address] [place] [address] Care Team Providers Care Warp Changer Name Role Phone Unavailable Primary Care Provider Unavailabl e Encounter Details Date Type Department Care Team (Latest Contact Info) Description 10/13/2021 Abstract [facility] CONVERSIONS Dental, Provider, DDS Social History [...] Description 05/18/2025 8:00 AM EST Office Visit [facility] [address] [place] [address] Vin Medinaaris [address] [place] [address] documented as of this encounter Visit Diagnoses Not on filedocumented in this encounter
== END 2024-12-28 10:15 | disposition home or self-care (01) ==
LOC: HO.HGI 09:27
PROVIDERS: Visit Provider Nurse Practitioner
DX: A04.8 Other specified bacterial intestinal infections (principal); D12.6 Benign neoplasm of colon, unspecified; K91.5 Postcholecystectomy syndrome; K21.9 Gastro-esophageal reflux disease without esophagitis
CPT/HCPCS: 99214

== ENCOUNTER → 2024-12-28 09:26 | Outpatient (BNVA) | payer OTHER, SELFPAY | PROVIDERS: Visit Provider Nurse Practitioner | DX: K91.5 Postcholecystectomy syndrome (principal); A04.8 Other specified bacterial intestinal infections; D12.6 Benign neoplasm of colon, unspecified; K21.9 Gastro-esophageal reflux disease without esophagitis | CPT/HCPCS: 99212 ==

== ENCOUNTER 2025-01-09 14:30 | Outpatient (AMB) | payer OTHER, SELFPAY ==
--- NOTE | 2025-01-09 14:42 | A.OFFVIS_ITS ---
Intake Visit Reasons: PO-Lt Knee GUILLERMO 11/29/24 NE Intake Note: Randa is a 59 year old female who presents today for a post op appointment s/p left Knee GUILLERMO 11/29/24 NE. At her last visit she was referred to physical therapy to work on maximizing her range of motion. Patient reports she is doing very well. She has been doing her exercises at home and has seen improvements. Senior Audit Manager Required: Yes Senior Audit Manager Language: Lead Principal Technical Architect Services: Senior Audit Manager Present Senior Audit Manager Name: THALIA Carver/TOMÁS Information Interpreted: clinical only Allergies adhesive tape Allergy (Intermediate, Verified 01/09/25 14:50) Redness of Skin metronidazole (Flagyl) Allergy (Intermediate, Verified 01/09/25 14:50) hives fish derived (fish) Adverse Reaction (Intermediate, Verified 01/09/25 14:50) Diarrhea shrimp Adverse Reaction (Intermediate, Verified 01/09/25 14:50) Diarrhea wheat Adverse Reaction (Intermediate, Verified 01/09/25 14:50) Diarrhea HPI HPI PO-Lt Knee GUILLERMO 11/29/24 NE: Details: Ms. Fulton is a 59-year-old female who presents to the office today status post left knee manipulation under anesthesia performed on 11/29/[address] Aguilar. Patient states that overall she is doing very well. She was very active and occasionally does have some soreness in the left knee. She is very satisfied with her range of motion after the manipulation. No additional concerns. [facility] Medical History (Updated 12/28/24 @ 17:33 by ROGERS Hamilton) Chronic diarrhea Chronic GERD Encounter for well woman exam with routine gynecological exam Physical exam Pre-op evaluation Pre-op evaluation Chronic pain of left knee Hx of lymphoma Back pain Hx of renal calculi Seasonal allergies Allergic rhinitis Restrictive lung disease Acquired skin tag Snoring Dyspnea on exertion KASIE (obstructive sleep apnea) Vaginal irritation Hematuria Elevated platelet count UTI (urinary tract infection) Headache Primary insomnia Arthritis of both knees Dextroscoliosis Bilateral knee pain Tendonitis of wrist, left Lumbar pain Obese Rash and nonspecific skin eruption Tubular adenoma of colon Intestinal malabsorption Hodgkin lymphoma Surgical History History of knee surgery H/O knee surgery H/O: hysterectomy S/P cholecystectomy History of esophagogastroduodenoscopy History of colonoscopy Hx of cataract extraction Family History Mother Diabetes High blood pressure Father Pacemaker Diabetes CAD (coronary artery disease) CKD (chronic kidney disease) Maternal Aunt Stomach cancer Maternal Aunt Liver cancer Social History Household Members: None Housing: Apartment Are you a primary college and career counselor to a significant other at home: No Do you presently have visiting nurse or other home services: Yes (2 x week [employer], 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) 75 years or older and lives alone: No Alcohol intake: never Comment: medicated Patient Tobacco Use Status: Never used Tobacco e-Cigarette/Vaping Use: Never Used Second Hand Smoke Exposure: No service: No Current occupational status: unemployed and disabled Cognitive needs: Yes Hearing needs: No Vision needs: Yes Female Reproductive History Menstrual Age of Menarche: 12 Review of Systems Const All systems reviewed & are unremarkable except as noted in HPI and below Physical Exam Const General: cooperative, healthy appearing and no acute distress Resp Effort & Inspection: normal respiratory effort and able to speak in complete sentences Extrem Other: left knee. Mild effusion. Prior total arthroplasty scar is intact. No surrounding erythema or signs of infection. ROM 0-110 degrees. NVI. Assessment & Plan Assessment & Plan (1) Postoperative stiffness of total knee replacement: Code(s): T84.89XA - Other specified complication of internal orthopedic prosthetic devices, implants and grafts, initial encounter; M25.669 - Stiffness of unspecified knee, not elsewhere classified; Z96.659 - Presence of unspecified artificial knee joint Category: Medical Plan Ms. Fulton is a 59-year-old female who presents to the office today status post left knee manipulation under anesthesia performed on 11/29/[address] Aguilar. Patient states that overall she is doing very well. She was very active and o ccasionally does have some soreness in the left knee. She is very satisfied with her range of motion after the manipulation. No additional concerns. While the office today, I recommended the patient continue with physical therapy exercise to maximize her range of motion. Should she begin to decline with the amount of range of motion that she has achieved she will contact our office. Otherwise she will follow up PRN, sooner if needed. Coding Level of Care Code Global (58081) Diagnoses Postoperative stiffness of total knee replacement T84.89XA; M25.669; Z96.659
--- OUTSIDE RECORDS SUMMARY | 2025-01-09 15:23 | XMS_ITS | Encounter Summary ---
Author Organization [employer] Address [address] [place] [address] Care Team Providers Care Wood Milling Machine Tender Name Role Phone Unavailable Primary Care Provider Unavailabl e Encounter Details Date Type Department Care Team (Latest Contact Info) Description 10/13/2021 Abstract [facility] CONVERSION[facility] Dental, Provider, DDS Social History [...] Description 05/18/2025 8:00 AM EST Office Visit [facility] [address] [place] [address] Vin Medinaaris [address] [place] [address] documented as of this encounter Visit Diagnoses Not on filedocumented in this encounter
== END 2025-01-09 15:11 | disposition home or self-care (01) ==
LOC: HO.HOS 14:31
PROVIDERS: PCP Internal Medicine; Visit Provider Physician Assistant
DX: T84.89XA Other specified complication of internal orthopedic prosthetic devices, implants and grafts, initial encounter (principal); M25.669 Stiffness of unspecified knee, not elsewhere classified; Z96.659 Presence of unspecified artificial knee joint
CPT/HCPCS: 99024

== ENCOUNTER → 2025-01-09 14:30 | Outpatient (BNVA) | payer OTHER, SELFPAY | PROVIDERS: PCP Internal Medicine; Visit Provider Physician Assistant | DX: Z98.890 Other specified postprocedural states (principal); M25.662 Stiffness of left knee, not elsewhere classified; Z96.652 Presence of left artificial knee joint; T84.89XA Other specified complication of internal orthopedic prosthetic devices, implants and grafts, initial encounter | CPT/HCPCS: 99212 ==

== ENCOUNTER 2025-01-31 09:43 | Outpatient (AMB) | payer OTHER, SELFPAY ==
[2025-01-31 09:49] VITALS: BP 130/70; PULSE 96; O2SAT 98; BMI 31.4
--- NOTE | 2025-01-31 09:49 | A.OFFVIS_ITS ---
Vital Signs 01/31/25 09:49 Height 5 ft Weight 160 lb 14.999 oz BMI 31.4 BP 130/70 Blood Pressure Location Lt brachial Position Sitting Pulse 96 Pulse Source Pulse Oximeter Pulse Oximetry (%) 98 Oxygen Delivery Method Room Air Intake Visit Reasons: Dyspnea on exertion Intake Note: pt is here for follow up and is feeling okay, using nasal spray and helps a lot Marketing Research Intern Required: Yes Marketing Research Intern Services: Marketing Research Intern Present Allergies adhesive tape Allergy (Intermediate, Verified 01/31/25 10:16) Redness of Skin metronidazole (Flagyl) Allergy (Intermediate, Verified 01/31/25 10:16) hives fish derived (fish) Adverse Reaction (Intermediate, Verified 01/31/25 10:16) Diarrhea shrimp Adverse Reaction (Intermediate, Verified 01/31/25 10:16) Diarrhea wheat Adverse Reaction (Intermediate, Verified 01/31/25 10:16) Diarrhea Medication List - Last Reconciled 01/31/25 by Jessica Patel MD [bed rail As directed] Brace,wrist (Wrist Brace - one) As directed- LEFT WRIST STABILIZER cane As directed commode As directed docusate sodium 100 mg PO BID PRN fluticasone propionate 50 mcg/actuation 2 sprays intranasal BID [handheld shower As directed] Knee brace As directed losartan 25 mg PO DAILY omeprazole 20 mg PO BID 28 days [Raised toilet seat duration - 99 days] Shower Chair As directed walker with seat and wheels, Ht: 5', Wt: 165 lbs walker Folding Front wheeled walker duration 99 days Do you need a note to return to daycare/school/sports/work: No HPI HPI Dyspnea on exertion: Details: THIS 60 YEARS OLD VERY PLEASANT BELGIAN-SPEAKING FEMALE COMES FOR FOLLOW-UP BECAUSE SHE CONTINUES TO HAVE MILD DYSPNEA ON EXERTION. ON DAILY NORMAL LEVEL OF PHYSICAL ACTIVITY SHE DOES NOT HAVE ANY SHORTNESS OF BREATH. SHE DENIES HAVING COUGH OR WHEEZING. SHE DID HAVE SLEEP STUDY IN JULY OF THIS YEAR AND IT WAS ESSENTIALLY NORMAL, SHE HAD LOST SOME WEIGHT AND HER MILD OBSTRUCTIVE SLEEP APNEA RESOLVED. SHE STILL TRIES TO SLEEP IN LATERAL POSITION. FOR DYSPNEA ON EXERTION SHE HAD SPIROMETRY IN THE OFFICE ON 08/14/2024, C/W MILD RESTRICTIVE PATTERN BUT NO OBSTRUCTIVE AIRWAY DISORDER. HE HAS NOT BEEN ABLE TO LOSE MUCH WEIGHT BECAUSE SHE HAD LEFT KNEE REPLACEMENT A FEW MONTHS AGO AND WORSE NOT ABLE TO WALK MUCH. NOW SHE IS FEELING BETTER, DYSPNEA ON EXERTION IS NOT A BIG ISSUE. [facility] Medical History Chronic diarrhea Chronic GERD Encounter for well woman exam with routine gynecological exam Physical exam Pre-op evaluation Pre-op evaluation Chronic pain of left knee Hx of lymphoma Back pain Hx of renal calculi Seasonal allergies Allergic rhinitis Restrictive lung disease Acquired skin tag Snoring Dyspnea on exertion KASIE (obstructive sleep apnea) Vaginal irritation Hematuria Elevated platelet count UTI (urinary tract infection) Headache Primary insomnia Arthritis of both knees Dextroscoliosis Bilateral knee pain Tendonitis of wrist, left Lumbar pain Obese Rash and nonspecific skin eruption Tubular adenoma of colon Intestinal malabsorption Hodgkin lymphoma Surgical History History of knee surgery H/O knee surgery H/O: hysterectomy S/P cholecystectomy History of esophagogastroduodenoscopy History of colonoscopy Hx of cataract extraction Family History Mother Diabetes High blood pressure Father Pacemaker Diabetes CAD (coronary artery disease) CKD (chronic kidney disease) Maternal Aunt Stomach cancer Maternal Aunt Liver cancer Social History Household Members: None Housing: Apartment Are you a primary patient care technician to a significant other at home: No Do you presently have visiting nurse or other home services: Yes (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, 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) 75 years or older and lives alone: No Alcohol intake: never Comment: medicated Patient Tobacco Use Status: Never used Tobacco e-Cigarette/Vaping Use: Never Used Second Hand Smoke Exposure: No service: No Current occupational status: unemployed and disabled Cognitive needs: Yes Hearing needs: No Vision needs: Yes Female Reproductive History Menstrual Age of Menarche: 12 Review of Systems Const All systems reviewed & are unremarkable except as noted in HPI and below Eyes Reports no additional complaints ENT Reports no additional complaints Card Denies chest pain, Denies irregular heart rhythm and Denies leg edema Resp Reports as per HPI GI Reports no additional complaints Reports no additional complaints Musc Reports back pain and Reports myalgias Skin/Breast Reports system reviewed and no additional complaints, except as documented Neuro Reports no additional complaints Psych Reports no additional complaints Endo Reports no additional complaints [place]/Lymph Details: History of Hodgkin lymphoma in the past, treated and has been in remission Aller/Immun Reports no additional complaints Physical Exam Vital Signs: Last Vital Signs Pulse 96 01/31/25 09:49 BP 130/70 01/31/25 09:49 Pulse Ox 98 01/31/25 09:49 Oxygen Delivery Method Room Air 01/31/25 09:49 BMI result Body Mass Index 31.4 She does have a round face with obese neck. 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) Throat: Yes posterior oropharynx normal Eyes General: appearance normal, both eyes and all related structures Neck Neck: Yes normal visual inspection, Yes no lymphadenopathy, Yes trachea midline, Yes no JVD and Yes other (Neck size 15 in) Thyroid: Thyroid normal Chest Chest palpation & inspection: normal inspection of the chest, normal palpation of entire chest wall and no tenderness Resp Effort & Inspection: normal respiratory effort Auscultation: clear to auscultation bilaterally, no crackles, no rales and no wheezes Cardio Palpation: normal PMI Rate: regular rate Rhythm: regular rhythm Heart sounds: no gallops and no murmurs Peripheral pulses: Peripheral pulses 2+ throughout GI Palpation (GI): Soft to palpation, nontender, No hepatosplenomegaly present and no masses Auscultation: normal bowel sounds Back/Spine/Pelvis Thoracic/Lumbar Spine: thoracic and lumbar spine normal to inspection and Thoracic/lumbar scoliosis (MILD DEXTROSCOLIOSIS) Skin General skin exam: no rashes or lesions noted Neuro General: patient oriented x3 and no focal motor deficits Cranial nerves: Yes CN's II-XII intact bilaterally Extrem General: Yes normal to inspection, Yes no clubbing, cyanosis or edema and Yes no calf tenderness Psych Appearance: grossly normal and well kempt Speech and movement: Normal speech and movement present Results Reviewed Results Reviewed: HST 07/20/24 NORMAL NO KASIE SPIROMETRY 08/14/24 MILD RESTRICTIVE DISORDER NO OBSTRUCTIVE DISORDER Assessment & Plan Assessment & Plan (1) Restrictive lung disease: Comment: PULMONARY FUNCTION TEST( 0N 04/09/23 AND 08/14/24 ) SHOWED MILD RESTRICTIVE DISORDER. THIS IS MOST LIKELY RELATED TO HER MODERATE OBESITY, WHICH IS NOW IMPROVED , AND MILD DEXTROSCOLIOSIS SHE DOES NOT HAVE ANY OBSTRUCTIVE COMPONENT. Code(s): J98.4 - Other disorders of lung Category: Medical Plan: EXPLAINED TO THE PATIENT AND ENCOURAGED TO KEEP THE WEIGHT DOWN MUCH POSSIBLE. SHE SHOULD ALSO TRY TO DO DEEP BREATHING EXERCISES AT LEAST 3 TIMES A DAY ON A REGULAR BASIS. (2) KASIE (obstructive sleep apnea): Comment: DIAGNOSED TO HAVE OBSTRUCTIVE SLEEP APNEA ON HOME-BASED SLEEP STUDY DONE ON 04/26/2023 . SHE TRY TO TREAT WITH CONSERVATIVE MEASURES WITH SOME WEIGHT REDUCTION AND SLEEPING IN LATERAL POSITION. STILL HAD SOME SNORING AND POOR SLEEP. REPEAT SLEEP TEST IN JULY 2024 WAS ESSENTIALLY NORMAL Code(s): G47.33 - Obstructive sleep apnea (adult) (pediatric) Category: Medical Plan: EXPLAINED TO THE PATIENT THAT OBSTRUCTIVE SLEEP APNEA HAD RESOLVED ALMOST COMPLETELY BUT SHE SHOULD TRY TO LOSE A LITTLE MORE WEIGHT AND TRY TO ALWAYS SLEEP IN LATERAL POSITION (3) Dyspnea on exertion: Comment: MILD DYSPNEA ON EXERTION IS SECONDARY TO RESTRICTIVE LUNG DISORDER, WHICH IS MILD. Code(s): R06.09 - Other forms of dyspnea Category: Medical Plan: EXPLAINED TO THE PATIENT, ENCOURAGED TO KEEP THE WEIGHT DOWN AND ALSO KEEP ON DOING DEEP BREATHING EXERCISES Medications: Changed From docusate sodium 100 mg PO BID 30 days 60 caps 0RF To docusate sodium 100 mg PO BID PRN Coding Level of Care Code Est Pt Level 3 (21333) Diagnoses Restrictive lung disease J98.4 KASIE (obstructive sleep apnea) G47.33 Dyspnea on exertion R06.09
--- OUTSIDE RECORDS SUMMARY | 2025-01-31 10:19 | XMS_ITS | Encounter Summary ---
Author Organization [employer] Address [address] [place] [address] Care Team Providers Care Bottom Scrubber Name Role Phone Unavailable Primary Care Provider Unavailabl e Encounter Details Date Type Department Care Team (Latest Contact Info) Description 10/13/2021 Abstract [facility] CONVERSIONS Dental, Provider, DDS Social History Tobacco [...] Description 05/18/2025 8:00 AM EST Office Visit [facility] [address] [place] [address] Vin Medinaaris [address] [place] [address] documented as of this encounter Visit Diagnoses Not on filedocumented in this encounter
== END 2025-01-31 11:06 | disposition home or self-care (01) ==
LOC: HO.HPS 09:43
PROVIDERS: PCP Internal Medicine; Visit Provider Internal Medicine
DX: J98.4 Other disorders of lung (principal); G47.33 Obstructive sleep apnea (adult) (pediatric); R06.09 Other forms of dyspnea
CPT/HCPCS: 99213

== ENCOUNTER → 2025-01-31 09:43 | Outpatient (BNVA) | payer OTHER, SELFPAY | PROVIDERS: PCP Internal Medicine; Visit Provider Internal Medicine | DX: G47.33 Obstructive sleep apnea (adult) (pediatric) (principal); J98.4 Other disorders of lung; R06.09 Other forms of dyspnea | CPT/HCPCS: 99212 ==

== ENCOUNTER 2025-04-12 08:41 | Outpatient (AMB) | payer OTHER, SELFPAY ==
--- NOTE | 2025-04-12 08:42 | MHC.OFFVIS ---
Vital Signs 04/12/25 08:58 Height 5 ft Weight 155 lb BMI 30.3 BP 156/84 H Blood Pressure Location Rt brachial Position Sitting Pulse 84 Pulse Source Pulse Oximeter Pulse Oximetry (%) 97 Oxygen Delivery Method Room Air Intake Visit Reasons: Follow up HP Intake Note: Est pt for mgmt of GERD + CIC. CC: Pt denies any GI changes or new sx since last visit. Pt confirms that she is taking the currently Rx'd therapies as instructed and w/o complication. Machine Plug Shaper Required: Yes Machine Plug Shaper Services: Machine Plug Shaper Present Machine Plug Shaper Name: Vinny [id number] + [facility] [place] Information Interpreted: clinical only Accompanied by: Self / Same As Patient Allergies adhesive tape Allergy (Intermediate, Verified 04/25/25 12:55) Redness of Skin metronidazole (Flagyl) Allergy (Intermediate, Verified 04/25/25 12:55) hives fish derived (fish) Adverse Reaction (Intermediate, Verified 04/25/25 12:55) Diarrhea shrimp Adverse Reaction (Intermediate, Verified 04/25/25 12:55) Diarrhea wheat Adverse Reaction (Intermediate, Verified 04/25/25 12:55) Diarrhea HPI HPI Follow up HP: Details: Assessment & Plan (1) H. pylori infection: Code(s): A04.8 - Other specified bacterial intestinal infections Category: Medical (2) Tubular adenoma of colon: Comment: Neg scope 2019, but has PHX of TA so repeat in 5 years. Code(s): D12.6 - Benign neoplasm of colon, unspecified Category: Medical (3) Post-cholecystectomy syndrome: Code(s): K91.5 - Postcholecystectomy syndrome Category: Medical (4) GERD (gastroesophageal reflux disease): Code(s): K21.9 - Gastro-esophageal reflux disease without esophagitis Category: Medical Qualifiers: Esophagitis presence: esophagitis presence not specified Qualified Code(s): K21.9 - Gastro-esophageal reflux disease without esophagitis Plan German #Debra DRAKE The procedure needs to be repeated in 3 years r/t the sesslie polyp seen on first pass than unable to be located. The procedure was well tolerated. The results were explained and the patient is agreeable to the follow-up interval as stated. The bowel pattern has returned to normal. Education was provided to tell any 1st degree relatives about their findings to be sure that they are screened by age 45. Educated that they will be put on a recall list when it is time for their repeat scope but should they move out of state or away from the hospital they will need to remember along with their primary to repeat the procedure in a timely fashion to avoid any adverse complications. We ordered the EGD r/t her c/o stomach pains. I adviser her of the H pylori and she is educated. Allergic to flagyl so will order levaquin/amox therapy. She tells me that her sister also had H pylori. She is educated about the importance of completing antibiotic so that it does not become resistant, to take a probiotic supplement to barajas off diarrhea and yeast infections, and to call the office if there is any untoward effects. Emotional, had family who let her down during her cancer tx. ROV 8 WEEKS. Medications: New levofloxacin 500 mg PO DAILY 14 tabs 0RF 14 days A04.8 - Other specified bacterial intestinal infections amoxicillin 1,000 mg (2 x 500 mg) PO Q12H 56 caps 0RF 14 days Changed From omeprazole 20 mg PO BID A04.8 - Other specified bacterial intestinal infections To omeprazole 20 mg PO BID 56 tabs 0RF 28 days A04.8 - Other specified bacterial intestinal infections TODAY'S VISIT German #Debra Drake [facility] Medical History (Updated 04/25/25 @ 13:09 by Yen Prater MD) Physical exam Post-cholecystectomy syndrome Chronic diarrhea Chronic GERD Encounter for well woman exam with routine gynecological exam Pre-op evaluation Pre-op evaluation Chronic pain of left knee Hx of lymphoma Back pain Hx of renal calculi Seasonal allergies Allergic rhinitis Restrictive lung disease Acquired skin tag Snoring Dyspnea on exertion KASIE (obstructive sleep apnea) Vaginal irritation Hematuria Elevated platelet count UTI (urinary tract infection) Headache Primary insomnia Arthritis of both knees Dextroscoliosis Bilateral knee pain Tendonitis of wrist, left Lumbar pain Obese Rash and nonspecific skin eruption Tubular adenoma of colon Intestinal malabsorption Hodgkin lymphoma Surgical History History of knee surgery H/O knee surgery H/O: hysterectomy S/P cholecystectomy History of esophagogastroduodenoscopy History of colonoscopy Hx of cataract extraction Family History Mother Diabetes High blood pressure Father Pacemaker Diabetes CAD (coronary artery disease) CKD (chronic kidney disease) Maternal Aunt Stomach cancer Maternal Aunt Liver cancer Social History Household Members: None Housing: Apartment Are you a primary home care giver to a significant other at home: No Do you presently have visiting nurse or other home services: Yes (2 x week [employer], 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) 75 years or older and lives alone: No Alcohol intake: never Comment: medicated Patient Tobacco Use Status: Never used Tobacco e-Cigarette/Vaping Use: Never Used Second Hand Smoke Exposure: No service: No Current occupational status: unemployed and disabled Cognitive needs: Yes Hearing needs: No Vision needs: Yes Female Reproductive History Menstrual Age of Menarche: 12 Review of Systems Const Denies fatigue, Denies fever(s), Denies night sweats, Denies poor appetite and Reports weight loss ENT Reports Normal hearing present, Denies dental pain, Denies dysphagia, Denies hearing loss, Denies mouth pain, Denies odynophagia, Denies throat swelling, Denies tongue swelling and Reports other (Dentition adequate) Card Reports no additional complaints Resp Reports no additional complaints GI Details: Denies abdominal pain, Denies melena, Denies bloating, Denies hematochezia, Reports constipation, Denies GI cramping, Denies dysphagia, Denies excessive flatus, Denies early satiety, Reports heartburn, Denies diarrhea, Denies nausea, Denies odynophagia, Denies vomiting and Denies hematemesis Skin/Breast Denies pruritus, Denies lesions, Denies rash and Denies jaundice Neuro Reports Normal hearing present and Denies Abnormal speech present Endo Denies fatigue Aller/Immun Denies throat swelling and Denies tongue swelling Physical Exam Vital Signs: Last Vital Signs Pulse 84 04/12/25 08:58 BP 156/84 H 04/12/25 08:58 Pulse Ox 97 04/12/25 08:58 Oxygen Delivery Method Room Air 04/12/25 08:58 BMI result Body Mass Index 30.3 Const General: cooperative, no acute distress, well developed and well groomed Nutritional Appearance: well nourished and obese Orientation/consciousness: oriented to person, oriented to place and oriented to time Limitations: language barrier HEENT Head: Yes normocephalic and Yes atraumatic Eyes General: appearance normal, both eyes and all related structures Pupils: Equal, round and reactive pupils present Neck Neck: Yes normal visual inspection and Yes no lymphadenopathy Thyroid: Thyroid normal Resp Effort & Inspection: normal respiratory effort and able to speak in complete sentences Auscultation: clear to auscultation bilaterally Cardio Rate: regular rate Rhythm: regular rhythm Heart sounds: Normal, physiologic split S2 sound present Peripheral pulses: radial pulses present and posterior tibial pulses present GI Inspection: No distended, No Abdominal panniculus present and Yes obesity Palpation (GI): Soft to palpation, nontender, no guarding, not rigid and No hepatosplenomegaly present Percussion: Yes normal to percussion Auscultation: normal bowel sounds Rectal Exam - Female: deferred Skin General skin exam: no rashes or lesions noted, turgor normal, skin not dry, no jaundice, No spider nevi and no striae Rashes: no rashes Nails: normal Neuro General: oriented to person, oriented to place and oriented to time Cranial nerves: Yes Equal, round and reactive pupils present and Yes Normal hearing present Speech: No Abnormal speech present Extrem General: Yes normal to inspection, No clubbing, No cyanosis and No edema Psych Appearance: grossly normal and well kempt Mental Status: mental status grossly normal Speech and movement: Normal speech and movement present Affect: normal affect Attitude: cooperative Thought process: Normal thought process present and not confabulating Thought content: Normal thought content present Insight: Good insight present (Psych) Judgement: Good judgement present (Psych) Assessment & Plan Assessment & Plan (1) H. pylori infection: Code(s): A04.8 - Other specified bacterial intestinal infections Category: Medical (2) GERD (gastroesophageal reflux disease): Code(s): K21.9 - Gastro-esophageal reflux disease without esophagitis Category: Medical Qualifiers: Esophagitis presence: esophagitis presence not specified Qualified Code(s): K21.9 - Gastro-esophageal reflux disease without esophagitis (3) Chronic idiopathic constipation: Code(s): K59.04 - Chronic idiopathic constipation Category: Medical Plan German #Debra Link She is currently on omeprazole 20 mg twice a day and Colace. - The patient is a 60-year-old female presenting with a follow-up on Helicobacter pylori treatment. - Completed H. pylori treatment last month and is scheduled for a follow-up stool test. - Managed GERD effectively with omeprazole administered once daily, noting significant reduction in heartburn. - Constipation is managed with docusate, used on an as-needed basis, leading to regular bowel movements. - Reports weight loss likely attributed to dietary changes and successful management of gastrointestinal symptoms. - Follow-up stool test planned to confirm treatment efficacy. Orders: Orders H pylori Ag Stool 04/12/25 A04.8 - Other specified bacterial intestinal infections Medications: New docusate sodium 100 mg PO BID PRN 60 caps 6RF constipation Changed From omeprazole 20 mg PO BID 28 days 56 tabs 0RF A04.8 - Other specified bacterial intestinal infections To omeprazole 20 mg PO DAILY 30 tabs 6RF 30 days A04.8 - Other specified bacterial intestinal infections Coding Level of Care Code Est Pt Level 3 (92122) Diagnoses H. pylori infection A04.8 Gastroesophageal reflux disease, unspecified whether esophagitis present K21.9 Esophagitis presence: esophagitis presence not specified Chronic idiopathic constipation K59.04
[2025-04-12 08:58] VITALS: BP 156/84; PULSE 84; O2SAT 97; BMI 30.3
== END 2025-04-12 09:49 | disposition home or self-care (01) ==
PROVIDERS: PCP Internal Medicine; Visit Provider Nurse Practitioner
DX: A04.8 Other specified bacterial intestinal infections (principal); K21.9 Gastro-esophageal reflux disease without esophagitis; K59.04 Chronic idiopathic constipation
CPT/HCPCS: 99213

== ENCOUNTER → 2025-04-12 08:41 | Outpatient (BNVA) | payer OTHER, SELFPAY | PROVIDERS: PCP Internal Medicine; Visit Provider Nurse Practitioner | DX: A04.8 Other specified bacterial intestinal infections (principal); B96.81 Helicobacter pylori [H. pylori] as the cause of diseases classified elsewhere; K21.9 Gastro-esophageal reflux disease without esophagitis; K59.04 Chronic idiopathic constipation | CPT/HCPCS: 99212 ==

== ENCOUNTER 2025-04-25 12:26 | Outpatient (AMB) | payer OTHER, SELFPAY ==
[2025-04-25 12:39] VITALS: BP 150/70; PULSE 86; RESP 18; TEMP 36.3; O2SAT 97; BMI 30.3
--- NOTE | 2025-04-25 12:39 | MHC.PC.OV ---
Vital Signs 04/25/25 12:39 Height 5 ft Weight 155 lb 6 oz BMI 30.3 BP 150/70 H Blood Pressure Location Lt brachial Position Sitting Respiration 18 Pulse 86 Pulse Source Pulse Oximeter Temp 97.3 F Temp Source Temporal Artery Scan Pulse Oximetry (%) 97 Oxygen Delivery Method Room Air Intake Visit Reasons: annual exam Attorney General Required: No Accompanied by: Self / Same As Patient Allergies adhesive tape Allergy (Intermediate, Verified 04/25/25 12:55) Redness of Skin metronidazole (Flagyl) Allergy (Intermediate, Verified 04/25/25 12:55) hives fish derived (fish) Adverse Reaction (Intermediate, Verified 04/25/25 12:55) Diarrhea shrimp Adverse Reaction (Intermediate, Verified 04/25/25 12:55) Diarrhea wheat Adverse Reaction (Intermediate, Verified 04/25/25 12:55) Diarrhea Medication List - Last Reconciled 04/25/25 by Yen Prater MD [bed rail As directed] Brace,wrist (Wrist Brace - one) As directed- LEFT WRIST STABILIZER cane As directed commode As directed docusate sodium 100 mg PO BID PRN fluticasone propionate 50 mcg/actuation 2 sprays intranasal BID [handheld shower As directed] Knee brace As directed losartan 50 mg PO DAILY omeprazole 20 mg PO DAILY 30 days [Raised toilet seat duration - 99 days] Shower Chair As directed walker with seat and wheels, Ht: 5', Wt: 165 lbs walker Folding Front wheeled walker duration 99 days Tobacco use date assessed: 04/25/25 Dental Screening Dental Screen Date: 04/25/25 Did you have a dental visit in the last 12 months?: Yes Was dental information given to patient?: Patient has dentist HPI HPI Comments History of Present Illness Details The patient is a 60-year-old female presenting for an annual physical examination and management of hypertension. The patient has a history of hypertension, which has been variably controlled with Losartan 50 mg daily. She reports that her blood pressure is sometimes well-controlled, but at other times it is elevated, prompting an increase in her medication dosage to 100 mg. She has a history of allergies to fish, shrimp, and wheat, which cause diarrhea. Additionally, she takes Omeprazole for gastroesophageal reflux disease. Her surgical history includes a hysterectomy for benign reasons and a left knee replacement in September, which has been successful. Family history is significant for diabetes and hypertension in her mother, and heart disease and kidney disease in her father, who in 1978. The patient does not smoke or consume alcohol. [facility] Medical History (Updated 04/25/25 @ 13:09 by Yen Prater MD) Physical exam Post-cholecystectomy syndrome Chronic diarrhea Chronic GERD Encounter for well woman exam with routine gynecological exam Pre-op evaluation Pre-op evaluation Chronic pain of left knee Hx of lymphoma Back pain Hx of renal calculi Seasonal allergies Allergic rhinitis Restrictive lung disease Acquired skin tag Snoring Dyspnea on exertion KASIE (obstructive sleep apnea) Vaginal irritation Hematuria Elevated platelet count UTI (urinary tract infection) Headache Primary insomnia Arthritis of both knees Dextroscoliosis Bilateral knee pain Tendonitis of wrist, left Lumbar pain Obese Rash and nonspecific skin eruption Tubular adenoma of colon Intestinal malabsorption Hodgkin lymphoma Surgical History History of knee surgery H/O knee surgery H/O: hysterectomy S/P cholecystectomy History of esophagogastroduodenoscopy History of colonoscopy Hx of cataract extraction Family History Mother Diabetes High blood pressure Father Pacemaker Diabetes CAD (coronary artery disease) CKD (chronic kidney disease) Maternal Aunt Stomach cancer Maternal Aunt Liver cancer Social History Household Members: None Housing: Apartment Are you a primary summer child caregiver to a significant other at home: No Do you presently have visiting nurse or other home services: Yes (2 x week SOCIAL SECURITY ASSESSOR, 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) 75 years or older and lives alone: No Alcohol intake: never Comment: medicated Patient Tobacco Use Status: Never used Tobacco e-Cigarette/Vaping Use: Never Used Second Hand Smoke Exposure: No service: No Current occupational status: unemployed and disabled Cognitive needs: Yes Hearing needs: No Vision needs: Yes Female Reproductive History Menstrual Age of Menarche: 12 Questionnaire Thrive Questionnaire Date Thrive assessed: 10/27/24 I am a: Patient What is your living situation today?: I have a steady place to live Within the past 12 months, did the food you bought not last and you didn't have the money to get more?: Never true Within the past 12 months, did you worry whether your food would run out before you got money to buy more?: Never true Do you have trouble paying for medicines?: No Do you have trouble getting transportation to medical appointments?: No Do you have trouble paying your heating and electricity bill?: No Do you have trouble taking care of your child, family member or friend?: No Do you have trouble with day-to-day activities such as bathing, preparing meals, shopping, managing finances, etc.?: No Are you currently unemployed and looking for a job?: No Are you interested in more education?: No Please select the resources that you would like help with: None Currently or been in a relationship where the following occur: No concerns reported THRIVE Score: 0 ARACELI-7 AMB Questionnaire ARACELI-7 Date ARACELI - 7 assessed: 07/13/24 Source: Developed by Drs. Antonio Ochoa, Angelica Mccormack, Aman Medrano and colleagues, with an educational dev from [employer]. Review of Systems Const All systems reviewed & are unremarkable except as noted in HPI and below Card Denies chest pain at rest, Denies chest pain with activity, Denies edema, Denies irregular heart rhythm, Denies claudication, Denies dyspnea, Denies dyspnea on exertion, Denies orthopnea, Denies paroxysmal nocturnal dyspnea and Denies slow heart rate Resp Denies cough, Denies dyspnea and Denies dyspnea on exertion Musc Denies abnormal gait, Denies atrophy, Denies deformity and Denies limited range of motion Skin/Breast Denies bleeding lesions, Denies changing lesions and Denies rash Neuro Denies abnormal gait and Denies lack of coordination Physical exam (Primary Care) Vital Signs: Last Vital Signs Temp 97.3 F 04/25/25 12:39 Pulse 86 04/25/25 12:39 Resp 18 04/25/25 12:39 BP 150/70 H 04/25/25 12:39 Pulse Ox 97 04/25/25 12:39 Oxygen Delivery Method Room Air 04/25/25 12:39 BMI result Body Mass Index 30.3 Tobacco/Smoking Status: Tobacco use Status Tobacco use date assessed 04/25/25 04/25/25 12:49 Patient Tobacco Use Status Never used Tobacco 04/25/25 12:49 e-Cigarette/Vaping Use Never Used 04/25/25 12:49 Thrive Assessment: Date of Thrive Assessment Date Thrive assessed 10/27/24 04/25/25 12:49 Currently or been in a relationship where the following occur: No concerns reported [facility] Head: Yes normal to inspection, Yes normocephalic and Yes atraumatic Ears: external ears normal Eyes General: appearance normal, both eyes and all related structures Eyelids: Yes eyelids normal Conjunctivae: conjunctivae normal Neck Neck: Yes normal visual inspection and Yes supple Resp Effort & Inspection: normal respiratory effort Auscultation: clear to auscultation bilaterally Cardio Jugular venous distension: no JVD Rate: regular rate Rhythm: regular rhythm Heart sounds: S1 normal heart sound present and S2 normal heart sound present GI Inspection: Yes normal to inspection Palpation (GI): Soft to palpation and nontender Auscultation: normal bowel sounds Skin General skin exam: no rashes or lesions noted Neuro General: no focal motor deficits Extrem General: Yes full ROM Psych Appearance: grossly normal Office Procedures Flu Questionnaire Does the patient have a severe egg allergy?: No Does the patient have severe life threatening allergies?: No Does the patient have a fever or illness today?: No Has the patient ever had Guillain-[place] Syndrome?: No Has the patient ever had any past reaction to a flu shot?: No Immunizations Fluarix [id number] (PF) 45 mcg (15 mcg x 3)/0.5 mL IM syringe Performing Provider: Yen Prater MD Performing Location: [facility] [place] [facility] Administered by: Debra Parekh CMA on 04/25/25 13:08 Dose Route Admin Location Dispensed Lot Number Expiration Date [facility] [place] Clinical Massage Therapist 0.5 mL IM Left Deltoid 0.5 mL [id number] 01/01/26 09026-748-26 VaroliiINE VIS Given Date VIS Provided VIS Publication Date 04/25/25 Single Vaccine 24 Eligibility Eligibility Date Funding Source Not [facility] Eligible 04/25/25 Private Coding Level of Care Code Est Pt Level 3 (49931) Est Pt Prev Care 40-64y(11363) Diagnoses Physical exam Z00.00 Abnormal bruising R23.3 Time Spent (min) 32 Assessment & Plan Assessment & Plan (1) Physical exam: Code(s): Z00.00 - Encounter for general adult medical examination without abnormal findings Category: Medical (2) Abnormal bruising: Code(s): R23.3 - Spontaneous ecchymoses Category: Medical Plan Plan 1. Physical exam The patient received a tetanus vaccination and was recommended to receive a flu vaccination. She has completed a mammography in May and a colonoscopy this year. 2. Essential Hypertension The patient's hypertension is currently managed with Losartan, which has been increased to 100 mg due to variable blood pressure control. Follow-up in three weeks is planned to reassess blood pressure control. Orders: Orders Lipid Panel Today I10 - Essential (primary) hypertension Complete Blood Count Auto Diff Today R23.3 - Spontaneous ecchymoses Influenza [id number] Immunization Today Z23 - Encounter for immunization Comprehensive [place]. Panel Fast Today I10 - Essential (primary) hypertension Medications: New losartan 100 mg PO DAILY 90 tabs 1RF 90 days
== END 2025-04-25 13:14 | disposition home or self-care (01) ==
LOC: HO.HMCH 12:27
PROVIDERS: PCP Internal Medicine; Visit Provider Internal Medicine
DX: Z00.00 Encounter for general adult medical examination without abnormal findings (principal); R23.3 Spontaneous ecchymoses; Z23 Encounter for immunization

== ENCOUNTER → 2025-04-25 12:26 | Outpatient (BNVA) | payer OTHER, SELFPAY | PROVIDERS: PCP Internal Medicine; Visit Provider Internal Medicine | DX: Z00.00 Encounter for general adult medical examination without abnormal findings (principal); I10 Essential (primary) hypertension; K21.9 Gastro-esophageal reflux disease without esophagitis; R23.2 Flushing; Z23 Encounter for immunization | CPT/HCPCS: 90471; 90656; 99212; 99396 ==

== ENCOUNTER 2025-04-30 08:54 | Outpatient (REF) | payer OTHER, SELFPAY ==
[2025-04-30 09:03] LABS: MANUAL DIFF FLAG NO
[2025-04-30 09:26] LABS: Hematocrit 47.2 % (37.0-47.0); Hemoglobin 14.6 g/dl (12.0-16.0); Imm Gran Abs Auto 0.04 X10*3/uL (0.00-0.03); Imm Gran Pct Auto 0.5 % (0.0-0.4); Lymphocytes Absolute Auto 2.6 X10*3/uL (1.2-4.9); Mean Corpuscular HGB Conc 30.9 g/dl (31.0-35.0); Mean Corpuscular Hemoglobin 26.4 pg (27.0-33.0); Mean Corpuscular Volume 85.5 fL (80.0-98.0); NRBC Abs Auto 0.000 X10*3/uL (0.0-0.012); NRBC Pct Auto 0.0 /100WBC (0.0-0.2); Platelet Count 277 X10*3/uL (160-400); Red Blood Count 5.52 X10*6/uL (4.20-5.50); White Blood Count 7.9 X10*3/uL (4.8-10.8)
--- OUTSIDE RECORDS SUMMARY | 2025-04-30 09:34 | XMS_ITS | Encounter Summary ---
Author Organization [facility] Address [address] [place] [address] Care Team Providers Care Professional Nurse Name Role Phone Unavailable Primary Care Provider Unavailabl e Encounter Details Date Type Department Care Team (Latest Contact Info) Description 04/10/2020 Abstract [facility] CONVERSIONS Dental, Provider, DDS Social History Tobacco Use Types Packs/Day Years Used Date Smoking Tobacco: Never Assessed Comments Unknown Sex and Gender Information Value Date Recorded Sex Assigned at Female 05/04/2022 10:15 AM EDT Legal Sex Female 10:15 AM EDT Gender Identity Female 05/04/2022 10:15 AM EDT Sexual Orientation Straight 05/04/2022 10 :15 AM EDT documented as of this encounter Plan of Treatment Not on file documented as of this encounter Visit Diagnoses Not on filedocumented in this encounter
--- OUTSIDE RECORDS SUMMARY | 2025-04-30 09:34 | XMS_ITS | Clinical Summary ---
Author Organization [employer] Address [address] [facility] [address] [place] [address] Care Team Providers Care Marble Chip Terrazzo Worker Name Role Phone Unavailable Primary Care Provider Unavailabl e Allergies Active Allergy Reactions Criticality Noted Date Comments Metronidazole Itching 10/03/2015 Medications omeprazole (PriLOSEC) [address] capsule Take by mouth in the morning. 3 Active traZODone (Desyrel) 50 MG tablet TOME EZE TABLETA POR V A ORAL AL ACOSTARSE CUANDO SEA NECESARIO PARA DORMIR 3 Active losartan (Cozaar) 25 MG tablet TOME 1 TABLETA POR V A ORAL TODOS LOS D 4 Active cholestyramine (Questran) 4 g packet TAKE 1 PACKET 2 TIMES A DAY ADMINISTER W/MEAL AVOID OTHER MEDS WITHIN 1HR BEFORE OR 4-6HR AFTER DOSE 4 Active hydroCHLOROthiazid e (HYDRODiuril) 25 MG tablet TOME 1 TABLETA POR V A ORAL TODOS LOS D 4 Active hydrOXYzine HCl (Atarax) 25 MG tablet TAKE 1 TABLET BY MOUTH TWICE A DAY NEEDED PARA ANSIEDAD/PARA DORMIR Active ondansetron ODT (Zofran-ODT) 4 MG disintegrating tablet DISSOLVE 1 TABLET UNDER THE TONGUE EVERY 8 HOURS NEEDED FOR NAUSEA/VOMITIN G 4 Active sertraline (Zoloft) 100 MG tablet Take 100 mg by mouth in the morning. 4 Active traMADol (Ultram) 50 MG tablet TOME 1 TABLETA POR V A ORAL DOS VECES AL D A CUANDO SEA NECESARIO PARA EL DOLOR POR 7 D 4 Active Active Problems Problem Noted Date Diagnosed Date Normal oral exam 03/28/2024 Dental calculus 12/07/2022 Encounters Date Type Department Care Team Description 02/14/2025 2:00 PM EDT Office Visit [facility] [address] [place] [address] Rica Pastor Encounter for dental examination (Primary Dx); Generalized gingival recession; Dental calculus from Last 3 Months Immunizations Immunization Administration Dates Next Due Moderna Covid-19 Vaccine 6+ Bivalent 07/15/2022 Social History Tobacco Use Types Packs/Day Years Used Date Smoking Tobacco: Never Passive Smoke Exposure: Never Smokeless Tobacco: Never Tobacco Cessation:Counseling Given: Not Answered Comments Unknown Sex and Gender Information Value Date Recorded Sex Assigned at Female 05/04/2022 10:15 AM EDT Legal Sex Female 10:15 AM EDT Gender Identity Female 05/04/2022 10:15 AM EDT Sexual Orientation Straight 05/04/2022 10 :15 AM EDT Last Filed Vital Signs Vital Sign Reading Time Taken Comments Blood Pressure 140/84 02/14/2025 2:02 PM EDT Pulse 100 02/14/2025 2:02 PM EDT Temperature - - Respiratory Rate - - Oxygen Saturation - - Inhaled Oxygen Concentration - - Weight - - Height - - Body Mass Index - - Plan of Treatment Health Maintenance Due Date Last Done Comments CT Colonography 1964 Colonoscopy 1964 Colorectal Cancer Screening 1964 Depression Screening 1964 FIT DNA/Cologuard 1964 FIT 1964 FOBT 1964 HIV Screening 1964 Lipid Panel 1964 SDOH Screening 1964 Sigmoidoscopy 1964 Disability Screening 1964 Alcohol/Substance Use Screening 1976 Hepatitis C Screening 01/24/1982 Pap Smear 01/24/1985 Cervical Cancer Screening 01/24/1994 HPV/Cotest 01/24/1994 Mammogram 2004 Pneumococcal Vaccine: 50+ Years (3 of 3 - PCV) 06/01/2018 06/01/2017, 10/02/2016 Zoster Vaccines (2 of 2) 06/16/2022 04/21/2022 RSV Patients and Patients Aged 60 years or older (1 - Risk 60-74 years 1-dose series) 2024 Dental Prophylaxis 09/26/2024 03/28/2024, 0 07/28/2023, 12/07/2022, Additional history exists COVID-19 Vaccine (2024- season) 2025 04/12/2023, 07/15/2022, 07/13/2022, Additional history exists Influenza Vaccine (#1) 2025 , 04/06/2024, 04/08/2023, Additional history exists Dental Oral Exam 08/18/2025 02/14/2025, , 12/07/2022, Additional history exists Tobacco Screening 02/14/2026 02/14/2025 Dental X-Ray: Bitewings 02/15/2026 02/15/20, 03/28/2024, 12/07/2022, Additional history exists DTaP/Tdap/Td Vaccines (2 - Td or Tdap) 04/10/2026 04/10/2016, 11/25/2012, 01/10/2010, Additional history exists Dental X-Ray: Full Mouth 03/29/2027 03/28/2024, 01/2020 Hepatitis B Vaccines Completed 04/14/2011, 05/28/2008, 04/26/2000 HIB Vaccines Aged Out No longer eligi [...] patient's age to complete this topic Meningococcal B Vaccine Aged Out No l onger eligible based on patient's age to complete [...] Procedure Name Priority Date/Time Associated Diagnosis Comments PERIODIC ORAL EVALUATION - ESTABLISHED PATIENT Routine 02/14/2025 2:00 PM EDT INTRAORAL - PERIAPICAL EACH ADDITIONAL RADIOGRAPHIC IMAGE Routine 02/14/2025 2:00 PM EDT INTRAORAL - PERIAPICAL FIRST RADIOGRAPHIC IMAGE Routine 02/14/2025 2:00 PM EDT BITEWINGS - 4 RADIOGRAPHIC IMAGES Routine 02/14/2025 2:00 PM EDT CASE PRESENTATION, DETAILED AND EXTENSIVE TREATMENT PLANNING Routine 02/14/2025 2:00 PM EDT Full PROPHYLAXIS - ADULT Routine 11:00 AM EDT Dental calculus INTRAORAL - COMPLETE SERIES OF RADIOGRAPHIC IMAGES Routine 03/28/2024 11:00 AM EDT Dental calculus from Last 3 Months or Most Recently Relevant to Health Maintenance Insurance [facility] [address] [phone] [facility]
--- OUTSIDE RECORDS SUMMARY | 2025-04-30 09:34 | XMS_ITS | Encounter Summary ---
Author Organization [employer] Address [address] [facility] [address] [place] [address] Care Team Providers Care Doctor Of Audiology Name Role Phone Unavailable Primary Care Provider Unavailabl e Encounter Details Date Type Department Care Team (Latest Contact Info) Description 12/25/2021 Abstract [facility] CONVERSIONS Dental, Provider, DDS Social [...]
--- OUTSIDE RECORDS SUMMARY | 2025-04-30 09:34 | XMS_ITS | Encounter Summary ---
Author Organization [employer] Address [address] [facility] [address] [place] [address] Care Team Providers Care Fibre Optic Cable Splicer Name Role Phone Unavailable Primary Care Provider Unavailabl e Encounter Details Date Type Department Care Team (Latest Contact Info) Description 12/16/2018 Abstract [facility] CONVERSIONS Dental, Provider, DDS Social History Tobacco [...]
[2025-04-30 09:45] LABS: Alanine Aminotransferase 20 U/L (0-31); Albumin Level 4.5 g/dL (3.5-5.0); Alkaline Phosphatase 112 U/L (39-117); Anion Gap 13 (12-20); Aspartate Amino Transferase 24 U/L (5-31); Blood Urea Nitrogen 12 mg/dL (9-16); Calcium 10.0 mg/dL (8.4-10.2); Carbon Dioxide 27 mmol/L (22-29); Chloride 107 mmol/L (96-108); Cholesterol 211 mg/dL (<200); Estimated Glomerular Filt Rate > 60; HDL Cholesterol 66 mg/dL (>40); Potassium 4.0 mmol/L (3.3-5.1); Sodium 143 mmol/L (135-145); Total Protein 7.9 g/dL (6.5-8.0); Triglycerides 118 mg/dL (<150)
== END 2025-04-30 08:55 | disposition home or self-care (01) ==
LOC: HO.LAB 08:54
PROVIDERS: PCP Internal Medicine; Visit Provider Internal Medicine
DX: I10 Essential (primary) hypertension (principal); R23.3 Spontaneous ecchymoses
CPT/HCPCS: 36415; 80053; 80061; 85025

== ENCOUNTER 2025-05-10 11:05 | Outpatient (REF) | payer OTHER, SELFPAY ==
--- OUTSIDE RECORDS SUMMARY | 2025-05-10 13:44 | XMS_ITS | Encounter Summary ---
Author Organization [employer] Address [address] [facility] [address] [place] [address] Care Team Providers Care Coffee Weigher Name Role Phone Unavailable Primary Care Provider Unavailabl e Encounter Details Date Type Department Care Team (Latest Contact Info) Description 12/16/2018 Abstract [facility] CONVERSIONS Dental, Provider, DDS Social [...]
--- OUTSIDE RECORDS SUMMARY | 2025-05-10 13:44 | XMS_ITS | Encounter Summary ---
Author Organization [employer] Address [address] [facility] [address] [place] [address] Care Team Providers Care Remittance Clerk Name Role Phone Unavailable Primary Care Provider Unavailabl e Encounter Details Date Type Department Care Team (Latest Contact Info) Description 04/10/2020 Abstract [facility] CONVERSIONS Dental, Provider, DDS Social History Tobacco [...]
--- OUTSIDE RECORDS SUMMARY | 2025-05-10 13:44 | XMS_ITS | Encounter Summary ---
Author Organization [employer] Address [address] [facility] 7[address] [place] [address] Care Team Providers Care Potato Chip Processing Supervisor Name Role Phone Unavailable Primary Care Provider Unavailabl e Encounter Details Date Type Department Care Team (Latest Contact Info) Description 12/25/2021 Abstract [facility] CONVERSIONS Dental, Provider, DDS Social [...]
--- OUTSIDE RECORDS SUMMARY | 2025-05-10 13:45 | XMS_ITS | Clinical Summary ---
Author Organization [employer] Address [address] [facility] [address] [place] [address] Care Team Providers Care Cost Reduction Engineer Name Role Phone Unavailable Primary Care [...] Description 02/14/2025 2:00 PM EDT Office Visit [facility]ULT [facility] [address] [place] [address] Rica Pastor Encounter for dental examination (Primary [...] Most Recently Relevant to Health Maintenance Insurance [facility] [address] [phone] [facility]
== END 2025-05-10 11:06 | disposition home or self-care (01) ==
LOC: HO.LNP 11:05
PROVIDERS: Visit Provider Nurse Practitioner
DX: A04.8 Other specified bacterial intestinal infections (principal)
CPT/HCPCS: 87338

== ENCOUNTER → 2025-05-17 10:33 | Outpatient (BNVA) | payer OTHER, SELFPAY | PROVIDERS: PCP Internal Medicine | DX: Z01.30 Encounter for examination of blood pressure without abnormal findings (principal) | CPT/HCPCS: 99211 ==

== ENCOUNTER 2025-05-25 08:54 | Outpatient (REF) | payer OTHER, SELFPAY ==
--- NOTE | ~2025-05-25 | MM_ITS ---
EXAMINATION: MM SCREENING DIGITAL BREAST TOMOSYNTHESIS, BILATERAL CLINICAL INFORMATION: Screening. Asymptomatic. COMPARISON: Mammography: Comparison is made with available priors TECHNIQUE: Digital breast mammography with tomosynthesis is performed in both the craniocaudal and mediolateral oblique views along with computer-aided detection (CAD). FINDINGS: There are scattered areas of fibroglandular density. There are no significant masses, abnormal calcifications, or other abnormalities. MM/MM tomosynthesis screening BI IMPRESSION: No mammographic evidence of malignancy. ASSESSMENT: BI-RADS Category 1: Negative RECOMMENDATION: Routine annual mammography screening. 1 year F/U This examination should not preclude the clinical evaluation of a suspicious palpable abnormality. This patient's information was entered into a reminder system with a target due date for their next mammogram. Electronically signed by: Zeina Mercedes DO 05/28/2025 06:06 PM LISA
--- OUTSIDE RECORDS SUMMARY | 2025-05-25 09:05 | XMS_ITS | Encounter Summary ---
Author Organization [employer] Address [address] [facility] [address] [place] [address] Care Team Providers Care Numerical Tool Programmer Name Role Phone Unavailable Primary Care Provider Unavailabl e Encounter Details Date Type Department Care Team (Latest Contact Info) Description 04/10/2020 Abstract [facility] CONVERSIONS Dental, Provider, DDS [...]
--- OUTSIDE RECORDS SUMMARY | 2025-05-25 09:05 | XMS_ITS | Encounter Summary ---
Author Organization [employer] Address [address] [facility] [address] [place] [address] Care Team Providers Care Pigskin Trimmer Name Role Phone Unavailable Primary Care Provider Unavailabl e Encounter Details Date Type Department Care Team (Latest Contact Info) Description 12/25/2021 Abstract [facility] CONVERSIONS Dental, [...]
--- OUTSIDE RECORDS SUMMARY | 2025-05-25 09:05 | XMS_ITS | Clinical Summary ---
Author Organization [employer] Address [address] [facility] 7[address] [place] [address] Care Team Providers Care Waiter Name Role Phone Unavailable Primary Care Provider [...] Normal oral exam 03/28/2024 Dental calculus 12/07/2022 Immunizations Immunization Administration Dates Next Due Moderna [...] Vaccines (2 of 2) 06/16/2022 04/21/2022 Dental Prophylaxis 09/26/2024 03/28/2024, 0 07/28/2023, 12/07/2022, Additional history exists COVID-19 Vaccine ( season) 2025 04/12/2023, 07/15/2022, 07/13/2022, Additional history exists Influenza Vaccine (#1) 2025 , 04/06/2024, 04/08/2023, Additional history exists Dental Oral Exam 08/18/2025 02/14/2025, , 12/07/2022, Additional history exists Tobacco Screening 02/14/2026 02/14/2025 Dental X-Ray: Bitewings 02/15/2026 02/15/20 25, 03/28/2024, 12/07/2022, Additional history exists DTaP/Tdap/Td Vaccines (2 - Td or Tdap) 04/10/2026 04/10/2016, 11/25/2012, 01/10/2010, Additional history exists Dental X-Ray: Full Mouth 03/29/2027 03/28/2024, 01/2020 RSV Patients and Patients Aged 60 years [...] Procedure Name Priority Date/Time Associated Diagnosis Comments BITEWINGS - 4 RADIOGRAPHIC IMAGES Routine 02/14/2025 2:00 PM EDT PERIODIC ORAL EVALUATION - ESTABLISHED PATIENT Routine 02/14/2025 2:00 PM EDT Full PROPHYLAXIS - ADULT Routine 024 11:00 AM EDT Dental calculus INTRAORAL - COMPLETE SERIES OF RADIOGRAPHIC IMAGES Routine 03/28/2024 11:00 AM EDT Dental calculus from Last 3 Months or Most Recently Relevant to Health Maintenance Insurance [facility] Member Subscriber Plan / Payer ( fective 2018-Present) Name:Randa Fulton Relation to Subscriber:Self Name:Randa Fulton Payer ID:[id number] (NAIC) Group ID:[id number] Type:Not on file Address: [address] [facility]
--- OUTSIDE RECORDS SUMMARY | 2025-05-25 09:05 | XMS_ITS | Encounter Summary ---
Author Organization [employer] Address [address] [facility] [address] [place] [address] Care Team Providers Care Rotary Driller Name Role Phone Unavailable Primary Care Provider Unavailabl e Encounter Details Date Type Department Care Team (Latest Contact Info) Description 12/16/2018 Abstract [facility] CONVERSIONS Dental, Provider, DDS Social History [...]
== END 2025-05-25 08:55 | disposition home or self-care (01) ==
LOC: HO.MAMMO 08:54
PROVIDERS: Visit Provider Internal Medicine
DX: Z12.31 Encounter for screening mammogram for malignant neoplasm of breast (principal)
CPT/HCPCS: 77063; 77067

== ENCOUNTER → 2025-05-25 09:15 | Outpatient (BNV) | payer OTHER, SELFPAY | PROVIDERS: Visit Provider Internal Medicine | DX: Z12.31 Encounter for screening mammogram for malignant neoplasm of breast (principal) | CPT/HCPCS: 77063; 77067 ==

== ENCOUNTER 2025-06-13 08:38 | Outpatient (AMB) | payer OTHER, SELFPAY ==
--- NOTE | 2025-06-13 09:13 | MHC.OFFVIS ---
Vital Signs 06/13/25 09:17 Height 5 ft Weight 160 lb 14.999 oz BMI 31.4 BP 130/83 Blood Pressure Location Lt brachial Position Sitting Pulse 88 Intake Visit Reasons: 2 mos FUV. Intake Note: Randa presents in follow up for H pylori results. CC: Patient reports doing well with omeprazole. Ediphone Operator Required: Yes Accompanied by: Self / Same As Patient Allergies adhesive tape Allergy (Intermediate, Verified 06/13/25 09:23) Redness of Skin metronidazole (Flagyl) Allergy (Intermediate, Verified 06/13/25 09:23) hives fish derived (fish) Adverse Reaction (Intermediate, Verified 06/13/25 09:23) Diarrhea shrimp Adverse Reaction (Intermediate, Verified 06/13/25 09:23) Diarrhea wheat Adverse Reaction (Intermediate, Verified 06/13/25 09:23) Diarrhea HPI HPI 2 mos FUV.: Details: Assessment & Plan (1) H. pylori infection: Code(s): A04.8 - Other specified bacterial intestinal infections Category: Medical (2) GERD (gastroesophageal reflux disease): Code(s): K21.9 - Gastro-esophageal reflux disease without esophagitis Category: Medical Qualifiers: Esophagitis presence: esophagitis presence not specified Qualified Code(s): K21.9 - Gastro-esophageal reflux disease without esophagitis (3) Chronic idiopathic constipation: Code(s): K59.04 - Chronic idiopathic constipation Category: Medical Plan Sami #Debra Maza She is currently on omeprazole 20 mg twice a day and Colace. - The patient is a 60-year-old female presenting with a follow-up on Helicobacter pylori treatment. - Completed H. pylori treatment last month and is scheduled for a follow-up stool test. - Managed GERD effectively with omeprazole administered once daily, noting significant reduction in heartburn. - Constipation is managed with docusate, used on an as-needed basis, leading to regular bowel movements. - Reports weight loss likely attributed to dietary changes and successful management of gastrointestinal symptoms. - Follow-up stool test planned to confirm treatment efficacy. Orders: Orders H pylori Ag Stool 04/12/25 A04.8 - Other specified bacterial intestinal infections Medications: New docusate sodium 100 mg PO BID PRN 60 caps 6RF constipation Changed From omeprazole 20 mg PO BID 28 days 56 tabs 0RF A04.8 - Other specified bacterial intestinal infections To omeprazole 20 mg PO DAILY 30 tabs 6RF 30 days A04.8 - Other specified bacterial intestinal infections Labs: Laboratory Tests 05/10/25 09:00 Stool H. pylori Ag positive TODAY'S VISIT Sami # V live ON LICENSE OF [facility] Medical History Physical exam Post-cholecystectomy syndrome Chronic diarrhea Chronic GERD Encounter for well woman exam with routine gynecological exam Pre-op evaluation Pre-op evaluation Chronic pain of left knee Hx of lymphoma Back pain Hx of renal calculi Seasonal allergies Allergic rhinitis Restrictive lung disease Acquired skin tag Snoring Dyspnea on exertion KASIE (obstructive sleep apnea) Vaginal irritation Hematuria Elevated platelet count UTI (urinary tract infection) Headache Primary insomnia Arthritis of both knees Dextroscoliosis Bilateral knee pain Tendonitis of wrist, left Lumbar pain Obese Rash and nonspecific skin eruption Tubular adenoma of colon Intestinal malabsorption Hodgkin lymphoma Surgical History History of knee surgery H/O knee surgery H/O: hysterectomy S/P cholecystectomy History of esophagogastroduodenoscopy History of colonoscopy Hx of cataract extraction Family History Mother Diabetes High blood pressure Father Pacemaker Diabetes CAD (coronary artery disease) CKD (chronic kidney disease) Maternal Aunt Stomach cancer Maternal Aunt Liver cancer Social History Household Members: None Housing: Apartment Are you a primary career portals teacher to a significant other at home: No Do you presently have visiting nurse or other home services: Yes (2 x week CNC SERVICE ENGINEER, 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) 75 years or older and lives alone: No Alcohol intake: never Comment: medicated Patient Tobacco Use Status: Never used Tobacco e-Cigarette/Vaping Use: Never Used Second Hand Smoke Exposure: No service: No Current occupational status: unemployed and disabled Cognitive needs: Yes Hearing needs: No Vision needs: Yes Female Reproductive History Menstrual Age of Menarche: 12 Review of Systems ENT Reports Normal hearing present Neuro Reports Normal hearing present and Denies Abnormal speech present Physical Exam Vital Signs: Last Vital Signs Pulse 88 06/13/25 09:17 BP 130/83 06/13/25 09:17 BMI result Body Mass Index 31.4 Const General: cooperative, no acute distress, well developed and well groomed Nutritional Appearance: well nourished and obese Orientation/consciousness: oriented to person, oriented to place and oriented to time Limitations: language barrier HEENT Head: Yes normocephalic and Yes atraumatic Eyes General: appearance normal, both eyes and all related structures Pupils: Equal, round and reactive pupils present Neck Neck: Yes normal visual inspection and Yes no lymphadenopathy Thyroid: Thyroid normal Resp Effort & Inspection: normal respiratory effort and able to speak in complete sentences Auscultation: clear to auscultation bilaterally Cardio Rate: regular rate Rhythm: regular rhythm Heart sounds: Normal, physiologic split S2 sound present Peripheral pulses: radial pulses present and posterior tibial pulses present GI Inspection: No distended, Yes Abdominal panniculus present and Yes obesity Palpation (GI): Soft to palpation, nontender, no guarding, not rigid and No hepatosplenomegaly present Percussion: Yes normal to percussion Auscultation: normal bowel sounds Rectal Exam - Female: deferred Skin General skin exam: no rashes or lesions noted, turgor normal, skin not dry, no jaundice, No spider nevi and no striae Rashes: no rashes Nails: normal Neuro General: oriented to person, oriented to place and oriented to time Cranial nerves: Yes Equal, round and reactive pupils present and Yes Normal hearing present Speech: No Abnormal speech present Extrem General: Yes normal to inspection, No clubbing, No cyanosis and No edema Psych Appearance: grossly normal and well kempt Mental Status: mental status grossly normal Speech and movement: Normal speech and movement present Affect: normal affect Attitude: cooperative Thought process: Normal thought process present and not confabulating Thought content: Normal thought content present Insight: Good insight present (Psych) Judgement: Good judgement present (Psych) Assessment & Plan Assessment & Plan (1) H. pylori infection: Code(s): A04.8 - Other specified bacterial intestinal infections Category: Medical (2) GERD (gastroesophageal reflux disease): Code(s): K21.9 - Gastro-esophageal reflux disease without esophagitis Category: Medical Qualifiers: Esophagitis presence: esophagitis presence not specified Qualified Code(s): K21.9 - Gastro-esophageal reflux disease without esophagitis Plan Subjective Patient presents for follow-up of Helicobacter pylori infection. Reports feeling well overall and eating more. Completed one prior course of treatment and subsequently had a stool test that remained positive for H. pylori. She failed treatment with Levaquin and amoxicillin. I take time to verify that she took the last course correctly and she had both antibiotics and she reports that she did. Relevant Past Medical, Social, and Family History - History of allergic reaction to metronidazole (Flagyl) characterized by diffuse hives and significant pruritus. Objective - Stool antigen test remained positive for H. pylori following the initial treatment course. Assessment & Plan Helicobacter pylori infection: Persistent infection after one prior treatment course. Management options are limited by confirmed metronidazole (Flagyl) allergy causing urticarial reaction. Will proceed with alternative antibiotic regimen and acid suppression. - Prescribe clarithromycin course. - Prescribe amoxicillin course (re-treatment). - Instruct to take omeprazole twice daily during the antibiotic courses; only required during treatment (14 days per course as directed). - For tolerability during the holiday period, take one antibiotic course for two weeks, then immediately start the second antibiotic course for two weeks (sequential use as discussed). - No specific alcohol restrictions with these antibiotics were noted. - Education provided that H. pylori is not spread person to person. - Arrange follow-up in approximately 8 weeks for reassessment and to obtain a post-treatment stool test after an appropriate interval to ensure accurate results. Medications: New clarithromycin 500 mg PO BID 28 tabs 0RF 14 days amoxicillin 1,000 mg (2 x 500 mg) PO Q12H 56 caps 0RF 14 days Changed From omeprazole 20 mg PO DAILY 30 days 30 tabs 6RF A04.8 - Other specified bacterial intestinal infections To omeprazole 20 mg PO BID 28 tabs 6RF 14 days A04.8 - Other specified bacterial intestinal infections Coding Level of Care Code Est Pt Level 3 (50079) Diagnoses H. pylori infection A04.8 Gastroesophageal reflux disease, unspecified whether esophagitis present K21.9 Esophagitis presence: esophagitis presence not specified
[2025-06-13 09:17] VITALS: BP 130/83; PULSE 88; BMI 31.4
== END 2025-06-13 11:06 | disposition home or self-care (01) ==
LOC: HO.HGI 08:39
PROVIDERS: PCP Internal Medicine; Visit Provider Nurse Practitioner
DX: A04.8 Other specified bacterial intestinal infections (principal); K21.9 Gastro-esophageal reflux disease without esophagitis
CPT/HCPCS: 99213

== ENCOUNTER → 2025-06-13 08:38 | Outpatient (BNVA) | payer OTHER, SELFPAY | PROVIDERS: PCP Internal Medicine; Visit Provider Nurse Practitioner | DX: A04.8 Other specified bacterial intestinal infections (principal); K21.9 Gastro-esophageal reflux disease without esophagitis | CPT/HCPCS: 99212 ==